=== PATIENT | female | born 1970 | race Two or more races ===

== ENCOUNTER 2020-03-21 10:48 | Emergency (ER) | payer OTHER, SELFPAY ==
--- NOTE | 2020-03-21 10:51 | ED_ITS ---
HPI - Abdominal Pain General Chief Complaint: General Medical Stated Complaint: R SIDE PAIN X'S 3 DAYS Time Seen by Provider: 03/21/20 10:51 Source: patient, EMS and old records reviewed Mode of arrival: EMS Limitations: no limitations History of Present Illness MD elicited complaint: other (R arm and R rib pain) Pertinent past history: none Onset (ago): day(s) (2) Pain Consistency: constant Location: other (R arm and R ribs) Severity: moderate Quality: aching and dull Radiation: none Exacerbating factors: movement (movement of R arm or twisting trunk ) Relieving factors: nothing Context: other (denies any known trauma or injury, states she is R handed) Associated symptoms: nausea and vomiting (vomited x 1 due to pain) Treatments prior to arrival: prescription analgesics (states her doctor has given her T#3 with good results) Related Data Previous Rx's Medication Instructions Recorded hydrochlorothiazide 25 mg tablet 25 mg PO DAILY 90 Days #90 tab 02/29/20 cyclobenzaprine 10 mg PO TID PRN #14 tab 03/21/20 lidocaine 1 patch TOPICAL DAILY PRN #10 ea 03/21/20 Allergies Allergy/AdvReac Type Severity Reaction Status Date / Time ibuprofen [IBUPROFEN] Allergy Intermediate RASH Unverified 02/03/20 16:53 lisinopril [LISINOPRIL] Allergy Intermediate RASH Unverified 02/03/20 16:53 lactulose [LACTULOSE] Allergy Mild STOMACH Unverified 02/03/20 16:53 ACHE lactose [LACTOSE] AdvReac Mild DIARRHEA Unverified 02/03/20 16:53 Ibuprofen Allergy Unknown rash Uncoded 01/17/20 00:00 lactose Allergy Unknown Uncoded 12/08/19 00:00 Review of Systems Review of Systems Constitutional : No Fever, No Chills ENT/Mouth : No Ear Pain, No Hoarseness, No sore throat Eyes: No Eye Pain, No Swelling, No Redness, No Foreign Body Cardiovascular : Pos R rib pain, No SOB Respiratory : No Cough, No Dyspnea Gastrointestinal : po Nausea, pos Vomiting, No Diarrhea, No abdominal Pain Genitourinary : No Dysuria, No Hematuria Musculoskeletal : positive joint pain, pos Myalgias, No Joint Swelling Skin : No Skin lacerations, No rash Neuro : No Weakness, No Numbness, No Loss of Consciousness, No Dizziness, No Headache Psych : No Anxiety/Panic, No Depression Heme/Lymph: no easy bruising, no Lymphadenopathy Endocrine : No Polyuria, No Polydipsia All other systems reviewed and are negative Physical Exam Vital Signs: Vital Signs: Vital Signs Temp Pulse Resp BP Pulse Ox 03/21/20 12:47 98.8 F 80 18 139/87 95 03/21/20 10:59 97.8 F 83 20 135/81 98 Body Mass Index 45.4 Appearance: Alert. Oriented X3. No acute distress. Eyes: Pupils equal, round and reactive to light. ENT: Pharynx normal. Neck: Normal inspection. Neck supple. CVS: Normal heart rate and rhythm. Pulses normal. Chest: normal inspection - no rash no bruising, + ttp along R lateral and ante rior ribs Respiratory: No respiratory distress. Breath sounds normal. Abdomen: Soft and nontender. Skin: Skin warm and dry. Normal skin color. Normal skin turgor. Extremities: No lower extremity edema. No calf ttp pain with ROM of R arm, distal NV intact Neuro: Oriented X 3. No motor deficit. No sensory deficit. Course Course Course Narrative: no acute findings stable for DC MDM - Abdominal Pain MDM Narrative Medical decision making narrative: 49 yo female with reproduceable R sided arm and Rib pain without known trauma, very ttp to just ROM and touching, NV intact, no rash noted, no other acute findings on exam, labs, EKG, Rib xray ordered, seems atypical for ACS given markedly reproduceable MSK pain. Lab Data Result diagrams: 03/21/20 11:14 03/21/20 11:14 Labs: Lab Results 03/21/20 03/21/20 03/21/20 Range/Units 11:14 11:14 12:50 WBC 4.2 L (4.8-10.8) X10*3/uL RBC 3.69 L (4.20-5.50) X10*6/uL Hgb 12.4 (12.0-16.0) g/dl Hct 36.2 L (37-47) % MCV 98.1 H (80-98) fL MCH 33.6 H (27.0-33.0) pg MCHC 34.3 (31.0-35.0) g/dl RDW 12.5 (11.0-16.0) % Plt Count 180 (160-400) X10*3/uL MPV 9.7 (9.4-12.3) fL Immature Gran % (Auto) 0.5 H (0.0-0.4) % Neut % (Auto) 56.5 (45-73) % Lymph % (Auto) 34.3 (20-40) % [place] % (Auto) 6.6 (2-11) % Eos % (Auto) 1.4 (0-4) % Baso % (Auto) 0.7 (0-2) % Lymph # (Auto) 1.5 (1.2-4.9) X10*3/uL [place] # (Auto) 0.3 (0.1-1.2) X10*3/uL Eos # (Auto) 0.1 (0.0-0.4) X10*3/uL Baso # (Auto) 0.0 (0.0-0.2) X10*3/uL Abs Immat Gran (auto) 0.02 (0.00-0.03) X10*3/uL Absolute Neuts (auto) 2.4 (2.0-8.3) X10*3/uL Absolute Nucleated RBC 0.000 (0.0-0.012) X10*3/uL Nucleated RBC % (auto) 0.0 (0.0-0.2) /100WBC Sodium 140 (135-145) mmol/L Potassium 3.7 (3.3-5.1) mmol/l Chloride 102 (96-108) mmol/L Carbon Dioxide 30 H (22-29) mmol/L Anion Gap 12 (12-20) BUN 10 (9-16) mg/dL Creatinine 0.88 (0.5-1.4) mg/dL Estim Creat Clear Calc 80.6 Estimated GFR > 60 Random Glucose 90 (60-115) mg/dL Calcium 10.3 H (8.4-10.2) mg/dL Magnesium 2.0 (1.6-2.6) mg/dL Total Bilirubin 0.6 (0.0-1.0) mg/dL Direct Bilirubin < 0.2 (0.0-0.5) mg/dL AST 18 (5-31) U/L ALT 22 (0-31) U/L Alkaline Phosphatase 93 (39-117) U/L Total Protein 6.7 (6.5-8.0) g/dL Albumin 4.2 (3.5-5.0) g/dL Lipase 14 (8-78) U/L Urine Color YELLOW Urine Appearance HAZY Urine pH 7.0 (5.0-8.0) Ur Specific [place] 1.020 (1.005-1.025) Urine Protein NEG (NEG-TRACE) MG/DL Urine Glucose (UA) NEG (NEG) MG/DL Urine Ketones NEG (NEG) MG/DL Urine Blood NEG (NEG) Urine Nitrite NEG (NEG) Ur Leukocyte Esterase NEG (NEG) ECG Data Attestation: I personally reviewed and interpreted this ECG as follows: ECG interpretation date: 03/21/20 ECG interpretation time: 11:17 Interpretation: Rate: 77 Rhythm: NSR [place]: left Normal P waves. Normal TESHA. Normal QRS complex. ST T wave : nonspecific qTC: normal prior studies: no ischemia no change September 2019 The study has been interpreted contemporaneously by me. . Discharge Plan Discharge Clinical Impression: Rib pain on right side, Muscle strain Patient Disposition: Home, Self-Care Instructions: Muscle Strain (ED) Additional Instructions: return to ED for any worsening symptoms or concerns Prescriptions: New cyclobenzaprine 10 mg tablet 10 mg PO TID PRN (Reason: muscle spasm) Qty: 14 RF: 0 lidocaine 4 % adhesive patch,medicated 1 patch topical DAILY PRN (Reason: pain) Qty: 10 RF: 0 No Action hydrochlorothiazide 25 mg tablet 25 mg PO DAILY 90 Days Qty: 90 RF: 1 Referrals: Marcus Herman PA-C [Primary Care Provider] - 2 days (if not better) [facility] Past Medical History Attestation statement: The following information was validated with the patient. Medical History (Updated 03/21/20 @ 13:25 by Kelly Murray DO) Chronic abdominal pain Hernia IBS (irritable bowel syndrome) Pancreatitis Renal colic Surgical History (Updated 03/21/20 @ 10:53 by Kelly Murray DO) H/O: hysterectomy History of cholecystectomy Social History Social History (Updated 03/21/20 @ 10:53 by Kelly Murray DO) Alcohol intake: never Smoking Status: Never smoker Use of substances other than those prescribed or required for medical reasons: No Advance Directives: No Advance Directives Information Provided: No
--- NOTE | 2020-03-21 10:58 | ECG_ITS ---
Test Reason : RIGHT SIDED PAIN Blood Pressure : / mmHG Vent. Rate : 077 BPM Atrial Rate : 077 BPM P-R Int : 160 ms QRS Dur : 094 ms QT Int : 376 ms P-R-T Axes : 044 001 -15 degrees QTc Int : 425 ms Normal sinus rhythm Nonspecific T wave abnormality Abnormal ECG When compared with ECG of 31-DEC-2019 20:39, Nonspecific T wave abnormality is new Referred By: Kelly Murray Electronically Signed By:ROSY KUMARI MD
--- NOTE | 2020-03-21 10:58 | XR_ITS ---
EXAMINATION: XR RIBS, RIGHT CLINICAL INFORMATION: Pain right side. COMPARISON: Chest 11/24/2019 TECHNIQUE: 3 views of the right ribs were obtained. FINDINGS: The lungs are well-expanded and clear of acute process. The heart size and pulmonary vascularity is normal. There is mild spondylosis dorsal spine. No lytic process seen. XR/XR ribs RT min 3V w CXR1V IMPRESSION: Unremarkable chest exam.
[2020-03-21 10:59] VITALS: BP 125/83; BP 135/81; PULSE 83; PULSE 97; RESP 20; TEMP 36.6; O2SAT 98; BMI 45.4
[2020-03-21] MEDS: Cyclobenzaprine HCl 10 MG TABLET PO (11:10)
[2020-03-21] MEDS: HYDROcodone Bit/Acetam 5/325 TABLET 1 TAB PO (11:11)
[2020-03-21 11:22] LABS: MANUAL DIFF FLAG NO
[2020-03-21 11:27] LABS: Basophils Percent Auto 0.7 % (0-2); Eosinophils Absolute Auto 0.1 X10*3/uL (0.0-0.4); Eosinophils Percent Auto 1.4 % (0-4); Hematocrit 36.2 % (37-47); Hemoglobin 12.4 g/dl (12.0-16.0); Imm Gran Abs Auto 0.02 X10*3/uL (0.00-0.03); Imm Gran Pct Auto 0.5 % (0.0-0.4); Lymphocytes Absolute Auto 1.5 X10*3/uL (1.2-4.9); Lymphocytes Percent Auto 34.3 % (20-40); Mean Corpuscular HGB Conc 34.3 g/dl (31.0-35.0); Mean Corpuscular Hemoglobin 33.6 pg (27.0-33.0); Mean Corpuscular Volume 98.1 fL (80-98); Mean Platelet Volume 9.7 fL (9.4-12.3); Monocytes Absolute Auto 0.3 X10*3/uL (0.1-1.2); Monocytes Percent Auto 6.6 % (2-11); Neutrophils Absolute Auto 2.4 X10*3/uL (2.0-8.3); Neutrophils Percent Auto 56.5 % (45-73); Platelet Count 180 X10*3/uL (160-400); Red Blood Count 3.69 X10*6/uL (4.20-5.50); Red Cell Distribution Width 12.5 % (11.0-16.0); White Blood Count 4.2 X10*3/uL (4.8-10.8)
[2020-03-21 11:47] LABS: Alanine Aminotransferase 22 U/L (0-31); Albumin Level 4.2 g/dL (3.5-5.0); Alkaline Phosphatase 93 U/L (39-117); Aspartate Amino Transferase 18 U/L (5-31); Bilirubin Direct < 0.2 mg/dL (0.0-0.5); Bilirubin Total 0.6 mg/dL (0.0-1.0); Lipase 14 U/L (8-78); Total Protein 6.7 g/dL (6.5-8.0)
[2020-03-21 12:05] LABS: Anion Gap 12 (12-20); Blood Urea Nitrogen 10 mg/dL (9-16); Calcium 10.3 mg/dL (8.4-10.2); Carbon Dioxide 30 mmol/L (22-29); Chloride 102 mmol/L (96-108); Creatinine Clr Calc Pharmacy 80.6; Estimated Glomerular Filt Rate > 60; Glucose Random 90 mg/dL (60-115); Potassium 3.7 mmol/l (3.3-5.1); Sodium 140 mmol/L (135-145)
[2020-03-21 12:47] VITALS: BP 139/87; PULSE 80; RESP 18; TEMP 37.1; O2SAT 95
[2020-03-21 13:14] LABS: Appearance Urine HAZY; Color Urine YELLOW; Glucose Urine UA NEG (NEG); Leukocyte Esterase Urine NEG (NEG); Nitrite Urine NEG (NEG); UACC Culture Trigger NO; Urine Blood NEG (NEG); Urine Ketones NEG (NEG); Urine Protein NEG (NEG-TRACE)
== END 2020-03-21 13:47 | disposition home or self-care (01) ==
PROVIDERS: Emergency Provider Emergency Medicine; PCP Physician Assistant
DX: S29.011A Strain of muscle and tendon of front wall of thorax, initial encounter (principal); S21.102A Unspecified open wound of left front wall of thorax without penetration into thoracic cavity, initial encounter; S21.101A Unspecified open wound of right front wall of thorax without penetration into thoracic cavity, initial encounter; R07.81 Pleurodynia; M79.601 Pain in right arm; Z79.899 Other long term (current) drug therapy; X50.1XXA Overexertion from prolonged static or awkward postures, initial encounter; Y93.9 Activity, unspecified; Y92.9 Unspecified place or not applicable; Y99.9 Unspecified external cause status
CPT/HCPCS: 36415; 71101; 80048; 80076; 81003; 83690; 83735; 85025; 93005; 99283; 99284

== ENCOUNTER 2020-04-10 14:21 | Emergency (ER) | payer OTHER, SELFPAY ==
[2020-04-10 14:36] VITALS: BP 167/80; PULSE 90; RESP 18; TEMP 36.4; O2SAT 98; BMI 45.7
[2020-04-10 15:49] LABS: Glucose Urine UA NEG (NEG); Leukocyte Esterase Urine NEG (NEG); Nitrite Urine NEG (NEG); Urine Blood NEG (NEG); Urine Ketones NEG (NEG); Urine Protein NEG (NEG-TRACE)
[2020-04-10 15:50] LABS: Appearance Urine CLOUDY; Color Urine YELLOW
--- NOTE | 2020-04-10 16:10 | ED.GENADULT ---
HPI - General Adult General Chief complaint: General Medical <TYRELL Posey Last Filed: 04/10/20 21:50> Stated complaint: ABD PAIN <TYRELL Posey Last Filed: 04/10/20 21:50> Time Seen by Provider: 04/10/20 16:10 <TYRELL Posey Last Filed: 04/10/20 21:50> History of Present Illness HPI narrative: Patient complains of right-sided abdominal pain that is worse with movement which has been present for 2 days, it is worse with certain positions but is there continuously and started when she was straining at stool, there is no swelling no nausea no vomiting no diarrhea no fever no chills, no anorexia, no urinary symptoms <TYRELL Posey Last Filed: 04/10/20 21:50> Related Data Home medications: Previous Rx's Medication Instructions Recorded hydrochlorothiazide 25 mg tablet 25 mg PO DAILY 90 Days #90 tab 02/29/20 cyclobenzaprine 10 mg PO TID PRN #14 tab 03/21/20 lidocaine 1 patch TOPICAL DAILY PRN #10 ea 03/21/20 hydrocodone-acetaminophen 1 tab PO Q6H PRN #10 tab 04/10/20 amlodipine 5 mg tablet 5 mg PO DAILY 30 Days #30 tab 04/17/20 meclizine 25 mg tablet 25 mg PO DAILY PRN 30 Days #30 tab 04/17/20 <TYRELL Posey Last Filed: 04/10/20 21:50> Allergies/adverse reactions: Allergies Allergy/AdvReac Type Severity Reaction Status Date / Time ibuprofen [IBUPROFEN] Allergy Intermediate RASH Verified 04/10/20 14:39 lisinopril [LISINOPRIL] Allergy Intermediate RASH Verified 04/10/20 14:39 lactulose [LACTULOSE] Allergy Mild STOMACH Verified 04/10/20 14:39 ACHE <TYRELL Posey Last Filed: 04/10/20 21:50> Review of Systems Review of Systems: Patient id denies fever chills dizziness weakness, there is no difficulty breathing or swallowing there is no chest pain no shortness of breath no palpitations, there is no nausea or vomiting no diarrhea, there is no burning with urination or frequency of urination, there is no skin rash, there is no numbness or weakness, no blood in the stool <TYRELL Posey Last Filed: 04/10/20 21:50> Yes all other systems are reviewed and are negative <TYRELL Posey - Last Filed: 04/10/20 21:50> [facility] Past Medical History [facility] Narrative: Patient has history of gallbladder surgery, no drugs or alcohol <TYRELL Posey - Last Filed: 04/10/20 21:50> Source: nursing notes reviewed <TYRELL Posey - Last Filed: 04/10/20 21:50> Medical History: Medical History (Updated 04/17/20 @ 16:53 by Marcus Herman PA-C) Chronic abdominal pain Hernia IBS (irritable bowel syndrome) Pancreatitis Renal colic <TYRELL Posey - Last Filed: 04/10/20 21:50> Surgical History: Surgical History (Updated 03/21/20 @ 10:53 by Kelly Murray DO) H/O: hysterectomy History of cholecystectomy <TYRELL Posey - Last Filed: 04/10/20 21:50> Social History Social History: Social History (Updated 03/21/20 @ 10:53 by Kelly Murray DO) Alcohol intake: never Smoking Status: Never smoker Use of substances other than those prescribed or required for medical reasons: No Advance Directives: No Advance Directives Information Provided: Yes <TYRELL Posey - Last Filed: 04/10/20 21:50> Physical Exam Vital Signs: Vital Signs: Last Vital Signs Temp 98.7 F 04/10/20 18:00 Pulse 87 04/10/20 18:00 Resp 16 04/10/20 18:00 BP 134/76 04/10/20 18:00 Pulse Ox 99 04/10/20 18:00 Body Mass Index 45.7 <TYRELL Posey - Last Filed: 04/10/20 21:50> Vital Signs: Last Vital Signs Temp 98.7 F 04/10/20 18:00 Pulse 87 04/10/20 18:00 Resp 16 04/10/20 18:00 BP 134/76 04/10/20 18:00 Pulse Ox 99 04/10/20 18:00 Body Mass Index 45.7 <Alec Lopez MD - Last Filed: 04/19/20 07:01> Patient is A&O x3, no acute distress, cooperative anicteric no pallor The pharynx is moist, clear Neck is supple The chest is clear to auscultation bilaterally, chest wall nontender Breath sounds are full symmetrical and equal The heart no murmurs The abdomen has right upper quadrant tenderness without rebound or guarding the back has no CVA tenderness Extremities there is no edema, no calf tenderness Skin no rash Neuro no focal deficit <TYRELL Posey - Last Filed: 04/10/20 21:50> Course Course Course Narrative: Patient had lab sent without any acute finding, urinalysis was normal and patient has no urinary symptoms CT was negative Repeat exam is unchanged pain is mostly with movement so likely pain is from muscles and abdominal wall from straining at stool, repeat abdominal exam was no rebound no guarding, patient tolerates p.o. and was discharged home <TYRELL Posey - Last Filed: 04/10/20 21:50> I have reviewed the chart <Alec Lopez MD - Last Filed: 04/19/20 07:01> Medical Decision Making Lab Data Lab results reviewed: Yes I reviewed the patient's lab results. <TYRELL Posey - Last Filed: 04/10/20 21:50> Result diagrams: : 04/10/20 16:31 04/10/20 16:31 <TYRELL Posey - Last Filed: 04/10/20 21:50> Labs: Lab Results 04/10/20 04/10/20 04/10/20 Range/Units 15:41 16:31 16:31 WBC 4.4 L (4.8-10.8) X10*3/uL RBC 3.26 L (4.20-5.50) X10*6/uL Hgb 11.1 L (12.0-16.0) g/dl Hct 32.1 L (37-47) % MCV 98.5 H (80-98) fL MCH 34.0 H (27.0-33.0) pg MCHC 34.6 (31.0-35.0) g/dl RDW 11.9 (11.0-16.0) % Plt Count 162 (160-400) X10*3/uL MPV 9.5 (9.4-12.3) fL Immature Gran % (Auto) 0.2 (0.0-0.4) % Neut % (Auto) 54.1 (45-73) % Lymph % (Auto) 36.3 (20-40) % [place] % (Auto) 7.3 (2-11) % Eos % (Auto) 1.4 (0-4) % Baso % (Auto) 0.7 (0-2) % Lymph # (Auto) 1.6 (1.2-4.9) X10*3/uL [place] # (Auto) 0.3 (0.1-1.2) X10*3/uL Eos # (Auto) 0.1 (0.0-0.4) X10*3/uL Baso # (Auto) 0.0 (0.0-0.2) X10*3/uL Abs Immat Gran (auto) 0.01 (0.00-0.03) X10*3/uL Absolute Neuts (auto) 2.4 (2.0-8.3) X10*3/uL Absolute Nucleated RBC 0.000 (0.0-0.012) X10*3/uL Nucleated RBC % (auto) 0.0 (0.0-0.2) /100WBC Sodium 139 (135-145) mmol/L Potassium 3.7 (3.3-5.1) mmol/l Chloride 102 (96-108) mmol/L Carbon Dioxide 26 (22-29) mmol/L Anion Gap 15 (12-20) BUN 12 (9-16) mg/dL Creatinine 0.91 (0.5-1.4) mg/dL Estim Creat Clear Calc 81.4 Estimated GFR > 60 Random Glucose 86 (60-115) mg/dL Calcium 6.9 L D (8.4-10.2) mg/dL Total Bilirubin 0.4 (0.0-1.0) mg/dL Direct Bilirubin 0.2 (0.0-0.5) mg/dL AST 15 (5-31) U/L ALT 41 H (0-31) U/L Alkaline Phosphatase 102 (39-117) U/L Total Protein 6.6 (6.5-8.0) g/dL Albumin 4.1 (3.5-5.0) g/dL Lipase 21 (8-78) U/L Urine Color YELLOW Urine Appearance CLOUDY Urine pH 6.0 (5.0-8.0) Ur Specific [place] 1.020 (1.005-1.025) Urine Protein NEG (NEG-TRACE) MG/DL Urine Glucose (UA) NEG (NEG) MG/DL Urine Ketones NEG (NEG) MG/DL Urine Blood NEG (NEG) Urine Nitrite NEG (NEG) Ur Leukocyte Esterase NEG (NEG) <TYRELL Posey - Last Filed: 04/10/20 21:50> Lab Results 04/10/20 04/10/20 04/10/20 Range/Units 15:41 16:31 16:31 WBC 4.4 L (4.8-10.8) X10*3/uL RBC 3.26 L (4.20-5.50) X10*6/uL Hgb 11.1 L (12.0-16.0) g/dl Hct 32.1 L (37-47) % MCV 98.5 H (80-98) fL MCH 34.0 H (27.0-33.0) pg MCHC 34.6 (31.0-35.0) g/dl RDW 11.9 (11.0-16.0) % Plt Count 162 (160-400) X10*3/uL MPV 9.5 (9.4-12.3) fL Immature Gran % (Auto) 0.2 (0.0-0.4) % Neut % (Auto) 54.1 (45-73) % Lymph % (Auto) 36.3 (20-40) % [place] % (Auto) 7.3 (2-11) % Eos % (Auto) 1.4 (0-4) % Baso % (Auto) 0.7 (0-2) % Lymph # (Auto) 1.6 (1.2-4.9) X10*3/uL [place] # (Auto) 0.3 (0.1-1.2) X10*3/uL Eos # (Auto) 0.1 (0.0-0.4) X10*3/uL Baso # (Auto) 0.0 (0.0-0.2) X10*3/uL Abs Immat Gran (auto) 0.01 (0.00-0.03) X10*3/uL Absolute Neuts (auto) 2.4 (2.0-8.3) X10*3/uL Absolute Nucleated RBC 0.000 (0.0-0.012) X10*3/uL Nucleated RBC % (auto) 0.0 (0.0-0.2) /100WBC Sodium 139 (135-145) mmol/L Potassium 3.7 (3.3-5.1) mmol/l Chloride 102 (96-108) mmol/L Carbon Dioxide 26 (22-29) mmol/L Anion Gap 15 (12-20) BUN 12 (9-16) mg/dL Creatinine 0.91 (0.5-1.4) mg/dL Estim Creat Clear Calc 81.4 Estimated GFR > 60 Random Glucose 86 (60-115) mg/dL Calcium 6.9 L D (8.4-10.2) mg/dL Total Bilirubin 0.4 (0.0-1.0) mg/dL Direct Bilirubin 0.2 (0.0-0.5) mg/dL AST 15 (5-31) U/L ALT 41 H (0-31) U/L Alkaline Phosphatase 102 (39-117) U/L Total Protein 6.6 (6.5-8.0) g/dL Albumin 4.1 (3.5-5.0) g/dL Lipase 21 (8-78) U/L Urine Color YELLOW Urine Appearance CLOUDY Urine pH 6.0 (5.0-8.0) Ur Specific [place] 1.020 (1.005-1.025) Urine Protein NEG (NEG-TRACE) MG/DL Urine Glucose (UA) NEG (NEG) MG/DL Urine Ketones NEG (NEG) MG/DL Urine Blood NEG (NEG) Urine Nitrite NEG (NEG) Ur Leukocyte Esterase NEG (NEG) <Alec Lopez MD - Last Filed: 04/19/20 07:01> Imaging Data CT scan - abdomen: Radiologist's impression: Amalia Fish 49 F 1970 [address] [address] [address] Scan Report Signed Patient: Amalia FishMR#: [id number] : 1970Acct:[id number] Age/Sex: 49 / FADM Date: 04/10/20 Loc: HO.ED Attending Dr: Ordering Physician: JOEZF GUERRA Date of Service: 04/10/20 Procedure(s): CT abdomen pelvis wo con Accession Number(s): [id number] cc: JOZEF GUERRA~ EXAMINATION: CT ABDOMEN AND PELVIS WITHOUT CONTRAST CLINICAL INFORMATION: Pain right upper quadrant and right flank. COMPARISON: CT abdomen and pelvis noncontrast 01/27/2020, CT abdomen and pelvis with contrast 09/24/2019. CT abdomen and pelvis with oral contrast and no intravenous contrast 03/12/2018. TECHNIQUE: Multidetector volumetric imaging was performed from the superior aspect of the liver through the pubic symphysis. Sagittal and coronal reformatted images were obtained on the technologist's workstation. No oral or intravenous contrast. This CT examination was performed using dose optimization techniques as appropriate, variously including the following: *Automated exposure control *Adjustment of mA and/or kV according to patient size (this includes techniques or standardized protocols for targeted exams where dose is matched to indication/reason for exam; i.e. extremities or head) *Use of iterative reconstruction technique DLP: 1043 mGy-cm FINDINGS: LUNG BASES: The visualized lung bases are unremarkable. LIVER, GALLBLADDER, AND BILIARY TREE: Liver is mildly enlarged again measuring 21.4 cm in length with smooth surface and mild decreased attenuation consistent with hepatic steatosis. Liver surface is smooth. There is no parenchymal lesion or intrahepatic biliary ductal dilatation. Prior cholecystectomy. Common duct unremarkable. PANCREAS: Unremarkable. SPLEEN: Mild splenomegaly, 14.6 cm sagittal dimension similar to 09/24/2019. ADRENAL GLANDS: Unremarkable. KIDNEYS AND URETERS: The kidneys are normal in size and contour and attenuation. There is no hydronephrosis, hydroureter, ureteral calculi, or perinephric stranding. There are again small nonobstructing bilateral intrarenal calculi. BLADDER: Unremarkable. GASTROINTESTINAL TRACT: Small sliding hiatal hernia again noted. No bowel obstruction or inflammatory changes in the bowel or adjacent mesentery. Normal appendix. No ascites or fluid collection. No pneumatosis or free air. ABDOMINAL WALL: Chronic scarring anterior abdominal wall similar to prior studies. There is subcutaneous edema posterior midline at level of mid lumbar spine more prominent when compared with prior studies, likely related to suboptimal lymphatic drainage, commonly seen with elevated BMI. LYMPH NODES: No lymphadenopathy. VASCULAR: Unremarkable. PELVIC VISCERA: Prior hysterectomy. There is chronic stable mass adjacent to superior lateral urinary bladder measuring approximately 3 cm. OSSEOUS STRUCTURES: No acute bony abnormality. CT/CT abdomen pelvis wo con IMPRESSION: 1. Prior cholecystectomy. No biliary ductal dilatation. 2. Bilateral punctate nonobstructing renal calculi. No hydronephrosis, hydroureter, or perinephric stranding. 3. No bowel obstruction or inflammatory changes. Normal appendix. 4. Posterior superficial subcutaneous lumbar edema, more prominent when compared with prior studies, but of doubtful significance. Finding commonly associated with suboptimal lymphatic drainage with elevated BMI. No lymphadenopathy. <TYRELL Posey Last Filed: 04/10/20 21:50> Discharge Plan Discharge Clinical Impression: Abdominal muscle strain <TYRELL Posey Last Filed: 04/10/20 21:50> Patient Disposition: Home, Self-Care <TYRELL Posey Last Filed: 04/10/20 21:50> Additional Instructions: Your pain today is most likely from a strain of the muscle wall in the abdomen and right side CT scan labs and urine test did not reveal any serious findings and her exam was very consistent with a muscle strain Return any time for worsening pain, any worse condition any concerns Follow with primary doctor <TYRELL Posey Last Filed: 04/10/20 21:50> Prescriptions: New hydrocodone-acetaminophen 5-325 mg tablet 1 tab PO Q6H PRN (Reason: pain) Qty: 10 RF: 0 No Action hydrochlorothiazide 25 mg tablet 25 mg PO DAILY 90 Days Qty: 90 RF: 1 meclizine 25 mg tablet 25 mg PO DAILY PRN (Reason: dizziness) 30 Days Qty: 30 RF: 2 amlodipine 5 mg tablet 5 mg PO DAILY 30 Days Qty: 30 RF: 3 cyclobenzaprine 10 mg tablet 10 mg PO TID PRN (Reason: muscle spasm) Qty: 14 RF: 0 lidocaine 4 % adhesive patch,medicated 1 patch topical DAILY PRN (Reason: pain) Qty: 10 RF: 0 <TYRELL Posey Last Filed: 04/10/20 21:50> Interventions: ED Discharge Assessment Last Done: 04/10/20 18:23 <TYRELL Posey Last Filed: 04/10/20 21:50> Discharge Date/Time: 04/10/20 18:24 <TYRELL Posey - Last Filed: 04/10/20 21:50>
--- NOTE | 2020-04-10 16:15 | CT_ITS ---
EXAMINATION: CT ABDOMEN AND PELVIS WITHOUT CONTRAST CLINICAL INFORMATION: Pain right upper quadrant and right flank. COMPARISON: CT abdomen and pelvis noncontrast 01/27/2020, CT abdomen and pelvis with contrast 09/24/2019. CT abdomen and pelvis with oral contrast and no intravenous contrast 03/12/2018. TECHNIQUE: Multidetector volumetric imaging was performed from the superior aspect of the liver through the pubic symphysis. Sagittal and coronal reformatted images were obtained on the technologist's workstation. No oral or intravenous contrast. This CT examination was performed using dose optimization techniques as appropriate, variously including the following: *Automated exposure control *Adjustment of mA and/or kV according to patient size (this includes techniques or standardized protocols for targeted exams where dose is matched to indication/reason for exam; i.e. extremities or head) *Use of iterative reconstruction technique DLP: 1043 mGy-cm FINDINGS: LUNG BASES: The visualized lung bases are unremarkable. LIVER, GALLBLADDER, AND BILIARY TREE: Liver is mildly enlarged again measuring 21.4 cm in length with smooth surface and mild decreased attenuation consistent with hepatic steatosis. Liver surface is smooth. There is no parenchymal lesion or intrahepatic biliary ductal dilatation. Prior cholecystectomy. Common duct unremarkable. PANCREAS: Unremarkable. SPLEEN: Mild splenomegaly, 14.6 cm sagittal dimension similar to 09/24/2019. ADRENAL GLANDS: Unremarkable. KIDNEYS AND URETERS: The kidneys are normal in size and contour and attenuation. There is no hydronephrosis, hydroureter, ureteral calculi, or perinephric stranding. There are again small nonobstructing bilateral intrarenal calculi. BLADDER: Unremarkable. GASTROINTESTINAL TRACT: Small sliding hiatal hernia again noted. No bowel obstruction or inflammatory changes in the bowel or adjacent mesentery. Normal appendix. No ascites or fluid collection. No pneumatosis or free air. ABDOMINAL WALL: Chronic scarring anterior abdominal wall similar to prior studies. There is subcutaneous edema posterior midline at level of mid lumbar spine more prominent when compared with prior studies, likely related to suboptimal lymphatic drainage, commonly seen with elevated BMI. LYMPH NODES: No lymphadenopathy. VASCULAR: Unremarkable. PELVIC VISCERA: Prior hysterectomy. There is chronic stable mass adjacent to superior lateral urinary bladder measuring approximately 3 cm. OSSEOUS STRUCTURES: No acute bony abnormality. CT/CT abdomen pelvis wo con IMPRESSION: 1. Prior cholecystectomy. No biliary ductal dilatation. 2. Bilateral punctate nonobstructing renal calculi. No hydronephrosis, hydroureter, or perinephric stranding. 3. No bowel obstruction or inflammatory changes. Normal appendix. 4. Posterior superficial subcutaneous lumbar edema, more prominent when compared with prior studies, but of doubtful significance. Finding commonly associated with suboptimal lymphatic drainage with elevated BMI. No lymphadenopathy.
[2020-04-10 16:34] VITALS: BP 120/90; PULSE 90; RESP 16; O2SAT 100
[2020-04-10 16:36] LABS: MANUAL DIFF FLAG NO
[2020-04-10] MEDS: Acetaminophen 325 MG TABLET 650 MG PO (16:41)
[2020-04-10 16:42] LABS: Basophils Percent Auto 0.7 % (0-2); Eosinophils Absolute Auto 0.1 X10*3/uL (0.0-0.4); Eosinophils Percent Auto 1.4 % (0-4); Hematocrit 32.1 % (37-47); Hemoglobin 11.1 g/dl (12.0-16.0); Imm Gran Abs Auto 0.01 X10*3/uL (0.00-0.03); Imm Gran Pct Auto 0.2 % (0.0-0.4); Lymphocytes Absolute Auto 1.6 X10*3/uL (1.2-4.9); Lymphocytes Percent Auto 36.3 % (20-40); Mean Corpuscular HGB Conc 34.6 g/dl (31.0-35.0); Mean Corpuscular Volume 98.5 fL (80-98); Mean Platelet Volume 9.5 fL (9.4-12.3); Monocytes Absolute Auto 0.3 X10*3/uL (0.1-1.2); Monocytes Percent Auto 7.3 % (2-11); Neutrophils Absolute Auto 2.4 X10*3/uL (2.0-8.3); Neutrophils Percent Auto 54.1 % (45-73); Platelet Count 162 X10*3/uL (160-400); Red Blood Count 3.26 X10*6/uL (4.20-5.50); Red Cell Distribution Width 11.9 % (11.0-16.0); White Blood Count 4.4 X10*3/uL (4.8-10.8)
[2020-04-10 17:35] LABS: Alanine Aminotransferase 41 U/L (0-31); Albumin Level 4.1 g/dL (3.5-5.0); Alkaline Phosphatase 102 U/L (39-117); Anion Gap 15 (12-20); Aspartate Amino Transferase 15 U/L (5-31); Bilirubin Direct 0.2 mg/dL (0.0-0.5); Bilirubin Total 0.4 mg/dL (0.0-1.0); Blood Urea Nitrogen 12 mg/dL (9-16); Calcium 6.9 mg/dL (8.4-10.2); Carbon Dioxide 26 mmol/L (22-29); Chloride 102 mmol/L (96-108); Creatinine Clr Calc Pharmacy 81.4; Estimated Glomerular Filt Rate > 60; Glucose Random 86 mg/dL (60-115); Lipase 21 U/L (8-78); Potassium 3.7 mmol/l (3.3-5.1); Sodium 139 mmol/L (135-145); Total Protein 6.6 g/dL (6.5-8.0)
[2020-04-10 18:00] VITALS: BP 134/76; PULSE 87; RESP 16; TEMP 37.1; O2SAT 99
== END 2020-04-10 18:24 | disposition home or self-care (01) ==
PROVIDERS: Physician Assistant Medical; Emergency Provider Emergency Medicine; PCP Physician Assistant
DX: S39.011A Strain of muscle, fascia and tendon of abdomen, initial encounter (principal); X58.XXXA Exposure to other specified factors, initial encounter; Y93.9 Activity, unspecified; Y92.9 Unspecified place or not applicable; Y99.9 Unspecified external cause status; Z79.899 Other long term (current) drug therapy
CPT/HCPCS: 36415; 74176; 80048; 80076; 81003; 83690; 85025; 99284

== ENCOUNTER → 2020-05-03 08:12 | Outpatient (BNVA) | payer OTHER, SELFPAY | PROVIDERS: Visit Provider Internal Medicine | DX: Z76.89 Persons encountering health services in other specified circumstances (principal) ==

== ENCOUNTER 2020-05-05 10:25 | Emergency (ER) | payer OTHER, SELFPAY ==
[2020-05-05 10:29] VITALS: BP 130/78; PULSE 85; RESP 16; TEMP 36.7; O2SAT 98; BMI 46.9
--- NOTE | 2020-05-05 11:57 | CT_ITS ---
EXAMINATION: CT ANGIOGRAM CHEST. CT ABDOMEN PELVIS WITH CONTRAST. CLINICAL INFORMATION: Pleuritic chest pain, shortness of breath, rule out PE. Abdominal distention. COMPARISON: CT abdomen and pelvis 04/10/2020 TECHNIQUE: 5 mm thin axial and reformatted 3 mm thin sagittal and coronal images of chest were obtained following rapid IV 100 mL Omnipaque 350. Subsequently 5 mm thin axial and reformatted 3 mm thin sagittal coronal images of abdomen and pelvis were obtained without contrast. DLP 985 FINDINGS: Chest: There is good opacification of pulmonary artery and its branches without intraluminal filling defect or narrowing. The aorta is normal caliber without aneurysm or dissection. The heart size is normal. No pericardial effusion seen. There are no mediastinal mass or lymph nodes. The lungs are well-expanded and clear of acute pneumonic process. There is focal linear density right upper lobe axial image 73/13 likely focal atelectasis. Similar subpleural 6 mm density seen right lower lobe axial image 29/9. Rest of the lungs are well-expanded and clear. There is no pleural effusion, thickening or calcification. There is a 1 cm lateral thoracic lymph node axial image 13/7. Small shotty lymph nodes are seen in bilateral axilla. The bony thorax appears intact ABDOMEN AND PELVIS: The liver is enlarged in size measuring 20 cm in length. No focal lesion or intrahepatic ductal dilatation seen. The gallbladder has been surgically removed. The spleen is mildly enlarged measuring 13.3 cm in AP length and 9.9 cm wide. No focal lesion seen. The pancreas is homogeneous in density without any focal lesion. Bilateral adrenal glands are symmetrical and normal. Both kidneys are normal size, shape and position. There is a 3 mm hypodense stone lower pole right kidney. There are nonenhancing cyst in upper pole 1.06 cm and lower pole 1.4 cm cortex left kidney. No caliectasis or hydronephrosis seen. The abdominal aorta is normal caliber. No abnormal retrograde lymph nodes seen. The abdominal wall appears unremarkable. There is scattered stool in calculi seen throughout the colon most prominent sigmoid colon. No mural thickening seen the small bowel loops are normal caliber. Appendix is normal. No inflammatory process seen. There is no free air or free fluid. The stomach is mildly distended with gas. Imaging through the pelvis reveals a midline lower abdominal scar. There is a large posterior abdominal scar. No evidence of hernia. Prior hysterectomy is noted. There is a soft tissue mass left lateral of urinary bladder measuring 2.4 x 2.7 cm, about the same size as before. There is no free fluid or free air. The urinary bladder is nondistended no abnormal inguinal or pelvic lymph nodes seen. There is no evidence of inguinal hernia. Bone windows reveal no lytic or sclerotic process. There is mild facet joint arthropathy L5-S1 disc level. No lytic or sclerotic process seen. CT/CT angio chest PE protocol IMPRESSION: No evidence of PE. No evidence of dissection or aneurysm. Focal atelectatic changes right upper lobe and right lower lobe. Mild hepatosplenomegaly without focal lesion. No bladder has been surgically removed. Nonobstructive right renal calculi. There is left renal cysts. Lower anterior and posterior wall scar or edema, stable to previous study 04/10/2020.
--- NOTE | 2020-05-05 12:12 | ED_ITS ---
HPI - Abdominal Pain General Chief Complaint: Abdominal Pain Stated Complaint: abd pain x2 weeks Time Seen by Provider: 05/05/20 11:42 Source: patient and EMS Mode of arrival: EMS Limitations: no limitations History of Present Illness HPI narrative: 49-year-old female who presents to the emergency department for evaluation of abdominal pain, chest pain, nausea, vomiting and diarrhea. Patient states that she has been having intermittent abdominal pain for 2 weeks but it has been worse for the past 4 days. She states that the pain is a diffuse, dull pain which is constant and moderate to severe in intensity. She is also complaining of bilateral rib and anterior chest pain. She states this pain started at 2:30 a.m.. The pain came on suddenly. The pain is worse with breathing. She says she does feel short of breath and has dyspnea on exertion. She has been feeling very weak. She states that she has also not been able to eat or drink secondary to nausea and vomiting. She has also had diarrhea with too numerous to count episodes. The patient states that she has difficulty with high calcium levels and had a parathyroid surgery at [facility] 1 month prior. She states the surgery lasted 2-3 hours The patient has a history of multiple abdominal surgeries including cholecystectomy, hysterectomy and multiple hernia repairs. She denies any pain or swelling in her lower extremities. Related Data Home Medications Medication Instructions Recorded Confirmed calcium citrate 315 mg 3 tab PO TID tab 05/03/20 05/03/20 calcium-vitamin D3 6.25 mcg (250 unit) tablet hydrochlorothiazide 25 mg tablet 25 mg PO DAILY 05/03/20 05/03/20 quetiapine 300 mg tablet 300 mg PO BEDTIME 05/03/20 05/03/20 Previous Rx's Medication Instructions Recorded amlodipine 5 mg tablet 5 mg PO DAILY 30 Days #30 tab 04/17/20 meclizine 25 mg tablet 25 mg PO DAILY PRN 30 Days #30 tab 04/17/20 azithromycin [Zithromax Z-Kenneth] 250 mg PO DAILY #6 tab 05/05/20 azithromycin [Zithromax Z-Kenneth] See Rx Instructions .ROUTE 05/05/20 .COMPLEX #6 tab promethazine 25 mg PO Q6H PRN #14 tab 05/05/20 Allergies Allergy/AdvReac Type Severity Reaction Status Date / Time ibuprofen [IBUPROFEN] Allergy Intermediate RASH Verified 04/19/20 12:15 lisinopril [LISINOPRIL] Allergy Intermediate RASH Verified 04/19/20 12:15 lactulose [LACTULOSE] Allergy Mild STOMACH Verified 04/10/20 14:39 ACHE Review of Systems Review of Systems Yes all other systems are reviewed and are negative Constitutional: Reports as per HPI Eyes: Reports as per HPI Reports as per HPI Cardiovascular: Reports as per HPI Respiratory: Reports as per HPI Gastrointestinal: Reports as per HPI Genitourinary: Reports as per HPI Musculoskeletal: Reports as per HPI Skin/Breast: Reports as per HPI Reports as per HPI and Reports Abnormal speech present Psychiatric: Reports as per HPI Allergic/Immunologic: Reports as per HPI Physical Exam Vital Signs: Vital Signs: Last Vital Signs Temp 98.8 F 05/05/20 15:30 Pulse 85 05/05/20 15:30 Resp 18 05/05/20 15:30 BP 131/78 05/05/20 15:30 Pulse Ox 98 05/05/20 15:30 Body Mass Index 46.9 Const: General: cooperative and anxious Nutritional Appearance: obese Orientation/consciousness: oriented to person and oriented to place Limitations: no limitations HENMT: Head: Yes normal to inspection, Yes normocephalic and Yes atraumatic Ears: external ears normal General nose exam: Normal external nose present Face and sinus: Yes normal facial exam Mouth: Normal oral and palatal mucosa present Throat: Yes posterior oropharynx normal Eyes: General: appearance normal, both eyes and all related structures Alignment and Position: alignment normal Periorbital: periorbital findings normal Eyelids: Yes eyelids normal Conjunctivae: conjunctivae normal Sclerae: sclerae normal Pupils: Equal, round and reactive pupils present Direct Ophthalmoscopy: normal light reflex Neck: Neck: Yes normal visual inspection and Yes supple Thyroid: Thyroid normal Chest: Chest palpation & inspection: normal inspection of the chest and tenderness (Anterior and bilateral chest wall tenderness) Resp: Effort & Inspection: normal respiratory effort and able to speak in complete sentences Auscultation: clear to auscultation bilaterally, no crackles, no rales and no rhonchi Cardio: Rate: regular rate Rhythm: regular rhythm Heart sounds: S1 normal heart sound present, S2 normal heart sound present and no murmurs GI: Inspection: Yes distended Palpation (GI): Soft to palpation, Tenderness to palpation present (GI) (Moderate diffuse tenderness) and no guarding Auscultation: normal bowel sounds : General: Yes no CVA tenderness Back/Spine/Pelvis: Back: no CVA tenderness Cervical Spine: normal cervical lordosis Thoracic/Lumbar Spine: thoracic and lumbar spine normal to inspection Skin: General skin exam: no rashes or lesions noted Lesions: no lesions Rashes: no rashes Trauma: no lacerations or abrasions Neuro: General: oriented to person and oriented to place Cranial nerves: Yes CN's II-XII intact bilaterally and Yes Equal, round and reactive pupils present Cognition (Neuro): normal cognition Speech: Abnormal speech present Motor exam (neuro): 5/5 motor strength present throughout Extrem: General: Yes normal to inspection and Yes full ROM Psych: Appearance: grossly normal and well kempt Mental Status: mental status grossly normal Speech and movement: Normal speech and movement present Affect: normal affect Attitude: cooperative Thought process: Normal thought process present Thought content: Normal thought content present Insight: Good insight present (Psych) Judgement: Good judgement present (Psych) Course Course Course Narrative: 49-year-old female who presents emergency department for evaluation of chest pain, abdominal pain, nausea, vomiting diarrhea and weakness. The patient had a parathyroid surgery 1 month prior at [facility] and states that since the surgery she has been hypocalcemic. The patient's physical examination did reveal chest wall tenderness, distended abdomen with diffuse abdominal tenderness. Concerned that the patient may have a pulmonary embolism as the cause for chest pain and concern that she may have a bowel obstruction as a cause for abdominal pain. I ordered laboratory evaluation as well as CT pulmonary embolism protocol and CT abdomen pelvis with IV contrast. The patient received fentanyl 1000 mg IV prior to arrival. The patient will be treated with Dilaudid 1 mg IV, Zofran 4 mg IV and normal saline x1 L. 1622: Patient's laboratory evaluation did reveal a low white blood count of 2300 with a low H&H of 11.5 and 33.5. Patient's bicarb was elevated at 30. Calcium is low at 7.3 but she has had similar values in the past. The patient's influenza test was negative. The patient's COVID-[address] scan of the chest revealed no pulmonary embolism but she does have right upper and right lower lobe atelectasis which I believe is consistent with an early COVID pneumonia. The patient's CT scan of the abdomen did not reveal any clear etiology for her abdominal pain. I did discuss these findings with the patient and with the patient's over the phone. Patient will be started on Zithromax Z-Kenneth and she was given her 1st dose here in the emergency department. She is given a prescription for Phenergan 25 mg 1 pill orally every 8 hours as needed for nausea and vomiting. She was advised to take ibuprofen and Tylenol for pain. She was given printed instructions on COVID-19 and discharged home. MDM - Abdominal Pain Lab Data Result diagrams: 05/05/20 12:14 05/05/20 12:14 Labs: Lab Results 05/05/20 05/05/20 05/05/20 Range/Units 12:11 12:14 12:14 WBC 2.3 L (4.8-10.8) X10*3/uL RBC 3.41 L (4.20-5.50) X10*6/uL Hgb 11.5 L (12.0-16.0) g/dl Hct 33.5 L (37-47) % MCV 98.2 H (80-98) fL MCH 33.7 H (27.0-33.0) pg MCHC 34.3 (31.0-35.0) g/dl RDW 12.6 (11.0-16.0) % Plt Count 160 (160-400) X10*3/uL MPV 9.6 (9.4-12.3) fL Immature Gran % (Auto) 0.4 (0.0-0.4) % Neut % (Auto) 48.1 (45-73) % Lymph % (Auto) 40.9 H (20-40) % [place] % (Auto) 9.3 (2-11) % Eos % (Auto) 0.9 (0-4) % Baso % (Auto) 0.4 (0-2) % Lymph # (Auto) 0.9 L (1.2-4.9) X10*3/uL [place] # (Auto) 0.2 (0.1-1.2) X10*3/uL Eos # (Auto) 0.0 (0.0-0.4) X10*3/uL Baso # (Auto) 0.0 (0.0-0.2) X10*3/uL Abs Immat Gran (auto) 0.01 (0.00-0.03) X10*3/uL Absolute Neuts (auto) 1.1 L (2.0-8.3) X10*3/uL Absolute Nucleated RBC 0.000 (0.0-0.012) X10*3/uL Nucleated RBC % (auto) 0.0 (0.0-0.2) /100WBC Smear Tech's Comments VERIFIED D-Dimer NG/ML Sodium (135-145) mmol/L Potassium (3.3-5.1) mmol/l Chloride (96-108) mmol/L Carbon Dioxide (22-29) mmol/L Anion Gap (12-20) BUN (9-16) mg/dL Creatinine (0.5-1.4) mg/dL Estim Creat Clear Calc Estimated GFR Random Glucose (60-115) mg/dL Calcium (8.4-10.2) mg/dL Total Bilirubin (0.0-1.0) mg/dL AST (5-31) U/L ALT (0-31) U/L Alkaline Phosphatase (39-117) U/L Total Protein (6.5-8.0) g/dL Albumin (3.5-5.0) g/dL Lipase 18 (8-78) U/L Coronavirus (PCR) POSITIVE A (Negative) Influenza Type A (PCR) NEGATIVE (Negative) Influenza Type B (PCR) NEGATIVE (Negative) RSV RNA Qual (PCR) NEGATIVE (Negative) 05/05/20 05/05/20 05/05/20 Range/Units 12:14 12:14 12:14 WBC (4.8-10.8) X10*3/uL RBC (4.20-5.50) X10*6/uL Hgb (12.0-16.0) g/dl Hct (37-47) % MCV (80-98) fL MCH (27.0-33.0) pg MCHC (31.0-35.0) g/dl RDW (11.0-16.0) % Plt Count (160-400) X10*3/uL MPV (9.4-12.3) fL Immature Gran % (Auto) (0.0-0.4) % Neut % (Auto) (45-73) % Lymph % (Auto) (20-40) % [place] % (Auto) (2-11) % Eos % (Auto) (0-4) % Baso % (Auto) (0-2) % Lymph # (Auto) (1.2-4.9) X10*3/uL [place] # (Auto) (0.1-1.2) X10*3/uL Eos # (Auto) (0.0-0.4) X10*3/uL Baso # (Auto) (0.0-0.2) X10*3/uL Abs Immat Gran (auto) (0.00-0.03) X10*3/uL Absolute Neuts (auto) (2.0-8.3) X10*3/uL Absolute Nucleated RBC (0.0-0.012) X10*3/uL Nucleated RBC % (auto) (0.0-0.2) /100WBC Smear Tech's Comments D-Dimer 283 NG/ML Sodium 141 (135-145) mmol/L Potassium 3.3 (3.3-5.1) mmol/l Chloride 100 (96-108) mmol/L Carbon Dioxide 30 H (22-29) mmol/L Anion Gap 14 (12-20) BUN 15 (9-16) mg/dL Creatinine 1.14 (0.5-1.4) mg/dL Estim Creat Clear Calc 66.0 Estimated GFR 50 Random Glucose 99 (60-115) mg/dL Calcium 7.2 L 7.3 L (8.4-10.2) mg/dL Total Bilirubin 0.4 (0.0-1.0) mg/dL AST 22 D (5-31) U/L ALT 23 (0-31) U/L Alkaline Phosphatase 99 (39-117) U/L Total Protein 6.8 (6.5-8.0) g/dL Albumin 4.2 (3.5-5.0) g/dL Lipase (8-78) U/L Coronavirus (PCR) (Negative) Influenza Type A (PCR) (Negative) Influenza Type B (PCR) (Negative) RSV RNA Qual (PCR) (Negative) Discharge Plan Discharge Clinical Impression: Pneumonia due to 2019 novel coronavirus Abdominal pain Qualifiers: Abdominal location: generalized Qualified Code(s): R10.84 - Generalized abdominal pain Chest pain Qualifiers: Chest pain type: chest pain on breathing Qualified Code(s): R07.1 - Chest pain on breathing Patient Disposition: Home, Self-Care Instructions: COVID-19 (Coronavirus Disease 2019) (ED) Additional Instructions: Your COVID-[address] test was [address] The [address] scan of your chest reveals an early right upper lobe and right lower lobe pneumonia. This is most likely caused by the COVID-19 virus but I am also starting on antibiotics (Zithromax Z-Kenneth) to treat you for possible bacterial pneumonia as well. Take Zithromax Z-Kenneth as prescribed, take your 1st dose tomorrow when you get the medication filled. Take Phenergan 25 mg pills, 1 pill every 8 hours as needed for nausea and vomiting. Stop taking Zofran (ondansetron) while taking the Phenergan and Zithromax Take Tylenol 500 mg pills, 2 pills every 4-6 hours as needed for pain or fever. Make sure you stay home and quarantine yourself for 14 days. Make sure the wear a mask at all times and that everybody around you wears a mask at all times. Please return to the emergency department if her symptoms get worse or if you develop any symptoms are concerning to you. Prescriptions: New azithromycin [Zithromax Z-Kenneth] 250 mg tablet See Rx Instructions .ROUTE .COMPLEX Qty: 6 RF: 0 azithromycin [Zithromax Z-Kenneth] 250 mg tablet 250 mg PO DAILY Qty: 6 RF: 0 promethazine 25 mg tablet 25 mg PO Q6H PRN (Reason: nausea and vomiting) Qty: 14 RF: 0 No Action meclizine 25 mg tablet 25 mg PO DAILY PRN (Reason: dizziness) 30 Days Qty: 30 RF: 2 amlodipine 5 mg tablet 5 mg PO DAILY 30 Days Qty: 30 RF: 3 calcium citrate-vitamin D3 315 mg-6.25 mcg (250 unit) tablet 3 tab PO TID RF: 0 hydrochlorothiazide 25 mg tablet 25 mg PO DAILY RF: 0 quetiapine [Seroquel] 300 mg tablet 300 mg PO BEDTIME RF: 0 PMFSH Past Medical History Attestation statement: The following information was validated with the patient. [facility] Narrative: The patient denies tobacco, alcohol or drug use. Medical History Chronic abdominal pain Hernia Hypoparathyroidism IBS (irritable bowel syndrome) Pancreatitis Renal colic Vitamin D deficiency Surgical History H/O left knee surgery H/O: hysterectomy History of cholecystectomy History of hernia repair History of parathyroid surgery Status post excision of lipoma Family History Family History Father Medical history unknown Mother Cancer Paternal Grandmother Diabetes Paternal Grandfather Diabetes Daughter Behavioral problem Family/Other FH: mental illness Social History Social History Alcohol intake: never Smoking Status: Never smoker
[2020-05-05] MEDS: 0.9 % Sodium Chloride 1,000 ML 999 ML IV (12:16)
[2020-05-05] MEDS: ondansetron HCL 4 MG/2 ML VIAL IVPUSH (12:16)
[2020-05-05] MEDS: HYDROmorphone HCl 1 MG/ML SYRINGE IVPUSH (12:16)
[2020-05-05 12:25] LABS: Basophils Percent Auto 0.4 % (0-2); Eosinophils Percent Auto 0.9 % (0-4); Hematocrit 33.5 % (37-47); Hemoglobin 11.5 g/dl (12.0-16.0); Imm Gran Abs Auto 0.01 X10*3/uL (0.00-0.03); Imm Gran Pct Auto 0.4 % (0.0-0.4); Lymphocytes Absolute Auto 0.9 X10*3/uL (1.2-4.9); Lymphocytes Percent Auto 40.9 % (20-40); MANUAL DIFF FLAG SCAN; Mean Corpuscular HGB Conc 34.3 g/dl (31.0-35.0); Mean Corpuscular Hemoglobin 33.7 pg (27.0-33.0); Mean Corpuscular Volume 98.2 fL (80-98); Mean Platelet Volume 9.6 fL (9.4-12.3); Monocytes Absolute Auto 0.2 X10*3/uL (0.1-1.2); Monocytes Percent Auto 9.3 % (2-11); Neutrophils Absolute Auto 1.1 X10*3/uL (2.0-8.3); Neutrophils Percent Auto 48.1 % (45-73); Platelet Count 160 X10*3/uL (160-400); Red Blood Count 3.41 X10*6/uL (4.20-5.50); Red Cell Distribution Width 12.6 % (11.0-16.0); SCAN SMEAR FLAG 1
[2020-05-05 12:31] LABS: D Dimer 283 NG/ML
[2020-05-05 12:42] LABS: SLIDE REVIEW VERIFIED
[2020-05-05 12:53] LABS: Calcium 7.3 mg/dL (8.4-10.2)
[2020-05-05 12:58] LABS: Alanine Aminotransferase 23 U/L (0-31); Albumin Level 4.2 g/dL (3.5-5.0); Alkaline Phosphatase 99 U/L (39-117); Anion Gap 14 (12-20); Aspartate Amino Transferase 22 U/L (5-31); Bilirubin Total 0.4 mg/dL (0.0-1.0); Blood Urea Nitrogen 15 mg/dL (9-16); Calcium 7.2 mg/dL (8.4-10.2); Carbon Dioxide 30 mmol/L (22-29); Chloride 100 mmol/L (96-108); Estimated Glomerular Filt Rate 50; Glucose Random 99 mg/dL (60-115); Lipase 18 U/L (8-78); Potassium 3.3 mmol/l (3.3-5.1); Sodium 141 mmol/L (135-145); Total Protein 6.8 g/dL (6.5-8.0)
[2020-05-05 13:04] LABS: Influenza A PCR NEGATIVE (Negative); Influenza B PCR NEGATIVE (Negative); Resp Syncy Virus RNA Qual PCR NEGATIVE (Negative); SARS COV2 PCR INHOUSE POSITIVE (Negative)
[2020-05-05] MEDS: iohexoL 350 MG/ML 100 ML INFUS..BTL IV (15:06)
[2020-05-05 15:30] VITALS: BP 131/78; PULSE 85; RESP 18; TEMP 37.1; O2SAT 98
[2020-05-05] MEDS: Azithromycin 500 MG TABLET PO (16:35)
[2020-05-05 16:39] VITALS: RESP 16
== END 2020-05-05 17:09 | disposition home or self-care (01) ==
PROVIDERS: Emergency Provider Emergency Medicine Emergency Medical Services; PCP Physician Assistant
DX: U07.1 COVID-19 (principal); J12.89 Other viral pneumonia; R10.84 Generalized abdominal pain; R07.1 Chest pain on breathing; I10 Essential (primary) hypertension
CPT/HCPCS: 0241U; 36415; 71275; 74177; 80053; 82310; 83690; 85025; 85060; 85379; 96361; 96374; 96375; 99284; J1170; J2405; Q9967

== ENCOUNTER → 2020-05-08 15:25 | Outpatient (BNVA) | payer OTHER, SELFPAY | PROVIDERS: PCP Physician Assistant; Visit Provider Internal Medicine | DX: Z76.89 Persons encountering health services in other specified circumstances (principal) ==

== ENCOUNTER 2020-05-09 11:56 | Outpatient (REF) | payer OTHER, SELFPAY ==
[2020-05-09 13:00] LABS: Alanine Aminotransferase 15 U/L (0-31); Albumin Level 4.1 g/dL (3.5-5.0); Alkaline Phosphatase 92 U/L (39-117); Anion Gap 13 (12-20); Aspartate Amino Transferase 16 U/L (5-31); Bilirubin Total 0.3 mg/dL (0.0-1.0); Blood Urea Nitrogen 10 mg/dL (9-16); Calcium 7.7 mg/dL (8.4-10.2); Carbon Dioxide 28 mmol/L (22-29); Chloride 106 mmol/L (96-108); Estimated Glomerular Filt Rate 57; Glucose Random 92 mg/dL (60-115); Phosphorus 3.9 mg/dL (2.7-4.5); Potassium 3.7 mmol/l (3.3-5.1); Sodium 143 mmol/L (135-145); Total Protein 6.8 g/dL (6.5-8.0)
[2020-05-09 13:20] LABS: Vitamin D 25-OH Total 22.8 ng/mL (>30)
[2020-05-10 16:37] LABS: Calcium (PTHI) 7.6 mg/dL (8.6-10.4); PTHI 36 pg/mL (14-64)
== END 2020-05-09 11:57 | disposition home or self-care (01) ==
LOC: HO.LAB 11:56
PROVIDERS: PCP Physician Assistant; Visit Provider Internal Medicine
DX: E20.9 Hypoparathyroidism, unspecified (principal); R07.81 Pleurodynia; E55.9 Vitamin D deficiency, unspecified; R42 Dizziness and giddiness; I10 Essential (primary) hypertension
CPT/HCPCS: 80053; 82306; 83970; 84100

== ENCOUNTER → 2020-06-28 09:14 | Outpatient (BNVA) | payer OTHER, SELFPAY | PROVIDERS: PCP Physician Assistant; Visit Provider Internal Medicine ==

== ENCOUNTER 2020-07-05 11:18 | Outpatient (REF) | payer OTHER, SELFPAY ==
[2020-07-05 12:20] LABS: Hematocrit 34.9 % (37-47); Mean Corpuscular HGB Conc 34.4 g/dl (31.0-35.0); Mean Corpuscular Hemoglobin 32.9 pg (27.0-33.0); Mean Corpuscular Volume 95.6 fL (80-98); Platelet Count 191 X10*3/uL (160-400); Red Blood Count 3.65 X10*6/uL (4.20-5.50); Red Cell Distribution Width 12.5 % (11.0-16.0); White Blood Count 5.1 X10*3/uL (4.8-10.8)
[2020-07-05 12:46] LABS: Creatinine Urine 33.34 mg/dL; Microalbumin Urine < 5.0 mg/L
[2020-07-05 12:53] LABS: Alanine Aminotransferase 26 U/L (0-31); Albumin Level 4.4 g/dL (3.5-5.0); Alkaline Phosphatase 89 U/L (39-117); Anion Gap 16 (12-20); Aspartate Amino Transferase 17 U/L (5-31); Bilirubin Total 0.5 mg/dL (0.0-1.0); Blood Urea Nitrogen 18 mg/dL (9-16); Calcium 9.4 mg/dL (8.4-10.2); Carbon Dioxide 35 mmol/L (22-29); Chloride 94 mmol/L (96-108); Cholesterol 207 mg/dL; Estimated Glomerular Filt Rate 52; Glucose Fasting 93 mg/dL (60-99); HDL Cholesterol 43 mg/dL; LDL Cholesterol Calculated 126 mg/dl; Potassium 3.7 mmol/L (3.3-5.1); Sodium 141 mmol/L (135-145); Total Protein 7.2 g/dL (6.5-8.0); Triglycerides 190 mg/dL
[2020-07-05 13:17] LABS: Vitamin D 25-OH Total 31.3 ng/mL (>30)
[2020-07-07 10:37] LABS: Calcium (PTHI) 9.8 mg/dL (8.6-10.4); PTHI 19 pg/mL (14-64)
== END 2020-07-05 11:19 | disposition home or self-care (01) ==
LOC: HO.LAB 11:18
PROVIDERS: Absent Provider Physician Assistant; PCP Physician Assistant; Visit Provider Internal Medicine
DX: I10 Essential (primary) hypertension (principal); E20.9 Hypoparathyroidism, unspecified; E55.9 Vitamin D deficiency, unspecified
CPT/HCPCS: 36415; 80053; 80061; 82043; 82306; 83970; 84100; 85027

== ENCOUNTER 2020-07-24 08:50 | Outpatient (REF) | payer OTHER, SELFPAY ==
[2020-07-24 13:56] LABS: Albumin Level 4.2 g/dL (3.5-5.0); Anion Gap 14 (12-20); Blood Urea Nitrogen 15 mg/dL (9-16); Calcium 9.5 mg/dL (8.4-10.2); Carbon Dioxide 34 mmol/L (22-29); Chloride 99 mmol/L (96-108); Estimated Glomerular Filt Rate 56; Glucose Random 105 mg/dL (60-115); Potassium 3.7 mmol/L (3.3-5.1); Sodium 143 mmol/L (135-145)
[2020-07-25 13:57] LABS: Calcium (PTHI) 9.6 mg/dL (8.6-10.4); PTHI 11 pg/mL (14-64)
== END 2020-07-24 08:51 | disposition home or self-care (01) ==
LOC: HO.LAB 08:50
PROVIDERS: Absent Provider Internal Medicine; PCP Physician Assistant; Visit Provider Internal Medicine Gastroenterology
DX: E20.9 Hypoparathyroidism, unspecified (principal); K21.9 Gastro-esophageal reflux disease without esophagitis; K59.01 Slow transit constipation; R11.2 Nausea with vomiting, unspecified
CPT/HCPCS: 36415; 80048; 82040; 83970

== ENCOUNTER 2020-08-04 12:24 | Outpatient (REF) | payer OTHER, SELFPAY ==
[2020-08-04 13:35] LABS: Albumin Level 4.1 g/dL (3.5-5.0); Calcium 7.7 mg/dL (8.4-10.2); Estimated Glomerular Filt Rate > 60; Phosphorus 3.3 mg/dL (2.7-4.5)
[2020-08-04 14:01] LABS: Vitamin D 25-OH Total 26.9 ng/mL (>30)
[2020-08-07 16:32] LABS: Calcium (PTHI) 7.9 mg/dL (8.6-10.4); PTHI 43 pg/mL (14-64)
== END 2020-08-04 12:25 | disposition home or self-care (01) ==
LOC: HO.LAB 12:24
PROVIDERS: PCP Physician Assistant; Visit Provider Internal Medicine
DX: E20.9 Hypoparathyroidism, unspecified (principal); E55.9 Vitamin D deficiency, unspecified
CPT/HCPCS: 36415; 82040; 82306; 82310; 82565; 83970; 84100

== ENCOUNTER 2020-08-15 12:47 | Outpatient (REF) | payer OTHER, SELFPAY ==
[2020-08-15 14:16] LABS: Albumin Level 4.5 g/dL (3.5-5.0); Calcium 9.7 mg/dL (8.4-10.2)
[2020-08-15 14:41] LABS: Vitamin D 25-OH Total 27.6 ng/mL (>30)
[2020-08-16 17:52] LABS: Calcium (PTHI) 10.1 mg/dL (8.6-10.4); PTHI 26 pg/mL (14-64)
== END 2020-08-15 12:48 | disposition home or self-care (01) ==
LOC: HO.LAB 12:47
PROVIDERS: PCP Physician Assistant; Visit Provider Internal Medicine
DX: E20.9 Hypoparathyroidism, unspecified (principal); E55.9 Vitamin D deficiency, unspecified
CPT/HCPCS: 36415; 82040; 82306; 82310; 83970; 84100

== ENCOUNTER 2020-08-30 09:14 | Day surgery (SDC) | payer OTHER, SELFPAY ==
--- NOTE | 2020-08-28 15:02 | P.CONAN_ITS ---
Documented by User: Mary Ellen Alberts 08/28/20 15:04 HPI - Anesthesia Eval Consult details Narrative: 49yo F for Upper Endoscopy and Colonoscopy PMF Active Problems Active Problems: All Active Problems (Updated 07/24/20 @ 09:21 by Victorina Redd MD) Nausea & vomiting (Acute) Constipation by delayed colonic transit (Acute) Rib pain on right side (Acute) Pneumonia due to 2019 novel coronavirus (Acute) History of parathyroid surgery (Acute) Vitamin D deficiency (Acute) Hypoparathyroidism (Acute) Vertigo (Acute) HTN (hypertension) (Acute) Past Medical History Medical History (Updated 07/24/20 @ 09:21 by Victorina Redd MD) Chronic abdominal pain Hernia Hypoparathyroidism IBS (irritable bowel syndrome) Pancreatitis Renal colic Vitamin D deficiency Family History Family History Father Medical history unknown Mother Cancer Paternal Grandmother Diabetes Paternal Grandfather Diabetes Daughter Behavioral problem Family/Other FH: mental illness Surgical History Surgical History (Updated 07/24/20 @ 08:52 by GIANCARLO Neri) H/O left knee surgery H/O: hysterectomy History of cholecystectomy History of esophagogastroduodenoscopy (EGD) History of hernia repair History of parathyroid surgery Status post excision of lipoma Social History Social History (Updated 07/24/20 @ 08:53 by GIANCARLO Neri) Household Members: None Alcohol intake: current Alcohol intake frequency: does not drink Smoking Status: Never smoker Use of substances other than those prescribed or required for medical reasons: No Advance Directives: No Advance Directives Information Provided: Yes Meds Allergies Allergy/AdvReac Type Severity Reaction Status Date / Time ibuprofen [IBUPROFEN] Allergy Intermediate RASH Verified 07/24/20 08:51 lisinopril [LISINOPRIL] Allergy Intermediate RASH Verified 07/24/20 08:51 lactulose [LACTULOSE] Allergy Mild STOMACH Verified 07/24/20 08:51 ACHE Home Medications Medication Instructions Recorded Confirmed Last Taken Type hydrochlorothiazide 25 mg tablet 25 mg PO DAILY 05/03/20 06/28/20 Unknown History quetiapine 300 mg tablet 300 mg PO BEDTIME 05/03/20 06/28/20 Unknown History escitalopram oxalate 20 mg tablet 20 mg PO DAILY 05/22/20 06/28/20 Unknown History omeprazole 20 mg capsule,delayed 20 mg PO DAILY 05/22/20 06/28/20 Unknown History release oxybutynin chloride 5 mg 5 mg PO DAILY 05/22/20 06/28/20 Unknown History tablet,extended release 24 hr clonazepam 0.5 mg tablet 0.5 mg PO BEDTIME tab 06/28/20 06/28/20 Unknown History Exam Exam Date and Time: August 28, 2020 1502 Pertinent Lab Results Pertinent Lab Results: Laboratory Tests 07/05/20 07/24/20 08/04/20 11:45 12:30 12:42 WBC 5.1 Hgb 12.0 Hct 34.9 L Plt Count 191 Sodium 143 Potassium 3.7 Chloride 99 Carbon Dioxide 34 H BUN 15 Creatinine 0.88 Narrative Narrative: EKG 03/2020 Vent. Rate : 077 BPM Atrial Rate : 077 BPM P-R Int : 160 ms QRS Dur : 094 ms QT Int : 376 ms P-R-T Axes : 044 001 -15 degrees QTc Int : 425 ms Normal sinus rhythm Nonspecific T wave abnormality Abnormal ECG When compared with ECG of 31-DEC-2019 20:39, Nonspecific T wave abnormality is new Assessment and Plan Assessment Anesthesia Assessment: Chart Reviewed Documented by User: Nilsa Loya 08/30/20 11:00 [facility] Past Medical History Medical History (Updated 07/24/20 @ 09:21 by Victorina Redd MD) Chronic abdominal pain Hernia Hypoparathyroidism IBS (irritable bowel syndrome) Pancreatitis Renal colic Vitamin D deficiency Family History Family History Father Medical history unknown Mother Cancer Paternal Grandmother Diabetes Paternal Grandfather Diabetes Daughter Behavioral problem Family/Other FH: mental illness Surgical History Surgical History (Updated 07/24/20 @ 08:52 by GIANCARLO Neri) H/O left knee surgery H/O: hysterectomy History of cholecystectomy History of esophagogastroduodenoscopy (EGD) History of hernia repair History of parathyroid surgery Status post excision of lipoma Social History Social History (Updated 07/24/20 @ 08:53 by GIANCARLO Neri) Household Members: None Alcohol intake: current Alcohol intake frequency: does not drink Smoking Status: Never smoker Use of substances other than those prescribed or required for medical reasons: No Advance Directives: No Advance Directives Information Provided: Yes Meds Allergies Allergy/AdvReac Type Severity Reaction Status Date / Time ibuprofen [IBUPROFEN] Allergy Intermediate RASH Verified 07/24/20 08:51 lisinopril [LISINOPRIL] Allergy Intermediate RASH Verified 07/24/20 08:51 lactulose [LACTULOSE] Allergy Mild STOMACH Verified 07/24/20 08:51 ACHE Home Medications Medication Instructions Recorded Confirmed Last Taken Type hydrochlorothiazide 25 mg tablet 25 mg PO DAILY 05/03/20 06/28/20 Unknown History quetiapine 300 mg tablet 300 mg PO BEDTIME 05/03/20 06/28/20 Unknown History escitalopram oxalate 20 mg tablet 20 mg PO DAILY 05/22/20 06/28/20 Unknown History omeprazole 20 mg capsule,delayed 20 mg PO DAILY 05/22/20 06/28/20 Unknown History release oxybutynin chloride 5 mg 5 mg PO DAILY 05/22/20 06/28/20 Unknown History tablet,extended release 24 hr clonazepam 0.5 mg tablet 0.5 mg PO BEDTIME tab 06/28/20 06/28/20 Unknown History Exam Airway Mallampati Class: II TM Dist: >3cm Neck ROM: Full Loose/Missing/Broken Teeth: No Heart: RRR Lungs: CTA Assessment and Plan Assessment Anesthesia Assessment: Anesthesia Plan Discussed and Chart Reviewed Final Anesthetic Review NPO: Yes ASA Class: II Final Preanesthetic Review: Meds/Allgs Chart Reviewed, Consent Obtained/Reviewed and Anes Risks/Benef Reviewed Patient Risk: Low Procedure Risk: Intermediate Anesthetic Plan Anesthetic Plan: MAC: Disposition: Standard PACU
[2020-08-30 10:03] VITALS: BMI 38.3
[2020-08-30 10:09] VITALS: BP 142/93; PULSE 92; RESP 18; TEMP 36.1; O2SAT 97
[2020-08-30] MEDS: Lactated Ringers 1,000 ML 100 ML IVCONT (10:41)
--- NOTE | 2020-08-30 11:18 | MHC.SHP ---
Pre-Procedural Eval Section B Chief Complaint: Nausea w/ Vomiting, Constipation slow transit Relevant Family History (Specify if Yes): No Relevant Social History: None Present Medications: see Short Stay Collaborative assessment Medical History: Significant History (Chronic abdominal pain Hernia Hypoparathyroidism IBS (irritable bowel syndrome) Pancreatitis Renal colic Vitamin D deficiency) History of Previous Operations: Relevant previous surgery/procedure and date(s) (H/O left knee surgery H/O: hysterectomy History of cholecystectomy History of esophagogastroduodenoscopy (EGD) History of hernia repair History of parathyroid surgery Status post excision of lipoma) Allergies: Allergies Allergy/AdvReac Type Severity Reaction Status Date / Time ibuprofen [IBUPROFEN] Allergy Intermediate RASH Verified 07/24/20 08:51 lisinopril [LISINOPRIL] Allergy Intermediate RASH Verified 07/24/20 08:51 lactulose [LACTULOSE] Allergy Mild STOMACH Verified 07/24/20 08:51 ACHE Review of Systems Sugical H&P ROS: Negative: Constitution, Cardiovascular, Respiratory, Neurological, Psychiatric, Hem-Onc, Allergic/Immunologic, Gastrointestinal, Genitourinary, Musculoskeletal, Integumentary, Endocrine and Eyes/Ears/Nose/Throat Exam Surgical H&P Exam: Normal: HEENT, Normal: Heart, Normal: Lungs, Normal: Extremities, Normal: Abdomen, Normal: Skin and Normal: Neurological Plan Diagnosis/Plan: Unchanged I have reviewed the history and physical and performed a pertinent physical examination on my patient. No changes have occurred unless specified.
--- NOTE | 2020-08-30 11:55 | PM.OP ---
Brief Operative Note Date of Service: 08/30/20 Pre-op diagnosis: nausea, vomiting, altered bowel habit Post-op diagnosis: same Procedure: see op note Surgeon: Victorina Redd MD Anesthesia: MAC Estimated blood loss (mL): 0 Condition: stable Disposition: PACU
--- NOTE | 2020-08-30 11:55 | W.PM.OPN ---
Operative Note Operative Note Date of Service: 08/30/20 Narrative: Operative Information Procedure Description: EGD, Colonoscopy FLEXIBLE TRANSORAL UPPER GASTROINTESTINAL ENDOSCOPY AND COLONOSCOPY PROCEDURE NOTE UPPER ENDOSCOPY Consent: Indications for the procedure and potential complications of bleeding, perforation, reaction to medications and missed diagnosis were discussed with the patient and informed consent was obtained. Instrument: Olympus GIF H 190 J mid size upper endoscope Monitoring: Vital signs and clinical assessment, continuous EKG monitoring, Pulse oximetry, Carbon Dioxide monitoring and blood pressure monitoring were done throughout the procedure. Procedure: The patient was placed in the left lateral decubitis position and pre-procedure medications were administered and a bite block was placed. The endoscope was inserted into the mouth and advanced under direct vision to the third part of duodenum. A careful inspection was made as the upper endoscope was withdrawn including a retroflexed examination of the proximal stomach; Findings and interventions are described below. Findings: Larynx:normal Esophagus: GE junction at 35 cm, diaphragm hiatus at 38 cm, consistent with 3 cm sliding hiatal hernia, mils esophagitis noted with patulous GEJ and posisble short segment barretts-- bx taken Stomach: Patchy erythema. Biopsies were obtained. Retroflexed examination of the cardia normal with patulous LOS noted. Duodenum: Normal bulb and descending duodenum, Jejunum: normal Intervention: Biopsies as noted above COLONOSCOPY Instrument: Olympus variable stiffness pediatric scope 190L Colonoscopy Monitoring: Vital signs and clinical assessment, continuous EKG monitoring, Pulse oximetry, Carbon Dioxide monitoring and blood pressure monitoring were done throughout the procedure. Colon withdrawal time was 18 minutes. Procedure: The patient was placed in the left lateral decubitis position and pre-procedure medications were administered. After a digital rectal examination of the ano-rectum, the video colonoscope was inserted into the rectum and advanced through the colon to the cecum/TI. The colonoscope was slowly withdrawn in a retrograde panoramic fashion and the colon mucosa was carefully examined including a retroflexed view of the rectum. Findings and interventions are described below. Procedure Difficulty: moderate Findings: random colon bx taken and bx from TI Terminal Ileum-normal Cecum:normal Ascending Colon: normal Transverse Colon -normal Descending Colon:normal Sigmoid Colon: scattered diverticula noted Rectum: Retroflexion with small internal hemorrhoids, grade I Anorectum - normal Colon preparation: [place] Bowel Preparation Scale Right colon; 2 Transverse colon: 2 Left colon; 2 (0 = Unprepared colon segment with mucosa not seen due to solid stool that cannot be cleared. 1 = Portion of mucosa of the colon segment seen, but other areas of the colon segment not well seen due to staining, residual stool and/or opaque liquid. 2 = Minor amount of residual staining, small fragments of stool and/or opaque liquid, but mucosa of colon segment seen well. 3 = Entire mucosa of colon segment seen well with no residual staining, small fragments of stool or opaque liquid) Impression and Post Procedure Diagnosis: Endoscopy Findings: gastritis patulous GEJ esophagitis Colonoscopy Findings: internal hemorrhoids diverticular disease Plan: Await Pathology results Repeat Colonoscopy in 5 years due to prep in some areas or earlier if clinically indicated High fiber diet leaflet avoid straining at stool, epsom salts and sitz bath, anusol supps or cream prn constipation prob from her many medications, might benefit from linaclotide or other similar agent Above findings were reviewed with the patient and relevant handouts were provided if indicated.
[2020-08-30 12:40] VITALS: BP 105/44; PULSE 87; RESP 16; TEMP 36.9; O2SAT 98
[2020-08-30 12:55] VITALS: BP 141/68; PULSE 81; RESP 16; TEMP 36.9; O2SAT 96
== END 2020-08-30 13:44 | disposition home or self-care (01) ==
PROVIDERS: PCP Physician Assistant; Visit Provider Internal Medicine Gastroenterology
PROC: (CPT 45380; principal; 2020-08-30 11:00)
DX: K59.01 Slow transit constipation (principal); K57.30 Diverticulosis of large intestine without perforation or abscess without bleeding; K64.0 First degree hemorrhoids; K52.9 Noninfective gastroenteritis and colitis, unspecified; K29.50 Unspecified chronic gastritis without bleeding; K20.80 Other esophagitis without bleeding; K44.9 Diaphragmatic hernia without obstruction or gangrene; Z88.0 Allergy status to penicillin; Z79.899 Other long term (current) drug therapy
CPT/HCPCS: 45380; 43239; 88305; 88342; J3010

== ENCOUNTER → 2020-09-19 12:19 | Outpatient (BNVA) | payer OTHER, SELFPAY | PROVIDERS: PCP Physician Assistant; Referring Provider Internal Medicine Gastroenterology; Visit Provider Surgery | DX: E66.01 Morbid (severe) obesity due to excess calories (principal); K44.9 Diaphragmatic hernia without obstruction or gangrene; Z68.42 Body mass index [BMI] 45.0-49.9, adult | CPT/HCPCS: 99202 ==

== ENCOUNTER 2020-10-04 13:33 | Outpatient (REF) | payer OTHER, SELFPAY ==
[2020-10-04 14:05] LABS: MANUAL DIFF FLAG NO
[2020-10-04 14:09] LABS: Basophils Percent Auto 0.6 % (0-2); Eosinophils Absolute Auto 0.1 X10*3/uL (0.0-0.4); Eosinophils Percent Auto 1.8 % (0-4); Hematocrit 33.4 % (37-47); Hemoglobin 11.6 g/dl (12.0-16.0); Imm Gran Abs Auto 0.02 X10*3/uL (0.00-0.03); Imm Gran Pct Auto 0.4 % (0.0-0.4); Lymphocytes Absolute Auto 1.9 X10*3/uL (1.2-4.9); Lymphocytes Percent Auto 35.2 % (20-40); Mean Corpuscular HGB Conc 34.7 g/dl (31.0-35.0); Mean Corpuscular Hemoglobin 34.3 pg (27.0-33.0); Mean Corpuscular Volume 98.8 fL (80-98); Mean Platelet Volume 9.7 fL (9.4-12.3); Monocytes Absolute Auto 0.3 X10*3/uL (0.1-1.2); Monocytes Percent Auto 4.8 % (2-11); Neutrophils Absolute Auto 3.1 X10*3/uL (2.0-8.3); Neutrophils Percent Auto 57.2 % (45-73); Platelet Count 228 X10*3/uL (160-400); Red Blood Count 3.38 X10*6/uL (4.20-5.50); Red Cell Distribution Width 12.9 % (11.0-16.0); White Blood Count 5.4 X10*3/uL (4.8-10.8)
[2020-10-04 14:22] LABS: Estimated Average Glucose 94 mg/dL; Hemoglobin A1c % 4.9 %
[2020-10-04 14:32] LABS: Alanine Aminotransferase 16 U/L (0-31); Albumin Level 4.6 g/dL (3.5-5.0); Alkaline Phosphatase 106 U/L (39-117); Anion Gap 14 (12-20); Aspartate Amino Transferase 14 U/L (5-31); Bilirubin Total 0.3 mg/dL (0.0-1.0); Blood Urea Nitrogen 20 mg/dL (9-16); C Reactive Protein 0.83 mg/dL (< or = 0.50); Calcium 8.1 mg/dL (8.4-10.2); Carbon Dioxide 33 mmol/L (22-29); Chloride 98 mmol/L (96-108); Cholesterol 210 mg/dL; Estimated Glomerular Filt Rate 55; Glucose Fasting 108 mg/dL (60-99); HDL Cholesterol 48 mg/dL; Iron 69 mcg/dL (30-160); LDL Cholesterol Calculated 123 mg/dl; Percent Iron Saturation 21 % (15-50); Potassium 3.3 mmol/L (3.3-5.1); Sodium 142 mmol/L (135-145); Total Iron Binding Capacity 332 mcg/dL (228-428); Total Protein 7.5 g/dL (6.5-8.0); Triglycerides 196 mg/dL; Unsaturated Iron Binding 263 ug/dL
[2020-10-04 14:53] LABS: TSH reflex Free T4 0.64 uIU/mL (0.32-4.0); Vitamin D 25-OH Total 32.8 ng/mL (>30)
[2020-10-04 14:54] LABS: Thyroid Stimulating Hormone 0.66 uIU/mL (0.32-4.0)
[2020-10-04 15:48] LABS: Vitamin B12 356 pg/mL (200-900)
[2020-10-05 12:21] LABS: Calcium (PTHI) 8.2 mg/dL (8.6-10.4); PTHI 59 pg/mL (14-64)
[2020-10-07 00:16] LABS: Zinc 87 mcg/dL (60-130)
[2020-10-08 12:22] LABS: Vitamin B1 10 nmol/L (8-30)
[2020-10-10 13:47] LABS: Vitamin A 53 mcg/dL (38-98)
== END 2020-10-04 13:34 | disposition home or self-care (01) ==
LOC: HO.LAB 13:33
PROVIDERS: Absent Provider Physician Assistant; PCP Physician Assistant; Visit Provider Surgery
DX: Z01.818 Encounter for other preprocedural examination (principal); E83.51 Hypocalcemia; K91.2 Postsurgical malabsorption, not elsewhere classified; E20.9 Hypoparathyroidism, unspecified; Z90.3 Acquired absence of stomach [part of]
CPT/HCPCS: 36415; 80048; 80053; 80061; 82306; 82607; 83036; 83540; 83970; 84425; 84443; 84590; 84630; 85025; 86140

== ENCOUNTER → 2020-10-06 08:13 | Outpatient (BNVA) | payer OTHER, SELFPAY | PROVIDERS: PCP Physician Assistant; Visit Provider Surgery ==

== ENCOUNTER → 2020-10-18 07:29 | Outpatient (BNVA) | payer OTHER, SELFPAY | PROVIDERS: PCP Physician Assistant; Visit Provider Internal Medicine ==

== ENCOUNTER → 2020-10-19 08:14 | Outpatient (BNVA) | payer OTHER, SELFPAY | PROVIDERS: PCP Physician Assistant; Visit Provider Dietitian, Registered ==

== ENCOUNTER 2020-12-05 12:02 | Outpatient (REF) | payer OTHER, SELFPAY ==
[2020-12-05 13:20] LABS: Alanine Aminotransferase 11 U/L (0-31); Albumin Level 4.6 g/dL (3.5-5.0); Alkaline Phosphatase 114 U/L (39-117); Anion Gap 17 (12-20); Aspartate Amino Transferase 13 U/L (5-31); Bilirubin Total 0.6 mg/dL (0.0-1.0); Blood Urea Nitrogen 19 mg/dL (9-16); Calcium 9.7 mg/dL (8.4-10.2); Carbon Dioxide 34 mmol/L (22-29); Chloride 93 mmol/L (96-108); Estimated Glomerular Filt Rate 53; Glucose Random 101 mg/dL (60-115); Phosphorus 4.1 mg/dL (2.7-4.5); Potassium 3.4 mmol/L (3.3-5.1); Sodium 141 mmol/L (135-145); Total Protein 7.9 g/dL (6.5-8.0)
[2020-12-05 13:45] LABS: Vitamin D 25-OH Total 40.5 ng/mL (>30)
[2020-12-06 18:57] LABS: Calcium (PTHI) 9.2 mg/dL (8.6-10.4); PTHI 36 pg/mL (14-64)
[2020-12-06 19:46] LABS: Prot Elec - Albumin 4.4 g/dL (3.8-4.8); Prot Elec - Alpha1 0.3 g/dL (0.2-0.3); Prot Elec - Alpha2 0.8 g/dL (0.5-0.9); Prot Elec - Beta 1 0.5 g/dL (0.4-0.6); Prot Elec - Beta 2 0.5 g/dL (0.2-0.5); Prot Elec - Gamma 1.1 g/dL (0.8-1.7); Prot Elec - Total Protein 7.7 g/dL (6.1-8.1)
== END 2020-12-05 12:03 | disposition home or self-care (01) ==
LOC: HO.LAB 12:02
PROVIDERS: PCP Physician Assistant; Visit Provider Internal Medicine
DX: E20.9 Hypoparathyroidism, unspecified (principal); E55.9 Vitamin D deficiency, unspecified
CPT/HCPCS: 36415; 80053; 82306; 83970; 84100; 84165

== ENCOUNTER → 2020-12-12 10:00 | Outpatient (BNVA) | payer OTHER, SELFPAY | PROVIDERS: PCP Physician Assistant; Visit Provider Internal Medicine Gastroenterology ==

== ENCOUNTER 2020-12-17 13:40 | Emergency (ER) | payer OTHER, SELFPAY ==
[2020-12-17 14:39] VITALS: BP 125/86; PULSE 75; RESP 18; TEMP 35.7; O2SAT 100; BMI 41.2
[2020-12-17 16:10] VITALS: TEMP 37
[2020-12-17 16:26] LABS: Glucose Urine UA NEG (NEG); Leukocyte Esterase Urine NEG (NEG); Nitrite Urine NEG (NEG); PH 7.5 (5.0-8.0); Urine Blood NEG (NEG); Urine Ketones NEG (NEG); Urine Protein NEG (NEG-TRACE)
[2020-12-17 16:42] LABS: Appearance Urine CLEAR; Color Urine YELLOW
--- NOTE | 2020-12-17 16:46 | ED_ITS ---
HPI - General Adult General Chief complaint: General Medical Stated complaint: back pain, abd pain Time Seen by Provider: 12/17/20 16:39 Source: patient Mode of arrival: ambulatory Limitations: no limitations History of Present Illness HPI narrative: Patient presents to ED for generalized body aches, diarrhea, headache, back pain, vaginal itching, and dysuria for couple of days. Patient states 1 episode of emesis. Patient states no chest pain, shortness of breath, leg swelling, calf pain, or dizziness. Patient not vaccinated Related Data Home Medications Medication Instructions Recorded Confirmed clonazepam 0.5 mg tablet 0.5 mg PO BEDTIME tab 06/28/20 12/12/20 cholecalciferol (vitamin D3) 25 25 mcg PO DAILY 10/04/20 12/12/20 mcg (1,000 unit) capsule propranolol 20 mg tablet 20 mg PO BID 12/12/20 12/12/20 Previous Rx's Medication Instructions Recorded meclizine 25 mg tablet 25 mg PO DAILY PRN #30 tab 07/17/20 quetiapine 300 mg tablet (Seroquel) 600 mg PO BEDTIME 30 Days #60 tab 10/04/20 calcitriol 0.25 mcg capsule 0.25 mcg PO DAILY 30 Days #30 cap 11/25/20 amlodipine 5 mg tablet 5 mg PO QAM #30 tab 12/04/20 furosemide 20 mg tablet 20 mg PO DAILY #30 tab 12/04/20 hydrochlorothiazide 25 mg tablet 25 mg PO DAILY #30 tab 12/04/20 pantoprazole 40 mg tablet,delayed 40 mg PO DAILY #60 tab 12/05/20 release aluminum-mag hydroxide-simethicone 10 ml PO QID PRN #3000 ml 12/12/20 200 mg-200 mg-20 mg/5 mL oral susp (Maalox Advanced) polyethylene glycol 3350 17 gram 17 g PO BID #100 ea 12/12/20 oral powder packet (Miralax) cyclobenzaprine 10 mg tablet 10 mg PO TID PRN #18 tab 12/17/20 metronidazole 500 mg tablet 500 mg PO Q12H 7 Days #14 tab 12/17/20 Allergies Allergy/AdvReac Type Severity Reaction Status Date / Time ibuprofen [IBUPROFEN] Allergy Intermediate RASH Verified 12/12/20 10:00 lisinopril [LISINOPRIL] Allergy Intermediate RASH Verified 12/12/20 10:00 lactulose [LACTULOSE] Allergy Mild STOMACH Verified 12/12/20 10:00 ACHE Review of Systems Review of Systems: Yes all other systems are reviewed and are negative Constitutional: Constitutional: Reports as per HPI, Reports no additional constitutional complaints, Reports body ache(s) and Reports headache(s) Eyes: Eyes: Reports as per HPI and Reports no additional eye complaints ENT: Reports system reviewed and no additional complaints, except as documented, Reports as per HPI and Reports headache(s) Cardiovascular: Cardiovascular: Reports as per HPI and Reports no additional cardiovascular complaints Respiratory: Respiratory: Reports as per HPI and Reports no additional respiratory complaints Gastrointestinal: Gastrointestinal: Reports as per HPI, Reports no additional gastrointestinal complaints, Reports abdominal pain, Reports diarrhea, Reports nausea and Reports vomiting (One episode) Genitourinary: Genitourinary: Reports no additional female genitourinary complaints, Reports as per HPI, Reports genital pruritis, Reports dysuria and Reports vaginal pruritus Musculoskeletal: Musculoskeletal: Reports no additional musculoskeletal complaints, Reports as per HPI and Reports back pain Neurologic: Reports system reviewed and no additional complaints, except as documented, Reports as per HPI and Reports headache(s) Psychiatric: Psychiatric: Reports no additional psychiatric complaints and Reports as per HPI PMFSH Past Medical History Medical History (Updated 12/17/20 @ 18:34 by TYRELL Faust) Chronic abdominal pain Hernia Hypoparathyroidism IBS (irritable bowel syndrome) Morbid obesity due to excess calories Pancreatitis Renal colic Vitamin D deficiency Surgical History (Updated 12/12/20 @ 10:03 by GIANCARLO Neri) H/O left knee surgery H/O thyroidectomy H/O: hysterectomy History of cholecystectomy History of esophagogastroduodenoscopy (EGD) History of hernia repair History of parathyroid surgery Status post excision of lipoma Family History Family History Father Medical history unknown Mother Cancer Paternal Grandmother Diabetes Paternal Grandfather Diabetes Daughter Behavioral problem Family/Other FH: mental illness Social History Social History Household Members: None Alcohol intake: current Alcohol intake frequency: does not drink Advance Directives: No Advance Directives Information Provided: Yes Patient : No Physical Exam Vital Signs: Vital Signs: Last Vital Signs Temp 98.6 F 12/17/20 16:10 Pulse 75 12/17/20 14:39 Resp 18 12/17/20 14:39 BP 125/86 12/17/20 14:39 Pulse Ox 100 12/17/20 14:39 Body Mass Index 41.2 Const: General: cooperative, healthy appearing, comfortable, no acute distress, well developed, alert and awake Orientation/consciousness: patient oriented x3 HENMT: Head: Yes normal to inspection, Yes No palpable skull fracture present, Yes normocephalic, Yes atraumatic, No abrasion, No Acrocyanosis present, No Sanchez's sign, No contusion, No cranial bruits, No hematoma, No laceration, No occipital foramen tenderness, No palpable skull fracture, No raccoon eyes, No scalp lesion, No scalp tenderness, No Temporal artery tenderness present and No periorbital ecchymosis Eyes: Other: Negative for photophobia General: appearance normal, both eyes and all related structures Neck: Neck: Yes normal visual inspection, Yes full ROM, Yes no lymphadenopathy, Yes no meningeal signs, Yes trachea midline, Yes supple and No tender Chest: Chest palpation & inspection: normal inspection of the chest and normal palpation of entire chest wall Resp: Effort & Inspection: normal respiratory effort and not able to speak in complete sentences Auscultation: no crackles, no rales, no rhonchi and no wheezes Cardio: Jugular venous distension: no JVD Heart sounds: S1 normal heart sound present and S2 normal heart sound present GI: Inspection: Yes normal to inspection and No abdominal wall ecchymosis Palpation (GI): Soft to palpation, not firm, nontender, no guarding and not rig id : General: No CVA tenderness and Yes no CVA tenderness Back/Spine/Pelvis: Back: no CVA tenderness, No CVA tenderness and No back tenderness Skin: General skin exam: no rashes or lesions noted and elasticity normal Neuro: Other: Negative slurred speech. Negative pronator shift. All extremites equal strength and 5plus. negative pronator drift. finger to nose and hand movements intact. negative rhomberg. General: patient oriented x3, gait normal, no meningeal signs and CN's II-XI intact bilaterally Extrem: Other: Lower extremities negative for swelling, pitting edema, or calf pain General: Yes normal to inspection and Yes full ROM Psych: Appearance: grossly normal, well kempt and not disheveled Course Course Course Narrative: Patient seems having viral syndrome but will do basic labs and COVID swab with urine. Reevaluation(s) Reevaluation #1: UA negative for UTI. CTNG urine and trich/BV ordered. COVID swab negative. Patient improved with Zofran Tylenol. Rest of labs are normal. Negative for any electrolyte deficiencies. Viral syndrome. Chronic back pain Gastroenteritis. No need for CAT scan. Abdomen is totally benign, nontender,and soft. Time: 18:31 Medical Decision Making [facility] Narrative Medical decision making narrative: Viral syndrome. Gastroenteritis. Vaginitis. Chronic back pain. Lab Data Result diagrams: 12/17/20 17:28 12/17/20 17:28 Labs: Lab Results 12/17/20 12/17/20 12/17/20 Range/Units 16:01 16:01 17:28 WBC (4.8-10.8) X10*3/uL RBC (4.20-5.50) X10*6/uL Hgb (12.0-16.0) g/dl Hct (37-47) % MCV (80-98) fL MCH (27.0-33.0) pg MCHC (31.0-35.0) g/dl RDW (11.0-16.0) % Plt Count (160-400) X10*3/uL MPV (9.4-12.3) fL Immature Gran % (Auto) (0.0-0.4) % Neut % (Auto) (45-73) % Lymph % (Auto) (20-40) % Dale % (Auto) (2-11) % Eos % (Auto) (0-4) % Baso % (Auto) (0-2) % Lymph # (Auto) (1.2-4.9) X10*3/uL Dale # (Auto) (0.1-1.2) X10*3/uL Eos # (Auto) (0.0-0.4) X10*3/uL Baso # (Auto) (0.0-0.2) X10*3/uL Abs Immat Gran (auto) (0.00-0.03) X10*3/uL Absolute Neuts (auto) (2.0-8.3) X10*3/uL Absolute Nucleated RBC (0.0-0.012) X10*3/uL Nucleated RBC % (auto) (0.0-0.2) /100WBC Sodium (135-145) mmol/L Potassium (3.3-5.1) mmol/L Chloride (96-108) mmol/L Carbon Dioxide (22-29) mmol/L Anion Gap (12-20) BUN (9-16) mg/dL Creatinine (0.5-1.4) mg/dL Estim Creat Clear Calc Estimated GFR Random Glucose (60-115) mg/dL Calcium (8.4-10.2) mg/dL Total Bilirubin (0.0-1.0) mg/dL Direct Bilirubin (0.0-0.5) mg/dL AST (5-31) U/L ALT (0-31) U/L Alkaline Phosphatase (39-117) U/L Total Protein (6.5-8.0) g/dL Albumin (3.5-5.0) g/dL Urine Color YELLOW Urine Appearance CLEAR Urine pH 7.5 (5.0-8.0) Ur Specific [place] 1.010 (1.005-1.025) Urine Protein NEG (NEG-TRACE) MG/DL Urine Glucose (UA) NEG (NEG) MG/DL Urine Ketones NEG (NEG) MG/DL Urine Blood NEG (NEG) Urine Nitrite NEG (NEG) Ur Leukocyte Esterase NEG (NEG) Urine Test NEGATIVE (NEGATIVE) COVID-19 (SARY) Negative (Negative) COVID-19 Clin Com See Note 12/17/20 12/17/20 Range/Units 17:28 17:28 WBC 8.9 (4.8-10.8) X10*3/uL RBC 3.65 L (4.20-5.50) X10*6/uL Hgb 12.2 (12.0-16.0) g/dl Hct 34.8 L (37-47) % MCV 95.3 (80-98) fL MCH 33.4 H (27.0-33.0) pg MCHC 35.1 H (31.0-35.0) g/dl RDW 12.8 (11.0-16.0) % Plt Count 249 (160-400) X10*3/uL MPV 9.4 (9.4-12.3) fL Immature Gran % (Auto) 0.2 (0.0-0.4) % Neut % (Auto) 65.1 (45-73) % Lymph % (Auto) 28.0 (20-40) % Dale % (Auto) 5.5 (2-11) % Eos % (Auto) 0.9 (0-4) % Baso % (Auto) 0.3 (0-2) % Lymph # (Auto) 2.5 (1.2-4.9) X10*3/uL Dale # (Auto) 0.5 (0.1-1.2) X10*3/uL Eos # (Auto) 0.1 (0.0-0.4) X10*3/uL Baso # (Auto) 0.0 (0.0-0.2) X10*3/uL Abs Immat Gran (auto) 0.02 (0.00-0.03) X10*3/uL Absolute Neuts (auto) 5.8 (2.0-8.3) X10*3/uL Absolute Nucleated RBC 0.000 (0.0-0.012) X10*3/uL Nucleated RBC % (auto) 0.0 (0.0-0.2) /100WBC Sodium 142 (135-145) mmol/L Potassium 3.0 L (3.3-5.1) mmol/L Chloride 97 (96-108) mmol/L Carbon Dioxide 29 (22-29) mmol/L Anion Gap 19 (12-20) BUN 15 (9-16) mg/dL Creatinine 0.92 (0.5-1.4) mg/dL Estim Creat Clear Calc 74.9 Estimated GFR > 60 Random Glucose 92 (60-115) mg/dL Calcium 8.8 D (8.4-10.2) mg/dL Total Bilirubin 0.5 (0.0-1.0) mg/dL Direct Bilirubin 0.2 (0.0-0.5) mg/dL AST 12 (5-31) U/L ALT 10 (0-31) U/L Alkaline Phosphatase 102 (39-117) U/L Total Protein 7.7 (6.5-8.0) g/dL Albumin 4.5 (3.5-5.0) g/dL Urine Color Urine Appearance Urine pH (5.0-8.0) Ur Specific [place] (1.005-1.025) Urine Protein (NEG-TRACE) MG/DL Urine Glucose (UA) (NEG) MG/DL Urine Ketones (NEG) MG/DL Urine Blood (NEG) Urine Nitrite (NEG) Ur Leukocyte Esterase (NEG) Urine Test (NEGATIVE) COVID-19 (SARY) (Negative) COVID-19 Clin Com Discharge Plan Discharge Clinical Impression: Gastroenteritis, Vaginitis, Acute viral syndrome Patient Disposition: Home, Self-Care Instructions: Bacterial Vaginosis (ED), Gastroenteritis (ED), Viral Syndrome (ED), Chronic Back Pain (DC) Additional Instructions: Your blood work came back normal. COVID swab came back negative. You are safe for discharge. Your urine came back negative for infection. brat diet ( Bannana, Rice, Appelseauce, and Shaft) and oral hydration. Return to the ED for any chest pain, shortness of breath, inability tolerate solid food/liquid, severe abdominal pain, hematuria, dysuria, flank pain, fever, chills, slurred speech, loss of vision, paralysis of extremities, severe headache, or any other concerning symptoms. Please follow-up with PCP Prescriptions: New metronidazole 500 mg tablet 500 mg PO Q12H 7 Days Qty: 14 RF: 0 cyclobenzaprine 10 mg tablet 10 mg PO TID PRN (Reason: pain) Qty: 18 RF: 0 No Action meclizine 25 mg tablet 25 mg PO DAILY PRN (Reason: dizziness) Qty: 30 RF: 4 calcitriol 0.25 mcg capsule 0.25 mcg PO DAILY 30 Days Qty: 30 RF: 3 amlodipine 5 mg tablet 5 mg PO QAM Qty: 30 RF: 3 furosemide 20 mg tablet 20 mg PO DAILY Qty: 30 RF: 3 hydrochlorothiazide 25 mg tablet 25 mg PO DAILY Qty: 30 RF: 3 pantoprazole 40 mg tablet,delayed release (DR/EC) 40 mg PO DAILY Qty: 60 RF: 3 clonazepam 0.5 mg tablet 0.5 mg PO BEDTIME RF: 0 cholecalciferol (vitamin D3) 25 mcg (1,000 unit) capsule 25 mcg PO DAILY RF: 0 quetiapine [Seroquel] 300 mg tablet 600 mg PO BEDTIME 30 Days Qty: 60 RF: 0 propranolol 20 mg tablet 20 mg PO BID RF: 0 polyethylene glycol 3350 [Miralax] 17 gram powder in packet 17 g PO BID Qty: 100 RF: 1 alum-mag hydroxide-simeth [Maalox Advanced] 200-200-20 mg/5 mL suspension 10 ml PO QID PRN (Reason: indigestion) Qty: 3000 RF: 0 Print Language: Urdu
[2020-12-17 16:56] LABS: UPreg QC Valid YES; Urine Pregnancy NEGATIVE (NEGATIVE)
[2020-12-17] MEDS: Acetaminophen 325 MG TABLET 650 MG PO (17:09)
[2020-12-17] MEDS: Ondansetron ODT 4 MG TAB.RAPDIS TRANSLINGU (17:10)
[2020-12-17] MEDS: Cyclobenzaprine HCl 5 MG TABLET PO (17:10)
[2020-12-17 17:35] LABS: MANUAL DIFF FLAG NO
[2020-12-17 17:36] LABS: Basophils Percent Auto 0.3 % (0-2); Eosinophils Absolute Auto 0.1 X10*3/uL (0.0-0.4); Eosinophils Percent Auto 0.9 % (0-4); Hematocrit 34.8 % (37-47); Hemoglobin 12.2 g/dl (12.0-16.0); Imm Gran Abs Auto 0.02 X10*3/uL (0.00-0.03); Imm Gran Pct Auto 0.2 % (0.0-0.4); Lymphocytes Absolute Auto 2.5 X10*3/uL (1.2-4.9); Mean Corpuscular HGB Conc 35.1 g/dl (31.0-35.0); Mean Corpuscular Hemoglobin 33.4 pg (27.0-33.0); Mean Corpuscular Volume 95.3 fL (80-98); Mean Platelet Volume 9.4 fL (9.4-12.3); Monocytes Absolute Auto 0.5 X10*3/uL (0.1-1.2); Monocytes Percent Auto 5.5 % (2-11); Neutrophils Absolute Auto 5.8 X10*3/uL (2.0-8.3); Neutrophils Percent Auto 65.1 % (45-73); Platelet Count 249 X10*3/uL (160-400); Red Blood Count 3.65 X10*6/uL (4.20-5.50); Red Cell Distribution Width 12.8 % (11.0-16.0); White Blood Count 8.9 X10*3/uL (4.8-10.8)
[2020-12-17 17:56] LABS: COVID-19 Test Negative (Negative)
[2020-12-17 18:23] LABS: Alanine Aminotransferase 10 U/L (0-31); Albumin Level 4.5 g/dL (3.5-5.0); Alkaline Phosphatase 102 U/L (39-117); Anion Gap 19 (12-20); Aspartate Amino Transferase 12 U/L (5-31); Bilirubin Direct 0.2 mg/dL (0.0-0.5); Bilirubin Total 0.5 mg/dL (0.0-1.0); Blood Urea Nitrogen 15 mg/dL (9-16); Calcium 8.8 mg/dL (8.4-10.2); Carbon Dioxide 29 mmol/L (22-29); Chloride 97 mmol/L (96-108); Creatinine Clr Calc Pharmacy 74.9; Estimated Glomerular Filt Rate > 60; Glucose Random 92 mg/dL (60-115); Sodium 142 mmol/L (135-145); Total Protein 7.7 g/dL (6.5-8.0)
[2020-12-17 18:54] VITALS: BP 133/83; PULSE 75; RESP 16; TEMP 37.1; O2SAT 99
[2020-12-18 01:45] LABS: CT PCR NOT DETECTED (Not Detect.); NG PCR NOT DETECTED (Not Detect.)
[2020-12-18 08:52] LABS: BV Int Neg Control Negative (Negative); BV Int Pos Control Positive (Positive)
== END 2020-12-17 19:01 | disposition home or self-care (01) ==
PROVIDERS: Physician Assistant; Emergency Provider Internal Medicine; PCP Family Medicine
DX: B34.9 Viral infection, unspecified (principal); K52.9 Noninfective gastroenteritis and colitis, unspecified; N76.0 Acute vaginitis; M54.5 Low back pain; M79.10 Myalgia, unspecified site; R51.9 Headache, unspecified; Z79.899 Other long term (current) drug therapy
CPT/HCPCS: 36415; 80053; 80076; 81003; 81025; 82248; 85025; 87480; 87491; 87510; 87591; 87635; 87660; 99284

== ENCOUNTER → 2020-12-19 11:14 | Outpatient (BNVA) | payer OTHER, SELFPAY | PROVIDERS: PCP Physician Assistant; Referring Provider Physician Assistant; Visit Provider Surgery ==

== ENCOUNTER 2020-12-22 16:14 | Emergency (ER) | payer OTHER, SELFPAY ==
[2020-12-22 16:40] VITALS: BP 128/72; BP 151/85; PULSE 64; PULSE 84; RESP 20; TEMP 37; O2SAT 95; O2SAT 98; BMI 39.0
[2020-12-22 18:23] LABS: MANUAL DIFF FLAG NO
[2020-12-22 18:28] LABS: Basophils Percent Auto 0.3 % (0-2); Eosinophils Absolute Auto 0.1 X10*3/uL (0.0-0.4); Eosinophils Percent Auto 0.8 % (0-4); Hematocrit 36.4 % (37-47); Hemoglobin 12.6 g/dl (12.0-16.0); Imm Gran Abs Auto 0.05 X10*3/uL (0.00-0.03); Imm Gran Pct Auto 0.5 % (0.0-0.4); Lymphocytes Absolute Auto 1.9 X10*3/uL (1.2-4.9); Lymphocytes Percent Auto 19.2 % (20-40); Mean Corpuscular HGB Conc 34.6 g/dl (31.0-35.0); Mean Corpuscular Hemoglobin 33.4 pg (27.0-33.0); Mean Corpuscular Volume 96.6 fL (80-98); Mean Platelet Volume 9.5 fL (9.4-12.3); Monocytes Absolute Auto 0.5 X10*3/uL (0.1-1.2); Monocytes Percent Auto 4.9 % (2-11); Neutrophils Absolute Auto 7.2 X10*3/uL (2.0-8.3); Neutrophils Percent Auto 74.3 % (45-73); Platelet Count 239 X10*3/uL (160-400); Red Blood Count 3.77 X10*6/uL (4.20-5.50); White Blood Count 9.7 X10*3/uL (4.8-10.8)
[2020-12-22 19:12] LABS: Anion Gap 20 (12-20); Blood Urea Nitrogen 16 mg/dL (9-16); Carbon Dioxide 30 mmol/L (22-29); Chloride 96 mmol/L (96-108); Creatinine Clr Calc Pharmacy 66.8; Estimated Glomerular Filt Rate 58; Glucose Random 114 mg/dL (60-115); Lipase 15 U/L (8-78); Potassium 3.4 mmol/L (3.3-5.1); Sodium 143 mmol/L (135-145)
== END 2020-12-22 22:22 | disposition left against medical advice (07) ==
LOC: HO.ED 22:21
PROVIDERS: Emergency Provider Emergency Medicine; PCP Physician Assistant
DX: R10.30 Lower abdominal pain, unspecified (principal)
CPT/HCPCS: 36415; 80048; 83690; 85025; 99282; 99283

== ENCOUNTER → 2021-01-03 08:01 | Outpatient (BNVA) | payer OTHER, SELFPAY | PROVIDERS: PCP Physician Assistant; Visit Provider Internal Medicine ==

== ENCOUNTER → 2021-01-23 11:49 | Outpatient (BNVA) | payer OTHER, SELFPAY | PROVIDERS: PCP Physician Assistant; Referring Provider Physician Assistant; Visit Provider Surgery | DX: K43.2 Incisional hernia without obstruction or gangrene (principal); R10.84 Generalized abdominal pain; E66.01 Morbid (severe) obesity due to excess calories; M85.80 Other specified disorders of bone density and structure, unspecified site; E20.9 Hypoparathyroidism, unspecified; E55.9 Vitamin D deficiency, unspecified; Z68.42 Body mass index [BMI] 45.0-49.9, adult; Z88.8 Allergy status to other drugs, medicaments and biological substances | CPT/HCPCS: 99212 ==

== ENCOUNTER 2021-01-30 12:25 | Outpatient (REF) | payer OTHER, SELFPAY ==
[2021-01-30 13:33] LABS: COVID-19 Test Negative (Negative)
== END 2021-01-30 12:26 | disposition home or self-care (01) ==
LOC: HO.LAB 12:25
PROVIDERS: PCP Physician Assistant; Visit Provider Internal Medicine
DX: Z20.822 Contact with and (suspected) exposure to COVID-19 (principal)
CPT/HCPCS: 36415; 87635; C9803

== ENCOUNTER 2021-02-08 14:09 | Outpatient (REF) | payer OTHER, SELFPAY ==
[2021-02-08 15:00] LABS: Blood Urea Nitrogen 18 mg/dL (9-16); Estimated Glomerular Filt Rate > 60
== END 2021-02-08 14:10 | disposition home or self-care (01) ==
LOC: HO.LAB 14:09
PROVIDERS: PCP Physician Assistant; Visit Provider Surgery
DX: R10.84 Generalized abdominal pain (principal)
CPT/HCPCS: 36415; 82565; 84520

== ENCOUNTER 2021-04-23 12:44 | Outpatient (REF) | payer OTHER, SELFPAY ==
[2021-04-23 13:35] LABS: Blood Urea Nitrogen 15 mg/dL (9-16); Estimated Glomerular Filt Rate > 60
== END 2021-04-23 12:45 | disposition home or self-care (01) ==
LOC: HO.CT 12:44
PROVIDERS: Visit Provider Surgery
DX: R10.84 Generalized abdominal pain (principal); K43.2 Incisional hernia without obstruction or gangrene
CPT/HCPCS: 36415; 82565; 84520

== ENCOUNTER 2021-05-01 09:01 | Outpatient (REF) | payer OTHER, SELFPAY ==
--- NOTE | ~2021-05-01 | CT_ITS ---
EXAMINATION: CT ABDOMEN AND PELVIS WITH CONTRAST CLINICAL INFORMATION: Generalized abdominal pain COMPARISON: Previous CT of the abdomen and pelvis most recent April 2020 TECHNIQUE: Multidetector volumetric images were obtained from the superior aspect of the liver through the pubic symphysis following administration 85 mL of Omnipaque 350 intravenous contrast. Sagittal and coronal reformatted images were obtained on the technologist's workstation. Oral contrast: Yes This CT examination was performed using dose optimization techniques as appropriate, variously including the following: *Automated exposure control *Adjustment of mA and/or kV according to patient size (this includes techniques or standardized protocols for targeted exams where dose is matched to indication/reason for exam; i.e. extremities or head) *Use of iterative reconstruction technique DLP: 600 mGy-cm FINDINGS: LUNG BASES: The visualized lung bases are unremarkable. LIVER, GALLBLADDER, AND BILIARY TREE: The liver is enlarged and slightly low in attenuation suggestive of fatty infiltration. No focal hepatic lesion or biliary ductal dilatation is present. The gallbladder has been removed. The main portal vein is prominent measuring 1.8 cm questionable for evidence of portal hypertension. There is no ascites. PANCREAS: Unremarkable. SPLEEN: Spleen appears prominent measuring 16 cm in AP dimension. ADRENAL GLANDS: Unremarkable. KIDNEYS AND URETERS: There is a small stone in the lower pole of the right kidney. There is a 0.5 cm Hounsfield units following contrast measure 85. This is decreased in size from 1 cm on previous contrast-enhanced exam September 2019. There is a 1 cm cm low-attenuation lesion in the lower pole of the left kidney. Hounsfield units postcontrast measure 4 to also not compatible with a simple cyst. This is decreased in size from 1.4 cm on September 2019 contrast enhanced exam. The kidneys are otherwise unremarkable. BLADDER: Unremarkable. GASTROINTESTINAL TRACT: There is stool throughout the colon suggestive of constipation. There is mild diverticulosis. No evidence of diverticulitis is seen. There is question of mild bowel wall thickening of the right colon /colitis versus changes due to underdistention. Small and large bowel is otherwise unremarkable. The appendix is unremarkable. There may be a small esophageal hernia. The stomach is otherwise unremarkable. ABDOMINAL WALL: There are postsurgical changes to the anterior abdominal wall. There is increased soft tissue in the subcutaneous fat in the periumbilical region collection measuring 1 x 3 x 3 cm in AP transverse and longitudinal dimension. This is decreased in size from April 2020 exam and likely represents resolving postsurgical change. No recurrent hernia or fluid collection is seen. LYMPH NODES: Normal. VASCULAR: Unremarkable. PELVIC VISCERA: The uterus appears to have been removed. No pelvic mass is seen. OSSEOUS STRUCTURES: There are degenerative changes of the spine. The hip joints. There is increased lumbar lordosis. CT/CT abdomen pelvis w con IMPRESSION: Question mild wall thickening of the right colon/colitis versus changes due to underdistention. Diverticulosis. No evidence of diverticulitis. Postsurgical changes to the abdominal wall. Enlarged fatty liver. Prominent spleen. Prominent main portal vein questionable for portal hypertension. Small nonobstructing right renal stone. 2 low-attenuation left renal lesions not compatible with simple cysts but decreased in size compared to older precontrast exam September 2019. Fleischner guidelines were followed.
[2021-05-01] MEDS: iohexoL 350 MG/ML 100 ML INFUS..BTL IV (11:52)
[2021-05-01] MEDS: Barium Sulfate Oral (Vanilla) 450 ML ORAL.SUSP 900 ML PO (11:52)
== END 2021-05-01 09:02 | disposition home or self-care (01) ==
LOC: HO.CT 09:01
PROVIDERS: PCP Physician Assistant; Visit Provider Surgery
DX: R10.84 Generalized abdominal pain (principal); K43.2 Incisional hernia without obstruction or gangrene
CPT/HCPCS: 74177; Q9967

== ENCOUNTER → 2021-05-08 10:29 | Outpatient (BNVA) | payer OTHER, SELFPAY | PROVIDERS: PCP Physician Assistant; Referring Provider Physician Assistant; Visit Provider Surgery | DX: K43.2 Incisional hernia without obstruction or gangrene (principal); E66.01 Morbid (severe) obesity due to excess calories; Z68.42 Body mass index [BMI] 45.0-49.9, adult | CPT/HCPCS: 99212 ==

== ENCOUNTER → 2021-05-15 10:33 | Outpatient (BNVA) | payer OTHER, SELFPAY | PROVIDERS: PCP Physician Assistant; Referring Provider Physician Assistant; Visit Provider Internal Medicine Gastroenterology | DX: R53.81 Other malaise (principal); R53.83 Other fatigue; M54.9 Dorsalgia, unspecified; R05.9 Cough, unspecified | CPT/HCPCS: 99212 ==

== ENCOUNTER 2021-05-15 11:50 | Emergency (ER) | payer OTHER, SELFPAY ==
--- NOTE | ~2021-05-15 | XR_ITS ---
EXAMINATION: XR CHEST CLINICAL INFORMATION: Dyspnea. COMPARISON: Chest radiograph dated from 11/24/2019. TECHNIQUE: PA view of the chest was obtained. FINDINGS: Normal appearance of the cardiomediastinal silhouette. No focal airspace opacities, pleural effusions or pneumothorax. No acute osseous abnormalities. XR/XR chest 1V IMPRESSION: No acute cardiopulmonary findings.
[2021-05-15 13:04] VITALS: BP 138/86; PULSE 86; RESP 16; TEMP 36.3; O2SAT 98; BMI 46.6
[2021-05-15 13:36] LABS: Appearance Urine CLEAR; Color Urine YELLOW; Glucose Urine UA NEG (NEG); Leukocyte Esterase Urine NEG (NEG); Nitrite Urine NEG (NEG); PH 7.5 (5.0-8.0); Specific Gravity - Urine 1.015 (1.005-1.025); Urine Blood NEG (NEG); Urine Ketones NEG (NEG); Urine Protein NEG (NEG-TRACE)
[2021-05-15 16:51] LABS: MANUAL DIFF FLAG NO
[2021-05-15 17:01] LABS: Partial Thromboplastin Time 36.1 SEC (24.1-38.0)
[2021-05-15 17:08] LABS: COVID-19 Test Negative (Negative)
[2021-05-15 17:09] LABS: Basophils Percent Auto 0.3 % (0-2); Eosinophils Absolute Auto 0.1 X10*3/uL (0.0-0.4); Eosinophils Percent Auto 1.3 % (0-4); Hematocrit 34.7 % (37.0-47.0); Imm Gran Abs Auto 0.03 X10*3/uL (0.00-0.03); Imm Gran Pct Auto 0.5 % (0.0-0.4); Lymphocytes Absolute Auto 2.2 X10*3/uL (1.2-4.9); Lymphocytes Percent Auto 35.3 % (20-40); Mean Corpuscular HGB Conc 34.6 g/dl (31.0-35.0); Mean Corpuscular Volume 95.3 fL (80.0-98.0); Mean Platelet Volume 9.7 fL (9.4-12.3); Monocytes Absolute Auto 0.3 X10*3/uL (0.1-1.2); Monocytes Percent Auto 4.7 % (2-11); Neutrophils Absolute Auto 3.6 x10*3/uL (2.0-8.3); Neutrophils Percent Auto 57.9 % (45-73); Platelet Count 189 X10*3/uL (160-400); Red Blood Count 3.64 X10*6/uL (4.20-5.50); Red Cell Distribution Width 13.3 % (11.0-16.0); White Blood Count 6.2 X10*3/uL (4.8-10.8)
[2021-05-15 17:12] LABS: Alanine Aminotransferase 12 U/L (0-31); Albumin Level 4.2 g/dL (3.5-5.0); Alkaline Phosphatase 93 U/L (39-117); Anion Gap 10 (12-20); Aspartate Amino Transferase 11 U/L (5-31); Bilirubin Direct 0.2 mg/dL (0.0-0.5); Bilirubin Total 0.5 mg/dL (0.0-1.0); Blood Urea Nitrogen 12 mg/dL (9-16); Calcium 9.2 mg/dL (8.4-10.2); Carbon Dioxide 34 mmol/L (22-29); Chloride 99 mmol/L (96-108); Creatinine Clr Calc Pharmacy 95.1; Estimated Glomerular Filt Rate > 60; Glucose Random 89 mg/dL (60-115); Lipase 17 U/L (8-78); Potassium 3.4 mmol/L (3.3-5.1); Sodium 140 mmol/L (135-145); Total Protein 7.1 g/dL (6.5-8.0)
[2021-05-15 17:16] LABS: Troponin-I High Sensitivity < 3.5 ng/L (<3.5-17.0)
[2021-05-15 20:16] VITALS: BP 135/72; PULSE 83; RESP 18; TEMP 36.8; O2SAT 98
--- NOTE | 2021-05-15 22:13 | ED.GENADULT ---
HPI - General Adult General Chief complaint: Headache Stated complaint: Migraine Time Seen by Provider: 05/15/21 16:34 Source: patient and recreational therapist Mode of arrival: ambulatory History of Present Illness HPI narrative: 50-year-old female with multiple complaints that range from body aches and feeling chills and states she has not gotten her COVID-19 vaccine and also has primary complaints right lower back pain that she states radiates up and down . This is not been associated with any visual/ auditory/ speech changes and she denies any extremity weakness / numbness / tingling. Related Data Home Medications Medication Instructions Recorded Confirmed clonazepam 0.5 mg tablet 0.5 mg PO BEDTIME tab 06/28/20 05/08/21 propranolol 20 mg tablet 20 mg PO BID 12/12/20 05/08/21 buspirone 5 mg tablet 5 mg PO BID 05/15/21 quetiapine 100 mg tablet 100 mg PO BEDTIME 05/15/21 quetiapine 300 mg tablet (Seroquel) 200 mg PO BEDTIME tab 05/15/21 Previous Rx's Medication Instructions Recorded cyclobenzaprine 10 mg tablet 10 mg PO TID PRN #18 tab 12/17/20 metronidazole 500 mg tablet 500 mg PO Q12H 7 Days #14 tab 12/17/20 polyethylene glycol 3350 17 17 g PO BID #510 g 01/30/21 gram/dose oral powder acetaminophen 300 mg-codeine 30 mg 1 tab PO Q8H PRN 5 Days #15 tab 02/08/21 tablet meclizine 25 mg tablet 25 mg PO DAILY PRN #30 tab 02/27/21 aluminum-mag hydroxide-simethicone 10 ml PO QID PRN #355 ml 03/02/21 400 mg-400 mg-40 mg/5 mL oral susp (Almacone-2) amlodipine 5 mg tablet 5 mg PO QAM #30 tab 03/12/21 calcitriol 0.25 mcg capsule 0.25 mcg PO DAILY 30 Days #30 cap 03/12/21 hydrochlorothiazide 25 mg tablet 25 mg PO DAILY #30 tab 03/12/21 furosemide 20 mg tablet 20 mg PO DAILY #30 tab 04/25/21 cholecalciferol (vitamin D3) 25 25 mcg PO DAILY 30 Days #30 cap 04/30/21 mcg (1,000 unit) capsule pantoprazole 40 mg tablet,delayed 40 mg PO DAILY #60 tab 05/15/21 release Allergies Allergy/AdvReac Type Severity Reaction Status Date / Time ibuprofen [IBUPROFEN] Allergy Intermediate RASH Verified 05/15/21 13:13 lisinopril [LISINOPRIL] Allergy Intermediate RASH Verified 05/15/21 13:13 lactulose [LACTULOSE] Allergy Mild STOMACH Verified 05/15/21 13:13 ACHE Review of Systems Review of Systems: Pertinent positives and negatives as stated in HPI 10 point review of systems is otherwise negative. [facility] Past Medical History Source: nursing notes reviewed Medical History Chronic abdominal pain Hernia Hypoparathyroidism IBS (irritable bowel syndrome) Morbid obesity due to excess calories Osteopenia Pancreatitis Renal colic Vitamin D deficiency Surgical History H/O left knee surgery H/O thyroidectomy H/O: hysterectomy History of cholecystectomy History of esophagogastroduodenoscopy (EGD) History of hernia repair History of parathyroid surgery Hx of colonoscopy Status post excision of lipoma Family History Family History Father Medical history unknown Mother Cancer Paternal Grandmother Diabetes Paternal Grandfather Diabetes Daughter Behavioral problem Family/Other FH: mental illness Social History Social History Household Members: None Housing: Apartment Alcohol intake: current Alcohol intake frequency: does not drink Patient Tobacco Use Status: Never used Tobacco e-Cigarette/Vaping Use: Never Used Second Hand Smoke Exposure: No Advance Directives: No Advance Directives Information Provided: Yes Patient : No Current occupational status: unemployed and disabled Physical Exam Vital Signs: Vital Signs: Last Vital Signs Temp 98.2 F 05/15/21 20:16 Pulse 83 05/15/21 20:16 Resp 18 05/15/21 20:16 BP 135/72 05/15/21 20:16 Pulse Ox 98 05/15/21 20:16 BMI result Body Mass Index 46.6 VITAL SIGNS: Reviewed. GENERAL: obese, chronically ill, in no acute distress. HEAD: Normocephalic/atraumatic EYES: PERRLA, EOMI OROPHARYNX: no oral lesions noted, posterior pharynx clear LUNGS: Normal breath sounds. SpO2<98> CARDIOVASCULAR: Regular rate and rhythm without noted murmurs. ABDOMEN: Soft, non-tender, non-distended with bowel sounds. BACK: Tenderness on palpation at right lower back, patient walks with cane, no midline vertebral tenderness and no CVA tenderness SKIN: Inspection of the skin reveals no rashes NEUROLOGIC: Alert and oriented x 4. Strength and sensation to light touch were grossly intact x 4. Course Course Course Narrative: 50-year-old female with history and clinical presentation most consistent with viral syndrome like symptoms and/or back pain / musculoskeletal. Review of all investigations is otherwise negative for acute findings. These results were discussed with patient at bedside and she was provided with Tylenol as well as lidocaine patch ( she is noted to be allergic to ibuprofen). She was then strongly encouraged to follow-up with her primary care provider for further investigations. Medical Decision Making Lab Data Result diagrams: 05/15/21 16:46 05/15/21 16:46 Labs: Lab Results 05/15/21 05/15/21 05/15/21 Range/Units 13:24 16:46 16:46 WBC 6.2 (4.8-10.8) X10*3/uL RBC 3.64 L (4.20-5.50) X10*6/uL Hgb 12.0 (12.0-16.0) g/dl Hct 34.7 L (37.0-47.0) % MCV 95.3 (80.0-98.0) fL MCH 33.0 (27.0-33.0) pg MCHC 34.6 (31.0-35.0) g/dl RDW 13.3 (11.0-16.0) % Plt Count 189 (160-400) X10*3/uL MPV 9.7 (9.4-12.3) fL Immature Gran % (Auto) 0.5 H (0.0-0.4) % Neut % (Auto) 57.9 (45-73) % Lymph % (Auto) 35.3 (20-40) % [place] % (Auto) 4.7 (2-11) % Eos % (Auto) 1.3 (0-4) % Baso % (Auto) 0.3 (0-2) % Lymph # (Auto) 2.2 (1.2-4.9) X10*3/uL [place] # (Auto) 0.3 (0.1-1.2) X10*3/uL Eos # (Auto) 0.1 (0.0-0.4) X10*3/uL Baso # (Auto) 0.0 (0.0-0.2) X10*3/uL Abs Immat Gran (auto) 0.03 (0.00-0.03) X10*3/uL Absolute Neuts (auto) 3.6 (2.0-8.3) x10*3/uL Absolute Nucleated RBC 0.000 (0.0-0.012) X10*3/uL Nucleated RBC % (auto) 0.0 (0.0-0.2) /100WBC APTT 36.1 (24.1-38.0) SEC Sodium (135-145) mmol/L Potassium (3.3-5.1) mmol/L Chloride (96-108) mmol/L Carbon Dioxide (22-29) mmol/L Anion Gap (12-20) BUN (9-16) mg/dL Creatinine (0.5-1.4) mg/dL Estim Creat Clear Calc Estimated GFR Random Glucose (60-115) mg/dL Calcium (8.4-10.2) mg/dL Total Bilirubin (0.0-1.0) mg/dL Direct Bilirubin (0.0-0.5) mg/dL AST (5-31) U/L ALT (0-31) U/L Alkaline Phosphatase (39-117) U/L Troponin I High Sens (<3.5-17.0) ng/L Total Protein (6.5-8.0) g/dL Albumin (3.5-5.0) g/dL Lipase (8-78) U/L Urine Color YELLOW Urine Appearance CLEAR Urine pH 7.5 (5.0-8.0) Ur Specific [place] 1.015 (1.005-1.025) Urine Protein NEG (NEG-TRACE) MG/DL Urine Glucose (UA) NEG (NEG) MG/DL Urine Ketones NEG (NEG) MG/DL Urine Blood NEG (NEG) Urine Nitrite NEG (NEG) Ur Leukocyte Esterase NEG (NEG) COVID-19 (SARY) (Negative) COVID-19 Clin Com 05/15/21 05/15/21 05/15/21 Range/Units 16:46 16:46 16:46 WBC (4.8-10.8) X10*3/uL RBC (4.20-5.50) X10*6/uL Hgb (12.0-16.0) g/dl Hct (37.0-47.0) % MCV (80.0-98.0) fL MCH (27.0-33.0) pg MCHC (31.0-35.0) g/dl RDW (11.0-16.0) % Plt Count (160-400) X10*3/uL MPV (9.4-12.3) fL Immature Gran % (Auto) (0.0-0.4) % Neut % (Auto) (45-73) % Lymph % (Auto) (20-40) % [place] % (Auto) (2-11) % Eos % (Auto) (0-4) % Baso % (Auto) (0-2) % Lymph # (Auto) (1.2-4.9) X10*3/uL [place] # (Auto) (0.1-1.2) X10*3/uL Eos # (Auto) (0.0-0.4) X10*3/uL Baso # (Auto) (0.0-0.2) X10*3/uL Abs Immat Gran (auto) (0.00-0.03) X10*3/uL Absolute Neuts (auto) (2.0-8.3) x10*3/uL Absolute Nucleated RBC (0.0-0.012) X10*3/uL Nucleated RBC % (auto) (0.0-0.2) /100WBC APTT (24.1-38.0) SEC Sodium 140 (135-145) mmol/L Potassium 3.4 (3.3-5.1) mmol/L Chloride 99 (96-108) mmol/L Carbon Dioxide 34 H (22-29) mmol/L Anion Gap 10 L (12-20) BUN 12 (9-16) mg/dL Creatinine 0.78 (0.5-1.4) mg/dL Estim Creat Clear Calc 95.1 Estimated GFR > 60 Random Glucose 89 (60-115) mg/dL Calcium 9.2 (8.4-10.2) mg/dL Total Bilirubin 0.5 (0.0-1.0) mg/dL Direct Bilirubin 0.2 (0.0-0.5) mg/dL AST 11 (5-31) U/L ALT 12 (0-31) U/L Alkaline Phosphatase 93 (39-117) U/L Troponin I High Sens < 3.5 (<3.5-17.0) ng/L Total Protein 7.1 (6.5-8.0) g/dL Albumin 4.2 (3.5-5.0) g/dL Lipase 17 (8-78) U/L Urine Color Urine Appearance Urine pH (5.0-8.0) Ur Specific [place] (1.005-1.025) Urine Protein (NEG-TRACE) MG/DL Urine Glucose (UA) (NEG) MG/DL Urine Ketones (NEG) MG/DL Urine Blood (NEG) Urine Nitrite (NEG) Ur Leukocyte Esterase (NEG) COVID-19 (SARY) Negative (Negative) COVID-19 Clin Com See Note Discharge Plan Discharge Clinical Impression: Viral syndrome, Back pain Patient Disposition: Home, Self-Care Instructions: Viral Syndrome (ED), Back Pain (ED) Additional Instructions: 1. Resume all home medications as prescribed. 2. Tylenol 1000 mg, orally, every 6 hours as needed for pain control. Do not exceed 4000 mg within 24 hours. 3. Lidocaine patch, these are available [id number] and should be apply to area of maximal tenderness as directed on the outside packaging. Return to the ER for worsening symptoms. Prescriptions: No Action polyethylene glycol 3350 17 gram/dose powder 17 g PO BID Qty: 510 RF: 0 meclizine 25 mg tablet 25 mg PO DAILY PRN (Reason: dizziness) Qty: 30 RF: 4 alum-mag hydroxide-simeth [Almacone-2] 400-400-40 mg/5 mL suspension 10 ml PO QID PRN (Reason: indigestion) Qty: 355 RF: 3 calcitriol 0.25 mcg capsule 0.25 mcg PO DAILY 30 Days Qty: 30 RF: 3 amlodipine 5 mg tablet 5 mg PO QAM Qty: 30 RF: 3 hydrochlorothiazide 25 mg tablet 25 mg PO DAILY Qty: 30 RF: 3 furosemide 20 mg tablet 20 mg PO DAILY Qty: 30 RF: 0 cholecalciferol (vitamin D3) 25 mcg (1,000 unit) capsule 25 mcg PO DAILY 30 Days Qty: 30 RF: 11 metronidazole 500 mg tablet 500 mg PO Q12H 7 Days Qty: 14 RF: 0 cyclobenzaprine 10 mg tablet 10 mg PO TID PRN (Reason: pain) Qty: 18 RF: 0 clonazepam 0.5 mg tablet 0.5 mg PO BEDTIME RF: 0 acetaminophen-codeine 300-30 mg tablet 1 tab PO Q8H PRN (Reason: pain) 5 Days Qty: 15 RF: 0 propranolol 20 mg tablet 20 mg PO BID RF: 0 quetiapine [Seroquel] 300 mg tablet 200 mg PO BEDTIME RF: 0 quetiapine 100 mg tablet 100 mg PO BEDTIME RF: 0 buspirone 5 mg tablet 5 mg PO BID RF: 0 pantoprazole 40 mg tablet,delayed release (DR/EC) 40 mg PO DAILY Qty: 60 RF: 3 Referrals: Marcus Herman PA-C [Primary Care Provider] - 2 days ( Re-evaluate) Print Language: Pakistani
== END 2021-05-15 22:29 | disposition home or self-care (01) ==
PROVIDERS: Emergency Provider Student in an Organized Health Care Education/Training Program; PCP Physician Assistant
DX: M54.50 Low back pain, unspecified (principal); B34.9 Viral infection, unspecified; Z20.822 Contact with and (suspected) exposure to COVID-19
CPT/HCPCS: 36415; 71045; 80048; 80076; 81003; 83690; 84484; 85025; 85730; 87635; 99284

== ENCOUNTER → 2021-07-11 09:18 | Outpatient (BNVA) | payer OTHER, SELFPAY | PROVIDERS: PCP Physician Assistant; Visit Provider Internal Medicine ==

== ENCOUNTER 2021-07-26 13:07 | Outpatient (REF) | payer OTHER, SELFPAY ==
--- NOTE | ~2021-07-26 | XR_ITS ---
EXAMINATION: LUMBAR SPINE AND SACRUM CLINICAL INFORMATION: This is a 50-year-old female with sciatica on the right. COMPARISON: Comparison is made to a previous study dated 02/14/2017. TECHNIQUE: 4 plain film views of the lumbosacral spine are provided for evaluation. FINDINGS: At T8-T9 there is severe degenerative disc disease with associated bony changes. This area was not imaged on the previous study. At T9-T10 there is severe degenerative disc disease with associated bony changes. This area was seen previously and appears worse on the current study. At T10-T11 there is increased disc space narrowing with associated bony changes suggesting degenerative disc disease. This area was seen previously and appears worse on the current study. There appears to be further loss of height with increased adjacent vertebral body sclerosis. There is increased osteoarthritic changes in the facet joints at L4-L5, L5-S1 when compared to the previous study. This demonstrates some encroachment on the neural foramina at L4-L5 and L5-S1. On the lateral view of the spine there is a question of an oval mass in the retroperitoneum which measures 5 cm x 4 cm. The etiology and location of this mass is unclear from the AP view. This oval mass was not apparent on a previous study. Surgical clips are seen in the right upper quadrant from previous cholecystectomy. This may be better evaluated with a CT scan through the abdomen. XR/XR lumbar spine 2-3V IMPRESSION: 1. Degenerative disc disease as described in the lower thoracic spine. 2. Osteoarthritic changes in the lower lumbar spine as described. 3. Possible retroperitoneal mass as described. A CT scan through the abdomen may be helpful for further evaluation.
--- NOTE | ~2021-07-26 | MM_ITS ---
EXAMINATION: BONE DENSITOMETRY CLINICAL INDICATION: Other specified disorders of bone density and structure. COMPARISON: Baseline BD dated 04/06/2019. TECHNIQUE: Using a [employer] DXA System (software version: 13.1) manufactured by [employer], dual-energy x-ray absorptiometry was performed of the lumbar spine, left hip, and left forearm radius 33%. The images are of good technical quality. Summary results are attached. FINDINGS: AP SPINE L1-L4: Current: BMD 1.069 g/cm2, Z-score -1.3, T-score -0.9, normal, 4.7% increase from baseline (<5% change is not significant). Baseline: BMD 1.021 g/cm2. LEFT FEMUR, NECK: Current: BMD 0.579 g/cm2, Z-score -3.0, T-score -3.3, osteoporosis. Baseline: BMD 0.875 g/cm2. LEFT FEMUR, TOTAL: Current: BMD 0.730 g/cm2, Z-score -2.3, T-score -2.2, osteopenia, 24.0% decrease from baseline (<5% change is not significant). Baseline: BMD 0.961 g/cm2. LEFT FOREARM RADIUS 33%: BMD 0.893 g/cm2, Z-score 0.3, T-score 0.2, normal, 1.7% increase from baseline (<5% change is not significant). Baseline: BMD 0.878 g/cm2. IDENTIFIED RISK FACTORS: Early menopause, secondary osteoporosis, rheumatoid arthritis, osteoporosis, hyperparathyroidism, height loss, low calcium intake, low calcium intake, hysterectomy, bilateral oophorectomy. HISTORY OF FRACTURE: None listed. MEDICATIONS: Calcium supplements or multivitamin, vitamin D. MM/XR DEXA appendicular skeleton IMPRESSION: 1. DIAGNOSIS: Osteoporosis based on the lowest T-score value of -3.3 in the femoral neck applying World Health Organization criteria. 2. 10-YEAR FRACTURE RISK PREDICTION, FRAX: According to the guidelines, FRAX calculation should only be performed on patients in the osteopenia bone density category. Therefore, FRAX was not performed on this patient. 3. Treatment Recommendations: NOF guidelines recommend consideration for treatment in postmenopausal women and men age 50 and older presenting with the following: -A hip or vertebral (clinical or morphometric) fracture. -T-score less than or equal to -2.5 at the femoral neck or spine after appropriate evaluation to exclude secondary causes. -Low bone mass at the hip or spine and a 10-year fracture probability by FRAX of greater than or equal to 3% for hip fracture or greater than or equal to 20% for major osteoporotic fracture based on the [place] adapted WHO algorithm. 4. Other Recommendations: All treatment decisions require clinical judgment and consideration of individual patient factors, including patient preferences, comorbidities, previous drug use, risk factors not captured in the FRAX model (e.g. frailty, falls, vitamin D deficiency, increased bone turnover, interval significant decline in bone density) and possible under or overestimation of fracture risk by FRAX. Additional medical evaluation for secondary cause of low bone mineral density may be appropriate. FUTURE SCAN RECOMMENDATION: People with diagnosed cases of osteoporosis or at high risk for fracture should have regular bone mineral density tests. For patients eligible for Medicare, routine testing is allowed once every 2 years. The testing frequency can be increased to one year for patients who have rapidly progressing disease, those who are receiving or discontinuing medical therapy to restore bone mass, or have additional risk factors.
--- NOTE | ~2021-07-26 | XR_ITS ---
EXAMINATION: LUMBAR SPINE AND SACRUM CLINICAL INFORMATION: This is a 50-year-old female with sciatica on the right. COMPARISON: Comparison is made to a previous study dated 02/14/2017. TECHNIQUE: 4 plain film views of the lumbosacral spine are provided for evaluation. FINDINGS: At T8-T9 there is severe degenerative disc disease with associated bony changes. This area was not imaged on the previous study. At T9-T10 there is severe degenerative disc disease with associated bony changes. This area was seen previously and appears worse on the current study. At T10-T11 there is increased disc space narrowing with associated bony changes suggesting degenerative disc disease. This area was seen previously and appears worse on the current study. There appears to be further loss of height with increased adjacent vertebral body sclerosis. There is increased osteoarthritic changes in the facet joints at L4-L5, L5-S1 when compared to the previous study. This demonstrates some encroachment on the neural foramina at L4-L5 and L5-S1. On the lateral view of the spine there is a question of an oval mass in the retroperitoneum which measures 5 cm x 4 cm. The etiology and location of this mass is unclear from the AP view. This oval mass was not apparent on a previous study. Surgical clips are seen in the right upper quadrant from previous cholecystectomy. This may be better evaluated with a CT scan through the abdomen. XR/XR sacrum coccyx min 2V IMPRESSION: 1. Degenerative disc disease as described in the lower thoracic spine. 2. Osteoarthritic changes in the lower lumbar spine as described. 3. Possible retroperitoneal mass as described. A CT scan through the abdomen may be helpful for further evaluation.
[2021-07-26 15:41] LABS: Alanine Aminotransferase 9 U/L (0-31); Albumin Level 4.1 g/dL (3.5-5.0); Alkaline Phosphatase 88 U/L (39-117); Anion Gap 17 (12-20); Aspartate Amino Transferase 13 U/L (5-31); Bilirubin Total 0.6 mg/dL (0.0-1.0); Blood Urea Nitrogen 9 mg/dL (9-16); Calcium 8.7 mg/dL (8.4-10.2); Carbon Dioxide 25 mmol/L (22-29); Chloride 101 mmol/L (96-108); Estimated Glomerular Filt Rate > 60; Glucose Random 84 mg/dL (60-115); Phosphorus 3.9 mg/dL (2.7-4.5); Potassium 3.6 mmol/L (3.3-5.1); Sodium 139 mmol/L (135-145); Total Protein 6.9 g/dL (6.5-8.0)
[2021-07-26 16:02] LABS: Vitamin D 25-OH Total 28.9 ng/mL (>30)
[2021-07-27 18:21] LABS: Calcium (PTHI) 8.4 mg/dL (8.6-10.4); PTHI 38 pg/mL (14-64)
== END 2021-07-26 13:08 | disposition home or self-care (01) ==
LOC: HO.MAMMO 13:07
PROVIDERS: PCP Physician Assistant; Visit Provider Internal Medicine
DX: M81.0 Age-related osteoporosis without current pathological fracture (principal)
CPT/HCPCS: 36415; 72100; 72220; 77081; 80053; 82306; 83970; 84100

== ENCOUNTER 2021-08-01 10:39 | Outpatient (REF) | payer OTHER, SELFPAY ==
[2021-08-01 12:24] LABS: Creatinine, mg/dL 124.63
[2021-08-01 13:55] LABS: Creatinine, 24Hr Urine 1.3 G/Day (1.0-2.0); Total Volume 24 Hour Urine 1025 mL
[2021-08-02 19:26] LABS: Calcium, 24 Hr Urine 45 mg/24 h; Calcium/Creatinine Ratio 35 mg/g creat (30-275); Creatinine 24Hr Urine 1.28 g/24 h (0.50-2.15)
== END 2021-08-01 10:40 | disposition home or self-care (01) ==
LOC: HO.LNP 10:39
PROVIDERS: Visit Provider Internal Medicine
DX: E20.9 Hypoparathyroidism, unspecified (principal)
CPT/HCPCS: 82340; 82570

== ENCOUNTER → 2021-08-13 10:46 | Outpatient (BNVA) | payer OTHER, SELFPAY | PROVIDERS: PCP Physician Assistant; Visit Provider Internal Medicine | DX: M54.16 Radiculopathy, lumbar region (principal); D17.1 Benign lipomatous neoplasm of skin and subcutaneous tissue of trunk | CPT/HCPCS: 99202 ==

== ENCOUNTER → 2021-08-16 11:18 | Outpatient (BNVA) | payer OTHER, SELFPAY | PROVIDERS: PCP Physician Assistant; Visit Provider Internal Medicine | DX: E20.9 Hypoparathyroidism, unspecified (principal); E55.9 Vitamin D deficiency, unspecified; Z98.890 Other specified postprocedural states; Z79.899 Other long term (current) drug therapy ==

== ENCOUNTER → 2021-09-13 13:32 | Outpatient (BNVA) | payer OTHER, SELFPAY | PROVIDERS: PCP Physician Assistant; Referring Provider Physician Assistant; Visit Provider Surgery | DX: D17.1 Benign lipomatous neoplasm of skin and subcutaneous tissue of trunk (principal) | CPT/HCPCS: 99212 ==

== ENCOUNTER → 2021-09-24 12:00 | Outpatient (BNVA) | payer OTHER, SELFPAY | PROVIDERS: PCP Physician Assistant; Referring Provider Physician Assistant; Visit Provider Internal Medicine Gastroenterology | DX: Z13.89 Encounter for screening for other disorder (principal) ==

== ENCOUNTER 2021-09-26 08:23 | Day surgery (SDC) | payer OTHER, SELFPAY ==
--- NOTE | 2021-09-25 11:45 | HO.ANESPROP2 ---
Documented by User: Mary Ellen Alberts NP 09/25/21 11:48 HPI - Anesthesia Eval Consult details Narrative: 50yo F for Excision low back Cyst PMFSH Active Problems Active Problems: All Active Problems (Updated 08/13/21 @ 14:06 by Ruddy Lopez MD) Lipoma of back (Acute) Lumbar radiculopathy, chronic (Acute) Retroperitoneal mass (Acute) Sciatica of right side (Acute) Portal hypertension (Acute) Cough (Acute) Back pain (Acute) Malaise and fatigue (Acute) Left shoulder pain (Acute) Generalized abdominal pain (Acute) Incisional hernia (Acute) Osteopenia (Acute) Morbid obesity due to excess calories (Acute) BMI 45.0-49.9, adult (Acute) Generalized anxiety disorder with panic attacks (Acute) Insomnia (Acute) Hand paresthesia (Acute) Hypocalcemia (Acute) Hiatal hernia (Acute) Preoperative examination (Acute) Shortness of breath (Acute) Nausea & vomiting (Acute) Constipation by delayed colonic transit (Acute) Rib pain on right side (Acute) Pneumonia due to 2019 novel coronavirus (Acute) History of parathyroid surgery (Acute) Vitamin D deficiency (Acute) Hypoparathyroidism (Acute) Vertigo (Acute) HTN (hypertension) (Acute) Past Medical History Medical History Chronic abdominal pain Hernia Hypoparathyroidism IBS (irritable bowel syndrome) Morbid obesity due to excess calories Osteopenia Pancreatitis Renal colic Vitamin D deficiency Family History Family History Father Medical history unknown Mother Cancer Paternal Grandmother Diabetes Paternal Grandfather Diabetes Daughter Behavioral problem Family/Other FH: mental illness Surgical History Surgical History H/O left knee surgery H/O thyroidectomy H/O: hysterectomy History of cholecystectomy History of esophagogastroduodenoscopy (EGD) History of hernia repair History of parathyroid surgery Hx of colonoscopy Status post excision of lipoma Social History Social History Household Members: None Housing: Apartment Alcohol intake: current Alcohol intake frequency: former alcohol drinker Patient Tobacco Use Status: Never used Tobacco e-Cigarette/Vaping Use: Never Used Second Hand Smoke Exposure: No Use of substances other than those prescribed or required for medical reasons: No Are you DNR?: No Advance Directives: No Advance Directives Information Provided: Yes Recently lost weight without trying: No Current occupational status: unemployed and disabled Meds Allergies Allergy/AdvReac Type Severity Reaction Status Date / Time ibuprofen [IBUPROFEN] Allergy Intermediate RASH Verified 09/24/21 12:03 lisinopril [LISINOPRIL] Allergy Intermediate RASH Verified 09/24/21 12:03 lactulose [LACTULOSE] Allergy Mild STOMACH Verified 09/24/21 12:03 ACHE Home Medications Medication Instructions Recorded Confirmed Last Taken Type clonazepam 0.5 mg tablet 0.5 mg PO BEDTIME tab 06/28/20 09/13/21 Unknown History buspirone 10 mg tablet 10 mg PO BID 07/11/21 09/13/21 Unknown History utwuszsfcg-zaipbpadknzyl-fxoboutx tab PO 07/11/21 09/13/21 Unknown History 50 mg-325 mg-40 mg tablet ondansetron HCl 4 mg tablet 4 mg PO BEDTIME 07/11/21 09/13/21 Unknown History zolpidem 10 mg tablet 10 mg PO BEDTIME PRN 07/11/21 09/13/21 Unknown History Exam Exam Date and Time: September 25, 2021 1145 Pertinent Lab Results Pertinent Lab Results: Laboratory Tests 05/15/21 07/26/21 16:46 14:57 WBC 6.2 Hgb 12.0 Hct 34.7 L Plt Count 189 Sodium 139 Potassium 3.6 Chloride 101 Carbon Dioxide 25 BUN 9 Creatinine 0.79 Assessment and Plan Assessment Anesthesia Assessment: Chart Reviewed Documented by User: Puja Palacios MD 09/26/21 13:16 PMFSH Active Problems Active Problems: All Active Problems (Updated 08/13/21 @ 14:06 by Ruddy Lopez MD) Lipoma of back (Acute) Lumbar radiculopathy, chronic (Acute) Retroperitoneal mass (Acute) Sciatica of right side (Acute) Portal hypertension (Acute) Cough (Acute) Back pain (Acute) Malaise and fatigue (Acute) Left shoulder pain (Acute) Generalized abdominal pain (Acute) Incisional hernia (Acute) Osteopenia (Acute) Morbid obesity due to excess calories (Acute) BMI 45.0-49.9, adult (Acute) Generalized anxiety disorder with panic attacks (Acute) Insomnia (Acute) Hand paresthesia (Acute) Hypocalcemia (Acute) Hiatal hernia (Acute) Preoperative examination (Acute) Shortness of breath (Acute) Nausea & vomiting (Acute) Constipation by delayed colonic transit (Acute) Rib pain on right side (Acute) Pneumonia due to 2019 novel coronavirus (Acute) History of parathyroid surgery (Acute) Vitamin D deficiency (Acute) Hypoparathyroidism (Acute) Vertigo (Acute) HTN (hypertension) (Acute) 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[employer] H/o heavy alcohol use in the past Past Medical History Medical History Chronic abdominal pain Hernia Hypoparathyroidism IBS (irritable bowel syndrome) Morbid obesity due to excess calories Osteopenia Pancreatitis Renal colic Vitamin D deficiency Family History Family History Father Medical history unknown Mother Cancer Paternal Grandmother Diabetes Paternal Grandfather Diabetes Daughter Behavioral problem Family/Other FH: mental illness Family history of problems with anesthesia: No Surgical History Surgical History H/O left knee surgery H/O thyroidectomy H/O: hysterectomy History of cholecystectomy History of esophagogastroduodenoscopy (EGD) History of hernia repair History of parathyroid surgery Hx of colonoscopy Status post excision of lipoma History of Problems with Anesthesia: No Social History Social History Household Members: None Housing: Apartment Alcohol intake: current Alcohol intake frequency: former alcohol drinker Patient Tobacco Use Status: Never used Tobacco e-Cigarette/Vaping Use: Never Used Second Hand Smoke Exposure: No Use of substances other than those prescribed or required for medical reasons: No Are you DNR?: No Advance Directives: No Advance Directives Information Provided: Yes Recently lost weight without trying: No Current occupational status: unemployed and disabled Meds Allergies Allergy/AdvReac Type Severity Reaction Status Date / Time ibuprofen [IBUPROFEN] Allergy Intermediate RASH Verified 09/24/21 12:03 lisinopril [LISINOPRIL] Allergy Intermediate RASH Verified 09/24/21 12:03 lactulose [LACTULOSE] Allergy Mild STOMACH Verified 09/24/21 12:03 ACHE Home Medications Medication Instructions Recorded Confirmed Last Taken Type clonazepam 0.5 mg tablet 0.5 mg PO BEDTIME tab 06/28/20 09/13/21 Unknown History buspirone 10 mg tablet 10 mg PO BID 07/11/21 09/13/21 Unknown History hbysfficga-nknaxamogxmft-wsydadjf tab PO 07/11/21 09/13/21 Unknown History 50 mg-325 mg-40 mg tablet ondansetron HCl 4 mg tablet 4 mg PO BEDTIME 07/11/21 09/13/21 Unknown History zolpidem 10 mg tablet 10 mg PO BEDTIME PRN 07/11/21 09/13/21 Unknown History Exam Height,Weight and Vital Signs: Height 5 ft 2 in Weight 90.718 kg Vital Signs Temp Pulse Resp BP Pulse Ox 09/26/21 09:44 97.9 F 78 18 145/97 H 97 Airway Mallampati Class: III TM Dist: >3cm Neck ROM: Full Heart: RRR Lungs: CTAB Assessment and Plan Assessment Anesthesia Assessment: Anesthesia Plan Discussed Final Anesthetic Review Family History of Problems with Anesthesia: No History of Problems with Anesthesia: No NPO: Yes ASA Class: III Final Preanesthetic Review: No Changes in Pt Med Stat, Meds/Allgs Chart Reviewed, Consent Obtained/Reviewed and Anes Risks/Benef Reviewed Patient Risk: Intermediate Procedure Risk: Low Assessment/Block/Sedation in SS: Assess/Block/Sedation-SS Anesthetic Plan Anesthetic Plan: GA Disposition: Standard PACU
[2021-09-26] VITALS (11 sets, daily range): BP systolic 132–151; BP diastolic 74–97; PULSE 73–81; RESP 14–20; TEMP 36.6–37.4; O2SAT 97–100; BMI 36.6
--- NOTE | 2021-09-26 11:51 | MHC.SHP ---
Pre-Procedural Eval Section A Date of Service: 09/26/21 The patient is an INPATIENT: No Changes since office visit: Yes Patient answered all questions; No Cold of Flu in the past 2 weeks, No New Medical Problems and No Changes in Medication The History & Physical has been completed within 30 days and I have reviewed it.: Yes Section B Chief Complaint: Benign lipomatous neoplasm of skin and subcutaneou Allergies: Allergies Allergy/AdvReac Type Severity Reaction Status Date / Time ibuprofen [IBUPROFEN] Allergy Intermediate RASH Verified 09/24/21 12:03 lisinopril [LISINOPRIL] Allergy Intermediate RASH Verified 09/24/21 12:03 lactulose [LACTULOSE] Allergy Mild STOMACH Verified 09/24/21 12:03 ACHE Plan Diagnosis/Plan: Unchanged I have reviewed the history and physical and performed a pertinent physical examination on my patient. No changes have occurred unless specified.
--- NOTE | 2021-09-26 12:58 | P.OP_ITS ---
Operative Note Operative Note Date of Service: 09/26/21 Narrative: Preoperative diagnosis:Lipoma lower back Postoperative diagnosis: Same Procedure: Excision of lipoma lower back Surgeon: Jamal Ragsdale MD Raw Scales Operator: Katelin Sheikh PA-C Anesthesia: General LMA Indications for procedure: 50-year-old female presenting with a painful enlarging lipoma of the back. She previously underwent excision of another lipoma just above this now requests excision of this additional lipoma. Operative findings: 4 cm lipoma mid back Specimen: Lipoma mid back Estimated blood loss: 2 mL Complications: None Procedure details: Patient was brought to the OR placed in a supine position. After administering general anesthesia she was placed in a right lateral decubitus position. The skin was prepped with ChloraPrep and draped in a sterile fashion. A surgical time-out was called the consent confirmed. Patient received preoperative antibiotics and Venodyne boots were placed. Local anesthesia consisting of 0.25% Sensorcaine was infiltrated over the lipoma. The incision was then made a transverse fashion directly over the lipoma. This was carried out through subcutaneous tissue up to the anterior surface of the lipoma. The lipoma was then dissected both bluntly with a hemostat and with electrocautery circumferentially. Lesion was removed and sent to pathology for further examination. Wounds were checked for hemostasis. Subcutaneous tissue was then reapproximated using interrupted 3-0 Polysorb sutures. Dermis reapproximated using interrupted 3-0 Polysorb sutures. Skin was then closed using a running subcuticular 4-0 Polysorb suture. Steri-Strips 2 x 2 gauze and Tegaderm were then applied. The patient tolerated the procedure well. Sponge, instrument, and needle counts were reported as correct. The patient was transferred to PACU in stable co ndition.
[2021-09-26] MEDS: Acetaminophen 325 MG TABLET 975 MG PO (13:32)
[2021-09-26] MEDS: oxyCODONE HCl Immed Release 5 MG TABLET PO (13:32)
[2021-09-26] MEDS: fentaNYL citrate/PF 100 MCG/2 ML VIAL 25 MCG IVPUSH ×2 (13:33→14:12)
== END 2021-09-26 15:04 | disposition home or self-care (01) ==
PROVIDERS: PCP Physician Assistant; Visit Provider Surgery
PROC: (CPT 21931; principal; 2021-09-26 10:40)
DX: D17.1 Benign lipomatous neoplasm of skin and subcutaneous tissue of trunk (principal); G89.4 Chronic pain syndrome; R10.9 Unspecified abdominal pain; E20.9 Hypoparathyroidism, unspecified; K58.9 Irritable bowel syndrome, unspecified; K85.90 Acute pancreatitis without necrosis or infection, unspecified; E55.9 Vitamin D deficiency, unspecified; E66.01 Morbid (severe) obesity due to excess calories; Z68.42 Body mass index [BMI] 45.0-49.9, adult; Z79.899 Other long term (current) drug therapy; Z88.8 Allergy status to other drugs, medicaments and biological substances; Z90.49 Acquired absence of other specified parts of digestive tract
CPT/HCPCS: 21931; 88304; J0690; J2250; J2405; J2550; J3010

== ENCOUNTER → 2021-10-04 11:15 | Outpatient (BNVA) | payer OTHER, SELFPAY | PROVIDERS: PCP Physician Assistant; Referring Provider Physician Assistant; Visit Provider Surgery | DX: Z48.817 Encounter for surgical aftercare following surgery on the skin and subcutaneous tissue (principal); Z87.2 Personal history of diseases of the skin and subcutaneous tissue | CPT/HCPCS: 99212 ==

== ENCOUNTER 2021-11-02 11:29 | Emergency (ER) | payer OTHER, SELFPAY ==
--- NOTE | ~2021-11-02 | CT_ITS ---
EXAMINATION: CT ABDOMEN AND PELVIS WITHOUT CONTRAST CLINICAL INFORMATION: Nausea and vomiting. Right flank pain. CVA tenderness. Hematuria. COMPARISON: Previous CT of the abdomen and pelvis April 2021 TECHNIQUE: Multidetector volumetric imaging was performed from the superior aspect of the liver through the pubic symphysis. Sagittal and coronal reformatted images were obtained on the technologist's workstation. This CT examination was performed using dose optimization techniques as appropriate, variously including the following: *Automated exposure control *Adjustment of mA and/or kV according to patient size (this includes techniques or standardized protocols for targeted exams where dose is matched to indication/reason for exam; i.e. extremities or head) *Use of iterative reconstruction technique DLP: 884 mGy-cm FINDINGS: LUNG BASES: The visualized lung bases are unremarkable. LIVER, GALLBLADDER, AND BILIARY TREE: The liver is slightly enlarged. The liver is normal in contour and attenuation. No focal hepatic lesion or biliary ductal dilatation is present. The gallbladder has been removed. PANCREAS: Unremarkable. SPLEEN: Unremarkable. ADRENAL GLANDS: Unremarkable. KIDNEYS AND URETERS: There are small 1-2 mm nonobstructing stones in both kidneys. No hydronephrosis, ureteral dilatation or ureteral stone is seen. BLADDER: Not optimally distended. GASTROINTESTINAL TRACT: Diverticulosis of the colon. No evidence of diverticulitis. Small and large bowel is otherwise unremarkable. Normal appendix. ABDOMINAL WALL: Post operative changes to the anterior abdominal wall. No hernia. LYMPH NODES: Normal. VASCULAR: Unremarkable. PELVIC VISCERA: The uterus appears to have been removed. No pelvic mass. OSSEOUS STRUCTURES: Degenerative changes of the spine. CT/CT abdomen pelvis wo con IMPRESSION: Small nonobstructing bilateral renal stones. No hydronephrosis, ureteral dilatation or ureteral stone. Diverticulosis of the colon. No evidence of diverticulitis. Fleischner guidelines were followed.
[2021-11-02 11:39] VITALS: BP 133/83; BP 148/70; PULSE 64; PULSE 66; RESP 16; TEMP 36.9; O2SAT 98; BMI 45.3
--- NOTE | 2021-11-02 11:43 | ED.ABDPAIN ---
HPI - Abdominal Pain General Chief Complaint: General Medical Stated Complaint: BACK PAIN VAG BLEED Time Seen by Provider: 11/02/21 11:33 Source: patient and EMS Mode of arrival: EMS Limitations: no limitations History of Present Illness HPI narrative: 50-year-old female c a PMHx of of HTN, hypoparathyroidism, hypocalcemia, vitamin-D deficiency, vertigo, insomnia, osteopenia, sciatica of right side and kidney stones presenting to the ED via EMS with complaints of right back/right flank pain with associated hematuria for the past 3 days. Reports that she has a stone in her hand. Reports she has chronic nausea vomiting has not changed. Denies any fevers, chills, dizziness, chest pain, shortness of breath, cough, dysuria, abnormal vaginal discharge, vaginal bleeding, rashes, recent falls or trauma, recent sick contacts or travel or any other symptoms complaints or concerns at this time. MD elicited complaint: flank pain Pertinent past history: kidney stones (has one wrapped in paper towel ) Onset (ago): day(s) (3) Pain Consistency: constant Location: R flank Severity: moderate Quality: sharp Radiation: other (right buttocks ) Exacerbating factors: nothing Relieving factors: nothing Associated symptoms: nausea and vomiting Related Data Patient : No Home Medications Medication Instructions Recorded Confirmed clonazepam 0.5 mg tablet 0.5 mg PO BEDTIME 06/28/20 10/04/21 buspirone 10 mg tablet 10 mg PO BID 07/11/21 10/04/21 fcmqxfpqcy-ntvffvvpfubgs-ummfvxin tab PO 07/11/21 10/04/21 50 mg-325 mg-40 mg tablet ondansetron HCl 4 mg tablet 4 mg PO BEDTIME 07/11/21 10/04/21 zolpidem 10 mg tablet 10 mg PO BEDTIME PRN 07/11/21 10/04/21 zolpidem 12.5 mg tablet,extended 12.5 mg PO BEDTIME PRN 10/04/21 10/04/21 release,multiphase Previous Rx's Medication Instructions Recorded polyethylene glycol 3350 17 17 g PO BID #510 grams 01/30/21 gram/dose oral powder cholecalciferol (vitamin D3) 25 25 mcg PO DAILY 30 days #30 caps 04/30/21 mcg (1,000 unit) capsule blood pressure kit-extra large #1 ea 06/06/21 amlodipine 5 mg tablet 5 mg PO QAM #30 tabs 07/16/21 calcitriol 0.25 mcg capsule 0.25 mcg PO DAILY 30 days #30 caps 07/16/21 hydrochlorothiazide 25 mg tablet 25 mg PO DAILY #30 tabs 07/16/21 meclizine 25 mg tablet 25 mg PO DAILY PRN dizziness #30 07/16/21 tabs aluminum-mag hydroxide-simethicone 10 ml PO QID PRN for congestion 08/28/21 400 mg-400 mg-40 mg/5 mL oral susp #355 mL (Almacone-2) propranolol 20 mg tablet 10 mg PO BID #30 tabs 09/24/21 furosemide 20 mg tablet 20 mg PO DAILY #30 tabs 09/26/21 oxycodone-acetaminophen 5 mg-325 1 tab PO Q6H PRN pain (scale score 10/02/21 mg tablet (Endocet) 7-10) #14 tabs pantoprazole 40 mg tablet,delayed 40 mg PO DAILY #30 tabs 10/29/21 release acetaminophen 500 mg tablet 1,000 mg PO QID PRN fever or pain 11/02/21 (Tylenol Extra Strength) #14 tabs cyclobenzaprine 10 mg tablet 10 mg PO Q8H PRN Muscle spasm #14 11/02/21 tabs ondansetron 4 mg disintegrating 4 mg PO Q6-8H PRN nausea and 11/02/21 tablet vomiting #14 tabs Allergies Allergy/AdvReac Type Severity Reaction Status Date / Time ibuprofen [IBUPROFEN] Allergy Intermediate RASH Verified 10/04/21 11:42 lisinopril [LISINOPRIL] Allergy Intermediate RASH Verified 10/04/21 11:42 lactulose [LACTULOSE] Allergy Mild STOMACH Verified 10/04/21 11:42 ACHE Review of Systems Review of Systems Constitutional : No Weight loss, No Fever, No Chills, No Night Sweats, No Fatigue, No Malaise ENT/Mouth : No Hearing loss, No Ear Pain, No Nasal Congestion, No Sinus Pain, No Hoarseness, No sore throat, No Rhinorrhea, No Swallowing Difficulty Eyes: No Eye Pain, No Swelling, No Redness, No Foreign Body, No Discharge, No Vision Changes Cardiovascular : No Chest Pain, No SOB, No Dyspnea on Exertion, No Orthopnea, No Edema, No Palpitations Respiratory : No Cough, No Sputum, No Wheezing, No Smoke Exposure, No Dyspnea Gastrointestinal : + Nausea, + Vomiting, + abdominal Pain, No Hematochezia, No Melena, No Diarrhea, No Constipation Genitourinary : + hematuria/flank pain, no irregular bleeding, No Dysuria, No Urinary Frequency, No Urinary Incontinence, No Urgency, No Urinary Flow Changes, No Hesitancy Musculoskeletal : No joint pain, No Myalgias, No Joint Swelling Skin : No Skin Lesions, No rash Neuro : No Weakness, No Numbness, No Paresthesias, No Loss of Consciousness, No Dizziness, No Headache Psych : No Anxiety/Panic, No Depression, No SI/HI/AH/VH, No Social Issues, Heme/Lymph: No Bruising, No Bleeding,No Lymphadenopathy Endocrine : No Polyuria, No Polydipsia, No Temperature Intolerance Yes all other systems are reviewed and are negative [facility] Past Medical History Attestation statement: The following information was validated with the patient. Source: old records reviewed and nursing notes reviewed Medical History Chronic abdominal pain Hernia IBS (irritable bowel syndrome) Pancreatitis Renal colic Surgical History H/O left knee surgery H/O thyroidectomy H/O: hysterectomy History of cholecystectomy History of esophagogastroduodenoscopy (EGD) History of hernia repair Hx of colonoscopy Status post excision of lipoma (09/26/21) Family History Family History Father Medical history unknown Mother Cancer Paternal Grandmother Diabetes Paternal Grandfather Diabetes Daughter Behavioral problem Family/Other FH: mental illness Social History Social History Household Members: None Housing: Apartment Alcohol intake: never Patient Tobacco Use Status: Never used Tobacco e-Cigarette/Vaping Use: Never Used Second Hand Smoke Exposure: No Use of substances other than those prescribed or required for medical reasons: No Advance Directives: No Advance Directives Information Provided: Yes Patient : No Current occupational status: unemployed and disabled Physical Exam ED Vital Signs: Vital Signs - 24 hr 11/02/21 11:39 11/02/21 12:52 11/02/21 14:04 Temperature 98.5 F 98.5 F 97.7 F Pulse Rate 64 62 60 Respiratory Rate 16 18 16 Blood Pressure 133/83 131/76 137/71 Pulse Oximetry 98 99 100 Oxygen Delivery Method Room Air Room Air Room Air 11/02/21 14:27 Temperature 98.5 F Pulse Rate 66 Respiratory Rate 18 Blood Pressure 131/76 Pulse Oximetry 100 Oxygen Delivery Method Room Air BMI result Body Mass Index 45.3 vital signs have been reviewed as normal and appeared to be correct. Blood pressure normal. Heart rate normal. Respiration rate normal. Temperature normal. Oxygen saturation normal. Appearance: Alert. Oriented X3. No acute distress. Head: Normal external exam. Normocephalic. Atraumatic. Eyes: PERRLA. EOMI. Conjunctiva and sclera normal. Eyelids normal. ENT: Pharynx normal. Uvula midline. Moist mucous membranes. Normal voice. Neck: Normal inspection. Neck supple. FROM. No adenopathy. Thyroid Normal. No meningeal signs. CVS: Normal heart rate and rhythm. Heart sound normal. Pulses normal throughout. No murmurs/rales/gallops. Respiratory: No respiratory distress. Painless inspiration. Breath sounds normal. No wheezes/rales/rhonchi noted. Chest nontender. No accessory muscle usage noted or decreased air movement noted. No signs of trauma. Abdomen: Soft and nontender. Bowel sounds normal in all 4 quadrants. No distention noted. No organomegaly noted. No visible injury noted. Back: + Right CVAT. No left CVAT. Full range of motion noted. Nontender. No signs of trauma. Patient neuro intact bilaterally and distally on all 4 extremities. Patient's reflexes intact bilaterally and distally on all 4 extremities. No rashes/lesion/induration/fluctuance or signs of infection noted. Skin: Skin warm and dry. Normal skin color. Normal skin turgor. No rashes/lesions/lacerations noted. Extremities: Extremities exhibit normal range of motion and nontender. Neuro: Oriented X 3. No motor deficit. No sensory deficit. Reflexes normal. Normal steady gait. No focal neuro deficits noted. CN's II-XII intact bilaterally? Vascular: + radial pulses/+ 2 distal pedal pulses/+2 dorsalis pedis b/l. Normal cap refill. No cyanosis noted to upper extremity nails and lower extremity toes nails. Course Course Course Narrative: 11:40am - 50-year-old female c a PMHx of of HTN, hypoparathyroidism, hypocalcemia, vitamin-D deficiency, vertigo, insomnia, osteopenia, sciatica of right side and kidney stones presenting to the ED via EMS with complaints of right back/right flank pain with associated hematuria for the past 3 days. Reports that she has a stone in her hand. Reports she has chronic nausea vomiting has not changed. Plan: Will obtain labs, UA, CT scan abdomen pelvis without IV contrast. Provide 4 mg of Zofran and 5 mg of oxycodone and re-evaluate. Reevaluation(s) Reevaluation #1: - labs reviewed patient with a mild baseline anemia similar when compared to prior. Carbon dioxide 32. Otherwise all other labs are within normal limits. UA revealed 5 ketones otherwise no evidence of UTI and urine is negative. - patient with small nonobstructing bilateral renal stones otherwise no other acute processes. Patient most likely muscular skeletal pain. Will DC home with symptomatic treatment instructions return if any new or worsening symptoms follow up with primary care provider. Patient understands agrees with this plan. Time: 15:02 MDM - Abdominal Pain Medical Records Attestation: I reviewed the patient's medical records. Lab Data Attestation: I reviewed the patient's lab results. Result diagrams: 11/02/21 12:21 11/02/21 12:21 Labs: Lab Results 11/02/21 11/02/21 11/02/21 Range/Units 12:21 12:21 12:21 WBC 6.8 (4.8-10.8) X10*3/uL RBC 3.82 L (4.20-5.50) X10*6/uL Hgb 12.3 (12.0-16.0) g/dl Hct 35.8 L (37.0-47.0) % MCV 93.7 (80.0-98.0) fL MCH 32.2 (27.0-33.0) pg MCHC 34.4 (31.0-35.0) g/dl RDW 12.4 (11.0-16.0) % Plt Count 197 (160-400) X10*3/uL MPV 10.2 (9.4-12.3) fL Immature Gran % (Auto) 0.3 (0.0-0.4) % Neut % (Auto) 56.2 (45-73) % Lymph % (Auto) 35.5 (20-40) % Green % (Auto) 5.7 (2-11) % Eos % (Auto) 1.9 (0-4) % Baso % (Auto) 0.4 (0-2) % Lymph # (Auto) 2.4 (1.2-4.9) X10*3/uL Green # (Auto) 0.4 (0.1-1.2) X10*3/uL Eos # (Auto) 0.1 (0.0-0.4) X10*3/uL Baso # (Auto) 0.0 (0.0-0.2) X10*3/uL Abs Immat Gran (auto) 0.02 (0.00-0.03) X10*3/uL Absolute Neuts (auto) 3.8 (2.0-8.3) x10*3/uL Absolute Nucleated RBC 0.000 (0.0-0.012) X10*3/uL Nucleated RBC % (auto) 0.0 (0.0-0.2) /100WBC Sodium 143 (135-145) mmol/L Potassium 4.2 (3.3-5.1) mmol/L Chloride 103 (96-108) mmol/L Carbon Dioxide 32 H (22-29) mmol/L Anion Gap 12 (12-20) BUN 15 D (9-16) mg/dL Creatinine 0.96 (0.5-1.4) mg/dL Estim Creat Clear Calc 75.9 Estimated GFR > 60 Random Glucose 91 (60-115) mg/dL Calcium 9.1 (8.4-10.2) mg/dL Magnesium 1.9 (1.6-2.6) mg/dL Total Bilirubin 0.4 (0.0-1.0) mg/dL AST 8 (5-31) U/L ALT 11 (0-31) U/L Alkaline Phosphatase 81 (39-117) U/L Total Protein 6.8 (6.5-8.0) g/dL Albumin 4.1 (3.5-5.0) g/dL Lipase 20 (8-78) U/L Urine Color Urine Appearance Urine pH (5.0-8.0) Ur Specific [place] (1.005-1.025) Urine Protein (NEG-TRACE) MG/DL Urine Glucose (UA) (NEG) MG/DL Urine Ketones (NEG) MG/DL Urine Blood (NEG) Urine Nitrite (NEG) Ur Leukocyte Esterase (NEG) Urine Test (NEGATIVE) 11/02/21 11/02/21 Range/Units 12:23 12:32 WBC (4.8-10.8) X10*3/uL RBC (4.20-5.50) X10*6/uL Hgb (12.0-16.0) g/dl Hct (37.0-47.0) % MCV (80.0-98.0) fL MCH (27.0-33.0) pg MCHC (31.0-35.0) g/dl RDW (11.0-16.0) % Plt Count (160-400) X10*3/uL MPV (9.4-12.3) fL Immature Gran % (Auto) (0.0-0.4) % Neut % (Auto) (45-73) % Lymph % (Auto) (20-40) % Green % (Auto) (2-11) % Eos % (Auto) (0-4) % Baso % (Auto) (0-2) % Lymph # (Auto) (1.2-4.9) X10*3/uL Green # (Auto) (0.1-1.2) X10*3/uL Eos # (Auto) (0.0-0.4) X10*3/uL Baso # (Auto) (0.0-0.2) X10*3/uL Abs Immat Gran (auto) (0.00-0.03) X10*3/uL Absolute Neuts (auto) (2.0-8.3) x10*3/uL Absolute Nucleated RBC (0.0-0.012) X10*3/uL Nucleated RBC % (auto) (0.0-0.2) /100WBC Sodium (135-145) mmol/L Potassium (3.3-5.1) mmol/L Chloride (96-108) mmol/L Carbon Dioxide (22-29) mmol/L Anion Gap (12-20) BUN (9-16) mg/dL Creatinine (0.5-1.4) mg/dL Estim Creat Clear Calc Estimated GFR Random Glucose (60-115) mg/dL Calcium (8.4-10.2) mg/dL Magnesium (1.6-2.6) mg/dL Total Bilirubin (0.0-1.0) mg/dL AST (5-31) U/L ALT (0-31) U/L Alkaline Phosphatase (39-117) U/L Total Protein (6.5-8.0) g/dL Albumin (3.5-5.0) g/dL Lipase (8-78) U/L Urine Color YELLOW Urine Appearance CLEAR Urine pH 6.0 (5.0-8.0) Ur Specific [place] 1.020 (1.005-1.025) Urine Protein NEG (NEG-TRACE) MG/DL Urine Glucose (UA) NEG (NEG) MG/DL Urine Ketones 5 (NEG) MG/DL Urine Blood NEG (NEG) Urine Nitrite NEG (NEG) Ur Leukocyte Esterase NEG (NEG) Urine Test NEGATIVE (NEGATIVE) Imaging Data CT scan abdomen pelvis without IV contrast: Attestation: I personally reviewed and interpreted this imaging study as follows: Radiologist's impression: FINDINGS: LUNG BASES: The visualized lung bases are unremarkable.? LIVER, GALLBLADDER, AND BILIARY TREE: The liver is slightly enlarged. The liver is normal in contour and attenuation. No focal hepatic lesion or biliary ductal dilatation is present. The gallbladder has been removed. PANCREAS: Unremarkable.? SPLEEN: Unremarkable.? ADRENAL GLANDS: Unremarkable.? KIDNEYS AND URETERS: There are small 1-2 mm nonobstructing stones in both kidneys. No hydronephrosis, ureteral dilatation or ureteral stone is seen. BLADDER: Not optimally distended.? GASTROINTESTINAL TRACT: Diverticulosis of the colon. No evidence of diverticulitis. Small and large bowel is otherwise unremarkable. Normal appendix.? ABDOMINAL WALL: Post operative changes to the anterior abdominal wall. No hernia.? LYMPH NODES: Normal. VASCULAR: Unremarkable. PELVIC VISCERA: The uterus appears to have been removed. No pelvic mass. OSSEOUS STRUCTURES: Degenerative changes of the spine.? CT/CT abdomen pelvis wo con IMPRESSION: Small nonobstructing bilateral renal stones. No hydronephrosis, ureteral dilatation or ureteral stone. Diverticulosis of the colon. No evidence of diverticulitis. Fleischner guidelines were followed. Discharge Plan Discharge Clinical Impression: Musculoskeletal pain, Bilateral renal stones, Diverticulosis Patient Disposition: Home, Self-Care Instructions: Diverticulosis (ED), Kidney Stones (ED), Musculoskeletal Pain (ED) Prescriptions: New acetaminophen [Tylenol Extra Strength] 500 mg tablet 1,000 mg PO QID PRN (Reason: fever or pain) Qty: 14 0RF cyclobenzaprine 10 mg tablet 10 mg PO Q8H PRN (Reason: Muscle spasm) Qty: 14 0RF ondansetron 4 mg tablet,disintegrating 4 mg PO Q6-8H PRN (Reason: nausea and vomiting) Qty: 14 0RF No Action polyethylene glycol 3350 17 gram/dose powder 17 g PO BID Qty: 510 0RF cholecalciferol (vitamin D3) 25 mcg (1,000 unit) capsule 25 mcg PO DAILY 30 Days Qty: 30 11RF amlodipine 5 mg tablet 5 mg PO QAM Qty: 30 3RF calcitriol 0.25 mcg capsule 0.25 mcg PO DAILY 30 Days Qty: 30 3RF hydrochlorothiazide 25 mg tablet 25 mg PO DAILY Qty: 30 3RF meclizine 25 mg tablet 25 mg PO DAILY PRN (Reason: dizziness) Qty: 30 3RF alum-mag hydroxide-simeth [Almacone-2] 400-400-40 mg/5 mL suspension 10 ml PO QID PRN (Reason: for congestion) Qty: 355 0RF propranolol 20 mg tablet 10 mg PO BID Qty: 30 3RF furosemide 20 mg tablet 20 mg PO DAILY Qty: 30 3RF oxycodone-acetaminophen [Endocet] 5-325 mg tablet 1 tab PO Q6H PRN (Reason: pain (scale score 7-10)) Qty: 14 0RF pantoprazole 40 mg tablet,delayed release (DR/EC) 40 mg PO DAILY Qty: 30 0RF clonazepam 0.5 mg tablet 0.5 mg PO BEDTIME (DME) blood pressure kit-extra large Kit See Rx Instructions .Route Qty: 1 0RF Rx Instructions: As directed zolpidem 10 mg tablet 10 mg PO BEDTIME PRN buspirone 10 mg tablet 10 mg PO BID otoccccfjk-btbfvettjwepu-tpwk 50-325-40 mg tablet PO ondansetron HCl 4 mg tablet 4 mg PO BEDTIME zolpidem 12.5 mg tablet,ext release multiphase 12.5 mg PO BEDTIME PRN Referrals: Marcus Herman PA-C [Primary Care Provider] - 2 days Demond Louise MD [Physician] - 1 week Print Language: Bol[place]ian
[2021-11-02] MEDS: Ondansetron ODT 4 MG TAB.RAPDIS TRANSLINGU (12:14)
[2021-11-02] MEDS: oxyCODONE HCl Immed Release 5 MG TABLET PO (12:14)
--- NOTE | 2021-11-02 12:23 | MHC.CM.ED ---
Pt requested to see CM to change her HCP. New HCP reviewed, completed and signed. Copies given Uploaded into [facility] and [facility] Expanse. HCP/friend Piedad Shelton ([phone]).
[2021-11-02 12:34] LABS: MANUAL DIFF FLAG NO
[2021-11-02 12:35] LABS: Appearance Urine CLEAR; Color Urine YELLOW; Glucose Urine UA NEG (NEG); Leukocyte Esterase Urine NEG (NEG); Nitrite Urine NEG (NEG); Urine Blood NEG (NEG); Urine Ketones 5 MG/DL (NEG); Urine Protein NEG (NEG-TRACE)
[2021-11-02 12:36] LABS: Basophils Percent Auto 0.4 % (0-2); Eosinophils Absolute Auto 0.1 X10*3/uL (0.0-0.4); Eosinophils Percent Auto 1.9 % (0-4); Hematocrit 35.8 % (37.0-47.0); Hemoglobin 12.3 g/dl (12.0-16.0); Imm Gran Abs Auto 0.02 X10*3/uL (0.00-0.03); Imm Gran Pct Auto 0.3 % (0.0-0.4); Lymphocytes Absolute Auto 2.4 X10*3/uL (1.2-4.9); Lymphocytes Percent Auto 35.5 % (20-40); Mean Corpuscular HGB Conc 34.4 g/dl (31.0-35.0); Mean Corpuscular Hemoglobin 32.2 pg (27.0-33.0); Mean Corpuscular Volume 93.7 fL (80.0-98.0); Mean Platelet Volume 10.2 fL (9.4-12.3); Monocytes Absolute Auto 0.4 X10*3/uL (0.1-1.2); Monocytes Percent Auto 5.7 % (2-11); Neutrophils Absolute Auto 3.8 x10*3/uL (2.0-8.3); Neutrophils Percent Auto 56.2 % (45-73); Platelet Count 197 X10*3/uL (160-400); Red Blood Count 3.82 X10*6/uL (4.20-5.50); Red Cell Distribution Width 12.4 % (11.0-16.0); White Blood Count 6.8 X10*3/uL (4.8-10.8)
[2021-11-02 12:52] VITALS: BP 131/76; PULSE 62; RESP 18; TEMP 36.9; O2SAT 99
[2021-11-02 12:56] LABS: Alanine Aminotransferase 11 U/L (0-31); Albumin Level 4.1 g/dL (3.5-5.0); Alkaline Phosphatase 81 U/L (39-117); Anion Gap 12 (12-20); Aspartate Amino Transferase 8 U/L (5-31); Bilirubin Total 0.4 mg/dL (0.0-1.0); Blood Urea Nitrogen 15 mg/dL (9-16); Calcium 9.1 mg/dL (8.4-10.2); Carbon Dioxide 32 mmol/L (22-29); Chloride 103 mmol/L (96-108); Creatinine Clr Calc Pharmacy 75.9; Estimated Glomerular Filt Rate > 60; Glucose Random 91 mg/dL (60-115); Lipase 20 U/L (8-78); Magnesium 1.9 mg/dL (1.6-2.6); Potassium 4.2 mmol/L (3.3-5.1); Sodium 143 mmol/L (135-145); Total Protein 6.8 g/dL (6.5-8.0)
--- NOTE | 2021-11-02 12:56 | PC.NURSE ---
patient alert and orient X4 . skin pink warm and dry . lungs clear , unlabored breathing . patient appears comfortable . rebound tenderness in lower abdomen noted , patient states history of kidney stones . mild edema noted on lower extremities . patient aware of plan of care .
[2021-11-02 13:54] LABS: UPreg QC Valid YES; Urine Pregnancy NEGATIVE (NEGATIVE)
[2021-11-02 14:04] VITALS: BP 137/71; PULSE 60; RESP 16; TEMP 36.5; O2SAT 100
[2021-11-02 14:27] VITALS: BP 131/76; PULSE 66; RESP 18; TEMP 36.9; O2SAT 100
[2021-11-02] MEDS: Metoclopramide HCl 10 MG TABLET PO (15:11)
[2021-11-02] MEDS: Ketorolac Tromethamine 60 MG/2 ML VIAL 30 MG IM (15:12)
--- NOTE | 2021-11-02 15:25 | PC.NURSE ---
patient medicated for pain and nasseau prier to discharge result pending . ambulated to waiting room . gait steady . follow up with primary care . no questions at this time .
[2021-11-12 08:47] LABS: Stone Source KIDNEY STONE
== END 2021-11-02 15:26 | disposition home or self-care (01) ==
PROVIDERS: Physician Assistant Medical; Emergency Provider Student in an Organized Health Care Education/Training Program; PCP Physician Assistant
DX: N20.0 Calculus of kidney (principal); M79.18 Myalgia, other site; K57.90 Diverticulosis of intestine, part unspecified, without perforation or abscess without bleeding; I10 Essential (primary) hypertension
CPT/HCPCS: 36415; 74176; 80053; 81003; 81025; 82365; 83690; 83735; 85025; 88300; 96372; 99284; J1885

== ENCOUNTER 2021-11-07 06:06 | Outpatient (REF) | payer OTHER, SELFPAY ==
--- NOTE | ~2021-11-07 | FL_ITS ---
EXAMINATION: XR FLUOROSCOPY WITH IMAGES CLINICAL INFORMATION: Radiculopathy lumbar region. COMPARISON: None. TECHNIQUE: Fluoroscopy performed by Dr. Ruddy Lopez. Fluoroscopy time: 0.2 minutes DAP: 1.22 Gy-cm2 Images: 1 FINDINGS: Needle is seen overlying the mid S1 region with no lateral view for comparison. FL/FL guidance in treatment room IMPRESSION: Fluoroscopy used for pain management procedure.
== END 2021-11-07 06:07 | disposition home or self-care (01) ==
LOC: HO.RADIR 06:06
PROVIDERS: Visit Provider Internal Medicine
DX: M54.16 Radiculopathy, lumbar region (principal)
CPT/HCPCS: 62323; J1040

== ENCOUNTER 2021-12-03 08:36 | Outpatient (REF) | payer OTHER, SELFPAY ==
--- NOTE | ~2021-12-03 | XR_ITS ---
EXAMINATION: XR KNEE, LEFT CLINICAL INFORMATION: Left knee pain. COMPARISON: 07/04/2017. TECHNIQUE: 3 views of the left knee. FINDINGS: There is significant tricompartmental disease present. There is narrowing of the medial joint space compartment with marginal spurring. There is a question of an old compression injury involving the lateral tibial plateau. There is a prominent spurring present about all 3 knee compartments. No significant effusion is identified. Post-surgical changes are seen. There has been some increase in spurring seen about the medial joint space. 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 Stable post-surgical change.
[2021-12-03 12:30] LABS: Hematocrit 35.2 % (37.0-47.0); Hemoglobin 12.3 g/dl (12.0-16.0); Mean Corpuscular HGB Conc 34.9 g/dl (31.0-35.0); Mean Corpuscular Hemoglobin 32.5 pg (27.0-33.0); Mean Corpuscular Volume 93.1 fL (80.0-98.0); Mean Platelet Volume 10.2 fL (9.4-12.3); Platelet Count 225 X10*3/uL (160-400); Red Blood Count 3.78 X10*6/uL (4.20-5.50)
[2021-12-03 13:03] LABS: Anion Gap 14 (12-20); Blood Urea Nitrogen 13 mg/dL (9-16); Calcium 8.6 mg/dL (8.4-10.2); Carbon Dioxide 29 mmol/L (22-29); Chloride 104 mmol/L (96-108); Estimated Glomerular Filt Rate > 60; Glucose Random 92 mg/dL (60-115); Lipase 18 U/L (8-78); Potassium 3.5 mmol/L (3.3-5.1); Rheumatoid Factor < 15.0 IU/mL (<15.0); Sodium 143 mmol/L (135-145)
[2021-12-03 13:11] LABS: Erythrocyte Sedimentation Rate 27 MM/HR (0-20)
[2021-12-03 13:24] LABS: TSH reflex Free T4 0.72 uIU/mL (0.32-4.0)
[2021-12-05 12:56] LABS: Calcium (PTHI) 8.9 mg/dL (8.6-10.4); PTHI 34 pg/mL (16-77)
[2021-12-05 14:41] LABS: CRP High Sensitivity 4.9 mg/L
[2021-12-05 16:11] LABS: Cyclic Citrullinated Peptide <16 UNITS
[2021-12-06 22:12] LABS: Anti Nuclear Antibody Screen NEGATIVE (NEGATIVE)
== END 2021-12-03 08:37 | disposition home or self-care (01) ==
LOC: HO.LAB 08:36
PROVIDERS: Absent Provider Physician Assistant; PCP Physician Assistant
DX: N20.0 Calculus of kidney (principal); M25.562 Pain in left knee; R53.83 Other fatigue; M19.90 Unspecified osteoarthritis, unspecified site
CPT/HCPCS: 36415; 73562; 80048; 83690; 83970; 84443; 85027; 85652; 86038; 86039; 86141; 86200; 86431; 99202

== ENCOUNTER 2021-12-26 12:24 | Outpatient (REF) | payer OTHER, SELFPAY ==
--- NOTE | ~2021-12-26 | MR_ITS ---
EXAMINATION: MR LUMBAR SPINE WITHOUT CONTRAST CLINICAL INFORMATION: Radiculopathy in lumbar region. Lower extremity numbness and pain. COMPARISON: X-ray lumbar spine dated 07/26/2021. TECHNIQUE: MRI of the lumbar spine was obtained using routine sequences without contrast. FINDINGS: VERTEBRAL BODIES AND PARASPINAL STRUCTURES: Mild chronic fatty marrow endplate changes and anterior ossific spurring noted at the lower thoracic levels. There are no compression fractures or subluxations. Mildly reduced intradiscal signal without loss of disc height noted at the L3-L4 and L4-L5 levels. There is no marrow or soft tissue edema. The paraspinal soft tissues are unremarkable. CONUS MEDULLARIS AND CAUDA EQUINA: The conus tip is marginally low lying, terminating at the L2-L3 disc space. No lower cord signal abnormality is seen. There is no syrinx. The cauda equina nerve roots appear normal. There is no obvious thickening or fatty infiltration of the filum terminale. SPINAL LEVELS: T12-L1: Very small right paracentral disc protrusion. No central canal stenosis or foraminal narrowing. L1-L2 and L2-L3: No disc pathology, central canal stenosis, or foraminal narrowing. L3-L4 and L4-L5: Very mild disc degeneration and minimal annular disc bulges with hypertrophic facet arthropathy. No central canal stenosis. Mild right foraminal narrowing at the L3-L4 level. L5-S1: No disc abnormality. Moderate facet degeneration, worse on the left side, with osseous spurring contacting the exiting left L5 nerve root. MR/MR lumbar spine wo con IMPRESSION: Very small right paracentral disc protrusion at the T12-L1 level. Minimal disc bulges and facet arthropathy at the L3-L4 and L4-L5 levels with mild right foraminal narrowing at the L3-L4 level. Moderate facet degeneration at L5-S1, more so on the left side, with osseous spurring contacting the exiting left L5 nerve root.
== END 2021-12-26 12:25 | disposition home or self-care (01) ==
LOC: HO.MRI 12:24
PROVIDERS: Visit Provider Physician Assistant
DX: M54.16 Radiculopathy, lumbar region (principal)
CPT/HCPCS: 72148

== ENCOUNTER 2022-01-11 11:05 | Outpatient (REF) | payer OTHER, SELFPAY ==
--- NOTE | ~2022-01-11 | US_ITS ---
EXAMINATION: US RETROPERITONEAL LIMITED (RENAL ONLY) CLINICAL INFORMATION: Calculus of kidney. COMPARISON: CT abdomen and pelvis 11/02/2021. TECHNIQUE: Real-time imaging of the kidneys. FINDINGS: RIGHT KIDNEY: 10.7 x 4.7 x 4.5 cm (SAG x AP x TRV). Areas of renal parenchymal cortical scarring. There is normal parenchymal echogenicity. No focal parenchymal lesions or hydronephrosis. Multiple punctate nonobstructing stones measuring up to 3 mm. LEFT KIDNEY: 9.9 x 5.1 x 5.6 cm (SAG x AP x TRV). The kidney is normal in size, contour, and echogenicity. Renal cortical thickness is normal. No focal parenchymal lesions or hydronephrosis. Nonobstructing renal stones measuring up to 3 mm in the midpole and 6 mm in the lower pole. US/US renal BI IMPRESSION: Bilateral nonobstructing renal stones measuring up to 3 mm on the right and 6 mm on the left.
== END 2022-01-11 11:06 | disposition home or self-care (01) ==
LOC: HO.US 11:05
DX: N20.0 Calculus of kidney (principal); M51.27 Other intervertebral disc displacement, lumbosacral region; M54.16 Radiculopathy, lumbar region
CPT/HCPCS: 76775; 99212

== ENCOUNTER 2022-01-23 11:15 | Emergency (ER) | payer OTHER, SELFPAY | END 2022-01-23 16:56 | disposition left against medical advice (07) | PROVIDERS: Emergency Provider Emergency Medicine; PCP Physician Assistant | DX: R55 Syncope and collapse (principal) ==

== ENCOUNTER 2022-01-25 22:09 | Emergency (ER) | payer OTHER, SELFPAY ==
[2022-01-25 22:10] VITALS: BP 136/95; PULSE 89; O2SAT 99
[2022-01-25 22:18] VITALS: BP 152/77; PULSE 90; RESP 18; TEMP 37.2; O2SAT 97; BMI 48.8
[2022-01-25 22:39] LABS: MANUAL DIFF FLAG NO
[2022-01-25 22:41] LABS: Basophils Percent Auto 0.4 % (0-2); Eosinophils Absolute Auto 0.1 X10*3/uL (0.0-0.4); Eosinophils Percent Auto 0.8 % (0-4); Hematocrit 36.9 % (37.0-47.0); Hemoglobin 13.1 g/dl (12.0-16.0); Imm Gran Abs Auto 0.03 X10*3/uL (0.00-0.03); Imm Gran Pct Auto 0.3 % (0.0-0.4); Lymphocytes Absolute Auto 3.4 X10*3/uL (1.2-4.9); Mean Corpuscular HGB Conc 35.5 g/dl (31.0-35.0); Mean Corpuscular Hemoglobin 33.7 pg (27.0-33.0); Mean Corpuscular Volume 94.9 fL (80.0-98.0); Mean Platelet Volume 9.5 fL (9.4-12.3); Monocytes Absolute Auto 0.6 X10*3/uL (0.1-1.2); Monocytes Percent Auto 6.3 % (2-11); Neutrophils Absolute Auto 5.3 x10*3/uL (2.0-8.3); Neutrophils Percent Auto 56.2 % (45-73); Platelet Count 237 X10*3/uL (160-400); Red Blood Count 3.89 X10*6/uL (4.20-5.50); Red Cell Distribution Width 12.7 % (11.0-16.0); White Blood Count 9.5 X10*3/uL (4.8-10.8)
[2022-01-25 22:43] LABS: Appearance Urine Clear; Color Urine Yellow; Glucose Urine UA Negative (Negative); Leukocyte Esterase Urine Trace (Negative); Nitrite Urine Negative (Negative); Urine Blood Negative (Negative); Urine Ketones Negative (Negative); Urine Protein Negative (Neg-Trace)
[2022-01-25 22:56] LABS: Bacteria Urine Trace (None Seen); Hyaline Casts Urine 0-2 /LPF (0-2); RBC Urine 0-2 /HPF (0-2); WBC Urine 0-5 /HPF (0-5)
[2022-01-25 23:01] LABS: Alanine Aminotransferase 13 U/L (0-31); Albumin Level 4.4 g/dL (3.5-5.0); Alkaline Phosphatase 88 U/L (39-117); Anion Gap 19 (12-20); Aspartate Amino Transferase 12 U/L (5-31); Bilirubin Direct 0.2 mg/dL (0.0-0.5); Bilirubin Total 0.4 mg/dL (0.0-1.0); Blood Urea Nitrogen 15 mg/dL (9-16); Calcium 9.1 mg/dL (8.4-10.2); Carbon Dioxide 28 mmol/L (22-29); Chloride 99 mmol/L (96-108); Creatinine Clr Calc Pharmacy 82.9; Estimated Glomerular Filt Rate > 60; Glucose Random 94 mg/dL (60-115); Potassium 3.8 mmol/L (3.3-5.1); Sodium 142 mmol/L (135-145); Total Protein 7.4 g/dL (6.5-8.0)
== END 2022-01-26 06:18 | disposition left against medical advice (07) ==
PROVIDERS: Emergency Provider Emergency Medicine
DX: R10.9 Unspecified abdominal pain (principal); Z87.442 Personal history of urinary calculi
CPT/HCPCS: 36415; 80053; 81001; 82248; 85025; 99282; 99283

== ENCOUNTER → 2022-01-28 13:36 | Outpatient (BNVA) | payer OTHER, SELFPAY | PROVIDERS: Visit Provider Internal Medicine Gastroenterology | DX: K58.9 Irritable bowel syndrome, unspecified (principal) | CPT/HCPCS: 99212 ==

== ENCOUNTER 2022-02-04 10:00 | Outpatient (REF) | payer OTHER, SELFPAY ==
--- NOTE | ~2022-02-04 | XR_ITS ---
EXAMINATION: XR ABDOMEN COMPLETE CLINICAL INDICATION: Z87.19 - Personal history of other diseases of the digestive system is COMPARISON: CT abdomen and pelvis noncontrast 11/02/2021, renal ultrasound 01/11/2022; abdominal radiographs 01/28/2020, 11/04/2019. TECHNIQUE: 4 views of the abdomen. FINDINGS: There is scattered gas in the bowel of normal caliber. There is no gaseous dilatation of bowel or abnormal collections of gas. No visible pneumatosis. The lung bases are clear. There are surgical clips right upper quadrant from prior cholecystectomy. Scattered calcified phleboliths are present in the pelvis. There are degenerative changes thoracic and lumbosacral spine. XR/XR abdomen 3V IMPRESSION: Unremarkable examination.
== END 2022-02-04 10:01 | disposition home or self-care (01) ==
LOC: HO.XRAY 10:00
PROVIDERS: PCP Physician Assistant; Visit Provider Internal Medicine Gastroenterology
DX: K58.9 Irritable bowel syndrome, unspecified (principal); Z87.19 Personal history of other diseases of the digestive system
CPT/HCPCS: 74021

== ENCOUNTER → 2022-03-01 09:08 | Outpatient (BNVA) | payer OTHER, SELFPAY | PROVIDERS: PCP Physician Assistant; Visit Provider Internal Medicine | DX: M47.816 Spondylosis without myelopathy or radiculopathy, lumbar region (principal) | CPT/HCPCS: 99212 ==

== ENCOUNTER 2022-05-01 06:15 | Outpatient (REF) | payer OTHER, SELFPAY ==
--- NOTE | ~2022-05-01 | FL_ITS ---
EXAMINATION: XR FLUOROSCOPY WITH IMAGES CLINICAL INFORMATION: Spondylosis without myelopathy or radiculopathy. Lumbar region. COMPARISON: 11/07/2021. TECHNIQUE: Fluoroscopy Supervised By: Dr. Ruddy Lopez. Fluoroscopy Time: 0.2 minutes. Cumulative Dose: 17.7 mGy. DAP: 2.91 Gycm2. Images: 2. FINDINGS: [place] are seen at the level of the pedicles of L3-L5 bilaterally. FL/FL guidance in treatment room IMPRESSION: Intraoperative fluoroscopy for pain management procedure.
== END 2022-05-01 06:16 | disposition home or self-care (01) ==
LOC: CF 06:15
PROVIDERS: Visit Provider Internal Medicine
DX: M47.816 Spondylosis without myelopathy or radiculopathy, lumbar region (principal)
CPT/HCPCS: 64493; 64494

== ENCOUNTER 2022-05-23 11:32 | Outpatient (REF) | payer OTHER, SELFPAY ==
--- NOTE | ~2022-05-23 | XR_ITS ---
EXAMINATION: XR ABDOMEN KUB CLINICAL INDICATION: Calculus of kidney COMPARISON: 02/04/2022 TECHNIQUE: AP view of the abdomen. FINDINGS: Right upper quadrant cholecystectomy clips. Nonobstructive abdominal bowel gas pattern. No radiopaque urolithiasis seen. Pelvic phleboliths. XR/XR KUB IMPRESSION: No radiopaque urolithiasis seen.
--- NOTE | ~2022-05-23 | MM_ITS ---
EXAMINATION: MM SCREENING DIGITAL BREAST TOMOSYNTHESIS, BILATERAL CLINICAL INFORMATION: Screening. Asymptomatic. The lifetime risk of breast cancer based on the Tyrer-Cuzick Model is 5%. COMPARISON: Mammography: 10/14/2018, 09/04/2017, 11/29/2015, 08/13/2012 TECHNIQUE: Digital breast tomosynthesis is performed in both the craniocaudal and mediolateral oblique views along with computer-aided detection (CAD). Synthesized 2D images are generated from the tomosynthesis. FINDINGS: There are scattered areas of fibroglandular density (ACR BI-RADS breast composition Category b). There are no significant masses, abnormal calcifications, or other abnormalities. Parenchymal pattern is similar to prior studies. There is no developing density or architectural abnormality. The axilla and skin contours are unremarkable. No significant changes. MM/MM tomosynthesis screening BI IMPRESSION: No mammographic evidence of malignancy. ASSESSMENT: BI-RADS 1: Negative RECOMMENDATION: Routine annual mammography screening. This patient's information was entered into a reminder system with a target due date for their next mammogram.
== END 2022-05-23 11:33 | disposition home or self-care (01) ==
LOC: HO.MAMMO 11:32
PROVIDERS: Absent Provider Urology; PCP Physician Assistant; Visit Provider Physician Assistant
DX: Z12.31 Encounter for screening mammogram for malignant neoplasm of breast (principal); N20.0 Calculus of kidney
CPT/HCPCS: 74018; 77063; 77067

== ENCOUNTER → 2022-05-27 12:07 | Outpatient (BNVA) | payer OTHER, SELFPAY | PROVIDERS: PCP Physician Assistant; Visit Provider Internal Medicine Gastroenterology | DX: R10.9 Unspecified abdominal pain (principal) | CPT/HCPCS: 99212 ==

== ENCOUNTER → 2022-06-03 13:17 | Outpatient (BNVA) | payer OTHER, SELFPAY | PROVIDERS: PCP Physician Assistant; Visit Provider Urology | DX: N20.0 Calculus of kidney (principal) | CPT/HCPCS: 99212 ==

== ENCOUNTER → 2022-06-10 11:56 | Outpatient (BNVA) | payer OTHER, SELFPAY | PROVIDERS: PCP Physician Assistant; Visit Provider Orthopaedic Surgery | DX: M17.0 Bilateral primary osteoarthritis of knee (principal) | CPT/HCPCS: 20610; 99202; J1100 ==

== ENCOUNTER 2022-08-05 12:31 | Outpatient (REF) | payer OTHER, SELFPAY ==
[2022-08-05 15:00] LABS: Alanine Aminotransferase 10 U/L (0-31); Albumin Level 4.4 g/dL (3.5-5.0); Alkaline Phosphatase 91 U/L (39-117); Anion Gap 17 (12-20); Aspartate Amino Transferase 10 U/L (5-31); Bilirubin Total 0.5 mg/dL (0.0-1.0); Blood Urea Nitrogen 16 mg/dL (9-16); Carbon Dioxide 27 mmol/L (22-29); Chloride 103 mmol/L (96-108); Estimated Glomerular Filt Rate 60; Glucose Random 95 mg/dL (60-115); Phosphorus 4.6 mg/dL (2.7-4.5); Sodium 143 mmol/L (135-145); Vitamin D 25-OH Total 37.2 ng/mL (>30)
[2022-08-07 14:24] LABS: Calcium (PTHI) 9.2 mg/dL (8.6-10.4); PTHI 42 pg/mL (16-77)
== END 2022-08-05 12:32 | disposition home or self-care (01) ==
LOC: HO.LAB 12:31
PROVIDERS: PCP Physician Assistant; Visit Provider Internal Medicine
DX: E20.9 Hypoparathyroidism, unspecified (principal); E55.9 Vitamin D deficiency, unspecified; Z98.890 Other specified postprocedural states
CPT/HCPCS: 36415; 80053; 82306; 83970; 84100; 99212

== ENCOUNTER 2022-08-13 13:05 | Emergency (ER) | payer OTHER, SELFPAY ==
--- NOTE | ~2022-08-13 | XR_ITS ---
EXAMINATION: XR CHEST CLINICAL INFORMATION: Cough, shortness of breath, chest pain COMPARISON: 05/15/2021 TECHNIQUE: 2 views of the chest were obtained. FINDINGS: Cardiac silhouette is within normal limits. Bilateral mild peribronchial thickening. No focal consolidation, pleural effusion, or pneumothorax. Multilevel degenerative changes of the thoracic spine. No evidence of an acute osseous abnormality. Surgical clips project over the upper abdomen. XR/XR chest 2V IMPRESSION: Finding suggestive of mild reactive airway disease. No focal consolidation..
--- NOTE | 2022-08-13 13:09 | ECG_ITS ---
Test Reason : CHEST PAIN Blood Pressure : / mmHG Vent. Rate : 091 BPM Atrial Rate : 091 BPM P-R Int : 154 ms QRS Dur : 080 ms QT Int : 376 ms P-R-T Axes : 049 005 014 degrees QTc Int : 462 ms Normal sinus rhythm Nonspecific T wave abnormality Prolonged QT Abnormal ECG When compared with ECG of 21-MAR-2020 11:08, No significant change was found Referred By: Generic ED Physician Electronically Signed By:GELY FAIRBANKS
[2022-08-13 13:19] VITALS: BP 129/71; BP 140/70; PULSE 88; PULSE 89; RESP 20; TEMP 36.8; O2SAT 97; BMI 47.2
--- NOTE | 2022-08-13 13:22 | ED_ITS ---
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 Patient states she has been sick for 1 week. She states that she is having chest pain and she points to her sternal area when asked to localize the pain. The pain is constant but waxes and wanes in intensity and is 8/10 at its worst. She describes the pain is a tightness. The tightness is worse with coughing and with breathing. She has a cough which is nonproductive but is gotten worse over the past week. She states that she took Tylenol No. 3 for her pain without any relief. She states the pain does radiate to her back. She feels short of breath. She has nasal congestion. She denied fever, chills, rhinorrhea, nausea, vomiting, diarrhea, myalgias or arthralgias. RME reviewed <Nagi Dennis MD - Last Filed: 08/13/22 20:02> Related Data Home Medications: Home Medications Medication Instructions Recorded Confirmed clonazepam 0.5 mg tablet 0.5 mg PO BEDTIME 06/28/20 08/05/22 buspirone 10 mg tablet 10 mg PO BID 07/11/21 08/05/22 ondansetron HCl 4 mg tablet 4 mg PO BEDTIME 07/11/21 08/05/22 zolpidem 12.5 mg tablet,extended 12.5 mg PO BEDTIME PRN 10/04/21 08/05/22 release,multiphase naloxone 4 mg/actuation nasal spray 1 spray intranasal DAILY PRN 12/03/21 08/05/22 eszopiclone 1 mg tablet 1 mg PO BEDTIME 05/27/22 08/05/22 Previous Rx's Medication Instructions Recorded blood pressure kit-extra large #1 ea 06/06/21 acetaminophen 500 mg tablet 1,000 mg PO QID PRN fever or pain 11/02/21 (Tylenol Extra Strength) #14 tabs hyoscyamine sulfate 0.125 mg 0.125 mg sublingual BID-QID PRN 01/28/22 sublingual tablet (Levsin/SL) dyspepsia #30 tabs tizanidine 4 mg tablet 4 mg PO Q8H PRN muscle spasticity 04/25/22 #20 tabs amlodipine 5 mg tablet 5 mg PO QAM #30 tabs 05/02/22 calcitriol 0.25 mcg capsule 0.25 mcg PO DAILY 30 days #30 caps 05/02/22 furosemide 20 mg tablet 20 mg PO DAILY #30 tabs 05/02/22 meclizine 25 mg tablet 25 mg PO DAILY PRN dizziness #30 05/02/22 tabs cholecalciferol (vitamin D3) 25 25 mcg PO DAILY 30 days #30 caps 05/06/22 mcg (1,000 unit) capsule pantoprazole 40 mg tablet,delayed 40 mg PO DAILY #30 tabs 05/21/22 release acetaminophen 300 mg-codeine 30 mg 1 tab PO Q8H PRN pain 10 days #30 05/31/22 tablet tabs nortriptyline 10 mg capsule 10 mg PO DAILY #30 caps 06/05/22 hydrochlorothiazide 25 mg tablet 25 mg PO DAILY #30 tabs 06/20/22 propranolol 10 mg tablet 10 mg PO BID #60 tabs 07/23/22 albuterol sulfate 90 mcg/actuation 2 puff inhalation Q4-6H PRN 08/13/22 aerosol inhaler (ProAir HFA) shortness of breath or wheezing #6.7 grams doxycycline hyclate 100 mg tablet 100 mg PO Q12H 7 days #14 tabs 08/13/22 inhalational spacing device #1 ea 08/13/22 prednisone 20 mg tablet 60 mg PO DAILY 5 days #15 tabs 08/13/22 <TYRELL Tatum - Last Filed: 08/13/22 13:27> Allergies/Adverse Reactions: Allergies Allergy/AdvReac Type Severity Reaction Status Date / Time ibuprofen [IBUPROFEN] Allergy Intermediate RASH Verified 08/05/22 12:44 lisinopril [LISINOPRIL] Allergy Intermediate RASH Verified 08/05/22 12:44 lactulose [LACTULOSE] Allergy Mild STOMACH Verified 08/05/22 12:44 ACHE <TYRELL Tatum - Last Filed: 08/13/22 13:27> Review of Systems Review of Systems: Yes all other systems are reviewed and are negative <Nagi Dennis MD - Last Filed: 08/13/22 20:02> [facility] Past Medical History [facility] Narrative: Social history: She denies tobacco, alcohol and drug use. <Nagi Dennis MD - Last Filed: 08/13/22 20:02> Medical History: Medical History Chronic abdominal pain Hypoparathyroidism Morbid obesity due to excess calories Osteopenia Renal calculi Renal colic Vitamin D deficiency <TYRELL Tatum - Last Filed: 08/13/22 13:27> Surgical History: Surgical History H/O left knee surgery H/O thyroidectomy H/O: hysterectomy History of cholecystectomy History of esophagogastroduodenoscopy (EGD) History of hernia repair History of parathyroid surgery Hx of colonoscopy Status post excision of lipoma (09/26/21) <TYRELL Tatum - Last Filed: 08/13/22 13:27> Family History Family History: Family History Father Medical history unknown Mother Cancer Paternal Grandmother Diabetes Paternal Grandfather Diabetes Daughter Behavioral problem Family/Other FH: mental illness <TYRELL Tatum - Last Filed: 08/13/22 13:27> Social History Social History: Social History Household Members: None Housing: Apartment Alcohol intake: never Patient Tobacco Use Status: Never used Tobacco e-Cigarette/Vaping Use: Never Used Second Hand Smoke Exposure: No Advance Directives: No Advance Directives Information Provided: Yes Current occupational status: unemployed and disabled Cognitive needs: No Hearing needs: No Vision needs: No <TYRELL Tatum - Last Filed: 08/13/22 13:27> Physical Exam Vital Signs: Vital Signs: Last Vital Signs Temp 98.9 F 08/13/22 19:28 Pulse 90 08/13/22 19:28 Resp 14 08/13/22 19:28 BP 128/72 08/13/22 19:28 Pulse Ox 96 08/13/22 19:28 O2 Del Method Room Air 08/13/22 19:28 BMI result Body Mass Index 47.2 <TYRELL Tatum - Last Filed: 08/13/22 13:27> Vital Signs: Last Vital Signs Temp 98.9 F 08/13/22 19:28 Pulse 90 08/13/22 19:28 Resp 14 08/13/22 19:28 BP 128/72 08/13/22 19:28 Pulse Ox 96 08/13/22 19:28 O2 Del Method Room Air 08/13/22 19:28 BMI result Body Mass Index 47.2 <Nagi Dennis MD - Last Filed: 08/13/22 20:02> Const: General: cooperative and no acute distress <Nagi Dennis MD - Last Filed: 08/13/22 20:02> Orientation/consciousness: oriented to person and oriented to place <Nagi Dennis MD - Last Filed: 08/13/22 20:02> Limitations: no limitations <Nagi Dennis MD - Last Filed: 08/13/22 20:02> HEENT: Head: Yes normal to inspection, Yes normocephalic and Yes atraumatic <Nagi Dennis MD - Last Filed: 08/13/22 20:02> Ears: external ears normal <Nagi Dennis MD - Last Filed: 08/13/22 20:02> General nose exam: Normal external nose present <Nagi Dennis MD - Last Filed: 08/13/22 20:02> Face and sinus: Yes normal facial exam <MD Tee Salinas Last Filed: 08/13/22 20:02> Mouth: Normal oral and palatal mucosa present <MD Tee Salinas Last Filed: 08/13/22 20:02> Throat: Yes posterior oropharynx normal <MD Tee Salinas Last Filed: 08/13/22 20:02> Eyes: General: appearance normal, both eyes and all related structures <Nagi Dennis MD - Last Filed: 08/13/22 20:02> Pupils: Equal, round and reactive pupils present <MD Tee Salinas Last Filed: 08/13/22 20:02> Neck: Neck: Yes normal visual inspection, Yes no lymphadenopathy, Yes trachea midline and Yes supple <MD Tee Salinas Last Filed: 08/13/22 20:02> Chest: Chest palpation & inspection: normal inspection of the chest and tenderness sternum (Mock) <MD Tee Salinas Last Filed: 08/13/22 20:02> Resp: Effort & Inspection: normal respiratory effort and able to speak in complete sentences <MD Tee Salinas Last Filed: 08/13/22 20:02> Auscultation: no crackles, no rales, rhonchi and wheezes <MD Tee Salinas Last Filed: 08/13/22 20:02> Cardio: Rate: regular rate <MD Tee Salinas Last Filed: 08/13/22 20:02> Rhythm: regular rhythm <MD Tee Salinas Last Filed: 08/13/22 20:02> Heart sounds: S1 normal heart sound present, S2 normal heart sound present and no murmurs <MD Tee Salinas Last Filed: 08/13/22 20:02> GI: Inspection: Yes normal to inspection <MD Tee Salinas Last Filed: 08/13/22 20:02> Palpation (GI): Soft to palpation, nontender and no guarding <Nagi lock MD - Last Filed: 08/13/22 20:02> Auscultation: normal bowel sounds <Nagi Dennis MD - Last Filed: 08/13/22 20:02> : General: Yes no CVA tenderness <Nagi Dennis MD - Last Filed: 08/13/22 20:02> Back/Spine/Pelvis: Back: no CVA tenderness <Nagi Dennis MD - Last Filed: 08/13/22 20:02> Skin: General skin exam: no rashes or lesions noted <Nagi Dennis MD - Last Filed: 08/13/22 20:02> Neuro: General: oriented to person and oriented to place <Nagi Dennis MD - Last Filed: 08/13/22 20:02> Cranial nerves: Yes CN's II-XII intact bilaterally and Yes Equal, round and reactive pupils present <Nagi Dennis MD - Last Filed: 08/13/22 20:02> Cognition (Neuro): normal cognition <Nagi Dennis MD - Last Filed: 08/13/22 20:02> Motor exam (neuro): 5/5 motor strength present throughout <Nagi Dennis MD - Last Filed: 08/13/22 20:02> Extrem: General: Yes normal to inspection <Nagi Dennis MD - Last Filed: 08/13/22 20:02> Psych: Appearance: grossly normal <Nagi Dennis MD - Last Filed: 08/13/22 20:02> Speech and movement: Normal speech and movement present <Nagi Dennis MD - Last Filed: 08/13/22 20:02> Affect: normal affect <Nagi Dennis MD - Last Filed: 08/13/22 20:02> Attitude: cooperative <Nagi Dennis MD - Last Filed: 08/13/22 20:02> Course Course Course Narrative: E-12:22PM - 51-year-old female with a PMHx of of HTN, hypoparathyroidism, hypocalcemia, vitamin-D deficiency, vertigo, insomnia, osteopenia, sciatica of right side and kidney stones presenting to the ED with c/o 1 week of hoarseness, cough, sputum production, clogged ears, SOB and mid sternal chest pain worse today. Reports she had a negative COVID swab at home today. Denies dizziness, headaches, N/V/D or abd pain or any other symptoms complaints or concerns at this time. Plan: COVID/RSV/flu swab, chest x-ray an EKG ordered at this time patient to be in seen in [facility]. <TYRELL Tatum - Last Filed: 08/13/22 13:27> Medications Administered Discontinued Medications Generic Name Dose Route Start Last Admin Trade Name Freq PRN Reason Stop Dose Admin Acetaminophen 975 mg 08/13/22 16:43 08/13/22 17:35 Acetaminophen 325 Mg Tablet PO 08/13/22 16:44 975 mg ONCE STA Administration Doxycycline Monohydrate 100 mg 08/13/22 16:40 08/13/22 17:35 Doxycycline Monohydrate 100 Mg Capsule PO 08/13/22 16:41 100 mg ONCE ONE Administration Prednisone 60 mg 08/13/22 16:40 08/13/22 17:35 Prednisone 20 Mg Tablet PO 08/13/22 16:41 60 mg ONCE ONE Administration <TYRELL Tatum - Last Filed: 08/13/22 13:27> Medications Administered Discontinued Medications Generic Name Dose Route Start Last Admin Trade Name Freq PRN Reason Stop Dose Admin Acetaminophen 975 mg 08/13/22 16:43 08/13/22 17:35 Acetaminophen 325 Mg Tablet PO 08/13/22 16:44 975 mg ONCE STA Administration Doxycycline Monohydrate 100 mg 08/13/22 16:40 08/13/22 17:35 Doxycycline Monohydrate 100 Mg Capsule PO 08/13/22 16:41 100 mg ONCE ONE Administration Prednisone 60 mg 08/13/22 16:40 08/13/22 17:35 Prednisone 20 Mg Tablet PO 08/13/22 16:41 60 mg ONCE ONE Administration <Nagi Dennis MD - Last Filed: 08/13/22 20:02> Medical Decision Making Medical Decision Making MDM Narrative: 51-year-old female who presents emergency department for evaluation of 1 week of chest tightness worse with coughing and breathing, shortness of breath, nonproductive cough which is getting worse. Vital signs were normal. Exam did reveal tenderness palpation of her sternum, rhonchi and wheezing on her lung exam. Provider at triage ordered CBC, CMP, BNP, cm, PT/INR, troponin, COVID, flu, RSV, 12 EKG. 181: My interpretation of the patient's laboratory evaluation is as follows: Mild anemia with an H&H of 12 and 35, CMP was normal. Troponin was below d etectable limits. BNP was below detectable limits. COVID-19, flu and RSV were negative. Chest x-ray on my interpretation revealed no acute disease, radiology interpreted as mild reactive airway disease. Patient's presentation is consistent with acute bronchitis with wheezing and rhonchi, patient's symptoms are getting worse therefore I believe she will benefit from treatment with antibiotics, steroids and an inhaler. Patient was given doxycycline 100 mg orally and prednisone 60 mg orally. She was prescribed doxycycline 100 mg q.12 hours x7 days, prednisone 60 mg once a day for 5 days and an albuterol inhaler 2 puffs with a spacer every 4 hours while awake. Patient was given printed and verbal instructions and discharged home <Nagi Dennis MD - Last Filed: 08/13/22 20:02> Differential Diagnosis Differential diagnosis includes was not limited to pneumonia, bronchitis, URI, myocardial infarction, pulmonary edema <Nagi Dennis MD - Last Filed: 08/13/22 20:02> Lab Data MDM Lab Attestation statement: I reviewed the patient's lab results. <Nagi Dennis MD - Last Filed: 08/13/22 20:02> For evaluation was unremarkable with negative COVID-19 influenza, troponin below detectable limits, chronic anemia with an H&H of 12 and 35 <Nagi Dennis MD - Last Filed: 08/13/22 20:02> Result Diagrams: 08/13/22 16:22 08/13/22 16:22 <TYRELL Tatum - Last Filed: 08/13/22 13:27> Labs: Lab Results 08/13/22 08/13/22 08/13/22 Range/Units 13:49 16:22 16:22 WBC 9.2 (4.8-10.8) X10*3/uL RBC 3.87 L (4.20-5.50) X10*6/uL Hgb 12.4 (12.0-16.0) g/dl Hct 35.7 L (37.0-47.0) % MCV 92.2 (80.0-98.0) fL MCH 32.0 (27.0-33.0) pg MCHC 34.7 (31.0-35.0) g/dl RDW 12.3 (11.0-16.0) % Plt Count 226 (160-400) X10*3/uL MPV 9.9 (9.4-12.3) fL Immature Gran % (Auto) 0.8 H (0.0-0.4) % Neut % (Auto) 61.1 (45-73) % Lymph % (Auto) 31.2 (20-40) % Dickenson % (Auto) 5.2 (2-11) % Eos % (Auto) 1.2 (0-4) % Baso % (Auto) 0.5 (0-2) % Lymph # (Auto) 2.9 (1.2-4.9) X10*3/uL Dickenson # (Auto) 0.5 (0.1-1.2) X10*3/uL Eos # (Auto) 0.1 (0.0-0.4) X10*3/uL Baso # (Auto) 0.1 (0.0-0.2) X10*3/uL Abs Immat Gran (auto) 0.07 H (0.00-0.03) X10*3/uL Absolute Neuts (auto) 5.6 (2.0-8.3) x10*3/uL Absolute Nucleated RBC 0.000 (0.0-0.012) X10*3/uL Nucleated RBC % (auto) 0.0 (0.0-0.2) /100WBC PT 12.2 (10.0-13.1) SEC INR 1.1 (0.9-1.1) Sodium (135-145) mmol/L Potassium (3.3-5.1) mmol/L Chloride (96-108) mmol/L Carbon Dioxide (22-29) mmol/L Anion Gap (12-20) BUN (9-16) mg/dL Creatinine (0.5-1.4) mg/dL Estim Creat Clear Calc Estimated GFR Random Glucose (60-115) mg/dL Calcium (8.4-10.2) mg/dL Magnesium (1.6-2.6) mg/dL Total Bilirubin (0.0-1.0) mg/dL AST (5-31) U/L ALT (0-31) U/L Alkaline Phosphatase (39-117) U/L Troponin I High Sens (<3.5-17.0) ng/L B-Natriuretic Peptide (<100) pg/mL Total Protein (6.5-8.0) g/dL Albumin (3.5-5.0) g/dL Influenza Type A (PCR) NEGATIVE (Negative) Influenza Type B (PCR) NEGATIVE (Negative) RSV RNA Qual (PCR) NEGATIVE (Negative) SARS-CoV-2 RNA (RT-PCR) NEGATIVE (Negative) 08/13/22 08/13/22 08/13/22 Range/Units 16:22 16:22 16:22 WBC (4.8-10.8) X10*3/uL RBC (4.20-5.50) X10*6/uL Hgb (12.0-16.0) g/dl Hct (37.0-47.0) % MCV (80.0-98.0) fL MCH (27.0-33.0) pg MCHC (31.0-35.0) g/dl RDW (11.0-16.0) % Plt Count (160-400) X10*3/uL MPV (9.4-12.3) fL Immature Gran % (Auto) (0.0-0.4) % Neut % (Auto) (45-73) % Lymph % (Auto) (20-40) % Dickenson % (Auto) (2-11) % Eos % (Auto) (0-4) % Baso % (Auto) (0-2) % Lymph # (Auto) (1.2-4.9) X10*3/uL Dickenson # (Auto) (0.1-1.2) X10*3/uL Eos # (Auto) (0.0-0.4) X10*3/uL Baso # (Auto) (0.0-0.2) X10*3/uL Abs Immat Gran (auto) (0.00-0.03) X10*3/uL Absolute Neuts (auto) (2.0-8.3) x10*3/uL Absolute Nucleated RBC (0.0-0.012) X10*3/uL Nucleated RBC % (auto) (0.0-0.2) /100WBC PT (10.0-13.1) SEC INR (0.9-1.1) Sodium 142 (135-145) mmol/L Potassium 3.6 (3.3-5.1) mmol/L Chloride 101 (96-108) mmol/L Carbon Dioxide 26 (22-29) mmol/L Anion Gap 19 (12-20) BUN 12 (9-16) mg/dL Creatinine 0.85 (0.5-1.4) mg/dL Estim Creat Clear Calc 87.0 Estimated GFR > 60 Random Glucose 91 (60-115) mg/dL Calcium 9.0 (8.4-10.2) mg/dL Magnesium 2.1 (1.6-2.6) mg/dL Total Bilirubin 0.6 (0.0-1.0) mg/dL AST 10 (5-31) U/L ALT 8 (0-31) U/L Alkaline Phosphatase 110 (39-117) U/L Troponin I High Sens < 3.5 (<3.5-17.0) ng/L B-Natriuretic Peptide < 10 (<100) pg/mL Total Protein 6.8 (6.5-8.0) g/dL Albumin 4.1 (3.5-5.0) g/dL Influenza Type A (PCR) (Negative) Influenza Type B (PCR) (Negative) RSV RNA Qual (PCR) (Negative) SARS-CoV-2 RNA (RT-PCR) (Negative) <TYRELL Tatum - Last Filed: 08/13/22 13:27> Lab Results 08/13/22 08/13/22 08/13/22 Range/Units 13:49 16:22 16:22 WBC 9.2 (4.8-10.8) X10*3/uL RBC 3.87 L (4.20-5.50) X10*6/uL Hgb 12.4 (12.0-16.0) g/dl Hct 35.7 L (37.0-47.0) % MCV 92.2 (80.0-98.0) fL MCH 32.0 (27.0-33.0) pg MCHC 34.7 (31.0-35.0) g/dl RDW 12.3 (11.0-16.0) % Plt Count 226 (160-400) X10*3/uL MPV 9.9 (9.4-12.3) fL Immature Gran % (Auto) 0.8 H (0.0-0.4) % Neut % (Auto) 61.1 (45-73) % Lymph % (Auto) 31.2 (20-40) % Dickenson % (Auto) 5.2 (2-11) % Eos % (Auto) 1.2 (0-4) % Baso % (Auto) 0.5 (0-2) % Lymph # (Auto) 2.9 (1.2-4.9) X10*3/uL Dickenson # (Auto) 0.5 (0.1-1.2) X10*3/uL Eos # (Auto) 0.1 (0.0-0.4) X10*3/uL Baso # (Auto) 0.1 (0.0-0.2) X10*3/uL Abs Immat Gran (auto) 0.07 H (0.00-0.03) X10*3/uL Absolute Neuts (auto) 5.6 (2.0-8.3) x10*3/uL Absolute Nucleated RBC 0.000 (0.0-0.012) X10*3/uL Nucleated RBC % (auto) 0.0 (0.0-0.2) /100WBC PT 12.2 (10.0-13.1) SEC INR 1.1 (0.9-1.1) Sodium (135-145) mmol/L Potassium (3.3-5.1) mmol/L Chloride (96-108) mmol/L Carbon Dioxide (22-29) mmol/L Anion Gap (12-20) BUN (9-16) mg/dL Creatinine (0.5-1.4) mg/dL Estim Creat Clear Calc Estimated GFR Random Glucose (60-115) mg/dL Calcium (8.4-10.2) mg/dL Magnesium (1.6-2.6) mg/dL Total Bilirubin (0.0-1.0) mg/dL AST (5-31) U/L ALT (0-31) U/L Alkaline Phosphatase (39-117) U/L Troponin I High Sens (<3.5-17.0) ng/L B-Natriuretic Peptide (<100) pg/mL Total Protein (6.5-8.0) g/dL Albumin (3.5-5.0) g/dL Influenza Type A (PCR) NEGATIVE (Negative) Influenza Type B (PCR) NEGATIVE (Negative) RSV RNA Qual (PCR) NEGATIVE (Negative) SARS-CoV-2 RNA (RT-PCR) NEGATIVE (Negative) 08/13/22 08/13/22 08/13/22 Range/Units 16:22 16:22 16:22 WBC (4.8-10.8) X10*3/uL RBC (4.20-5.50) X10*6/uL Hgb (12.0-16.0) g/dl Hct (37.0-47.0) % MCV (80.0-98.0) fL MCH (27.0-33.0) pg MCHC (31.0-35.0) g/dl RDW (11.0-16.0) % Plt Count (160-400) X10*3/uL MPV (9.4-12.3) fL Immature Gran % (Auto) (0.0-0.4) % Neut % (Auto) (45-73) % Lymph % (Auto) (20-40) % Dickenson % (Auto) (2-11) % Eos % (Auto) (0-4) % Baso % (Auto) (0-2) % Lymph # (Auto) (1.2-4.9) X10*3/uL Dickenson # (Auto) (0.1-1.2) X10*3/uL Eos # (Auto) (0.0-0.4) X10*3/uL Baso # (Auto) (0.0-0.2) X10*3/uL Abs Immat Gran (auto) (0.00-0.03) X10*3/uL Absolute Neuts (auto) (2.0-8.3) x10*3/uL Absolute Nucleated RBC (0.0-0.012) X10*3/uL Nucleated RBC % (auto) (0.0-0.2) /100WBC PT (10.0-13.1) SEC INR (0.9-1.1) Sodium 142 (135-145) mmol/L Potassium 3.6 (3.3-5.1) mmol/L Chloride 101 (96-108) mmol/L Carbon Dioxide 26 (22-29) mmol/L Anion Gap 19 (12-20) BUN 12 (9-16) mg/dL Creatinine 0.85 (0.5-1.4) mg/dL Estim Creat Clear Calc 87.0 Estimated GFR > 60 Random Glucose 91 (60-115) mg/dL Calcium 9.0 (8.4-10.2) mg/dL Magnesium 2.1 (1.6-2.6) mg/dL Total Bilirubin 0.6 (0.0-1.0) mg/dL AST 10 (5-31) U/L ALT 8 (0-31) U/L Alkaline Phosphatase 110 (39-117) U/L Troponin I High Sens < 3.5 (<3.5-17.0) ng/L B-Natriuretic Peptide < 10 (<100) pg/mL Total Protein 6.8 (6.5-8.0) g/dL Albumin 4.1 (3.5-5.0) g/dL Influenza Type A (PCR) (Negative) Influenza Type B (PCR) (Negative) RSV RNA Qual (PCR) (Negative) SARS-CoV-2 RNA (RT-PCR) (Negative) <Nagi Dennis MD - Last Filed: 08/13/22 20:02> Independent Interpretation I performed an independent interpretation of an: EKG and Plain X-Ray <Nagi Dennis MD - Last Filed: 08/13/22 20:02> Interpretation: My independent interpretation patient's chest x-ray is as follows: No acute disease My independent her petition patient's 12 EKG is as follows: EKG done at 16:06: Normal sinus rhythm with a rate 79, normal MS interval, normal QRS duration normal QTC interval, no ST segment elevation, no ST segment depression, nonspecific T-wave abnormalities, no PACs, no PVCs <Nagi Dennis MD - Last Filed: 08/13/22 20:02> Radiology Impression Discussion of test interpretation with radiology: I have reviewed the radiologist's reading. <Nagi Dennis MD - Last Filed: 08/13/22 20:02> Radiologist Impression: XR chest 2V IMPRESSION: Finding suggestive of mild reactive airway disease. No focal consolidation.. Dictated By:Yany Harris MDSigned By:<Electronically signed by Yany Harris MD in [place]>08/13/22 1447 <Nagi Dennis MD - Last Filed: 08/13/22 20:02> Discharge Plan Discharge Clinical Impression: Acute bronchitis, Chest pain <TYRELL Tatum - Last Filed: 08/13/22 13:27> Patient Disposition: Home, Self-Care <TYRELL Tatum - Last Filed: 08/13/22 13:27> Instructions: Acute Bronchitis (ED) <TYRELL Tatum - Last Filed: 08/13/22 13:27> Additional Instructions: Your blood work was normal. Your COVID-19 and influenza were negative. Your chest x-ray did not reveal pneumonia but you do have inflammation of your breathing tubes which is consistent with bronchitis I am treating you with the antibiotic doxycycline 100 mg, take 1 pill every 12 hours for 7 days. I M treating you with the anti-inflammatory steroid prednisone, Take prednisone 20 mg pills, 3 pills once a day for 5 days. While you are taking prednisone, do not take any NSAIDs (Motrin, Advil, ibuprofen, Aleve, naproxen). Use the albuterol inhaler with the spacer, 2 puffs awake for the next week to help reduce spasm in your breathing tubes. Take Tylenol (acetaminophen) 500 mg pills, 2 pills every 4 to 6 hours as needed for pain. Follow-up with your doctor in 2 days. Please return to the emergency department if your symptoms get worse or if you develop any symptoms that are concerning to you. <TYRELL Tatum - Last Filed: 08/13/22 13:27> Prescriptions: New prednisone 20 mg tablet 60 mg PO DAILY 5 Days Qty: 15 0RF albuterol sulfate [ProAir HFA] 90 mcg/actuation HFA aerosol inhaler 2 puff inhalation Q4-6H PRN (Reason: shortness of breath or wheezing) Qty: 6.7 0RF Rx Instructions: Please use inhaler with spacer doxycycline hyclate 100 mg tablet 100 mg PO Q12H 7 Days Qty: 14 0RF (DME) inhalational spacing device Spacer See Rx Instructions .Route Qty: 1 0RF Rx Instructions: As directed No Action calcitriol 0.25 mcg capsule 0.25 mcg PO DAILY 30 Days Qty: 30 3RF meclizine 25 mg tablet 25 mg PO DAILY PRN (Reason: dizziness) Qty: 30 3RF furosemide 20 mg tablet 20 mg PO DAILY Qty: 30 3RF amlodipine 5 mg tablet 5 mg PO QAM Qty: 30 3RF cholecalciferol (vitamin D3) 25 mcg (1,000 unit) capsule 25 mcg PO DAILY 30 Days Qty: 30 11RF pantoprazole 40 mg tablet,delayed release (DR/EC) 40 mg PO DAILY Qty: 30 6RF acetaminophen-codeine 300-30 mg tablet 1 tab PO Q8H PRN (Reason: pain) 10 Days Qty: 30 0RF Hold Instructions: Doctor's Order nortriptyline 10 mg capsule 10 mg PO DAILY Qty: 30 2RF hydrochlorothiazide 25 mg tablet 25 mg PO DAILY Qty: 30 3RF propranolol 10 mg tablet 10 mg PO BID Qty: 60 2RF acetaminophen [Tylenol Extra Strength] 500 mg tablet 1,000 mg PO QID PRN (Reason: fever or pain) Qty: 14 0RF clonazepam 0.5 mg tablet 0.5 mg PO BEDTIME (DME) blood pressure kit-extra large Kit See Rx Instructions .Route Qty: 1 0RF Rx Instructions: As directed tizanidine 4 mg tablet 4 mg PO Q8H PRN (Reason: muscle spasticity) Qty: 20 0RF buspirone 10 mg tablet 10 mg PO BID ondansetron HCl 4 mg tablet 4 mg PO BEDTIME hyoscyamine sulfate [Levsin/SL] 0.125 mg tablet, sublingual 0.125 mg sublingual BID-QID PRN (Reason: dyspepsia) Qty: 30 0RF zolpidem 12.5 mg tablet,ext release multiphase 12.5 mg PO BEDTIME PRN naloxone 4 mg/actuation spray,non-aerosol 1 spray intranasal DAILY PRN eszopiclone 1 mg tablet 1 mg PO BEDTIME <TYRELL Tatum - Last Filed: 08/13/22 13:27>
--- NOTE | 2022-08-13 13:25 | ECG_ITS ---
Test Reason : SOB Blood Pressure : / mmHG Vent. Rate : 079 BPM Atrial Rate : 277 BPM P-R Int : 000 ms QRS Dur : 078 ms QT Int : 380 ms P-R-T Axes : 048 007 -03 degrees QTc Int : 435 ms Artifact in tracing Normal sinus rhythm Nonspecific T wave abnormality Abnormal ECG When compared with ECG of 13-AUG-2022 13:15, No significant changes seen Referred By: Galilea Gould Electronically Signed By:GELY FAIRBANKS
[2022-08-13 14:33] LABS: Influenza A PCR NEGATIVE (Negative); Influenza B PCR NEGATIVE (Negative); Resp Syncy Virus RNA Qual PCR NEGATIVE (Negative); SARS COV2 PCR INHOUSE NEGATIVE (Negative)
[2022-08-13 16:15] VITALS: BP 156/94; PULSE 84; RESP 20; O2SAT 99
[2022-08-13 16:27] LABS: MANUAL DIFF FLAG NO
[2022-08-13 16:34] LABS: Basophils Absolute Auto 0.1 X10*3/uL (0.0-0.2); Basophils Percent Auto 0.5 % (0-2); Eosinophils Absolute Auto 0.1 X10*3/uL (0.0-0.4); Eosinophils Percent Auto 1.2 % (0-4); Hematocrit 35.7 % (37.0-47.0); Hemoglobin 12.4 g/dl (12.0-16.0); Imm Gran Abs Auto 0.07 X10*3/uL (0.00-0.03); Imm Gran Pct Auto 0.8 % (0.0-0.4); Lymphocytes Absolute Auto 2.9 X10*3/uL (1.2-4.9); Lymphocytes Percent Auto 31.2 % (20-40); Mean Corpuscular HGB Conc 34.7 g/dl (31.0-35.0); Mean Corpuscular Volume 92.2 fL (80.0-98.0); Mean Platelet Volume 9.9 fL (9.4-12.3); Monocytes Absolute Auto 0.5 X10*3/uL (0.1-1.2); Monocytes Percent Auto 5.2 % (2-11); Neutrophils Absolute Auto 5.6 x10*3/uL (2.0-8.3); Neutrophils Percent Auto 61.1 % (45-73); Platelet Count 226 X10*3/uL (160-400); Red Blood Count 3.87 X10*6/uL (4.20-5.50); Red Cell Distribution Width 12.3 % (11.0-16.0); White Blood Count 9.2 X10*3/uL (4.8-10.8)
[2022-08-13 16:36] LABS: INTERNATIONAL NORM RATIO 1.1 (0.9-1.1); Prothrombin Time 12.2 SEC (10.0-13.1)
[2022-08-13 16:51] LABS: Alanine Aminotransferase 8 U/L (0-31); Albumin Level 4.1 g/dL (3.5-5.0); Alkaline Phosphatase 110 U/L (39-117); Anion Gap 19 (12-20); Aspartate Amino Transferase 10 U/L (5-31); Bilirubin Total 0.6 mg/dL (0.0-1.0); Blood Urea Nitrogen 12 mg/dL (9-16); Carbon Dioxide 26 mmol/L (22-29); Chloride 101 mmol/L (96-108); Estimated Glomerular Filt Rate > 60; Glucose Random 91 mg/dL (60-115); Magnesium 2.1 mg/dL (1.6-2.6); Potassium 3.6 mmol/L (3.3-5.1); Sodium 142 mmol/L (135-145); Total Protein 6.8 g/dL (6.5-8.0)
[2022-08-13 17:02] LABS: Troponin-I High Sensitivity < 3.5 ng/L (<3.5-17.0)
[2022-08-13 17:14] LABS: B Type Natriuretic Peptide < 10 pg/mL (<100)
[2022-08-13] MEDS: Doxycycline Monohydrate 100 MG CAPSULE PO (17:35)
[2022-08-13] MEDS: Acetaminophen 325 MG TABLET 975 MG PO (17:35)
[2022-08-13] MEDS: predniSONE 20 MG TABLET 60 MG PO (17:35)
[2022-08-13 19:28] VITALS: BP 128/72; PULSE 90; RESP 14; TEMP 37.2; O2SAT 96
== END 2022-08-13 20:14 | disposition home or self-care (01) ==
PROVIDERS: Physician Assistant Medical; Emergency Provider Emergency Medicine Emergency Medical Services; PCP Physician Assistant
DX: J20.9 Acute bronchitis, unspecified (principal); R07.9 Chest pain, unspecified; Z20.822 Contact with and (suspected) exposure to COVID-19; Z20.828 Contact with and (suspected) exposure to other viral communicable diseases; R06.02 Shortness of breath; I10 Essential (primary) hypertension
CPT/HCPCS: 0241U; 36415; 71046; 80053; 83735; 83880; 84484; 85025; 85610; 93005; 99283; 99284

== ENCOUNTER 2022-08-21 11:44 | Emergency (ER) | payer OTHER, SELFPAY ==
--- NOTE | ~2022-08-21 | CT_ITS ---
EXAMINATION: CT ABDOMEN AND PELVIS WITHOUT CONTRAST CLINICAL INFORMATION: Left-sided CVA tenderness. COMPARISON: Previous KUB May 2022, renal ultrasound December [address] of the abdomen and pelvis October 2021. Previous pelvic ultrasound most recent December 2016 TECHNIQUE: Multidetector volumetric imaging was performed from the superior aspect of the liver through the pubic symphysis. Sagittal and coronal reformatted images were obtained on the technologist's workstation. This CT examination was performed using dose optimization techniques as appropriate, variously including the following: *Automated exposure control *Adjustment of mA and/or kV according to patient size (this includes techniques or standardized protocols for targeted exams where dose is matched to indication/reason for exam; i.e. extremities or head) *Use of iterative reconstruction technique DLP: 774 mGy-cm. FINDINGS: LUNG BASES: The visualized lung bases are unremarkable. LIVER, GALLBLADDER, AND BILIARY TREE: The liver is slightly enlarged. Liver is normal in contour and attenuation. No focal hepatic lesion or biliary ductal dilatation is present. The gallbladder has been removed. PANCREAS: Unremarkable. SPLEEN: Unremarkable. ADRENAL GLANDS: Unremarkable. KIDNEYS AND URETERS: The kidneys are normal in size, shape, and attenuation. Small bilateral nonobstructing punctate lower pole renal stones and left upper pole stone. No hydronephrosis, ureteral dilatation or ureteral stone. BLADDER: Unremarkable. GASTROINTESTINAL TRACT: There is diverticulosis of the colon. No evidence of diverticulitis. . The small and large bowel are otherwise unremarkable. The appendix is unremarkable. ABDOMINAL WALL: There are postsurgical changes to the anterior abdominal wall. This is similar to previous exam. No hernia. LYMPH NODES: Normal. VASCULAR: Unremarkable. PELVIC VISCERA: Uterus has been removed. The left ovary is normal-appearing. Stable soft tissue left-sided pelvic mass is deep to the abdominal wall, adjacent to the superior lateral left side of the bladder and inferior to the proximal sigmoid colon. When compared with previous pelvic ultrasound this most likely corresponds to the right ovary. This is stable from multiple prior CT scans. OSSEOUS STRUCTURES: Degenerative changes of the spine and hip joints. CT/CT abdomen pelvis wo IV con IMPRESSION: Small bilateral nonobstructing renal stones. Diverticulosis of the colon. No evidence of diverticulitis. Postsurgical changes to the anterior abdominal wall that appear stable. Fleischner guidelines were followed.
[2022-08-21 11:57] VITALS: BP 120/84; BP 152/80; PULSE 70; PULSE 80; RESP 18; TEMP 36.8; O2SAT 96; BMI 44.2
--- NOTE | 2022-08-21 11:58 | ED_ITS ---
HPI - Back Pain/Injury General Chief Complaint: Back Pain/Injury <TYRELL Ortiz Last Filed: 08/21/22 12:01> Stated Complaint: Back pain x 3 days per EMS <TYRELL Ortiz Last Filed: 08/21/22 12:01> Time Seen by Provider: 08/21/22 14:19 <TYRELL Ortiz Last Filed: 08/21/22 12:01> Source: patient and EMS <TYRELL Rowland Last Filed: 08/21/22 16:07> Mode of arrival: EMS <TYRELL Rowland Last Filed: 08/21/22 16:07> Limitations: no limitations <TYRELL Rowland Last Filed: 08/21/22 16:07> History of Present Illness HPI Narrative: Patient is a 51 year old assigned female at with a history of kidney stones, IBS, and HTN presenting to the emergency department today with left flank pain. Patient states that over the last few hours she has noticed left sided flank pain. Patient denies any dizziness, lightheadedness, abdominal pain, nausea, vomiting, fever, chills, blurry vision, double vision, loss of vision, c hest pain, difficulty breathing, shortness of breath, back pain, night sweats, pain with urination, increased urinary frequency, increased urinary urgency, blood in her urine or stool, syncope or a near syncopal episode, recent trauma or falls, bowel incontinence, bladder incontinence, bowel retention, bladder retention, or any other complaints at this time. <TYRELL Rowland Last Filed: 08/21/22 16:07> Severity: mild <TYRELL Rowland Last Filed: 08/21/22 16:07> Relieving factors: none <TYRELL Rowland Last Filed: 08/21/22 16:07> Associated symptoms: denies other symptoms <TYRELL Rowland Last Filed: 08/21/22 16:07> Related Data Home Medications: Home Medications Medication Instructions Recorded Confirmed clonazepam 0.5 mg tablet 0.5 mg PO BEDTIME 06/28/20 08/05/22 buspirone 10 mg tablet 10 mg PO BID 07/11/21 08/05/22 ondansetron HCl 4 mg tablet 4 mg PO BEDTIME 07/11/21 08/05/22 zolpidem 12.5 mg tablet,extended 12.5 mg PO BEDTIME PRN 10/04/21 08/05/22 release,multiphase naloxone 4 mg/actuation nasal spray 1 spray intranasal DAILY PRN 12/03/21 08/05/22 eszopiclone 1 mg tablet 1 mg PO BEDTIME 05/27/22 08/05/22 Previous Rx's Medication Instructions Recorded blood pressure kit-extra large #1 ea 06/06/21 acetaminophen 500 mg tablet 1,000 mg PO QID PRN fever or pain 11/02/21 (Tylenol Extra Strength) #14 tabs hyoscyamine sulfate 0.125 mg 0.125 mg sublingual BID-QID PRN 01/28/22 sublingual tablet (Levsin/SL) dyspepsia #30 tabs tizanidine 4 mg tablet 4 mg PO Q8H PRN muscle spasticity 04/25/22 #20 tabs amlodipine 5 mg tablet 5 mg PO QAM #30 tabs 05/02/22 calcitriol 0.25 mcg capsule 0.25 mcg PO DAILY 30 days #30 caps 05/02/22 furosemide 20 mg tablet 20 mg PO DAILY #30 tabs 05/02/22 meclizine 25 mg tablet 25 mg PO DAILY PRN dizziness #30 05/02/22 tabs cholecalciferol (vitamin D3) 25 25 mcg PO DAILY 30 days #30 caps 05/06/22 mcg (1,000 unit) capsule pantoprazole 40 mg tablet,delayed 40 mg PO DAILY #30 tabs 05/21/22 release acetaminophen 300 mg-codeine 30 mg 1 tab PO Q8H PRN pain 10 days #30 05/31/22 tablet tabs nortriptyline 10 mg capsule 10 mg PO DAILY #30 caps 06/05/22 hydrochlorothiazide 25 mg tablet 25 mg PO DAILY #30 tabs 06/20/22 propranolol 10 mg tablet 10 mg PO BID #60 tabs 07/23/22 albuterol sulfate 90 mcg/actuation 2 puff inhalation Q4-6H PRN 08/13/22 aerosol inhaler (ProAir HFA) shortness of breath or wheezing #6.7 grams doxycycline hyclate 100 mg tablet 100 mg PO Q12H 7 days #14 tabs 08/13/22 inhalational spacing device #1 ea 08/13/22 prednisone 20 mg tablet 60 mg PO DAILY 5 days #15 tabs 08/13/22 cyclobenzaprine 5 mg tablet 5 mg PO TID PRN back pain 7 days 08/21/22 #21 tabs prednisone 20 mg tablet 20 mg PO DAILY 7 days #7 tabs 08/21/22 <TYRELL Ortiz Last Filed: 08/21/22 12:01> Allergies/Adverse Reactions: Allergies Allergy/AdvReac Type Severity Reaction Status Date / Time ibuprofen [IBUPROFEN] Allergy Intermediate RASH Verified 08/05/22 12:44 lisinopril [LISINOPRIL] Allergy Intermediate RASH Verified 08/05/22 12:44 lactulose [LACTULOSE] Allergy Mild STOMACH Verified 08/05/22 12:44 ACHE <TYRELL Ortiz Last Filed: 08/21/22 12:01> Review of Systems Constitutional: Constitutional: Reports no additional constitutional complaints, Denies chills, Denies fever(s) and Denies night sweats <TYRELL Rowland Last Filed: 08/21/22 16:07> Eyes: Eyes: Reports no additional eye complaints, Denies blurry vision, Denies change in vision, Denies diplopia, Denies eye discharge, Denies loss of vision and Denies eye pain <TYRELL Rowland Last Filed: 08/21/22 16:07> ENT: Denies dizziness <TYRELL Rowland Last Filed: 08/21/22 16:07> Cardiovascular: Cardiovascular: Reports no additional cardiovascular complaints, Denies chest pain, Denies lightheadedness, Denies Loss of Consciousness and Denies dyspnea <TYRELL Rowland Last Filed: 08/21/22 16:07> Respiratory: Respiratory: Reports no additional respiratory complaints and Denies dyspnea <TYRELL Rowland Last Filed: 08/21/22 16:07> Gastrointestinal: Gastrointestinal: Reports no additional gastrointestinal complaints, Denies abdominal pain, Denies melena, Denies hematochezia, Denies change in bowel habits and Denies change in stool character <TYRELL Rowland Last Filed: 08/21/22 16:07> Genitourinary: Genitourinary: Denies hematuria, Denies urinary frequency, Den ies dysuria, Reports flank pain, Denies urinary incontinence, Denies urinary hesitancy and Denies urinary urgency <TYRELL Rowland - Last Filed: 08/21/22 16:07> Musculoskeletal: Musculoskeletal: Reports no additional musculoskeletal complaints, Denies numbness and Denies tingling <TYRELL Rowland - Last Filed: 08/21/22 16:07> Neurologic: Denies dizziness, Denies loss of vision, Denies numbness and Denies tingling <TYRELL Rowland - Last Filed: 08/21/22 16:07> Psychiatric: Psychiatric: Reports no additional psychiatric complaints <TYRELL Rowland - Last Filed: 08/21/22 16:07> Endocrine: Endocrine: Reports no additional endocrine complaints <TYRELL Rowland - Last Filed: 08/21/22 16:07> Hematologic/Lymphatic: Hematologic/Lymphatic: Reports no additional hematologic/lymphatic complaints <TYRELL Rowland - Last Filed: 08/21/22 16:07> Allergic/Immunologic: Allergic/Immunologic: Reports no additional allergic/immunologic complaints <TYRELL Rowland - Last Filed: 08/21/22 16:07> PMF Past Medical History Attestation statement: The following information was validated with the patient. <TYRELL Rowland - Last Filed: 08/21/22 16:07> Source: old records reviewed and nursing notes reviewed <TYRELL Rowland - Last Filed: 08/21/22 16:07> Medical History: Medical History Chronic abdominal pain Hypoparathyroidism Morbid obesity due to excess calories Osteopenia Renal calculi Renal colic Vitamin D deficiency <TYRELL Ortiz - Last Filed: 08/21/22 12:01> Surgical History: Surgical History H/O left knee surgery H/O thyroidectomy H/O: hysterectomy History of cholecystectomy History of esophagogastroduodenoscopy (EGD) History of hernia repair History of parathyroid surgery Hx of colonoscopy Status post excision of lipoma (09/26/21) <TYRELL Ortiz - Last Filed: 08/21/22 12:01> Family History Family History: Family History Father Medical history unknown Mother Cancer Paternal Grandmother Diabetes Paternal Grandfather Diabetes Daughter Behavioral problem Family/Other FH: mental illness <TYRELL Ortiz - Last Filed: 08/21/22 12:01> Social History Social History: Social History Household Members: None Housing: Apartment Alcohol intake: never Patient Tobacco Use Status: Never used Tobacco e-Cigarette/Vaping Use: Never Used Second Hand Smoke Exposure: No Advance Directives: Yes Advance Directives on File: Yes Advance Directives Date on File: 11/02/21 Current occupational status: unemployed and disabled Cognitive needs: No Hearing needs: No Vision needs: No <TYRELL Ortiz - Last Filed: 08/21/22 12:01> Physical Exam Vital Signs: Vital Signs: Last Vital Signs Temp 98.2 F 08/21/22 11:57 Pulse 70 08/21/22 11:57 Resp 18 08/21/22 11:57 BP 120/84 08/21/22 11:57 Pulse Ox 96 08/21/22 11:57 O2 Del Method Room Air 08/21/22 11:57 BMI result Body Mass Index 44.2 <TYRELL Ortiz - Last Filed: 08/21/22 12:01> Vital Signs: Last Vital Signs Temp 98.2 F 08/21/22 11:57 Pulse 70 08/21/22 11:57 Resp 18 08/21/22 11:57 BP 120/84 08/21/22 11:57 Pulse Ox 96 08/21/22 11:57 O2 Del Method Room Air 08/21/22 11:57 BMI result Body Mass Index 44.2 <TYRELL Rowland - Last Filed: 08/21/22 16:07> Const: General: cooperative, no acute distress, alert and awake <TYRELL Rowland - Last Filed: 08/21/22 16:07> Nutritional Appearance: well nourished <TYRELL Rowland - Last Filed: 08/21/22 16:07> Orientation/consciousness: patient oriented x3 <Betzy Saurabh [facility] [place] Last Filed: 08/21/22 16:07> Limitations: no limitations <Betzy Saurabh [facility] [place] Last Filed: 08/21/22 16:07> HEENT: Head: Yes normal to inspection and Yes atraumatic <Betzy Saurabh [facility] [place] Last Filed: 08/21/22 16:07> Ears: hearing grossly normal bilaterally and external ears normal <Betzy Wiley [place] - Last Filed: 08/21/22 16:07> General nose exam: Normal external nose present, no nasal discharge noted and no epistaxis <Betzy iWley [facility] [place] Last Filed: 08/21/22 16:07> Face and sinus: Yes normal facial exam, No abrasion and No laceration <Betzy Wiley [facility] [place] Last Filed: 08/21/22 16:07> Mouth: Normal oral and palatal mucosa present, no drooling and no muffled voice <Betzy Wiley [facility] [place] Last Filed: 08/21/22 16:07> Eyes: General: appearance normal, both eyes and all related structures <Betzy Wiley [facility] [place] Last Filed: 08/21/22 16:07> Periorbital: periorbital findings normal <Betzy Wiley [facility] [place] Last Filed: 08/21/22 16:07> Eyelids: Yes eyelids normal <Betzy Wiley [facility] [place] Last Filed: 08/21/22 16:07> Conjunctivae: conjunctivae normal <Betzy Wiley [facility] [place] Last Filed: 08/21/22 16:07> Pupils: Equal, round and reactive pupils present <Betzy Wiley [facility] [place] Last Filed: 08/21/22 16:07> EOM: EOMs intact bilaterally <Betzy Wiley [place] - Last Filed: 08/21/22 16:07> Neck: Neck: Yes normal visual inspection, Yes full ROM and Yes no lymp hadenopathy <Betzy Wiley [place] - Last Filed: 08/21/22 16:07> Chest: Chest palpation & inspection: normal inspection of the chest <TYRELL Rowland - Last Filed: 08/21/22 16:07> Resp: Effort & Inspection: normal respiratory effort and able to speak in complete sentences <Betzy DentonTYRELL yun - Last Filed: 08/21/22 16:07> Auscultation: clear to auscultation bilaterally <Betzy Dentoncourt PA - Last Filed: 08/21/22 16:07> Cardio: Rate: regular rate <Betzy Wiley PA - Last Filed: 08/21/22 16:07> Rhythm: regular rhythm <Betzy Dentoncourt PA - Last Filed: 08/21/22 16:07> GI: Inspection: Yes normal to inspection <Betzy Dentoncourt PA - Last Filed: 08/21/22 16:07> Palpation (GI): Soft to palpation, not firm, nontender and no guarding <Betzymarcie DentonTYRELL yun - Last Filed: 08/21/22 16:07> : General: Yes no CVA tenderness <Betzy Dentoncourt PA - Last Filed: 08/21/22 16:07> Back/Spine/Pelvis: Back: no CVA tenderness <Betzymarcie DentonTYRELL yun - Last Filed: 08/21/22 16:07> Cervical Spine: normal cervical lordosis and cervical ROM normal <Betzy Dentoncourt PA - Last Filed: 08/21/22 16:07> Thoracic/Lumbar Spine: thoracic and lumbar spine normal to inspection and thoraco-lumbar ROM normal <Betzy DentonTYRELL yun - Last Filed: 08/21/22 16:07> Pelvis: no pain with anterior-posterior compression <Betzy Dentoncourt [place] - Last Filed: 08/21/22 16:07> Neuro: General: patient oriented x3 and moves all extremities <Betzy TYRELL Wiley - Last Filed: 08/21/22 16:07> Cranial nerves: Yes Equal, round and reactive pupils present <Betzy DentonTYRELL yun - Last Filed: 08/21/22 16:07> Cognition (Neuro): normal cognition <Betzy TYRELL Wiley - Last Filed: 08/21/22 16:07> Motor exam (neuro): 5/5 motor strength present throughout <Betzy DentonTYRELL yun - Last Filed: 08/21/22 16:07> Sensory Exam: Normal double simultaneous stimulation for sensation <Betzy TYRELL Wiley - Last Filed: 08/21/22 16:07> Coordination: [id number] test normal <TYRELL Rowland - Last Filed: 08/21/22 16:07> Extrem: General: Yes normal to inspection, Yes full ROM and Yes capillary refi ll normal <TYRELL Rowland - Last Filed: 08/21/22 16:07> Psych: Appearance: grossly normal <TYRELL Rowland Last Filed: 08/21/22 16:07> Mental Status: mental status grossly normal <TYRELL Rowland - Last Filed: 08/21/22 16:07> Affect: normal affect <TYRELL Rowland Last Filed: 08/21/22 16:07> Attitude: cooperative <TYRELL Rowland Last Filed: 08/21/22 16:07> Thought process: Normal thought process present <TYRELL Rowland Last Filed: 08/21/22 16:07> Thought content: Normal thought content present <TYRELL Rowland Last Filed: 08/21/22 16:07> Insight: Good insight present (Psych) <TYRELL Rowland Last Filed: 08/21/22 16:07> Course Course Course Narrative: RME - 51 yo female with history of kidney stones, HTN, chronic lumbar radiculopathy, pancreatitis who presents to the ER with severe nontraumatic left sided back pain for the last 3 days. Worse with movement, coughing and deep breaths. No urinary symptoms but reports black stool yesterday. +CVA tenderness on exam. Plan: UA, labs, and CT abd/pelvis <TYRELL Ortiz - Last Filed: 08/21/22 12:01> Medications Administered Discontinued Medications Generic Name Dose Route Start Last Admin Trade Name Freq PRN Reason Stop Dose Admin Oxycodone HCl 10 mg 08/21/22 14:55 08/21/22 15:22 Oxycodone Hcl Immed Release 5 Mg Tablet PO 08/21/22 14:56 10 mg ONCE ONE Administration <TYRELL Ortiz Last Filed: 08/21/22 12:01> Medications Administered Discontinued Medications Generic Name Dose Route Start Last Admin Trade Name Freq PRN Reason Stop Dose Admin Oxycodone HCl 10 mg 08/21/22 14:55 08/21/22 15:22 Oxycodone Hcl Immed Release 5 Mg Tablet PO 08/21/22 14:56 10 mg ONCE ONE Administration <TYRELL Rowland - Last Filed: 08/21/22 16:07> Medical Decision Making Medical Decision Making [facility] Narrative: Patient is a 51 year old assigned female at with a history of IBS, HTN, and kidney stones presenting to the emergency department today with left sided flank pain. Patient's physical exam was unremarkable. Patient's blood work was unremarkable. Patient's urine showed no acute process. Patient's abdomen/pelvis CT showed no acute process. I explained my physical exam findings as well as all test results to the patient. I answered all questions asked by the patient. Patient received PO Oxy which she stated helped her pain significantly. I stressed the importance of the patient taking her medication as prescribed. I stressed the importance of the patient following up with her primary care provider. I stressed the importance of the patient returning to the emergency department immediately if her symptoms were to worsen or if she were to develop any dizziness, shortness of breath, difficulty breathing, chest pain, blurry vision, loss of vision, nausea, vomiting, abdominal pain, fever, chills, back pain, or any other complaints. Patient verbalized agreement and understanding with this treatment plan and discharge. <TYRELL Rowland - Last Filed: 08/21/22 16:07> Differential Diagnosis Differential Diagnoses: The differential diagnosis associated with the presentation includes <TYRELL Rowland - Last Filed: 08/21/22 16:07> left flank pain <TYRELL Rowland Last Filed: 08/21/22 16:07> Lab Data [facility] Lab Attestation statement: I reviewed the patient's lab results. <TYRELL Rowland - Last Filed: 08/21/22 16:07> Result Diagrams: 08/21/22 12:12 08/21/22 12:12 <TYRELL Ortiz - Last Filed: 08/21/22 12:01> Labs: Lab Results 08/21/22 08/21/22 08/21/22 Range/Units 12:12 12:12 14:42 WBC 7.6 (4.8-10.8) X10*3/uL RBC 4.10 L (4.20-5.50) X10*6/uL Hgb 13.2 (12.0-16.0) g/dl Hct 38.5 (37.0-47.0) % MCV 93.9 (80.0-98.0) fL MCH 32.2 (27.0-33.0) pg MCHC 34.3 (31.0-35.0) g/dl RDW 13.0 (11.0-16.0) % Plt Count 232 (160-400) X10*3/uL MPV 9.5 (9.4-12.3) fL Immature Gran % (Auto) 0.9 H (0.0-0.4) % Neut % (Auto) 53.5 (45-73) % Lymph % (Auto) 39.1 (20-40) % [place] % (Auto) 4.5 (2-11) % Eos % (Auto) 1.6 (0-4) % Baso % (Auto) 0.4 (0-2) % Lymph # (Auto) 3.0 (1.2-4.9) X10*3/uL [place] # (Auto) 0.3 (0.1-1.2) X10*3/uL Eos # (Auto) 0.1 (0.0-0.4) X10*3/uL Baso # (Auto) 0.0 (0.0-0.2) X10*3/uL Abs Immat Gran (auto) 0.07 H (0.00-0.03) X10*3/uL Absolute Neuts (auto) 4.1 (2.0-8.3) x10*3/uL Absolute Nucleated RBC 0.000 (0.0-0.012) X10*3/uL Nucleated RBC % (auto) 0.0 (0.0-0.2) /100WBC Sodium 143 (135-145) mmol/L Potassium 3.7 (3.3-5.1) mmol/L Chloride 103 (96-108) mmol/L Carbon Dioxide 30 H (22-29) mmol/L Anion Gap 14 (12-20) BUN 17 H (9-16) mg/dL Creatinine 1.02 (0.5-1.4) mg/dL Estim Creat Clear Calc 78.2 Estimated GFR 57 Random Glucose 100 (60-115) mg/dL Calcium 8.8 (8.4-10.2) mg/dL Magnesium 2.1 (1.6-2.6) mg/dL Total Bilirubin 0.5 (0.0-1.0) mg/dL Direct Bilirubin < 0.2 (0.0-0.5) mg/dL AST 10 (5-31) U/L ALT 9 (0-31) U/L Alkaline Phosphatase 87 (39-117) U/L Total Protein 6.5 (6.5-8.0) g/dL Albumin 4.0 (3.5-5.0) g/dL Lipase 16 (8-78) U/L Urine Color Yellow Urine Appearance Clear Urine pH 6.0 (5.0-9.0) Ur Specific [place] 1.020 (1.005-1.025) Urine Protein Negative (Neg-Trace) mg/dL Urine Glucose (UA) Negative (Negative) mg/dL Urine Ketones Negative (Negative) mg/dL Urine Blood Negative (Negative) Urine Nitrite Negative (Negative) Ur Leukocyte Esterase Negative (Negative) <TYRELL Ortiz - Last Filed: 08/21/22 12:01> Lab Results 08/21/22 08/21/22 08/21/22 Range/Units 12:12 12:12 14:42 WBC 7.6 (4.8-10.8) X10*3/uL RBC 4.10 L (4.20-5.50) X10*6/uL Hgb 13.2 (12.0-16.0) g/dl Hct 38.5 (37.0-47.0) % MCV 93.9 (80.0-98.0) fL MCH 32.2 (27.0-33.0) pg MCHC 34.3 (31.0-35.0) g/dl RDW 13.0 (11.0-16.0) % Plt Count 232 (160-400) X10*3/uL MPV 9.5 (9.4-12.3) fL Immature Gran % (Auto) 0.9 H (0.0-0.4) % Neut % (Auto) 53.5 (45-73) % Lymph % (Auto) 39.1 (20-40) % [place] % (Auto) 4.5 (2-11) % Eos % (Auto) 1.6 (0-4) % Baso % (Auto) 0.4 (0-2) % Lymph # (Auto) 3.0 (1.2-4.9) X10*3/uL [place] # (Auto) 0.3 (0.1-1.2) X10*3/uL Eos # (Auto) 0.1 (0.0-0.4) X10*3/uL Baso # (Auto) 0.0 (0.0-0.2) X10*3/uL Abs Immat Gran (auto) 0.07 H (0.00-0.03) X10*3/uL Absolute Neuts (auto) 4.1 (2.0-8.3) x10*3/uL Absolute Nucleated RBC 0.000 (0.0-0.012) X10*3/uL Nucleated RBC % (auto) 0.0 (0.0-0.2) /100WBC Sodium 143 (135-145) mmol/L Potassium 3.7 (3.3-5.1) mmol/L Chloride 103 (96-108) mmol/L Carbon Dioxide 30 H (22-29) mmol/L Anion Gap 14 (12-20) BUN 17 H (9-16) mg/dL Creatinine 1.02 (0.5-1.4) mg/dL Estim Creat Clear Calc 78.2 Estimated GFR 57 Random Glucose 100 (60-115) mg/dL Calcium 8.8 (8.4-10.2) mg/dL Magnesium 2.1 (1.6-2.6) mg/dL Total Bilirubin 0.5 (0.0-1.0) mg/dL Direct Bilirubin < 0.2 (0.0-0.5) mg/dL AST 10 (5-31) U/L ALT 9 (0-31) U/L Alkaline Phosphatase 87 (39-117) U/L Total Protein 6.5 (6.5-8.0) g/dL Albumin 4.0 (3.5-5.0) g/dL Lipase 16 (8-78) U/L Urine Color Yellow Urine Appearance Clear Urine pH 6.0 (5.0-9.0) Ur Specific [place] 1.020 (1.005-1.025) Urine Protein Negative (Neg-Trace) mg/dL Urine Glucose (UA) Negative (Negative) mg/dL Urine Ketones Negative (Negative) mg/dL Urine Blood Negative (Negative) Urine Nitrite Negative (Negative) Ur Leukocyte Esterase Negative (Negative) <TYRELL Rowland - Last Filed: 08/21/22 16:07> Independent Interpretation I performed an independent interpretation of an: CT Scan <TYRELL Rowland - Last Filed: 08/21/22 16:07> Interpretation: My interpretation is in agreement with the radiologist's impression of this imaging study. EXAMINATION: CT ABDOMEN AND PELVIS WITHOUT CONTRAST? CLINICAL INFORMATION: Left-sided CVA tenderness.? COMPARISON: Previous KUB May 2022, renal ultrasound December [address] of the abdomen and pelvis October 2021. Previous pelvic ultrasound most recent December 2016 TECHNIQUE: Multidetector volumetric imaging was performed from the superior aspect of the liver through the pubic symphysis. Sagittal and coronal reformatted images were obtained on the technologist's workstation.? This CT examination was performed using dose optimization techniques as appropriate, variously including the following: *Automated exposure control *Adjustment of mA and/or kV according to patient size (this includes techniques or standardized protocols for targeted exams where dose is matched to indication/reason for exam; i.e. extremities or head) *Use of iterative reconstruction technique DLP: 774 mGy-cm. FINDINGS: LUNG BASES: The visualized lung bases are unremarkable.? LIVER, GALLBLADDER, AND BILIARY TREE: The liver is slightly enlarged. Liver is normal in contour and attenuation. No focal hepatic lesion or biliary ductal dilatation is present. The gallbladder has been removed. PANCREAS: Unremarkable.? SPLEEN: Unremarkable.? ADRENAL GLANDS: Unremarkable.? KIDNEYS AND URETERS: The kidneys are normal in size, shape, and attenuation. Small bilateral nonobstructing punctate lower pole renal stones and left upper pole stone. No hydronephrosis, ureteral dilatation or ureteral stone. BLADDER: Unremarkable.? GASTROINTESTINAL TRACT: There is diverticulosis of the colon. No evidence of diverticulitis. . The small and large bowel are otherwise unremarkable. The appendix is unremarkable.? ABDOMINAL WALL: There are postsurgical changes to the anterior abdominal wall. This is similar to previous exam. No hernia.? LYMPH NODES: Normal. VASCULAR: Unremarkable. PELVIC VISCERA: Uterus has been removed. The left ovary is normal-appearing.? Stable soft tissue left-sided pelvic mass is deep to the abdominal wall, adjacent to the superior lateral left side of the bladder and inferior to the proximal sigmoid colon. When compared with previous pelvic ultrasound this most likely corresponds to the right ovary. This is stable from multiple prior CT scans. OSSEOUS STRUCTURES: Degenerative changes of the spine and hip joints. CT/CT abdomen pelvis wo IV con IMPRESSION: Small bilateral nonobstructing renal stones. Diverticulosis of the colon. No evidence of diverticulitis. Postsurgical changes to the anterior abdominal wall that appear stable. ? Fleischner guidelines were followed. Dictated By: Nilsa Marinelli MD Signed By: Electronically signed by Nilsa Marinelli MD 08/21/22 1529 <TYRELL Rowland - Last Filed: 08/21/22 16:07> Independent Historian Clinical information obtained from an independent historian. History obtained from or confirmed by: EMS <TYRELL Rowland - Last Filed: 08/21/22 16:07> Discharge Plan Discharge Clinical Impression: Acute flank pain <TYRELL Ortiz - Last Filed: 08/21/22 12:01> Patient Disposition: Home, Self-Care <TYRELL Ortiz - Last Filed: 08/21/22 12:01> Instructions: Flank Pain (ED) <TYRELL Ortiz - Last Filed: 08/21/22 12:01> Additional Instructions: Follow up with your primary care provider. Return to the emergency department immediately if your symptoms worsen or if you develop any dizziness, shortness of breath, difficulty breathing, chest pain, blurry vision, loss of vision, nausea, vomiting, abdominal pain, fever, chills, back pain, or any other complaints. <TYRELL Ortiz - Last Filed: 08/21/22 12:01> Prescriptions: New prednisone 20 mg tablet 20 mg PO DAILY 7 Days Qty: 7 0RF cyclobenzaprine 5 mg tablet 5 mg PO TID PRN (Reason: back pain) 7 Days Qty: 21 0RF No Action calcitriol 0.25 mcg capsule 0.25 mcg PO DAILY 30 Days Qty: 30 3RF meclizine 25 mg tablet 25 mg PO DAILY PRN (Reason: dizziness) Qty: 30 3RF furosemide 20 mg tablet 20 mg PO DAILY Qty: 30 3RF amlodipine 5 mg tablet 5 mg PO QAM Qty: 30 3RF cholecalciferol (vitamin D3) 25 mcg (1,000 unit) capsule 25 mcg PO DAILY 30 Days Qty: 30 11RF pantoprazole 40 mg tablet,delayed release (DR/EC) 40 mg PO DAILY Qty: 30 6RF acetaminophen-codeine 300-30 mg tablet 1 tab PO Q8H PRN (Reason: pain) 10 Days Qty: 30 0RF Hold Instructions: Doctor's Order nortriptyline 10 mg capsule 10 mg PO DAILY Qty: 30 2RF hydrochlorothiazide 25 mg tablet 25 mg PO DAILY Qty: 30 3RF propranolol 10 mg tablet 10 mg PO BID Qty: 60 2RF acetaminophen [Tylenol Extra Strength] 500 mg tablet 1,000 mg PO QID PRN (Reason: fever or pain) Qty: 14 0RF prednisone 20 mg tablet 60 mg PO DAILY 5 Days Qty: 15 0RF albuterol sulfate [ProAir HFA] 90 mcg/actuation HFA aerosol inhaler 2 puff inhalation Q4-6H PRN (Reason: shortness of breath or wheezing) Qty: 6.7 0RF Rx Instructions: Please use inhaler with spacer doxycycline hyclate 100 mg tablet 100 mg PO Q12H 7 Days Qty: 14 0RF (DME) inhalational spacing device Spacer See Rx Instructions .Route Qty: 1 0RF Rx Instructions: As directed clonazepam 0.5 mg tablet 0.5 mg PO BEDTIME (DME) blood pressure kit-extra large Kit See Rx Instructions .Route Qty: 1 0RF Rx Instructions: As directed tizanidine 4 mg tablet 4 mg PO Q8H PRN (Reason: muscle spasticity) Qty: 20 0RF buspirone 10 mg tablet 10 mg PO BID ondansetron HCl 4 mg tablet 4 mg PO BEDTIME hyoscyamine sulfate [Levsin/SL] 0.125 mg tablet, sublingual 0.125 mg sublingual BID-QID PRN (Reason: dyspepsia) Qty: 30 0RF zolpidem 12.5 mg tablet,ext release multiphase 12.5 mg PO BEDTIME PRN naloxone 4 mg/actuation spray,non-aerosol 1 spray intranasal DAILY PRN eszopiclone 1 mg tablet 1 mg PO BEDTIME <TYRELL Ortiz - Last Filed: 08/21/22 12:01> Referrals: Marcus Herman PA-C [Primary Care Provider] - <TYRELL Ortiz - Last Filed: 08/21/22 12:01> Print Language: Colombian <TYRELL Ortiz - Last Filed: 08/21/22 12:01>
[2022-08-21 12:18] LABS: MANUAL DIFF FLAG NO
[2022-08-21 12:21] LABS: Basophils Percent Auto 0.4 % (0-2); Eosinophils Absolute Auto 0.1 X10*3/uL (0.0-0.4); Eosinophils Percent Auto 1.6 % (0-4); Hematocrit 38.5 % (37.0-47.0); Hemoglobin 13.2 g/dl (12.0-16.0); Imm Gran Abs Auto 0.07 X10*3/uL (0.00-0.03); Imm Gran Pct Auto 0.9 % (0.0-0.4); Lymphocytes Percent Auto 39.1 % (20-40); Mean Corpuscular HGB Conc 34.3 g/dl (31.0-35.0); Mean Corpuscular Hemoglobin 32.2 pg (27.0-33.0); Mean Corpuscular Volume 93.9 fL (80.0-98.0); Mean Platelet Volume 9.5 fL (9.4-12.3); Monocytes Absolute Auto 0.3 X10*3/uL (0.1-1.2); Monocytes Percent Auto 4.5 % (2-11); Neutrophils Absolute Auto 4.1 x10*3/uL (2.0-8.3); Neutrophils Percent Auto 53.5 % (45-73); Platelet Count 232 X10*3/uL (160-400); White Blood Count 7.6 X10*3/uL (4.8-10.8)
[2022-08-21 12:36] LABS: Alanine Aminotransferase 9 U/L (0-31); Alkaline Phosphatase 87 U/L (39-117); Anion Gap 14 (12-20); Aspartate Amino Transferase 10 U/L (5-31); Bilirubin Direct < 0.2 mg/dL (0.0-0.5); Bilirubin Total 0.5 mg/dL (0.0-1.0); Blood Urea Nitrogen 17 mg/dL (9-16); Calcium 8.8 mg/dL (8.4-10.2); Carbon Dioxide 30 mmol/L (22-29); Chloride 103 mmol/L (96-108); Creatinine Clr Calc Pharmacy 78.2; Estimated Glomerular Filt Rate 57; Glucose Random 100 mg/dL (60-115); Lipase 16 U/L (8-78); Magnesium 2.1 mg/dL (1.6-2.6); Potassium 3.7 mmol/L (3.3-5.1); Sodium 143 mmol/L (135-145); Total Protein 6.5 g/dL (6.5-8.0)
[2022-08-21 14:55] LABS: Appearance Urine Clear; Color Urine Yellow; Glucose Urine UA Negative (Negative); Leukocyte Esterase Urine Negative (Negative); Nitrite Urine Negative (Negative); Urine Blood Negative (Negative); Urine Ketones Negative (Negative); Urine Protein Negative (Neg-Trace)
[2022-08-21] MEDS: oxyCODONE HCl Immed Release 5 MG TABLET 10 MG PO (15:22)
[2022-08-21 16:00] VITALS: BP 143/79; PULSE 72; RESP 16; TEMP 36.2; O2SAT 98
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
== END 2022-08-21 16:06 | disposition home or self-care (01) ==
PROVIDERS: Physician Assistant; Emergency Provider Emergency Medicine Emergency Medical Services; PCP Physician Assistant
DX: R10.9 Unspecified abdominal pain (principal); E66.01 Morbid (severe) obesity due to excess calories; Z68.41 Body mass index [BMI] 40.0-44.9, adult; Z79.899 Other long term (current) drug therapy
CPT/HCPCS: 36415; 74176; 80048; 80076; 81003; 83690; 83735; 85025; 99284

== ENCOUNTER → 2022-09-09 11:30 | Outpatient (BNVA) | payer OTHER, SELFPAY | PROVIDERS: PCP Physician Assistant; Visit Provider Orthopaedic Surgery | DX: M17.0 Bilateral primary osteoarthritis of knee (principal) | CPT/HCPCS: 99212 ==

== ENCOUNTER 2022-09-09 12:30 | Outpatient (REF) | payer OTHER, SELFPAY ==
[2022-09-09 14:36] LABS: Alanine Aminotransferase 13 U/L (0-31); Albumin Level 4.3 g/dL (3.5-5.0); Alkaline Phosphatase 90 U/L (39-117); Anion Gap 15 (12-20); Aspartate Amino Transferase 12 U/L (5-31); Bilirubin Total 0.7 mg/dL (0.0-1.0); Blood Urea Nitrogen 10 mg/dL (9-16); Calcium 8.7 mg/dL (8.4-10.2); Carbon Dioxide 31 mmol/L (22-29); Chloride 102 mmol/L (96-108); Cholesterol 212 mg/dL; Estimated Glomerular Filt Rate > 60; Glucose Random 96 mg/dL (60-115); HDL Cholesterol 43 mg/dL; LDL Cholesterol Calculated 128 mg/dl; Phosphorus 3.7 mg/dL (2.7-4.5); Sodium 144 mmol/L (135-145); Total Protein 6.7 g/dL (6.5-8.0); Triglycerides 206 mg/dL
[2022-09-09 14:57] LABS: Vitamin D 25-OH Total 39.3 ng/mL (>30)
[2022-09-09 15:10] LABS: Creatinine Urine 438.99 mg/dL; Microalbum/Creatinine Ratio Ur 6.6 ug/mg cr
[2022-09-12 18:04] LABS: PTHI 23 pg/mL (16-77)
== END 2022-09-09 12:31 | disposition home or self-care (01) ==
LOC: HO.10HDL 12:30
PROVIDERS: Physician Assistant; Visit Provider Internal Medicine
DX: M17.0 Bilateral primary osteoarthritis of knee (principal); I10 Essential (primary) hypertension; E20.9 Hypoparathyroidism, unspecified; E55.9 Vitamin D deficiency, unspecified
CPT/HCPCS: 36415; 80053; 80061; 82043; 82306; 83970; 84100

== ENCOUNTER 2022-09-23 08:52 | Outpatient (REF) | payer OTHER, SELFPAY ==
--- NOTE | ~2022-09-23 | CT_ITS ---
EXAMINATION: CT ABDOMEN AND PELVIS WITHOUT CONTRAST CLINICAL INFORMATION: Calculus of kidney. COMPARISON: CT abdomen and pelvis 08/21/2022. TECHNIQUE: Multidetector volumetric imaging was performed from the superior aspect of the liver through the pubic symphysis. Sagittal and coronal reformatted images were obtained on the technologist's workstation. This CT examination was performed using dose optimization techniques as appropriate, variously including the following: *Automated exposure control *Adjustment of mA and/or kV according to patient size (this includes techniques or standardized protocols for targeted exams where dose is matched to indication/reason for exam; i.e. extremities or head) *Use of iterative reconstruction technique DLP: 649 mGy-cm FINDINGS: LUNG BASES: The lung bases are clear. Heart size is normal. A small hiatal hernia is suspected. LIVER, GALLBLADDER, AND BILIARY TREE: The liver is enlarged in size measuring 20 cm in length. It has normal shape and attenuation. No focal hepatic lesion or biliary ductal dilatation is present. The gallbladder is unremarkable with no evidence of radiopaque gallstones, gallbladder wall thickening, or obvious pericholecystic inflammatory changes. PANCREAS: Unremarkable. SPLEEN: Unremarkable. ADRENAL GLANDS: Unremarkable. KIDNEYS AND URETERS: The kidneys are normal in size, shape, and attenuation. There are punctate radiopaque densities in the lower pole right kidney and lower pole left kidney. No caliectasis or hydronephrosis seen. BLADDER: The bladder is nondistended and appears unremarkable. GASTROINTESTINAL TRACT: There is scattered stool, diverticula and gas seen throughout the colon without any significant distention. The small bowel loops are normal caliber. Appendix is not seen. ABDOMINAL WALL: There are postsurgical changes in the lower anterior abdominal wall, unchanged. No evidence of hernia. LYMPH NODES: Normal. VASCULAR: Unremarkable. PELVIC VISCERA: The uterus is surgically absent. The left ovary is normal. The right ovary is not seen. There is no free fluid. No abnormal pelvic lymph nodes seen. To the left of the urinary bladder is a solid lesion measuring 2.5 x 2.2 cm and 37 HU. OSSEOUS STRUCTURES: No aggressive lytic or sclerotic process is seen. There is mild ventral spondylosis lower dorsal and upper lumbar spine. CT/CT abdomen pelvis wo IV con IMPRESSION: 1. Punctate radiopaque calculi lower pole right kidney and lower pole left kidney. No caliectasis or hydronephrosis seen. 2. Mild constipation. Colonic diverticulosis without diverticulitis. 3. To the left of the urinary bladder is a solid lesion measuring 2.5 x 2.2 cm and 37 HU. It is stable in size and density since 08/21/2022. Fleischner guidelines were followed.
== END 2022-09-23 08:53 | disposition home or self-care (01) ==
LOC: HO.CT 08:52
PROVIDERS: PCP Physician Assistant; Visit Provider Urology
DX: N20.0 Calculus of kidney (principal); M17.0 Bilateral primary osteoarthritis of knee
CPT/HCPCS: 20610; 74176; 99212; J7323

== ENCOUNTER → 2022-09-30 11:26 | Outpatient (BNVA) | payer OTHER, SELFPAY | PROVIDERS: PCP Physician Assistant; Visit Provider Urology | DX: M17.0 Bilateral primary osteoarthritis of knee (principal); N20.0 Calculus of kidney | CPT/HCPCS: 20610; 99212; J7323 ==

== ENCOUNTER → 2022-10-07 11:18 | Outpatient (BNVA) | payer OTHER, SELFPAY | PROVIDERS: PCP Physician Assistant; Visit Provider Orthopaedic Surgery | DX: M17.0 Bilateral primary osteoarthritis of knee (principal) | CPT/HCPCS: 20610; 99212; J7323 ==

== ENCOUNTER 2022-11-13 09:38 | Outpatient (REF) | payer OTHER, SELFPAY ==
[2022-11-13 13:30] LABS: Alanine Aminotransferase 13 U/L (0-31); Albumin Level 4.3 g/dL (3.5-5.0); Alkaline Phosphatase 86 U/L (39-117); Anion Gap 18 (12-20); Aspartate Amino Transferase 13 U/L (5-31); Bilirubin Total 0.6 mg/dL (0.0-1.0); Blood Urea Nitrogen 12 mg/dL (9-16); Calcium 9.7 mg/dL (8.4-10.2); Carbon Dioxide 29 mmol/L (22-29); Chloride 101 mmol/L (96-108); Estimated Glomerular Filt Rate > 60; Glucose Random 106 mg/dL (60-115); Phosphorus 4.5 mg/dL (2.7-4.5); Potassium 3.9 mmol/L (3.3-5.1); Sodium 144 mmol/L (135-145); Total Protein 7.4 g/dL (6.5-8.0)
[2022-11-13 13:57] LABS: Vitamin D 25-OH Total 40.6 ng/mL (>30)
[2022-11-14 15:28] LABS: PTHI 41 pg/mL (16-77)
== END 2022-11-13 09:39 | disposition home or self-care (01) ==
LOC: HO.LAB 09:38
PROVIDERS: PCP Physician Assistant; Visit Provider Internal Medicine
DX: E55.9 Vitamin D deficiency, unspecified (principal); E20.9 Hypoparathyroidism, unspecified; E83.51 Hypocalcemia; Z79.899 Other long term (current) drug therapy; Z98.890 Other specified postprocedural states
CPT/HCPCS: 36415; 80053; 82306; 83970; 84100

== ENCOUNTER 2023-02-03 10:33 | Outpatient (AMB) | payer OTHER, SELFPAY ==
[2023-02-03 10:35] VITALS: BP 118/70; PULSE 83; O2SAT 98; BMI 45.1
--- NOTE | 2023-02-03 10:35 | MHC.PC.OV ---
Vital Signs 02/03/23 10:35 Height 5 ft 3 in Weight 254 lb 8 oz BMI 45.1 BP 118/70 Blood Pressure Location Lt radial Position Sitting Pulse 83 Pulse Source Pulse Oximeter Pulse Oximetry (%) 98 Oxygen Delivery Method Room Air Intake Visit Reasons: f/u Weight check Intake Note: Pt is here for weight check and complaining of an ongoing lower back pain since Friday01/31/23. Catcher Filter Tip Required: Yes Catcher Filter Tip Language: Mauritanian Accompanied by: Self / Same As Patient Allergies ibuprofen [IBUPROFEN] Allergy (Intermediate, Verified 02/04/23 08:06) RASH lisinopril [LISINOPRIL] Allergy (Intermediate, Verified 02/04/23 08:06) RASH lactulose [LACTULOSE] Allergy (Mild, Verified 02/04/23 08:06) STOMACH ACHE tizanidine Adverse Reaction (Intermediate, Verified 02/04/23 08:06) bradycardia Medication List - Last Reconciled 02/03/23 by Marcus Herman PA-C acetaminophen (Tylenol Extra Strength) 1,000 mg (2 x 500 mg) PO QID PRN acetaminophen-codeine 300-30 mg 1 tab PO Q8H PRN 5 days albuterol sulfate 90 mcg/actuation (ProAir HFA) 2 puffs inhalation Q4-6H PRN amlodipine 5 mg PO QAM blood pressure kit-extra large As directed buspirone 10 mg PO BID calcitriol 0.25 mcg PO DAILY 30 days cholecalciferol (vitamin D3) (Vitamin D3) 25 mcg PO DAILY clonazepam 0.5 mg PO BEDTIME furosemide 20 mg PO DAILY hydrochlorothiazide 25 mg PO DAILY hyoscyamine sulfate (Levsin/SL) 0.125 mg sublingual BID-QID PRN inhalational spacing device As directed loratadine 10 mg PO DAILY meclizine 25 mg PO DAILY PRN naloxone 4 mg/actuation 1 spray intranasal DAILY PRN pantoprazole 40 mg PO DAILY propranolol 10 mg PO BID topiramate (Topamax) 25 mg PO BEDTIME 30 days zolpidem ER 12.5 mg PO BEDTIME PRN Tobacco use date assessed: 10/24/22 Dental Screening Dental Screen Date: 02/03/23 Did you have a dental visit in the last 12 months?: No Did you have a dental problem in the last 6 months where you did not have access to dental care?: No Was dental information given to patient?: Patient has dentist HPI f/u Weight check HPI Details Patient is a 52-year-old female here today for routine annual physical.? Patient has a past history significant for hypertension, obesity, MDD, Incomnia, frequent migraines, hyperparathyroidism, IBS. Concerns-- > reports having ongoing lower back pain over the last 3 days. No reported trauma. She reports she generally has not been feeling well she feels it is related to her mental health as she has been more depressed and anxious. She reports her trigger is her living situation. She wants to get of her current apartment as she feels is making her depressed . She is working with a case assistant to get a new apartment in [place]. .. Hypertension: Her blood pressure today in office acceptable. Will continue her current dose of amlodipine 5 mg. Bilateral knee osteoarthritis: Continues to have bilateral knee pain likely secondary to her weight, has gotten injections in her knees which have not been effective. ? ..Obesity:? We have tried many different oral weight loss medications though have not been effective. Some medications not covered by patient's insurance. Considered will go be though patient does have history pancreatitis thus there is a relative contraindication here . Laboratory Tests 11/13/22 12:33 Creatinine 0.91 25-OH Vitamin D To mychal 40.6 PTH Intact 41 PFSH Medical History Renal calculi Osteopenia Morbid obesity due to excess calories Vitamin D deficiency Hypoparathyroidism Renal colic Chronic abdominal pain Surgical History Hx of colonoscopy H/O thyroidectomy History of esophagogastroduodenoscopy (EGD) History of parathyroid surgery History of hernia repair Status post excision of lipoma (09/26/21) H/O left knee surgery History of cholecystectomy H/O: hysterectomy Family History Father Medical history unknown Mother Cancer Paternal Grandmother Diabetes Paternal Grandfather Diabetes Daughter Behavioral problem Family/Other FH: mental illness Social History Household Members: None Housing: Apartment Alcohol intake: never Patient Tobacco Use Status: Never used Tobacco e-Cigarette/Vaping Use: Never Used Second Hand Smoke Exposure: No Advance Directives Date on File: 11/02/21 Current occupational status: unemployed and disabled Cognitive needs: No Hearing needs: No Vision needs: No Questionnaire Thrive Questionnaire Date Thrive assessed: 10/24/22 ALYSA-7 AMB Questionnaire ALYSA-7 Date ALYSA - 7 assessed: 10/24/22 Source: Developed by Drs. William Gallagher, Yasmin Shipley, Hari Ortiz and colleagues, with an educational hilda from [employer]. Physical exam (Primary Care) Vital Signs: Last Vital Signs Pulse 83 02/03/23 10:35 BP 118/70 02/03/23 10:35 Pulse Ox 98 02/03/23 10:35 Oxygen Delivery Method Room Air 02/03/23 10:35 BMI result Body Mass Index 45.1 Tobacco/Smoking Status: Tobacco use Status Tobacco use date assessed 10/24/22 02/03/23 10:36 Patient Tobacco Use Status Never used Tobacco 02/03/23 10:36 e-Cigarette/Vaping Use Never Used 02/03/23 10:36 Thrive Assessment: Date of Thrive Assessment Date Thrive assessed 10/24/22 02/03/23 10:36 Assessment and Plan Assessment & Plan (1) Morbid obesity due to excess calories: Code(s): E66.01 - Morbid (severe) obesity due to excess calories Plan: Patient does understand her BMI is well over 40 will work on trying to be more physically active and adapting to better eating habits to reduce her weight. Have tried many different oral weight loss medication though have not been effective. Advised on seeing medical cost consultant and perhaps re-establishing care with the weight management program to help her lose weight though patient is still considering (2) BMI 45.0-49.9, adult: Code(s): Z68.42 - Body mass index [BMI] 45.0-49.9, adult (3) Hypoparathyroidism: Code(s): E20.9 - Hypoparathyroidism, unspecified Qualifiers: Hypoparathyroidism type: unspecified Qualified Code(s): E20.9 - Hypoparathyroidism, unspecified Plan: Patient has follow-up with endocrinology. Most recent parathyroid hormone and calcium has been fairly stable. She continues on Calcitrol (4) NAVDEEP (obstructive sleep apnea): Code(s): G47.33 - Obstructive sleep apnea (adult) (pediatric) Plan: [place] Sleepiness Scale score of 2 today in office. She does risk factors for obstructive sleep apnea. Does report some daytime somnolence She would like to be evaluated for obstructive sleep apnea (5) MDD (major depressive disorder), recurrent episode, moderate: Code(s): F33.1 - Major depressive disorder, recurrent, moderate Plan: Patient does seem to be having worsening depression due to her living situation. Has been working with a case assistant to try to get a new apartment. It is likely that a lot of her pain symptoms are exacerbated by her mental health. ? Fibromyalgia Orders: Orders PT Evaluation and Treatment 02/03/23 M51.27 - Other intervertebral disc displacement, lumbosacral region Lipase Today K85.90 - Acute pancreatitis without necrosis or infection, unspecified Complete Blood Count no Diff Today I10 - Essential (primary) hypertension XR lumbar spine 4V min 02/03/23 M51.27 - Other intervertebral disc displacement, lumbosacral region RT home sleep study Today G47.33 - Obstructive sleep apnea (adult) (pediatric) Comprehensive [place]. Panel Fast Today I10 - Essential (primary) hypertension PTHI Today E20.9 - Hypoparathyroidism, unspecified Coding Level of Care Code Est Pt Level 4 (05883) Diagnoses Morbid obesity due to excess calories E66.01 BMI 45.0-49.9, adult Z68.42 Hypoparathyroidism, unspecified hypoparathyroidism type E20.9 Hypoparathyroidism type: unspecified NAVDEEP (obstructive sleep apnea) G47.33 MDD (major depressive disorder), recurrent episode, moderate F33.1
== END 2023-02-03 11:31 | disposition home or self-care (01) ==
PROVIDERS: PCP Physician Assistant; Visit Provider Physician Assistant
DX: E20.9 Hypoparathyroidism, unspecified (principal); E66.01 Morbid (severe) obesity due to excess calories; Z68.42 Body mass index [BMI] 45.0-49.9, adult; F33.1 Major depressive disorder, recurrent, moderate; G47.33 Obstructive sleep apnea (adult) (pediatric)
CPT/HCPCS: 99214

== ENCOUNTER 2023-02-03 13:10 | Outpatient (AMB) | payer OTHER, SELFPAY ==
--- NOTE | 2023-02-03 13:11 | MHC.OFFVIS ---
Intake Vital Signs 02/03/23 13:19 Height 5 ft 3 in Intake Visit Reasons: 6 month follow up Intake Note: Amalia 6 months telehealth follow up. CC: Patient reports that she has diarrhea after every meal and rectal irritation. She also c/o dizziness, nausea, and vomiting. She is asking if she can have a letter stating that her physical and mental condition has been affected by small size of her apartment. Per patient Dr. Herman has been telling her that her condition is mental. Transportation Operations Manager Required: No Allergies ibuprofen [IBUPROFEN] Allergy (Intermediate, Verified 02/03/23 13:15) RASH lisinopril [LISINOPRIL] Allergy (Intermediate, Verified 02/03/23 13:15) RASH lactulose [LACTULOSE] Allergy (Mild, Verified 02/03/23 13:15) STOMACH ACHE tizanidine Adverse Reaction (Intermediate, Verified 02/03/23 13:15) bradycardia HPI 6 month follow up HPI Details 52 yr old f being called for f/u RECAP: ? She had right sided upper abdo pain in 12/2018, lipase was 3000-came to hospital and MRI with stranding around pancreas, CBD 1 cm but no stones/strictures dx with pancreatitis, also ?adherent small bowel, hepatomegaly and steatosis ? she had ongoing sx and flare up and again admitted 02/2019--transaminitis, liapse at 800 and MRI again done with stable CBD, normal pancreas no divisum ? HEp serologies were neg ? Since d/c ongoing pain ruq (but is pointing to her right flank and can locate with one finger), PCP flexeril and bentyl and not helping ? she does have nausea, emesis occ brown or yellow ? appetite is poor, weight down 2# this month ? stool is normal, no blood in stool, ? she does have chills, no fevers ? whole elft side can feel weak, gets dizzy at times--attacks every day can last 10 mins at a time--saw neurologist and being assessed. ? she was not a consistent historian debbie as regards her pain and how it was during her attacks as opposed to at the visit, ? clinically her pain was not consistent with a pancreatic etiology and appeared to be more myofascial in origin ? she was given lido/kenalog injection in case of myofascial component but felt it didn;t help ? she was getting w/u for hypercalcemia ? she was also c/o dysphagia which was new and EGD was planned ? as well as pain in her right loin ? At visit: 04/2019 ? she went to ED for abdominal pain, had severe worsening idffuse abdo pain with nausea and vomiting (bilious) passing small amount of stool with pressure but no gas ? she had small bowel obstruction in past and feels the same ? had CT in ED with evidence of SBO, seems to be transition point around prior ventral hernia surgery site, no pancreatitis. ? EGD: 06/2019 for dysphagia--4 cm hiatal hernia, patulous GEJ, bx -active esophagitis, GEJ chronic inflammation--advised to take PPI ? At TV 09/2019 ? she was c/o SOb, chest pain and confusion, vomiting ? she was advised to go to ED ? labs with nml hgb, mild leukopenia, LFt nml, trop, nml, ? CT scan:enlarged liver, scarring lower abd wall, no bowel obstruction ? Last time she was having migraines and I suspected her nausea was from this ? she was given propranolol to see if it helped ? advised to get CO monitor for home, makse sure no CO exposure ? ? ? she was advised to see Dr Cruz for hiatal hernia repair, plan is for sleeve gastrectomy and hiatal hernia repair after she completes the necessary steps F/U 01/28/22 I gave her TCA due to concern for fucntional dyspepsia and pain LABS: nml CMP/LFT 10/2022 INTERIM: she has arin in her right side of abdomen and goes all the way down to her back and legs she feels her stomach is like a treasury agent, rusn to bathroom she had cholecystectomy 2007 she takes the lactulose for constipation as needed takes tylenol #3 v rarely she denies constipation she is seeing PCP for mental health care issues CT 09/2022--bladder lesion, kidney stones EXAM: GENERAL: The patient is obese, talking easily Assessments ? 1. RUQ abdominal pain, r/o retained or de brandon gallstones Plan: 1/ crefilled on levsin 2/ US RUQ PFSH Medical History Renal calculi Osteopenia Morbid obesity due to excess calories Vitamin D deficiency Hypoparathyroidism Renal colic Chronic abdominal pain Surgical History Hx of colonoscopy H/O thyroidectomy History of esophagogastroduodenoscopy (EGD) History of parathyroid surgery History of hernia repair Status post excision of lipoma (09/26/21) H/O left knee surgery History of cholecystectomy H/O: hysterectomy Family History Father Medical history unknown Mother Cancer Paternal Grandmother Diabetes Paternal Grandfather Diabetes Daughter Behavioral problem Family/Other FH: mental illness Social History Household Members: None Housing: Apartment Alcohol intake: never Patient Tobacco Use Status: Never used Tobacco e-Cigarette/Vaping Use: Never Used Second Hand Smoke Exposure: No Advance Directives Date on File: 11/02/21 Current occupational status: unemployed and disabled Cognitive needs: No Hearing needs: No Vision needs: No Assessment & Plan Assessment & Plan (1) RUQ pain: Code(s): R10.11 - Right upper quadrant pain Orders: Orders US abdomen guzman w elastography Today K74.60 - Unspecified cirrhosis of liver, K75.81 - Nonalcoholic steatohepatitis (VU), R10.11 - Right upper quadrant pain Medications: Refilled hyoscyamine sulfate (Levsin/SL) 0.125 mg sublingual BID-QID PRN 30 tabs 0RF dyspepsia Telehealth Telehealth Location of provider rendering services: practice address Location of patient: address on file Patient Identification confirmed using: Name, : Yes Telehealth method: video Patient verbally consented to treatment: Yes Patient verbally consented to billing insurance company: Yes Patient informed of any privacy concerns related to visit: Yes Minutes spent on Phone/Video with Pt.: 12 Coding Level of Care Code Tele Est Pt Level 3 (28831) Diagnoses RUQ pain R10.11
== END 2023-02-03 14:34 | disposition home or self-care (01) ==
LOC: HO.HGI 13:10
PROVIDERS: PCP Physician Assistant; Visit Provider Internal Medicine Gastroenterology
DX: R10.11 Right upper quadrant pain (principal)
CPT/HCPCS: 99213

== ENCOUNTER → 2023-02-03 13:10 | Outpatient (BNVA) | payer OTHER, SELFPAY | PROVIDERS: PCP Physician Assistant; Visit Provider Internal Medicine Gastroenterology ==

== ENCOUNTER 2023-02-18 11:24 | Outpatient (REF) | payer OTHER, SELFPAY ==
[2023-02-18 12:50] LABS: Hematocrit 38.5 % (37.0-47.0); Mean Corpuscular HGB Conc 33.8 g/dl (31.0-35.0); Mean Corpuscular Hemoglobin 31.9 pg (27.0-33.0); Mean Corpuscular Volume 94.4 fL (80.0-98.0); Mean Platelet Volume 10.3 fL (9.4-12.3); Platelet Count 235 X10*3/uL (160-400); Red Blood Count 4.08 X10*6/uL (4.20-5.50); Red Cell Distribution Width 12.9 % (11.0-16.0); White Blood Count 7.1 X10*3/uL (4.8-10.8)
[2023-02-18 13:33] LABS: Alanine Aminotransferase 14 U/L (0-31); Albumin Level 4.3 g/dL (3.5-5.0); Alkaline Phosphatase 87 U/L (39-117); Anion Gap 15 (12-20); Aspartate Amino Transferase 14 U/L (5-31); Bilirubin Total 0.4 mg/dL (0.0-1.0); Blood Urea Nitrogen 12 mg/dL (9-16); Calcium 9.4 mg/dL (8.4-10.2); Carbon Dioxide 27 mmol/L (22-29); Chloride 103 mmol/L (96-108); Estimated Glomerular Filt Rate > 60; Glucose Fasting 101 mg/dL (60-99); Lipase 14 U/L (8-78); Potassium 3.5 mmol/L (3.3-5.1); Sodium 141 mmol/L (135-145); Total Protein 7.4 g/dL (6.5-8.0)
[2023-02-19 16:09] LABS: Calcium (PTHI) 9.3 mg/dL (8.6-10.4); PTHI 26 pg/mL (16-77)
== END 2023-02-18 11:25 | disposition home or self-care (01) ==
LOC: HO.LAB 11:24
PROVIDERS: PCP Physician Assistant; Visit Provider Physician Assistant
DX: I10 Essential (primary) hypertension (principal); K85.90 Acute pancreatitis without necrosis or infection, unspecified; E20.9 Hypoparathyroidism, unspecified
CPT/HCPCS: 36415; 80053; 83690; 83970; 85027

== ENCOUNTER 2023-03-04 10:03 | Outpatient (REF) | payer OTHER, SELFPAY ==
--- NOTE | ~2023-03-04 | US_ITS ---
EXAMINATION: US ABDOMEN LIMITED WITH LIVER ELASTOGRAPHY CLINICAL INFORMATION: Nonalcoholic steatohepatitis. COMPARISON: None available. TECHNIQUE: Real-time imaging of the abdominal viscera. Noninvasive ultrasound liver fibrosis assessment is performed using Jennifer ElastPQ point quantification shear wave elastography (2D-SWE) with a C5-2 MHz transducer. Multiple elastography samples are obtained. FINDINGS: PANCREAS: Normal. The visualized pancreatic head and body are normal in appearance. The remainder of the pancreas is obscured from visualization by the overlying bowel gas. LIVER: There is hepatomegaly. The liver shows normal contour and increased echogenicity. No focal lesion or intrahepatic biliary duct dilatation. The right lobe measures 19.2 cm in length. The left lobe measures 13.2 cm in length. Portal flow is towards the liver (hepatopetal). Shear wave liver elastography median stiffness is 1.69 m/s (reference: normal median stiffness is 1.3 m/s or less). IQR/median stiffness to assess sampling precision is 0.18 (reference: good quality data set is IQR/median stiffness of 0.15 or less). GALLBLADDER: Surgically absent. COMMON BILE DUCT: Normal in caliber measuring 0.4 cm in diameter. RIGHT KIDNEY: Normal. No hydronephrosis. No renal calculi or focal parenchymal lesions. The kidney measures 10.8 cm in maximum dimension. FREE FLUID: None. US/US abdomen guzman w elastography IMPRESSION: 1. There is hepatomegaly. 2. There is generalized increase in hepatic echotexture, consistent with fatty infiltration or hepatocellular disease. Please correlate clinically. No focal hepatic mass or intrahepatic biliary dilatation is seen. 3. Liver elastography: Although measurements appear to rule out compensated advanced chronic liver disease, there is statistical variability of the sampling which decreases accuracy. REFERENCE: Society of Radiologists in Ultrasound Liver Stiffness Thresholds (2020): LIVER STIFFNESS THRESHOLDS: *Liver Stiffness equal or less than 1.3 m/s: High probability of being normal. *Liver Stiffness less than 1.7 m/s: In the absence of other known clinical signs, rules out compensated advanced chronic liver disease. *Liver Stiffness 1.7-2.1 m/s: Suggestive of compensated advanced chronic liver disease but need further test for confirmation. *Liver Stiffness over 2.1 m/s: Rules in compensated advanced chronic liver disease. *Liver Stiffness over 2.4 m/s: Suggestive of clinically significant portal hypertension. QUALITY OF DATA SET: *IQR/Median value equal or less than 0.15 implies a quality data set. *IQR/Median value over 0.15 implies a poor quality data set. SIGNIFICANT CHANGE FROM PRIOR EXAM: Significant change if liver stiffness measurement is 10% or greater from prior exam. OTHER CONSIDERATIONS: The stage of liver fibrosis may be overestimated in the setting of acute hepatitis, liver inflammation, elevated liver function tests, hepatic vascular congestion, obstructive cholestasis, non-fasting state, and infiltrative diseases such as amyloidosis and lymphoma. In some patients with NAFLD, the liver stiffness thresholds for compensated advanced chronic liver disease may be lower. In causes other than viral hepatitis and NAFLD, liver stiffness thresholds are not well established.
== END 2023-03-04 10:04 | disposition home or self-care (01) ==
LOC: HO.US 10:03
PROVIDERS: PCP Physician Assistant; Visit Provider Internal Medicine Gastroenterology
DX: K75.81 Nonalcoholic steatohepatitis (NASH) (principal); K74.60 Unspecified cirrhosis of liver; R10.11 Right upper quadrant pain
CPT/HCPCS: 76705; 76981

== ENCOUNTER → 2023-03-17 09:26 | Outpatient (REF) | payer OTHER, SELFPAY | LOC: HO.SL 09:26 | PROVIDERS: PCP Physician Assistant; Visit Provider Physician Assistant | DX: Z13.89 Encounter for screening for other disorder (principal) ==

== ENCOUNTER 2023-04-23 10:01 | Outpatient (AMB) | payer OTHER, SELFPAY ==
[2023-04-23 10:05] VITALS: BP 100/84; PULSE 80; BMI 46.2
--- NOTE | 2023-04-23 10:05 | A.OFFVIS_ITS ---
Intake Vital Signs 04/23/23 10:05 Height 5 ft 3 in Weight 260 lb 9.382 oz BMI 46.2 BP 100/84 Blood Pressure Location Lt brachial Position Sitting Pulse 80 Pulse Source Pulse Oximeter Intake Visit Reasons: Hypoparathyroidism Intake Note: Patient present for Hypoparathyroidism follow up visit. Previously followed by Dr. Manrique. [employer] Supervisor Required: No Accompanied by: Self / Same As Patient Allergies ibuprofen [IBUPROFEN] Allergy (Intermediate, Verified 04/23/23 10:12) RASH lisinopril [LISINOPRIL] Allergy (Intermediate, Verified 04/23/23 10:12) RASH lactulose [LACTULOSE] Allergy (Mild, Verified 04/23/23 10:12) STOMACH ACHE tizanidine Adverse Reaction (Intermediate, Verified 04/23/23 10:12) bradycardia HPI HPI Comments History of Present Illness Details 52 YO F with an extensive PMHx including Pancreatitis and Recurrent Nephrolithiasis who is seen in F/U. She underwent a multigland (3 gland) parathyroidectomy 04/04/[address] Brittni Aguilar and has subsequently developed hypoparathyroidism.. The patient last saw Dr. Manrique on 11/13/2022 In terms of her hypercalcemia: First noted to have high calcium in 2011 based on labs, but it appears no full evaluation was completed. 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 Calcium level has been over 11 on multiple occasions, most recently 10.4 with Albumin WNL. Her Vitamin D was very low at 8 in early 2017. It has remained this low ever since. After her initial visit with de we checked a complete workup. 03/31/19 Total Calcium 11.9, Albumin 4.6, Vitamin D 9.9, PTH 127, Phos 2.3. She had a 24 hour urine collection which was an inadequate sample. She had an ultrasound of the neck which was read as a 2.2 R mid pole posterior hypoechoic nodule. Review of the images does appear that this is extracapsular and potentially represents a parathyroid adenoma. She underwent a 3 gland ( R inferior and Bilateral Superior) parathyroidectomy on 04/04/2020. Intraoperative PTH declined from 170-13. She did develop hypocalcemia postoperatively. She was resumed on Calcium citrate 1 tab PO TID and also started on Calcitriol 0.25 mg PO daily. She was having significant cramping and paresthesias, but this initially resolved after starting Calcitriol. She subsequently stopped the Calcium but has resumed on calcitriol and Vitamin D. She has not been compliant with regular F/U and lab checks.. She is currently on calcitriol 0.25 mcg daily as well as vitamin D3. She also takes hydrochlorothiazide 25 mg daily She does report some paresthesias of her hands and her legs. Renal imaging: Abd/Pelvis CT 06/02/2019: Nephrolithiasis of R Kidney, nonobstructing DEXA: 07/26/2021 FINDINGS: AP SPINE L1-L4: Current: BMD 1.069 g/cm2, Z-score -1.3, T-score -0.9, normal, 4.7% increase from baseline (<5% change is not significant). Baseline: BMD 1.021 g/cm2. LEFT FEMUR, NECK: Current: BMD 0.579 g/cm2, Z-score -3.0, T-score -3.3, osteoporosis. Baseline: BMD 0.875 g/cm2. LEFT FEMUR, TOTAL: Current: BMD 0.730 g/cm2, Z-score -2.3, T-score -2.2, osteopenia, 24.0% decrease from baseline (<5% change is not significant). Baseline: BMD 0.961 g/cm2. LEFT FOREARM RADIUS 33%: BMD 0.893 g/cm2, Z-score 0.3, T-score 0.2, normal, 1.7% increase from baseline (<5% change is not significant). Baseline: BMD 0.878 g/cm2. Labs: Laboratory Tests 05/15/21 07/26/21 07/26/21 16:46 14:57 14:57 Creatinine 0.78 0.79 Estimated GFR > 60 > 60 Phosphorus 3.9 Albumin 4.2 4.1 25-OH Vitamin D To mychal 28.9 PTH Intact 38 Calcium (PTH Intac t) 8.4 L Ur 24 Hour Volume Ur Creatinine 24 H our Ur Calcium 24 Hr 08/01/21 08/01/21 10:02 10:02 Creatinine Estimated GFR Phosphorus Albumin 25-OH Vitamin D To mychal PTH Intact Calcium (PTH Intac t) Ur 24 Hour Volume 1025 Ur Creatinine 24 H our 1.28 Ur Calcium 24 Hr 45 PFSH Medical History Renal calculi Osteopenia Morbid obesity due to excess calories Vitamin D deficiency Hypoparathyroidism Renal colic Chronic abdominal pain Surgical History Hx of colonoscopy H/O thyroidectomy History of esophagogastroduodenoscopy (EGD) History of parathyroid surgery History of hernia repair Status post excision of lipoma (09/26/21) H/O left knee surgery History of cholecystectomy H/O: hysterectomy Family History Father Medical history unknown Mother Cancer Paternal Grandmother Diabetes Paternal Grandfather Diabetes Daughter Behavioral problem Family/Other FH: mental illness Social History Household Members: None Housing: Apartment Alcohol intake: never Patient Tobacco Use Status: Never used Tobacco e-Cigarette/Vaping Use: Never Used Second Hand Smoke Exposure: No Advance Directives Date on File: 11/02/21 Current occupational status: unemployed and disabled Cognitive needs: No Hearing needs: No Vision needs: No Physical Exam Vital Signs: Last Vital Signs Pulse 80 04/23/23 10:05 BP 100/84 04/23/23 10:05 BMI result Body Mass Index 46.2 Assessment & Plan Assessment & Plan (1) Hypoparathyroidism: Code(s): E20.9 - Hypoparathyroidism, unspecified Qualifiers: Hypoparathyroidism type: unspecified Qualified Code(s): E20.9 - Hypoparathyroidism, unspecified Plan: This is a 52-year-old female with a history of surgically induced hypoparathyroidism currently being treated with calcitriol, calcium, vitamin D3 and hydrochlorothiazide with calcium low normal. Plan is to continue the current therapy. Will check 24 hour urine for calcium and creatinine Orders: Orders Creatinine, 24 Hr Group Today E20.9 - Hypoparathyroidism, unspecified Calcium, 24 Hr Ur Today E20.9 - Hypoparathyroidism, unspecified Coding Level of Care Code Est Pt Level 3 (50495) Diagnoses Hypoparathyroidism, unspecified hypoparathyroidism type E20.9 Hypoparathyroidism type: unspecified
== END 2023-04-23 10:54 | disposition home or self-care (01) ==
PROVIDERS: PCP Physician Assistant; Visit Provider Internal Medicine Endocrinology, Diabetes & Metabolism
DX: E20.9 Hypoparathyroidism, unspecified (principal)
CPT/HCPCS: 99213

== ENCOUNTER → 2023-04-23 10:01 | Outpatient (BNVA) | payer OTHER, SELFPAY | PROVIDERS: PCP Physician Assistant; Visit Provider Internal Medicine Endocrinology, Diabetes & Metabolism | DX: E20.9 Hypoparathyroidism, unspecified (principal) | CPT/HCPCS: 99212 ==

== ENCOUNTER 2023-04-29 12:59 | Outpatient (AMB) | payer OTHER, SELFPAY ==
--- NOTE | 2023-04-29 13:26 | MHC.OFFVISWM ---
Intake VS Expanded 04/29/23 15:41 BP 133/76 Blood Pressure Location Rt radial Pulse 81 Temp 97.9 F Pulse Oximetry 98 Oxygen Delivery Method Room Air Intake Visit Reasons: (OV) Re-Est SWL Intake Note: incorrect Tanita Cutting Table Operator Required: No Allergies ibuprofen [IBUPROFEN] Allergy (Intermediate, Verified 04/23/23 10:12) RASH lisinopril [LISINOPRIL] Allergy (Intermediate, Verified 04/23/23 10:12) RASH lactulose [LACTULOSE] Allergy (Mild, Verified 04/23/23 10:12) STOMACH ACHE tizanidine Adverse Reaction (Intermediate, Verified 04/23/23 10:12) bradycardia Medication List - Last Reconciled 04/29/23 by TYRELL Larsen amlodipine 5 mg PO QAM blood pressure kit-extra large As directed buspirone 10 mg PO BID calcitriol 0.25 mcg PO DAILY 30 days cholecalciferol (vitamin D3) (Vitamin D3) 25 mcg PO DAILY clonazepam 0.5 mg PO BEDTIME furosemide 20 mg PO DAILY hydrochlorothiazide 25 mg PO DAILY hyoscyamine sulfate (Levsin/SL) 0.125 mg sublingual BID-QID PRN inhalational spacing device As directed loratadine 10 mg PO DAILY meclizine 25 mg PO DAILY PRN pantoprazole 40 mg PO DAILY propranolol 10 mg PO BID topiramate (Topamax) 25 mg PO BEDTIME 30 days zolpidem ER 12.5 mg PO BEDTIME PRN HPI HPI Comments History of Present Illness Details Pt is here to re[place]start [place] [facility] [place] [facility] [place]. She was in the program from September 2020 through December 2020 with a 13.6 lb weight loss. She withdrew from the program at that time as she was told by Dr. Cruz that she would not be a surgical candidate due to hypocalcemia. Per report, this has subsequently been corrected through endocrinology, Dr. Manrique. She started at 246.2 lb and left the program at 232.6 lb. Her goal is to lose weight and achieve a healthy lifestyle as well as to improve, if not resolve, obesity related medical conditions, including hypertension and sleep apnea. She reports first being concerned about her weight for many years, highest weight to date was 260. Current weight is 254.4 pounds with a BMI of 45. She has tried multiple methods of weight loss including previous surgical weight loss program and fad diets without permanent results. She does not work She wakes at:?9 am, and goes to bed at?MN. Dinner is at 5 pm. Breakfast: toast, crackers, HB egg, coffee or oatmeal AM snack: skip Lunch: skip or sandwich PM snack: fruit Dinner: rice, chicken After dinner: skip Other snacks: junk food, candy, Liquids: 128 oz water, 8 oz lia florencia daily, sometimes juice Alcohol/marijuana/tobacco intake: none Exercise: nothing formal, sometimes movement while sitting. She uses a quad cane to assist in ambulation and a WW for longer distance. [facility] Medical History Renal calculi Osteopenia Morbid obesity due to excess calories Vitamin D deficiency Hypoparathyroidism Renal colic Chronic abdominal pain Surgical History Hx of colonoscopy H/O thyroidectomy History of esophagogastroduodenoscopy (EGD) History of parathyroid surgery History of hernia repair Status post excision of lipoma (09/26/21) H/O left knee surgery History of cholecystectomy H/O: hysterectomy Family History Father Medical history unknown Mother Cancer Paternal Grandmother Diabetes Paternal Grandfather Diabetes Daughter Behavioral problem Family/Other FH: mental illness Social History Household Members: None Housing: Apartment Alcohol intake: never Patient Tobacco Use Status: Never used Tobacco e-Cigarette/Vaping Use: Never Used Second Hand Smoke Exposure: No Advance Directives Date on File: 11/02/21 Current occupational status: unemployed and disabled Cognitive needs: No Hearing needs: No Vision needs: No Review of Systems Const All systems reviewed & are unremarkable except as noted in HPI and below Physical Exam Const General: cooperative, healthy appearing and no acute distress Orientation/consciousness: patient oriented x3 Limitations: ambulation with cane HEENT Head: Yes normal to inspection Ears: hearing grossly normal bilaterally General nose exam: Normal external nose present Face and sinus: Yes normal facial exam Eyes General: appearance normal, both eyes and all related structures Resp Effort & Inspection: normal respiratory effort Auscultation: clear to auscultation bilaterally Cardio Rate: regular rate Rhythm: regular rhythm Heart sounds: S1 normal heart sound present and S2 normal heart sound present GI Inspection: No distended, Yes Abdominal panniculus present, Yes obesity and Yes scar (Midline laparotomy scar, pubis to umbilicus) Palpation (GI): Soft to palpation, nontender and no guarding Auscultation: normal bowel sounds Skin General skin exam: no rashes or lesions noted Neuro General: patient oriented x3 Extrem General: No edema Psych Appearance: grossly normal Mental Status: mental status grossly normal Speech and movement: Normal speech and movement present Affect: normal affect Attitude: cooperative Assessment & Plan Assessment & Plan (1) Morbid obesity: Code(s): E66.01 - Morbid (severe) obesity due to excess calories Plan: This is a?52 yo female who will start our SWL program to prepare for possible bariatric surgery.? She states that she may also potentially be interested in the balloon placement. She is somewhat limited both financially and functionally and we will plan on starting a recommended meal plan and exercise plan as she is able and if upon return she is successful and wishes to continue in the program, then, blood work, h pylori , CXR, ECG, Abd US and UGI will be ordered. She is being scheduled for RD and BH initial consultations. She will start SWL classes and watch the first three videos before her next appointment. She is on a fixed income and uses SNAP for food. She attended the appointment with her community nurse navigator. Pt also requests that her plan be emailed to her nurse navigator. ? Adequate sleep of 7-8 hours per night discussed, awakening at 9 am and going to bed at midnight ? Purchase body composition analyzer scale (Renpho recommended) and check weight weekly. The best time to do this is first thing in the morning after going to the bathroom. 1. Nutritional counseling: Be sure to careful read the number of scoops per shake Start with 2 Premier Protein ready to drink protein shakes ([employer], [employer], [employer]), (mix one container with 8 oz unsweetened almond milk to equal about 20 oz of fluids) First shake at 10am-12pm, Second shake (mix one container with 8 oz of unsweetened almond milk to equal 20 oz of fluid, but only have half) at 2pm-4pm Dinner at 5pm (8 forks of protein and 8 forks of salad/vegetables). Meal to include lean meat (beef, fish, pork, turkey, chicken), cooked vegetables or a salad with olive oil and/or fruits (berries, pears, apples, kiwi). Avoid salt, breads, potatoes, rice, pasta, desserts. 1 protein bar ([employer] Perfect bar at [employer] and [employer], [employer]) at 7pm-9pm. Try to drink 64-80 oz of water daily and avoid soda and juices. ?2. Each shake would be drunk slowly, like coffee in a period of 2 hours. ?3. Cut each bar in 4 pieces and eat each piece in 30 min ?to make each bar last 2 hours. ?4. I emphasized the importance of measuring accurately the food portion and measure it carefully when serving the food on the plate ?5. The meal portions include 8 full-size forks of meat and 8 full-size forks of salad. You always eat the meat portion but you can replace up to half of the forks of salad/vegetables with rice, potatoes or pasta, or a fruit ?if you like. The less you do it the better weight loss will be. ?6. One full-size fork is what can be scooped on the fork without falling aside and not what can be bit with the fork. Use regular forks like those you find in a typical restaurant. ?7.? Please send me weight measurements as soon as possible and then once a week. Always include your diet and exercise plan. Alternatively come weekly at the office for weight checks and send me the measurements. ?8. Exercise counseling: Begin by watching a stretching for beginners video. Start slowly and begin to stretch your muscles. You should do this before and after each exercise session to prevent injury. Watch sit and be fit exercise video and start with the beginner one. Try to do this every day and if you feel like it is no longer challenging, do 2 per day. Please consider joining [facility] gym near your home so that you could participate in water aerobics and walk in the pool. If you could do this twice per week, that would be very helpful. Once your mobility, strength and endurance improves, I can give you more exercises to do at the gym or at home. 9. Alternatively start walking outside daily, tracking calories with a goal of 300 calories per day, daily. You can download the soraya Great Dream which can track your time, distance and calories while walking outside. You press start in the soraya when you start and then stop when you are finished. 10.? It is important to communicate by text with me weekly, your weight and if you are having any problems with the plans. 11. After your next appointment we will order labs, EKG and chest X-Ray. 12. Please follow the diet plan exactly, without any change. If you do not like something about the plan or you feel hungry, you need to communicate with me so I can help you revise the plan. You should not change the plan yourself. Text me at [phone] 13. Goal is to lose at least 8-10 pounds in the first month 14. Goal is to lose 10% of your weight before surgery, which is about 25 lbs. Ultimate weight goal: 229 lbs before surgery Patient is morbidly obese and is not considered stable at this time.?I spent a total of 70 minutes reviewing/updating records, examining the patient and counseling the patient on weight management as detailed above. Coding Level of Care Code Est Pt Level 5 (38179) Diagnoses Morbid obesity E66.01 Time Spent (min) 49
[2023-04-29 15:41] VITALS: BP 133/76; PULSE 81; TEMP 36.6; O2SAT 98
== END 2023-04-29 15:42 | disposition home or self-care (01) ==
PROVIDERS: PCP Physician Assistant; Visit Provider Physician Assistant Surgical
DX: E66.01 Morbid (severe) obesity due to excess calories (principal); Z68.42 Body mass index [BMI] 45.0-49.9, adult
CPT/HCPCS: 99215

== ENCOUNTER → 2023-04-29 12:59 | Outpatient (BNVA) | payer OTHER, SELFPAY | PROVIDERS: PCP Physician Assistant; Visit Provider Physician Assistant Surgical ==

== ENCOUNTER 2023-04-29 13:13 | Outpatient (REF) | payer OTHER, SELFPAY ==
[2023-04-29 14:03] LABS: Creatinine, 24Hr Urine 1.3 G/Day (1.0-2.0); Total Volume 24 Hour Urine 1500 mL
[2023-05-01 16:43] LABS: Calcium, 24 Hr Urine 83 mg/24 h; Calcium/Creatinine Ratio 63 mg/g creat (30-275); Creatinine 24Hr Urine 1.31 g/24 h (0.50-2.15)
== END 2023-04-29 13:14 | disposition home or self-care (01) ==
LOC: HO.LNP 13:13
PROVIDERS: Visit Provider Internal Medicine Endocrinology, Diabetes & Metabolism
DX: E66.01 Morbid (severe) obesity due to excess calories (principal); E20.9 Hypoparathyroidism, unspecified
CPT/HCPCS: 82340; 82570; 99212

== ENCOUNTER 2023-06-03 09:12 | Outpatient (AMB) | payer OTHER, SELFPAY ==
[2023-06-03 09:15] VITALS: BP 110/78; PULSE 75; O2SAT 98; BMI 46.2
--- NOTE | 2023-06-03 09:15 | MHC.PC.OV ---
Vital Signs 06/03/23 09:15 Height 5 ft 3 in Weight 261 lb 0.437 oz BMI 46.2 BP 110/78 Blood Pressure Location Lt brachial Position Sitting Pulse 75 Pulse Source Pulse Oximeter Pulse Oximetry (%) 98 Oxygen Delivery Method Room Air Intake Visit Reasons: 4 month f/u Intake Note: Pt is here for 4 months F/U. Pt concern today is asthma and wheezing. Ip Counsel Required: Yes Ip Counsel Language: Citizen Of [place] Accompanied by: Self / Same As Patient Allergies ibuprofen [IBUPROFEN] Allergy (Intermediate, Verified 06/03/23 09:35) RASH lisinopril [LISINOPRIL] Allergy (Intermediate, Verified 06/03/23 09:35) RASH lactulose [LACTULOSE] Allergy (Mild, Verified 06/03/23 09:35) STOMACH ACHE tizanidine Adverse Reaction (Intermediate, Verified 06/03/23 09:35) bradycardia Medication List - Last Reconciled 06/03/23 by Marcus Herman PA-C acetaminophen-codeine 300-30 mg 1 tab PO Q8H PRN 4 days amlodipine 5 mg PO QAM blood pressure kit-extra large As directed buspirone 10 mg PO BID calcitriol 0.25 mcg PO DAILY 30 days cholecalciferol (vitamin D3) (Vitamin D3) 25 mcg PO DAILY clonazepam 0.5 mg PO BEDTIME furosemide 20 mg PO DAILY hydrochlorothiazide 25 mg PO DAILY hyoscyamine sulfate (Levsin/SL) 0.125 mg sublingual BID-QID PRN inhalational spacing device As directed loratadine 10 mg PO DAILY meclizine 25 mg PO DAILY PRN pantoprazole 40 mg PO DAILY propranolol 10 mg PO BID semaglutide (weight loss) (Wegovy) 0.25 mg (0.5 mL) subcut QWEEK 4 weeks topiramate (Topamax) 25 mg PO BEDTIME 30 days zolpidem ER 12.5 mg PO BEDTIME PRN Tobacco use date assessed: 06/03/23 Dental Screening Dental Screen Date: 06/03/23 Did you have a dental visit in the last 12 months?: No Did you have a dental problem in the last 6 months where you did not have access to dental care?: No Was dental information given to patient?: Yes HPI 4 month f/u HPI Details Patient is a 52-year-old female here today for a follow-up visit? Patient has a past history significant for hypertension, obesity, MDD, Incomnia, frequent migraines, hyperparathyroidism, IBS. Concerns-- > she reports her asthma has been bothering her as of late over the last 4 days, does not have access to an albuterol inhaler.. She reports her cough only produces minimal production of sputum. Has hoarseness of voice. She otherwise denies any fevers. .. Hypertension: Her blood pressure today in office acceptable. Will continue her current dose of amlodipine 5 mg. Bilateral knee osteoarthritis: Continues to have bilateral knee pain likely secondary to her weight, has gotten injections in her knees which have not been effective. .. Obesity:? Patient insurance now Wegovy and will start 1st injection today get Education through [employer] once weekly SQ injection. There is a relative contraindication due to patient's history of pancreatitis though patient willing to take theoretical risk for benefit of weight loss. [facility] Medical History Renal calculi Osteopenia Morbid obesity due to excess calories Vitamin D deficiency Hypoparathyroidism Renal colic Chronic abdominal pain Surgical History Hx of colonoscopy H/O thyroidectomy History of esophagogastroduodenoscopy (EGD) History of parathyroid surgery History of hernia repair Status post excision of lipoma (09/26/21) H/O left knee surgery History of cholecystectomy H/O: hysterectomy Family History Father Medical history unknown Mother Cancer Paternal Grandmother Diabetes Paternal Grandfather Diabetes Daughter Behavioral problem Family/Other FH: mental illness Social History Household Members: None Housing: Apartment Alcohol intake: never Patient Tobacco Use Status: Never used Tobacco e-Cigarette/Vaping Use: Never Used Second Hand Smoke Exposure: No Advance Directives Date on File: 11/02/21 Current occupational status: unemployed and disabled Cognitive needs: No Hearing needs: No Vision needs: No Questionnaire PHQ-9 Over the last 2 weeks, how often have you been bothered by any of the following problems? 1. Little interest or pleasure in doing things: more than half the days 2. Feeling down, depressed, or hopeless: more than half the days 3. Trouble falling or staying asleep, or sleeping too much: nearly every day 4. Feeling tired or having little energy: nearly every day 5. Poor appetite or overeating: more than half the days 6. Feeling bad about yourself - or that you are a failure or have let yourself or your family down: more than half the days 7. Trouble concentrating on things, such as reading the newspaper or watching television: not at all 8. Moving or speaking so slowly that other people could have noticed. Or the opposite - being so fidgety or restless that you have been moving around a lot more than usual: nearly every day 9. Thoughts that you would be better off or of hurting yourself in some way: not at all Total score: 17 Depression Screening Interpretation: Positive Depression Screening Follow-up: Existing condition and In treatment Depression Screening Done: Yes 11341 - PHQ-9 Billing: Yes Source: Developed by Drs. William Gallagher, Yasmin Shipley, Hari Ortiz and colleagues, with an educational hilda from [employer]. Thrive Questionnaire Date Thrive assessed: 06/03/23 I am a: Patient What is your living situation today?: I have a steady place to live Within the past 12 months, did the food you bought not last and you didn't have the money to get more?: Never true Within the past 12 months, did you worry whether your food would run out before you got money to buy more?: Never true Do you have trouble paying for medicines?: No Do you have trouble getting transportation to medical appointments?: No Do you have trouble paying your heating and electricity bill?: No Do you have trouble taking care of your child, family member or friend?: No Do you have trouble with day-to-day activities such as bathing, preparing meals, shopping, managing finances, etc.?: No Are you currently unemployed and looking for a job?: No Are you interested in more education?: No Please select the resources that you would like help with: None AUDIT C Alcohol Use Questionnaire (AUDIT-C) 1. How often do you have a drink containing alcohol?: Never Total Score: 0 ALYSA-7 AMB Questionnaire ALYSA-7 Date ALYSA - 7 assessed: 06/03/23 Feeling nervous, anxious, or on edge: 2 = More than half the days Not being able to stop or control worryin = Not at all Worrying too much about different things: 3 = Nearly every day Trouble relaxin = Nearly every day Being so restless that it is hard to sit still: 3 = Nearly every day Becoming easily annoyed or irritable: 2 = More than half the days Feeling afraid as if something awful might happen: 2 = More than half the days Total ALYSA-7 score (0-4 normal; 5-9 mild; 10-14 moderate; 15-21 severe): 15 Source: Developed by Drs. William Gallagher, Yasmin Shipley, Hari Ortiz and colleagues, with an educational hilda from [employer]. ALYSA-7 Assessment Billing ALYSA-7 Assessment Tool: ALYSA-7 Assessment 14203 Review of Systems Const Denies headache(s) Eyes Denies loss of vision ENT Denies vertigo, Denies dizziness, Denies headache(s) and Denies sore throat Card Denies chest pain, Denies leg edema and Denies lightheadedness Resp Denies cough, Denies hemoptysis and Denies wheezing GI Denies abdominal pain, Denies melena, Denies constipation, Denies diarrhea and Denies vomiting Denies urinary frequency, Denies dysuria and Denies urinary urgency Musc Denies arthralgias, Denies joint swelling, Denies numbness and Denies tingling Neuro Denies Abnormal speech present, Denies behavioral changes, Denies vertigo, Denies dizziness, Denies headache(s), Denies loss of vision, Denies memory loss, Denies numbness and Denies tingling Psych Denies anxiety, Denies behavioral changes, Denies depression, Denies memory loss and Denies panic attacks Bran/Lymph Denies easy bleeding and Denies easy bruising Aller/Immun Denies wheezing Physical exam (Primary Care) Vital Signs: Last Vital Signs Pulse 75 06/03/23 09:15 BP 110/78 06/03/23 09:15 Pulse Ox 98 06/03/23 09:15 Oxygen Delivery Method Room Air 06/03/23 09:15 BMI result Body Mass Index 46.2 Tobacco/Smoking Status: Tobacco use Status Tobacco use date assessed 06/03/23 06/03/23 09:15 Patient Tobacco Use Status Never used Tobacco 06/03/23 09:15 e-Cigarette/Vaping Use Never Used 06/03/23 09:15 PHQ-9: PHQ-9 Score PHQ-9: Total score 17 06/03/23 09:39 Depression Screening Interpretation: Positive Depression Screening Follow-up: Existing condition and In treatment Thrive Assessment: Date of Thrive Assessment Date Thrive assessed 06/03/23 06/03/23 09:32 Const General: healthy appearing, no acute distress, alert and awake Nutritional Appearance: well nourished Orientation/consciousness: oriented to person, oriented to place and oriented to time HENMT Ears: TM's normal bilaterally General nose exam: Normal nasal mucous membranes and turbinates present Eyes Conjunctivae: conjunctivae normal Sclerae: sclerae normal Pupils: Equal, round and reactive pupils present Neck Neck: Yes no lymphadenopathy and Yes no JVD Thyroid: Thyroid normal Carotids: no bruits Resp Effort & Inspection: normal respiratory effort and not tachypneic Auscultation: no crackles, no rales, no rhonchi and no wheezes Cardio Rate: regular rate Rhythm: regular rhythm Heart sounds: no murmurs and normal S1 and S2 GI Palpation (GI): Soft to palpation, nontender, no hepatomegaly and no splenomegaly Auscultation: normal bowel sounds Skin General skin exam: no rashes or lesions noted and dry skin Neuro General: oriented to person, oriented to place and oriented to time Cranial nerves: Yes Equal, round and reactive pupils present Speech: No Abnormal speech present Gait exam (Neuro): Normal gait present Motor exam (neuro): no tremor noted Extrem Right upper extremity: full ROM Left upper extremity: full ROM Right lower extremity: full ROM; no edema Left lower extremity: full ROM; no edema Psych Mental Status: mental status grossly normal Speech and movement: Normal speech and movement present Affect: normal affect Attitude: cooperative Thought process: Normal thought process present Assessment and Plan Assessment & Plan (1) Morbid obesity due to excess calories: Code(s): E66.01 - Morbid (severe) obesity due to excess calories Plan: Patient will be starting Wegovy for weight loss. Will follow-up in 4 weeks to evaluate for benefit. (2) BMI 45.0-49.9, adult: Code(s): Z68.42 - Body mass index [BMI] 45.0-49.9, adult Plan: As above (3) Hypoparathyroidism: Code(s): E20.9 - Hypoparathyroidism, unspecified Qualifiers: Hypoparathyroidism type: unspecified Qualified Code(s): E20.9 - Hypoparathyroidism, unspecified Plan: Patient has follow-up with endocrinology. Most recent parathyroid hormone and calcium has been fairly stable. She continues on Calcitrol (4) MDD (major depressive disorder), recurrent episode, moderate: Code(s): F33.1 - Major depressive disorder, recurrent, moderate Plan: Patient's PHQ-9 score positive for depression which has been existing condition for her. She does speak with a mental therapist and a psychiatrist whom manages her mental health medication Patient does seem to be having worsening depression due to her living situation. Has been working with a director case management to try to get a new apartment. (5) Asthma: Code(s): J45.909 - Unspecified asthma, uncomplicated Qualifiers: Asthma complication type: with acute exacerbation Asthma persistence: persistent Asthma severity: mild Qualified Code(s): J45.31 - Mild persistent asthma with (acute) exacerbation Plan: As per HPI patient has had a 4 day onset of wheeze and cough. Does have a history of asthma. Will supply patient with an albuterol inhaler, few days of prednisone and Mucinex to help expectorate. (6) ALYSA (generalized anxiety disorder): Code(s): F41.1 - Generalized anxiety disorder Plan: Patient's ALYSA-7 score positive for anxiety which has been existing condition for her. Again speaks with a mental health therapist and a psychiatrist whom manages her mental health medications. Medications: New albuterol sulfate 90 mcg/actuation (Ventolin HFA) 1 inh inhalation QID 30 days 8.5 grams 1RF J45.31 - Mild persistent asthma with (acute) exacerbation guaifenesin ER (Mucinex) 600 mg PO BID 7 days 14 tabs 0RF J45.31 - Mild persistent asthma with (acute) exacerbation prednisone 40 mg (2 x 20 mg) PO DAILY 4 days 8 tabs 0RF J45.31 - Mild persistent asthma with (acute) exacerbation acetaminophen-codeine 300-15 mg 1 tab PO BID 4 days PRN 8 tabs 0RF pain M51.27 - Other intervertebral disc displacement, lumbosacral region Refilled loratadine 10 mg PO DAILY 90 tabs 1RF J30.1 - Allergic rhinitis due to pollen Discontinued acetaminophen-codeine 300-30 mg Discontinued Reason: Doctor's Order 1 tab PO Q8H 4 days PRN 12 tabs 0RF pain M54.9 - Dorsalgia, unspecified Coding Level of Care Code Est Pt Level 4 (05963) Diagnoses Morbid obesity due to excess calories E66.01 BMI 45.0-49.9, adult Z68.42 Hypoparathyroidism, unspecified hypoparathyroidism type E20.9 Hypoparathyroidism type: unspecified MDD (major depressive disorder), recurrent episode, moderate F33.1 Mild persistent asthma with acute exacerbation J45.31 Asthma complication type: with acute exacerbation Asthma persistence: persistent Asthma severity: mild ALYSA (generalized anxiety disorder) F41.1 Additional Codes ALYSA-7 Assessment Billing - ALYSA-7 Assessment Tool: ALYSA-7 Assessment 54986 ([id number])
== END 2023-06-03 10:46 | disposition home or self-care (01) ==
PROVIDERS: PCP Physician Assistant; Visit Provider Physician Assistant
DX: J45.31 Mild persistent asthma with (acute) exacerbation (principal); E66.01 Morbid (severe) obesity due to excess calories; Z68.42 Body mass index [BMI] 45.0-49.9, adult; E20.9 Hypoparathyroidism, unspecified
CPT/HCPCS: 99214

== ENCOUNTER 2023-06-03 10:57 | Outpatient (REF) | payer OTHER, SELFPAY | END 2023-06-03 10:58 | disposition home or self-care (01) | LOC: HO.MAMMO 10:57 | PROVIDERS: PCP Physician Assistant; Visit Provider Physician Assistant | DX: Z12.31 Encounter for screening mammogram for malignant neoplasm of breast (principal) | CPT/HCPCS: 77063; 77067 ==

== ENCOUNTER → 2023-06-03 13:45 | Outpatient (BNV) | payer OTHER, SELFPAY | PROVIDERS: PCP Physician Assistant; Visit Provider Radiology Diagnostic Radiology | DX: Z12.31 Encounter for screening mammogram for malignant neoplasm of breast (principal) | CPT/HCPCS: 77063; 77067 ==

== ENCOUNTER 2023-06-10 12:38 | Outpatient (REF) | payer OTHER, SELFPAY ==
[2023-06-10 14:47] LABS: Alanine Aminotransferase 18 U/L (0-31); Albumin Level 4.4 g/dL (3.5-5.0); Alkaline Phosphatase 91 U/L (39-117); Anion Gap 13 (12-20); Aspartate Amino Transferase 14 U/L (5-31); Bilirubin Total 0.6 mg/dL (0.0-1.0); Blood Urea Nitrogen 20 mg/dL (9-16); Calcium 8.9 mg/dL (8.4-10.2); Carbon Dioxide 30 mmol/L (22-29); Chloride 101 mmol/L (96-108); Cholesterol 196 mg/dL (<200); Estimated Glomerular Filt Rate 53; Glucose Fasting 95 mg/dL (60-99); HDL Cholesterol 44 mg/dL (>40); LDL Cholesterol Calculated 114 mg/dL (<100); Lipase 15 U/L (8-78); Potassium 3.8 mmol/L (3.3-5.1); Sodium 140 mmol/L (135-145); Total Protein 7.6 g/dL (6.5-8.0); Triglycerides 194 mg/dL (<150)
[2023-06-10 15:57] LABS: Creatinine Urine 109.74 mg/dL; Microalbumin Urine < 5.0 mg/L
== END 2023-06-10 12:39 | disposition home or self-care (01) ==
LOC: HO.LAB 12:38
PROVIDERS: PCP Physician Assistant; Visit Provider Physician Assistant
DX: K85.90 Acute pancreatitis without necrosis or infection, unspecified (principal); E78.9 Disorder of lipoprotein metabolism, unspecified; I10 Essential (primary) hypertension
CPT/HCPCS: 36415; 80053; 80061; 82570; 83690

== ENCOUNTER 2023-06-18 13:06 | Outpatient (AMB) | payer OTHER, SELFPAY ==
[2023-06-18 13:49] VITALS: BP 132/92; PULSE 82; O2SAT 98; BMI 45.2
--- NOTE | 2023-06-18 13:49 | A.OFFPC_ITS ---
Vital Signs 06/18/23 13:49 Height 5 ft 3 in Weight 255 lb BMI 45.2 BP 132/92 H Blood Pressure Location Lt brachial Position Sitting Pulse 82 Pulse Source Pulse Oximeter Pulse Oximetry (%) 98 Intake Visit Reasons: Inflammation of the neck Intake Note: The patient is presenting with inflammation on the right side of the neck persisting for four days, accompanied by numbness around the right side of the face radiating to the right arm. [employer] Required: No Accompanied by: Self / Same As Patient Allergies ibuprofen [IBUPROFEN] Allergy (Intermediate, Verified 06/24/23 07:43) RASH lisinopril [LISINOPRIL] Allergy (Intermediate, Verified 06/24/23 07:43) RASH lactulose [LACTULOSE] Allergy (Mild, Verified 06/24/23 07:43) STOMACH ACHE tizanidine Adverse Reaction (Intermediate, Verified 06/24/23 07:43) bradycardia Medication List - Last Reconciled 06/24/23 by Marcus Herman PA-C acetaminophen-codeine 300-15 mg 1 tab PO BID PRN 4 days albuterol sulfate 90 mcg/actuation (Ventolin HFA) 1 inh inhalation QID 30 days amlodipine 5 mg PO QAM baclofen 5 mg PO BEDTIME 7 days blood pressure kit-extra large As directed buspirone 10 mg PO BID calcitriol 0.25 mcg PO DAILY 30 days cholecalciferol (vitamin D3) (Vitamin D3) 25 mcg PO DAILY clonazepam 0.5 mg PO BEDTIME furosemide 20 mg PO DAILY guaifenesin ER (Mucinex) 600 mg PO BID 7 days hydrochlorothiazide 25 mg PO DAILY hyoscyamine sulfate (Levsin/SL) 0.125 mg sublingual BID-QID PRN inhalational spacing device As directed lidocaine 5% (Lidoderm) 1 patch topical DAILY loratadine 10 mg PO DAILY meclizine 25 mg PO DAILY PRN pantoprazole 40 mg PO DAILY prednisone 40 mg (2 x 20 mg) PO DAILY 4 days propranolol 10 mg PO BID semaglutide (weight loss) (Wegovy) 0.25 mg (0.5 mL) subcut QWEEK 4 weeks topiramate (Topamax) 25 mg PO BEDTIME 30 days zolpidem ER 12.5 mg PO BEDTIME PRN Tobacco use date assessed: 06/03/23 Dental Screening Dental Screen Date: 06/18/23 Did you have a dental visit in the last 12 months?: Yes Did you have a dental problem in the last 6 months where you did not have access to dental care?: No Was dental information given to patient?: Patient has dentist HPI Inflammation of the neck HPI Details Patient is a 52-year-old female here today for problem visit. She reports over the last 4 days some neck and arm pain. EKG today in office sinus rhythm. Reports she has taken Wegovy last week and ever since has been feeling some weak ness. She reports some inflammation in the right side of her neck, right upper extremity weakness, numbness and tingling in her right side of her face. No rash or signs of sinus infection on exam today. HAD LONG DISCUSSION ABOUT BEING EVALUATED AT THE ER TO GET A CT TO RULE OUT CVA THOUGH PATIENT IS CONCERNED ABOUT LONG WAIT TIMES AND TRANSPORTATION BACK HOME. [facility] Medical History Renal calculi Osteopenia Morbid obesity due to excess calories Vitamin D deficiency Hypoparathyroidism Renal colic Chronic abdominal pain Surgical History Hx of colonoscopy H/O thyroidectomy History of esophagogastroduodenoscopy (EGD) History of parathyroid surgery History of hernia repair Status post excision of lipoma (09/26/21) H/O left knee surgery History of cholecystectomy H/O: hysterectomy Family History Father Medical history unknown Mother Cancer Paternal Grandmother Diabetes Paternal Grandfather Diabetes Daughter Behavioral problem Family/Other FH: mental illness Social History Household Members: None Housing: Apartment Alcohol intake: never Patient Tobacco Use Status: Never used Tobacco e-Cigarette/Vaping Use: Never Used Second Hand Smoke Exposure: No Advance Directives Date on File: 11/02/21 Current occupational status: unemployed and disabled Cognitive needs: No Hearing needs: No Vision needs: No Questionnaire Thrive Questionnaire Date Thrive assessed: 06/03/23 ALYSA-7 AMB Questionnaire ALYSA-7 Date ALYSA - 7 assessed: 06/03/23 Source: Developed by Yasmin Beltre B.W. Quinten, Hari Ortiz and colleagues, with an educational hilda from [employer]. Review of Systems Const Denies headache(s) Eyes Denies loss of vision ENT Denies vertigo, Denies dizziness, Denies headache(s) and Denies sore throat Card Denies chest pain, Denies leg edema and Denies lightheadedness Resp Denies cough, Denies hemoptysis and Denies wheezing GI Denies abdominal pain, Denies melena, Denies constipation, Denies diarrhea and Denies vomiting Denies urinary frequency, Denies dysuria and Denies urinary urgency Musc Denies arthralgias, Denies joint swelling, Denies numbness and Denies tingling Neuro Denies Abnormal speech present, Denies behavioral changes, Denies vertigo, Denies dizziness, Denies headache(s), Denies loss of vision, Denies memory loss, Denies numbness and Denies tingling Psych Denies anxiety, Denies behavioral changes, Denies depression, Denies memory loss and Denies panic attacks Bran/Lymph Denies easy bleeding and Denies easy bruising Aller/Immun Denies wheezing Physical exam (Primary Care) Vital Signs: Last Vital Signs Pulse 82 06/18/23 13:49 BP 132/92 H 06/18/23 13:49 Pulse Ox 98 06/18/23 13:49 BMI result Body Mass Index 45.2 Tobacco/Smoking Status: Tobacco use Status Tobacco use date assessed 06/03/23 06/18/23 13:53 Patient Tobacco Use Status Never used Tobacco 06/18/23 13:53 e-Cigarette/Vaping Use Never Used 06/18/23 13:53 Thrive Assessment: Date of Thrive Assessment Date Thrive assessed 06/03/23 06/18/23 13:53 Const General: healthy appearing, no acute distress, alert and awake Nutritional Appearance: well nourished Orientation/consciousness: oriented to person, oriented to place and oriented to time HENMT Ears: TM's normal bilaterally General nose exam: Normal nasal mucous membranes and turbinates present Eyes Conjunctivae: conjunctivae normal Sclerae: sclerae normal Pupils: Equal, round and reactive pupils present Neck Neck: Yes no lymphadenopathy and Yes no JVD Thyroid: Thyroid normal Carotids: no bruits Resp Effort & Inspection: normal respiratory effort and not tachypneic Auscultation: no crackles, no rales, no rhonchi and no wheezes Cardio Rate: regular rate Rhythm: regular rhythm Heart sounds: no murmurs and normal S1 and S2 GI Palpation (GI): Soft to palpation, nontender, no hepatomegaly and no splenomegaly Auscultation: normal bowel sounds Skin General skin exam: no rashes or lesions noted and dry skin Neuro General: oriented to person, oriented to place and oriented to time Cranial nerves: Yes Equal, round and reactive pupils present Speech: No Abnormal speech present Gait exam (Neuro): Normal gait present Motor exam (neuro): no tremor noted Extrem Right upper extremity: full ROM Left upper extremity: full ROM Right lower extremity: full ROM; no edema Left lower extremity: full ROM; no edema Psych Mental Status: mental status grossly normal Speech and movement: Normal speech and movement present Affect: normal affect Attitude: cooperative Thought process: Normal thought process present Assessment and Plan Assessment & Plan (1) Numbness and tingling of right side of face: Code(s): R20.0 - Anesthesia of skin; R20.2 - Paresthesia of skin Plan: AGAIN ADVISED TO BE SEEN AT THE ER FOR EVALUATION OF CVA DUE TO SYMPTOMS OF RIGHT-SIDED FACIAL PARESTHESIAS IN RIGHT UPPER EXTREMITY WEAKNESS.. Patient has a 4 day history right-sided facial paresthesia , word-finding difficulty speaking, Will order stat CT head to rule out CVA. (2) Weakness: Code(s): R53.1 - Weakness Plan: As above (3) Acute torticollis: Code(s): M43.6 - Torticollis Plan: Does seem to have some swelling over the right aspect of neck and tense musculature. Likely has a muscle spasm thus will send in muscle relaxer. Orders: Orders CT head for stroke 06/18/23 R20.0 - Anesthesia of skin, R20.2 - Paresthesia of skin Complete Blood Count no Diff 06/18/23 R53.1 - Weakness Basic Metabolic Panel 06/18/23 R53.1 - Weakness Vitamin B12 and Folate 06/18/23 E53.8 - Deficiency of other specified B group vitamins, R20.0 - Anesthesia of skin, R20.2 - Paresthesia of skin Magnesium 06/18/23 R53.1 - Weakness Lyme IgG/IgM w/reflex to WB 06/18/23 R20.0 - Anesthesia of skin, R20.2 - Paresthesia of skin Herpes Simplex Virus Ab IgG 06/18/23 R20.0 - Anesthesia of skin, R20.2 - Paresthesia of skin Medications: New baclofen 5 mg PO BEDTIME 7 tabs 0RF 7 days M43.6 - Torticollis Coding Level of Care Code Est Pt Level 4 (12559) Diagnoses Numbness and tingling of right side of face R20.0; R20.2 Weakness R53.1 Acute torticollis M43.6
== END 2023-06-18 16:08 | disposition home or self-care (01) ==
PROVIDERS: PCP Physician Assistant; Visit Provider Physician Assistant
DX: R20.0 Anesthesia of skin (principal); R20.2 Paresthesia of skin; R53.1 Weakness; M43.6 Torticollis
CPT/HCPCS: 93000; 99214

== ENCOUNTER 2023-06-18 14:32 | Outpatient (REF) | payer OTHER, SELFPAY ==
[2023-06-18 15:12] LABS: Hematocrit 37.4 % (37.0-47.0); Hemoglobin 13.4 g/dl (12.0-16.0); Mean Corpuscular HGB Conc 35.8 g/dl (31.0-35.0); Mean Corpuscular Hemoglobin 32.8 pg (27.0-33.0); Mean Corpuscular Volume 91.4 fL (80.0-98.0); Platelet Count 240 X10*3/uL (160-400); Red Blood Count 4.09 X10*6/uL (4.20-5.50); Red Cell Distribution Width 12.4 % (11.0-16.0); White Blood Count 9.6 X10*3/uL (4.8-10.8)
[2023-06-18 15:41] LABS: Anion Gap 13 (12-20); Blood Urea Nitrogen 16 mg/dL (9-16); Calcium 8.9 mg/dL (8.4-10.2); Carbon Dioxide 29 mmol/L (22-29); Chloride 103 mmol/L (96-108); Estimated Glomerular Filt Rate > 60; Glucose Random 87 mg/dL (60-115); Magnesium 1.9 mg/dL (1.6-2.6); Potassium 3.2 mmol/L (3.3-5.1); Sodium 142 mmol/L (135-145)
[2023-06-18 16:15] LABS: Folate 11.9 ng/mL (> or = 4.0); Vitamin B12 219 pg/mL (200-900)
[2023-06-19 12:43] LABS: Lyme Abs Screen <0.90 index
[2023-06-19 13:28] LABS: Herpes Simplex Type 1 IgG <0.90 index
== END 2023-06-18 14:33 | disposition home or self-care (01) ==
LOC: HO.LAB 14:32
PROVIDERS: PCP Physician Assistant; Visit Provider Physician Assistant
DX: R53.1 Weakness (principal); R20.0 Anesthesia of skin; R20.2 Paresthesia of skin; E53.8 Deficiency of other specified B group vitamins
CPT/HCPCS: 36415; 80048; 82607; 82746; 83735; 85027; 86617; 86618; 86695; 86696

== ENCOUNTER 2023-06-18 17:41 | Emergency (ER) | payer OTHER, SELFPAY ==
--- NOTE | ~2023-06-18 | CT_ITS ---
EXAMINATION: CT HEAD WITHOUT CONTRAST CLINICAL INFORMATION: Right side of face tingling. COMPARISON: CT head 11/24/2019. TECHNIQUE: Contiguous axial imaging was performed from the skull base to vertex without intravenous administration of contrast. This CT examination was performed using dose optimization techniques as appropriate, variously including the following: *Automated exposure control *Adjustment of mA and/or kV according to patient size (this includes techniques or standardized protocols for targeted exams where dose is matched to indication/reason for exam; i.e. extremities or head) *Use of iterative reconstruction technique DLP: 572 mGy-cm FINDINGS: There is no acute intracranial hemorrhage or abnormal extra-axial collection. No intracranial mass effect or midline shift. Lateral and third ventricles are normal. No hydrocephalus. Saini-white matter differentiation is preserved and there is no evidence of acute territorial infarct. The calvarium and skull base are intact. Mastoid air cells and middle ear cavities are well aerated. No active paranasal sinus disease. CT/CT head/brain wo IV con IMPRESSION: Normal CT scan of the head.
[2023-06-18 17:43] VITALS: BP 153/120; PULSE 89; RESP 16; TEMP 36.5; O2SAT 98; BMI 41.0
--- NOTE | 2023-06-18 17:54 | ED_ITS ---
HPI - General Adult General Chief complaint: Weakness Stated complaint: heart pounding, r side swelling, sent by PCP History of Present Illness HPI narrative: Left without completiont of treatment Related Data Home Medications Medication Instructions Recorded Confirmed clonazepam 0.5 mg tablet 0.5 mg PO BEDTIME 06/28/20 06/03/23 buspirone 10 mg tablet 10 mg PO BID 07/11/21 06/03/23 zolpidem 12.5 mg tablet,extended 12.5 mg PO BEDTIME PRN 10/04/21 06/03/23 release,multiphase Previous Rx's Medication Instructions Recorded blood pressure kit-extra large #1 ea 06/06/21 furosemide 20 mg tablet 20 mg PO DAILY #30 tabs 05/02/22 meclizine 25 mg tablet 25 mg PO DAILY PRN dizziness #30 05/02/22 tabs inhalational spacing device #1 ea 08/13/22 hydrochlorothiazide 25 mg tablet 25 mg PO DAILY #90 tabs 09/18/22 hyoscyamine sulfate 0.125 mg 0.125 mg sublingual BID-QID PRN 02/03/23 sublingual tablet (Levsin/SL) dyspepsia #30 tabs topiramate 25 mg tablet (Topamax) 25 mg PO BEDTIME 30 days #30 tabs 02/06/23 calcitriol 0.25 mcg capsule 0.25 mcg PO DAILY 30 days #30 caps 04/01/23 cholecalciferol (vitamin D3) 25 25 mcg PO DAILY #90 caps 04/01/23 mcg (1,000 unit) capsule (Vitamin D3) amlodipine 5 mg tablet 5 mg PO QAM #90 tabs 04/08/23 semaglutide (weight loss) 0.25 0.25 mg (0.5 mL) subcut QWEEK 4 05/28/23 mg/0.5 mL subcutaneous pen weeks #2 mL injector (Wegovy) acetaminophen 300 mg-codeine 15 mg 1 tab PO BID PRN pain 4 days #8 06/03/23 tablet tabs albuterol sulfate 90 mcg/actuation 1 inh inhalation QID 30 days #8.5 06/03/23 aerosol inhaler (Ventolin HFA) grams guaifenesin 600 mg tablet, 600 mg PO BID 7 days #14 tabs 06/03/23 extended release 12 hr (Mucinex) loratadine 10 mg tablet 10 mg PO DAILY #90 tabs 06/03/23 prednisone 20 mg tablet 40 mg (2 x 20 mg) PO DAILY 4 days 06/03/23 #8 tabs propranolol 10 mg tablet 10 mg PO BID #180 tabs 06/13/23 baclofen 5 mg tablet 5 mg PO BEDTIME 7 days #7 tabs 06/18/23 pantoprazole 40 mg tablet,delayed 40 mg PO DAILY #90 tabs 06/18/23 release Allergies Allergy/AdvReac Type Severity Reaction Status Date / Time ibuprofen [IBUPROFEN] Allergy Intermediate RASH Verified 06/18/23 13:50 lisinopril [LISINOPRIL] Allergy Intermediate RASH Verified 06/18/23 13:50 lactulose [LACTULOSE] Allergy Mild STOMACH Verified 06/18/23 13:50 ACHE tizanidine AdvReac Intermediate bradycardia Verified 06/18/23 13:50 PMFSH Past Medical History Medical History Renal calculi Osteopenia Morbid obesity due to excess calories Vitamin D deficiency Hypoparathyroidism Renal colic Chronic abdominal pain Surgical History Hx of colonoscopy H/O thyroidectomy History of esophagogastroduodenoscopy (EGD) History of parathyroid surgery History of hernia repair Status post excision of lipoma (09/26/21) H/O left knee surgery History of cholecystectomy H/O: hysterectomy Family History Family History Father Medical history unknown Mother Cancer Paternal Grandmother Diabetes Paternal Grandfather Diabetes Daughter Behavioral problem Family/Other FH: mental illness Social History Social History Household Members: None Housing: Apartment Alcohol intake: never Patient Tobacco Use Status: Never used Tobacco e-Cigarette/Vaping Use: Never Used Second Hand Smoke Exposure: No Advance Directives Date on File: 11/02/21 Current occupational status: unemployed and disabled Cognitive needs: No Hearing needs: No Vision needs: No Physical Exam ED Vital Signs: Vital Signs - 24 hr 06/18/23 17:43 Temperature 97.7 F Pulse Rate 89 Respiratory Rate 16 Blood Pressure 153/120 H Pulse Oximetry 98 Oxygen Delivery Method Room Air BMI result Body Mass Index 41.0 Course Course Course Narrative: RME: 52-year-old female presents to ED for right face numbness for the pasts with generalized weakness the past 4 days. Patient states also chest tightness with nausea. THinks abdomen and swollen feel tight. Labs EKG head CT scan ordered. Patient out the window for LVO or stroke. have some right arm weakness Medical Decision Making Lab Data 06/18/23 18:16 06/18/23 18:17 Labs: Lab Results 06/18/23 06/18/23 06/18/23 Range/Units 18:16 18:17 19:57 WBC 8.5 (4.8-10.8) X10*3/uL RBC 3.92 L (4.20-5.50) X10*6/uL Hgb 12.7 (12.0-16.0) g/dl Hct 35.8 L (37.0-47.0) % MCV 91.3 (80.0-98.0) fL MCH 32.4 (27.0-33.0) pg MCHC 35.5 H (31.0-35.0) g/dl RDW 12.4 (11.0-16.0) % Plt Count 220 (160-400) X10*3/uL MPV 10.0 (9.4-12.3) fL Immature Gran % (Auto) 0.2 (0.0-0.4) % Neut % (Auto) 63.0 (45-73) % Lymph % (Auto) 30.8 (20-40) % [place] % (Auto) 4.7 (2-11) % Eos % (Auto) 0.9 (0-4) % Baso % (Auto) 0.4 (0-2) % Lymph # (Auto) 2.6 (1.2-4.9) X10*3/uL [place] # (Auto) 0.4 (0.1-1.2) X10*3/uL Eos # (Auto) 0.1 (0.0-0.4) X10*3/uL Baso # (Auto) 0.0 (0.0-0.2) X10*3/uL Abs Immat Gran (auto) 0.02 (0.00-0.03) X10*3/uL Absolute Neuts (auto) 5.3 (2.0-8.3) x10*3/uL Absolute Nucleated RBC 0.000 (0.0-0.012) X10*3/uL Nucleated RBC % (auto) 0.0 (0.0-0.2) /100WBC PT 12.5 (11.1-13.3) SEC INR 1.0 (0.9-1.1) APTT 29.8 (26.0-36.8) SEC Sodium 143 (135-145) mmol/L Potassium 3.1 L (3.3-5.1) mmol/L Chloride 102 (96-108) mmol/L Carbon Dioxide 29 (22-29) mmol/L Anion Gap 15 (12-20) BUN 16 (9-16) mg/dL Creatinine 0.91 (0.5-1.4) mg/dL Estim Creat Clear Calc 73.8 Estimated GFR > 60 Random Glucose 95 (60-115) mg/dL Calcium 9.0 (8.4-10.2) mg/dL Total Bilirubin 0.5 (0.0-1.0) mg/dL AST 12 (5-31) U/L ALT 12 (0-31) U/L Alkaline Phosphatase 79 (39-117) U/L Troponin I High Sens < 2.7 (<3.5-17.0) ng/L B-Natriuretic Peptide 27 (<100) pg/mL Total Protein 7.2 (6.5-8.0) g/dL Albumin 4.2 (3.5-5.0) g/dL Lipase 17 (8-78) U/L COVID-19 (SARY) Negative (Negative) COVID-19 Clin Com See Note Influenza Type A (TIM) Invalid Negative (Negative) Influenza Type B (ITM) Invalid Negative (Negative) Influenza A & B Note See Note See Note Discharge Plan Discharge Clinical Impression: Chest pain Patient Disposition: Left W/O Completing Treatment Prescriptions: No Action meclizine 25 mg tablet 25 mg PO DAILY PRN (Reason: dizziness) Qty: 30 3RF furosemide 20 mg tablet 20 mg PO DAILY Qty: 30 3RF hydrochlorothiazide 25 mg tablet 25 mg PO DAILY Qty: 90 3RF topiramate [Topamax] 25 mg tablet 25 mg PO BEDTIME 30 Days Qty: 30 3RF calcitriol 0.25 mcg capsule 0.25 mcg PO DAILY 30 Days Qty: 30 3RF cholecalciferol (vitamin D3) [Vitamin D3] 25 mcg (1,000 unit) capsule 25 mcg PO DAILY Qty: 90 0RF amlodipine 5 mg tablet 5 mg PO QAM Qty: 90 0RF Wegovy 0.25 mg/0.5 mL pen injector 0.25 mg subcut QWEEK 28 Days Qty: 2 0RF Rx Instructions: administer weeks 1 through 4 of therapy propranolol 10 mg tablet 10 mg PO BID Qty: 180 0RF pantoprazole 40 mg tablet,delayed release (DR/EC) 40 mg PO DAILY Qty: 90 0RF (DME) inhalational spacing device Spacer See Rx Instructions .Route Qty: 1 0RF Rx Instructions: As directed clonazepam 0.5 mg tablet 0.5 mg PO BEDTIME (DME) blood pressure kit-extra large Kit See Rx Instructions .Route Qty: 1 0RF Rx Instructions: As directed albuterol sulfate [Ventolin HFA] 90 mcg/actuation HFA aerosol inhaler 1 inh inhalation QID 30 Days Qty: 8.5 1RF prednisone 20 mg tablet 40 mg PO DAILY 4 Days Qty: 8 0RF guaifenesin [Mucinex] 600 mg tablet extended release 12hr 600 mg PO BID 7 Days Qty: 14 0RF loratadine 10 mg tablet 10 mg PO DAILY Qty: 90 1RF acetaminophen-codeine 300-15 mg tablet 1 tab PO BID PRN (Reason: pain) 4 Days Qty: 8 0RF baclofen 5 mg tablet 5 mg PO BEDTIME 7 Days Qty: 7 0RF buspirone 10 mg tablet 10 mg PO BID zolpidem 12.5 mg tablet,ext release multiphase 12.5 mg PO BEDTIME PRN hyoscyamine sulfate [Levsin/SL] 0.125 mg tablet, sublingual 0.125 mg sublingual BID-QID PRN (Reason: dyspepsia) Qty: 30 0RF Discharge Date/Time: 06/18/23 22:30
[2023-06-18 18:26] LABS: MANUAL DIFF FLAG NO
[2023-06-18 18:32] LABS: Basophils Percent Auto 0.4 % (0-2); Eosinophils Absolute Auto 0.1 X10*3/uL (0.0-0.4); Eosinophils Percent Auto 0.9 % (0-4); Hematocrit 35.8 % (37.0-47.0); Hemoglobin 12.7 g/dl (12.0-16.0); Imm Gran Abs Auto 0.02 X10*3/uL (0.00-0.03); Imm Gran Pct Auto 0.2 % (0.0-0.4); Lymphocytes Absolute Auto 2.6 X10*3/uL (1.2-4.9); Lymphocytes Percent Auto 30.8 % (20-40); Mean Corpuscular HGB Conc 35.5 g/dl (31.0-35.0); Mean Corpuscular Hemoglobin 32.4 pg (27.0-33.0); Mean Corpuscular Volume 91.3 fL (80.0-98.0); Monocytes Absolute Auto 0.4 X10*3/uL (0.1-1.2); Monocytes Percent Auto 4.7 % (2-11); Neutrophils Absolute Auto 5.3 x10*3/uL (2.0-8.3); Platelet Count 220 X10*3/uL (160-400); Red Blood Count 3.92 X10*6/uL (4.20-5.50); Red Cell Distribution Width 12.4 % (11.0-16.0); White Blood Count 8.5 X10*3/uL (4.8-10.8)
[2023-06-18 18:36] LABS: Prothrombin Time 12.5 SEC (11.1-13.3)
[2023-06-18 18:38] LABS: Partial Thromboplastin Time 29.8 SEC (26.0-36.8)
[2023-06-18 18:44] LABS: COVID-19 Test Negative (Negative); IDNOW Serial# 55D5AD1C
[2023-06-18 18:45] LABS: Alanine Aminotransferase 12 U/L (0-31); Albumin Level 4.2 g/dL (3.5-5.0); Alkaline Phosphatase 79 U/L (39-117); Anion Gap 15 (12-20); Aspartate Amino Transferase 12 U/L (5-31); Bilirubin Total 0.5 mg/dL (0.0-1.0); Blood Urea Nitrogen 16 mg/dL (9-16); Carbon Dioxide 29 mmol/L (22-29); Chloride 102 mmol/L (96-108); Creatinine Clr Calc Pharmacy 73.8; Estimated Glomerular Filt Rate > 60; Glucose Random 95 mg/dL (60-115); Lipase 17 U/L (8-78); Potassium 3.1 mmol/L (3.3-5.1); Sodium 143 mmol/L (135-145); Total Protein 7.2 g/dL (6.5-8.0)
[2023-06-18 18:49] LABS: B Type Natriuretic Peptide 27 pg/mL (<100)
[2023-06-18 18:53] LABS: Troponin-I High Sensitivity < 2.7 ng/L (<3.5-17.0)
[2023-06-18 19:02] LABS: IDNOW Serial# 16C4AD1C
[2023-06-18 19:03] LABS: Influenza A Invalid (Negative); Influenza B2 Invalid (Negative)
[2023-06-18 20:16] LABS: IDNOW Serial# 9DB6401D
[2023-06-18 20:17] LABS: Influenza A Negative (Negative); Influenza B2 Negative (Negative)
--- NOTE | 2023-06-18 22:27 | PC.NURSE ---
per newspaper managing editor pt refused repeat troponin and was seen leaving ed. tank charger aware
== END 2023-06-18 22:30 | disposition left against medical advice (07) ==
LOC: HO.ED 22:29
PROVIDERS: Physician Assistant; Emergency Provider Emergency Medicine; PCP Physician Assistant
DX: R07.9 Chest pain, unspecified (principal); Z11.52 Encounter for screening for COVID-19; R53.1 Weakness; Z79.899 Other long term (current) drug therapy; R06.02 Shortness of breath
CPT/HCPCS: 70450; 80053; 83690; 83880; 84484; 85025; 85610; 85730; 87502; 87635; 99283; 99284

== ENCOUNTER 2023-06-19 11:08 | Emergency (ER) | payer OTHER, SELFPAY ==
--- NOTE | ~2023-06-19 | US_ITS ---
EXAMINATION: US SOFT TISSUE NECK CLINICAL INFORMATION: Soft tissue swelling region of clavicle, base of right neck COMPARISON: None available. TECHNIQUE: Real-time ultrasound imaging performed by the technologist in the area of concern. The acquired images are labeled as right supraclavicular region, right shoulder lump, and right parotid inferior to the ear. Also, a cine sweep of images through the right neck is saved. FINDINGS: In the area of palpable concern in the right supraclavicular region, there is a 1.3 x 3.2 cm soft tissue fullness that is isoechoic to adipose tissue; this is seen adjacent to a muscle on ultrasound series 2 (cine images, containing 181 images) and has the appearance of a lipoma. Otherwise, the visualized soft tissues in this region are unremarkable. No evidence of lymphadenopathy, fluid collection or soft tissue edema. The area of the right parotid gland was evaluated, as well. A small, normal-appearing lymph node with echogenic fatty hilum measures 0.6 x 0.3 x 0.5 cm. No evidence of a parotid tumor. US/US soft tiss head and/or neck IMPRESSION: There appears to be a 1.3 x 3.2 cm lipoma within the area of the palpable lump in the right supraclavicular region. There are no suspicious-appearing soft tissue lesions. No lymphadenopathy.
[2023-06-19 11:20] VITALS: BP 145/76; PULSE 88; RESP 16; TEMP 36.6; O2SAT 96; BMI 49.9
--- NOTE | 2023-06-19 11:21 | ED.GENADULT ---
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 Related Data Home Medications Medication Instructions Recorded Confirmed clonazepam 0.5 mg tablet 0.5 mg PO BEDTIME 06/28/20 06/03/23 buspirone 10 mg tablet 10 mg PO BID 07/11/21 06/03/23 zolpidem 12.5 mg tablet,extended 12.5 mg PO BEDTIME PRN 10/04/21 06/03/23 release,multiphase Previous Rx's Medication Instructions Recorded blood pressure kit-extra large #1 ea 06/06/21 furosemide 20 mg tablet 20 mg PO DAILY #30 tabs 05/02/22 meclizine 25 mg tablet 25 mg PO DAILY PRN dizziness #30 05/02/22 tabs inhalational spacing device #1 ea 08/13/22 hydrochlorothiazide 25 mg tablet 25 mg PO DAILY #90 tabs 09/18/22 hyoscyamine sulfate 0.125 mg 0.125 mg sublingual BID-QID PRN 02/03/23 sublingual tablet (Levsin/SL) dyspepsia #30 tabs topiramate 25 mg tablet (Topamax) 25 mg PO BEDTIME 30 days #30 tabs 02/06/23 calcitriol 0.25 mcg capsule 0.25 mcg PO DAILY 30 days #30 caps 04/01/23 cholecalciferol (vitamin D3) 25 25 mcg PO DAILY #90 caps 04/01/23 mcg (1,000 unit) capsule (Vitamin D3) amlodipine 5 mg tablet 5 mg PO QAM #90 tabs 04/08/23 semaglutide (weight loss) 0.25 0.25 mg (0.5 mL) subcut QWEEK 4 05/28/23 mg/0.5 mL subcutaneous pen weeks #2 mL injector (Wegovy) acetaminophen 300 mg-codeine 15 mg 1 tab PO BID PRN pain 4 days #8 06/03/23 tablet tabs albuterol sulfate 90 mcg/actuation 1 inh inhalation QID 30 days #8.5 06/03/23 aerosol inhaler (Ventolin HFA) grams guaifenesin 600 mg tablet, 600 mg PO BID 7 days #14 tabs 06/03/23 extended release 12 hr (Mucinex) loratadine 10 mg tablet 10 mg PO DAILY #90 tabs 06/03/23 prednisone 20 mg tablet 40 mg (2 x 20 mg) PO DAILY 4 days 06/03/23 #8 tabs propranolol 10 mg tablet 10 mg PO BID #180 tabs 06/13/23 baclofen 5 mg tablet 5 mg PO BEDTIME 7 days #7 tabs 06/18/23 pantoprazole 40 mg tablet,delayed 40 mg PO DAILY #90 tabs 06/18/23 release Allergies Allergy/AdvReac Type Severity Reaction Status Date / Time ibuprofen [IBUPROFEN] Allergy Intermediate RASH Verified 06/18/23 13:50 lisinopril [LISINOPRIL] Allergy Intermediate RASH Verified 06/18/23 13:50 lactulose [LACTULOSE] Allergy Mild STOMACH Verified 06/18/23 13:50 ACHE tizanidine AdvReac Intermediate bradycardia Verified 06/18/23 13:50 Review of Systems Review of Systems: Pertinent positives and negatives as stated in HPI [facility] Past Medical History Source: nursing notes reviewed Medical History Renal calculi Osteopenia Morbid obesity due to excess calories Vitamin D deficiency Hypoparathyroidism Renal colic Chronic abdominal pain Surgical History Hx of colonoscopy H/O thyroidectomy History of esophagogastroduodenoscopy (EGD) History of parathyroid surgery History of hernia repair Status post excision of lipoma (09/26/21) H/O left knee surgery History of cholecystectomy H/O: hysterectomy Family History Family History Father Medical history unknown Mother Cancer Paternal Grandmother Diabetes Paternal Grandfather Diabetes Daughter Behavioral problem Family/Other FH: mental illness Social History Social History Household Members: None Housing: Apartment Alcohol intake: never Patient Tobacco Use Status: Never used Tobacco e-Cigarette/Vaping Use: Never Used Second Hand Smoke Exposure: No Advance Directives: Yes Advance Directives on File: Yes Advance Directives Date on File: 11/02/21 Current occupational status: unemployed and disabled Cognitive needs: No Hearing needs: No Vision needs: No Physical Exam ED Vital Signs: Vital Signs - 24 hr 06/19/23 11:20 06/19/23 16:12 06/19/23 17:12 Temperature 97.8 F 98.0 F 98.5 F Pulse Rate 88 81 81 Respiratory Rate 16 16 16 Blood Pressure 145/76 H 117/73 139/71 Pulse Oximetry 96 97 98 Oxygen Delivery Method Room Air Room Air Room Air BMI result Body Mass Index 49.9 VITAL SIGNS: Reviewed. GENERAL: Elevated BMI, Well developed, well nourished, in no acute distress. HEAD: Normocephalic/atraumatic EYES: PERRLA, EOMI EARS: Ext canals without abnormality, TMs non-bulging and non-erythematous NOSE: Nares patent bilateral OROPHARYNX: no oral lesions noted, posterior pharynx clear and non-erythematous without noted tonsillar enlargement/erythema/exudates NECK: Supple, no adenopathy, no overlying erythema or induration, there is some soft tissue swelling noted but suspect that this is likely adipose tissue, patient does have full range of motion at the shoulder, neurovascular is intact distally LUNGS: Normal breath sounds. No adventitious sounds or accessory muscle use. SpO2<97> CARDIOVASCULAR: Regular rate and rhythm without noted murmurs ABDOMEN: Soft, non-tender, non-distended with bowel sounds. MUSCULOSKELETAL: No tenderness, deformities, or effusions noted on gross inspection. EXTREMITIES: No cyanosis, clubbing or edema. SKIN: Inspection of the skin reveals no rashes NEUROLOGIC: Alert and oriented x 4. Strength and sensation to light touch were grossly intact x 4, no facial asymmetry, no pronator drift Course Course Course Narrative: RME- 52 year old female presents for evaluation of right sided headache, neck pain, radiating down into her chest. She reports difficulty with word finding. She was seen here yesterday had labs, CT scan of the brain being seen. Her potassium was low at 3.1 but otherwise labs were reassuring. Symptoms started 5 days ago. No neuro deficits at this time. Medications Administered Discontinued Medications Generic Name Dose Route Start Last Admin Trade Name Christine PRN Reason Stop Dose Admin Acetaminophen 975 mg 06/19/23 16:54 06/19/23 17:16 Acetaminophen 325 Mg Tablet PO 06/19/23 16:55 975 mg ONCE ONE Administration Lidocaine 1 patch 06/19/23 16:54 06/19/23 17:15 Lidocaine 4 % Patch Adh..Patch TRANSDERMA 06/19/23 16:55 1 patch ONCE ONE Administration Protocol Medical Decision Making Medical Decision Making MDM Narrative: 52-year-old female with history and clinical presentation most suspicious for musculoskeletal/muscle spasm, I suspect that the swelling that she is concerned about is lipomatous in nature but will pursue ultrasound, I did review all lab work obtained yesterday and hematologic indices are chronically stable and there is no evidence of a leukocytosis/thrombocytopenia or anemia. Coagulation studies were noted to be within normal limits. Notably, calcium levels are within normal limits with an albumin that is within normal range, patient appears to have chronically low potassium and will have a magnesium drawn today and provide patient with oral potassium. There are no focal deficits, I have no suspicion for Newton's palsy, at this time I have no suspicion for shingles and I suspect that the mild abdominal discomfort may have been secondary to baclofen but also has a significant history of IBS.. Patient provided with Tylenol and reports allergy to ibuprofen. Ultrasound demonstrates a lipoma, otherwise patient is discharged home in stable condition with instructions to follow-up with the primary care doctor. Differential Diagnosis Differential Diagnoses: The differential diagnosis associated with the presentation includes Please see the discussion above Admission/Observation Consideration of admission/observation: Escalation of care including admission/observation considered Please see the discussion above Lab Data MDM Lab Attestation statement: I reviewed the patient's lab results. Please see the discussion above Labs: Lab Results 06/19/23 Range/Units 17:08 Magnesium 1.9 (1.6-2.6) mg/dL Radiology Impression Discussion of test interpretation with radiology: I have reviewed the radiologist's reading. Radiologist Impression: Please see the discussion above External Record Review External record reviewed: Outpatient record, Prior outpatient labs and Prior outpatient radiology Chronic Conditions Patient?s care impacted by: Diabetes and Hypertension IBS, hypoparathyroidism Critical Care Time Critical Care Time Critical Care Time: Yes Total Critical Care Time: 45 Attestation: I personally attest to this time spent taking care of the patient. Discharge Plan Discharge Clinical Impression: Muscle spasm, Musculoskeletal neck pain, Lipoma Patient Disposition: Home, Self-Care Instructions: Muscle Spasm (ED), Neck Pain (ED), Lipoma (ED) Additional Instructions: 1. Reanudar todos los medicamentos caseros seg?n lo recetado. 2. Tylenol 1000 mg, por v?a oral, cada 6 horas seg?n sea necesario para controlar el dolor. No exceda los 4000 mg en 24 horas. 3. Considere el parche de lidoca?na y apl?quelo en el ?semaj de m?xima sensibilidad roxanna se indica en el paquete exterior. 4. Recomiende continuar con la medicaci?n proporcionada para el espasmo muscular por sung proveedor de atenci?n primaria. 5. Homero un seguimiento con sung proveedor de atenci?n primaria en los pr?ximos 1 o 2 d?as. Regrese a la sandra de emergencias si los s?ntomas empeoran. 1. Resume all home medications as prescribed. 2. Tylenol 1000 mg, orally, every 6 hours as needed for pain control. Do not exceed 4000 mg within 24 hours. 3. Consider lidocaine patch and apply to area of maximal tenderness as directed on the outside packaging. 4. Recommend to continue with medication provided for muscle spasm by your primary care provider. 5. Follow-up with your primary care provider in the next 1-2 days. Return to the ER for any worsening symptoms. Prescriptions: No Action meclizine 25 mg tablet 25 mg PO DAILY PRN (Reason: dizziness) Qty: 30 3RF furosemide 20 mg tablet 20 mg PO DAILY Qty: 30 3RF hydrochlorothiazide 25 mg tablet 25 mg PO DAILY Qty: 90 3RF topiramate [Topamax] 25 mg tablet 25 mg PO BEDTIME 30 Days Qty: 30 3RF calcitriol 0.25 mcg capsule 0.25 mcg PO DAILY 30 Days Qty: 30 3RF cholecalciferol (vitamin D3) [Vitamin D3] 25 mcg (1,000 unit) capsule 25 mcg PO DAILY Qty: 90 0RF amlodipine 5 mg tablet 5 mg PO QAM Qty: 90 0RF Wegovy 0.25 mg/0.5 mL pen injector 0.25 mg subcut QWEEK 28 Days Qty: 2 0RF Rx Instructions: administer weeks 1 through 4 of therapy propranolol 10 mg tablet 10 mg PO BID Qty: 180 0RF pantoprazole 40 mg tablet,delayed release (DR/EC) 40 mg PO DAILY Qty: 90 0RF (DME) inhalational spacing device Spacer See Rx Instructions .Route Qty: 1 0RF Rx Instructions: As directed clonazepam 0.5 mg tablet 0.5 mg PO BEDTIME (DME) blood pressure kit-extra large Kit See Rx Instructions .Route Qty: 1 0RF Rx Instructions: As directed albuterol sulfate [Ventolin HFA] 90 mcg/actuation HFA aerosol inhaler 1 inh inhalation QID 30 Days Qty: 8.5 1RF prednisone 20 mg tablet 40 mg PO DAILY 4 Days Qty: 8 0RF guaifenesin [Mucinex] 600 mg tablet extended release 12hr 600 mg PO BID 7 Days Qty: 14 0RF loratadine 10 mg tablet 10 mg PO DAILY Qty: 90 1RF acetaminophen-codeine 300-15 mg tablet 1 tab PO BID PRN (Reason: pain) 4 Days Qty: 8 0RF baclofen 5 mg tablet 5 mg PO BEDTIME 7 Days Qty: 7 0RF buspirone 10 mg tablet 10 mg PO BID zolpidem 12.5 mg tablet,ext release multiphase 12.5 mg PO BEDTIME PRN hyoscyamine sulfate [Levsin/SL] 0.125 mg tablet, sublingual 0.125 mg sublingual BID-QID PRN (Reason: dyspepsia) Qty: 30 0RF Referrals: Marcus Herman PA-C [Physician Door To Door Sales Representative] - Print Language: Turkmen
[2023-06-19 16:12] VITALS: BP 117/73; PULSE 81; RESP 16; TEMP 36.7; O2SAT 97
--- NOTE | 2023-06-19 16:19 | MHC.EDTECH ---
This pct just assumed care of pt ,vitals taken ,Call shea within Pt reach.
--- NOTE | 2023-06-19 17:11 | MHC.EDTECH ---
Patient magnesium drawn and sent to lab ,vitals taken .
[2023-06-19 17:12] VITALS: BP 139/71; PULSE 81; RESP 16; TEMP 36.9; O2SAT 98
[2023-06-19] MEDS: Lidocaine 4 % Patch ADH..PATCH 1 PATCH TRANSDERMA (17:15)
[2023-06-19] MEDS: Acetaminophen 325 MG TABLET 975 MG PO (17:16)
[2023-06-19 17:44] LABS: Magnesium 1.9 mg/dL (1.6-2.6)
[2023-06-19] MEDS: Potassium Chloride ER 20 MEQ TAB.ER.PRT 60 MEQ PO (18:28)
== END 2023-06-19 18:51 | disposition home or self-care (01) ==
PROVIDERS: Emergency Provider Student in an Organized Health Care Education/Training Program
DX: M62.838 Other muscle spasm (principal); M54.2 Cervicalgia; D17.0 Benign lipomatous neoplasm of skin and subcutaneous tissue of head, face and neck
CPT/HCPCS: 36415; 76536; 83735; 99283; 99284

== ENCOUNTER 2023-06-26 11:58 | Outpatient (REF) | payer OTHER, SELFPAY ==
--- NOTE | ~2023-06-26 | CT_ITS ---
EXAMINATION: CT HEAD WITHOUT CONTRAST CLINICAL INFORMATION: 4 day history of right-sided facial numbness, word finding of fascia, slurring of speech, right upper extremity monoparesis COMPARISON: CT scan of brain on 06/18/2023 TECHNIQUE: Contiguous axial imaging was performed from the skull base to vertex without intravenous administration of contrast. This CT examination was performed using dose optimization techniques as appropriate, variously including the following: *Automated exposure control *Adjustment of mA and/or kV according to patient size (this includes techniques or standardized protocols for targeted exams where dose is matched to indication/reason for exam; i.e. extremities or head) *Use of iterative reconstruction technique DLP: 699 mGy-cm FINDINGS: Ventricles, sulci and cisterns are normal. There is no midline shift, no abnormal intra- or extra- axial fluid accumulation. Saini and white matter differentiation is normal. Bone window images show no evidence of skull fracture. CT/CT head/brain wo IV con IMPRESSION: 1. Unchanged Normal CT scan of the brain. 2. No intracranial hemorrhage or skull fracture is seen. 3. No evidence of space occupying lesion could be found. 4. The current plain CT scan of the brain shows no diagnostic evidence of acute cerebral infarction.
== END 2023-06-26 11:59 | disposition home or self-care (01) ==
LOC: HO.CT 11:58
PROVIDERS: Visit Provider Physician Assistant
DX: R20.0 Anesthesia of skin (principal); R20.2 Paresthesia of skin
CPT/HCPCS: 70450

== ENCOUNTER 2023-07-03 10:10 | Outpatient (AMB) | payer OTHER, SELFPAY ==
[2023-07-03 10:14] VITALS: BP 102/80; PULSE 75; O2SAT 98; BMI 51.0
--- NOTE | 2023-07-03 10:14 | A.OFFPC_ITS ---
Vital Signs 3 07/03/23 10:14 Height 5 ft Weight 261 lb 0.2 oz BMI 51.0 BP 102/80 Blood Pressure Location Lt radial Position Sitting Pulse 75 Pulse Source Pulse Oximeter Pulse Oximetry (%) 98 Oxygen Delivery Method Room Air Intake Visit Reasons: f/u weight check Intake Note: Patient is here to follow up on weight. Tile Picker Required: No Allergies ibuprofen [IBUPROFEN] Allergy (Intermediate, Verified 07/03/23 11:17) RASH lisinopril [LISINOPRIL] Allergy (Intermediate, Verified 07/03/23 11:17) RASH lactulose [LACTULOSE] Allergy (Mild, Verified 07/03/23 11:17) STOMACH ACHE tizanidine Adverse Reaction (Intermediate, Verified 07/03/23 11:17) bradycardia Medication List - Last Reconciled 07/03/23 by Marcus Herman PA-C acetaminophen-codeine 300-15 mg 1 tab PO BID PRN 4 days albuterol sulfate 90 mcg/actuation (Ventolin HFA) 1 inh inhalation QID 30 days amlodipine 5 mg PO QAM baclofen 5 mg PO BEDTIME 7 days blood pressure kit-extra large As directed buspirone 10 mg PO BID calcitriol 0.25 mcg PO DAILY 30 days cholecalciferol (vitamin D3) (Vitamin D3) 25 mcg PO DAILY clonazepam 0.5 mg PO BEDTIME furosemide 20 mg PO DAILY guaifenesin ER (Mucinex) 600 mg PO BID 7 days hydrochlorothiazide 25 mg PO DAILY hyoscyamine sulfate (Levsin/SL) 0.125 mg sublingual BID-QID PRN inhalational spacing device As directed lidocaine 5% (Lidoderm) 1 patch topical DAILY loratadine 10 mg PO DAILY meclizine 25 mg PO DAILY PRN pantoprazole 40 mg PO DAILY propranolol 10 mg PO BID semaglutide (weight loss) (Wegovy) 0.25 mg (0.5 mL) subcut QWEEK 4 weeks topiramate (Topamax) 25 mg PO BEDTIME 30 days zolpidem ER 12.5 mg PO BEDTIME PRN Tobacco use date assessed: 07/03/23 Dental Screening Dental Screen Date: 07/03/23 HPI f/u weight check 2 HPI0 Details Patient is a 52-year-old female here today for a follow-up visit. ? Patient has a past history significant for hypertension, obesity, MDD, Incomnia, frequent migraines, hyperparathyroidism, IBS. Recently seen at the ER for acute right-sided neck pain and headache. CT of head and neck does show a lipoma over the right side of her neck. She does use baclofen now which has been helpful. She is interested in seeing surgeon about removal of lipoma. Anxiety: Had a long discussion today in office about Her anxiety which has been worse over last several months due to issues at her apartment complex. She reports there is a lot of people in hallways making no is and causes her a lot of stress and anger. She has been having difficulty sleeping due to the noise. She is trying to get out of her apartment. This is leading to negative health effects. Obesity--. Has been started on a GLP 1 though had side effects, was found to have hypokalemia could be due to her hydrochlorothiazide use. Will reduce her hydrochlorothiazide 12.5 mg. Hold off on any further use of GLP 1. .. Hypertension: Her blood pressure today in office acceptable. Will continue her current dose of amlodipine 5 mg. [facility] Medical History Renal calculi Osteopenia Morbid obesity due to excess calories Vitamin D deficiency Hypoparathyroidism Renal colic Chronic abdominal pain Surgical History Hx of colonoscopy H/O thyroidectomy History of esophagogastroduodenoscopy (EGD) History of parathyroid surgery History of hernia repair Status post excision of lipoma (09/26/21) H/O left knee surgery History of cholecystectomy H/O: hysterectomy Family History Father Medical history unknown Mother Cancer Paternal Grandmother Diabetes Paternal Grandfather Diabetes Daughter Behavioral problem Family/Other FH: mental illness Social History Household Members: None Housing: Apartment Alcohol intake: never Patient Tobacco Use Status: Never used Tobacco e-Cigarette/Vaping Use: Never Used Second Hand Smoke Exposure: No Advance Directives Date on File: 11/02/21 Current occupational status: unemployed and disabled Cognitive needs: No Hearing needs: No Vision needs: No Questionnaire Thrive Questionnaire Date Thrive assessed: 06/03/23 AUDIT C Alcohol Use Questionnaire (AUDIT-C) 1. How often do you have a drink containing alcohol?: Never Total Score: 0 ALYSA-7 AMB Questionnaire ALYSA-7 Date ALYSA - 7 assessed: 06/03/23 Source: Developed by Drs. William Gallagher, Yasmin Shipley, Hari Ortiz and colleagues, with an educational hilda from [employer]. Review of Systems Const Denies headache(s) Eyes Denies loss of vision ENT Denies vertigo, Denies dizziness, Denies headache(s) and Denies sore throat Card Denies chest pain, Denies leg edema and Denies lightheadedness Resp Denies cough, Denies hemoptysis and Denies wheezing GI Denies abdominal pain, Denies melena, Denies constipation, Denies diarrhea and Denies vomiting Denies urinary frequency, Denies dysuria and Denies urinary urgency Musc Denies arthralgias, Denies joint swelling, Denies numbness and Denies tingling Neuro Denies Abnormal speech present, Denies behavioral changes, Denies vertigo, Denies dizziness, Denies headache(s), Denies loss of vision, Denies memory loss, Denies numbness and Denies tingling Psych Denies anxiety, Denies behavioral changes, Denies depression, Denies memory loss and Denies panic attacks Bran/Lymph Denies easy bleeding and Denies easy bruising Aller/Immun Denies wheezing Physical exam (Primary Care) Vital Signs: Last Vital Signs Pulse 75 07/03/23 10:14 BP 102/80 07/03/23 10:14 Pulse Ox 98 07/03/23 10:14 Oxygen Delivery Method Room Air 07/03/23 10:14 BMI result Body Mass Index 51.0 Tobacco/Smoking Status: Tobacco use Status Tobacco use date assessed 07/03/23 07/03/23 10:16 Patient Tobacco Use Status Never used Tobacco 07/03/23 10:16 e-Cigarette/Vaping Use Never Used 07/03/23 10:16 Thrive Assessment: Date of Thrive Assessment Date Thrive assessed 06/03/23 07/03/23 10:16 Const General: healthy appearing, no acute distress, alert and awake Nutritional Appearance: well nourished Orientation/consciousness: oriented to person, oriented to place and oriented to time HENMT Ears: TM's normal bilaterally General nose exam: Normal nasal mucous membranes and turbinates present Eyes Conjunctivae: conjunctivae normal Sclerae: sclerae normal Pupils: Equal, round and reactive pupils present Neck Neck: Yes no lymphadenopathy and Yes no JVD Thyroid: Thyroid normal Carotids: no bruits Neck images: 2 1. FULLNESS IN THE AREA OUTLINED Resp Effort & Inspection: normal respiratory effort and not tachypneic Auscultation: no crackles, no rales, no rhonchi and no wheezes Cardio Rate: regular rate Rhythm: regular rhythm Heart sounds: no murmurs and normal S1 and S2 GI Palpation (GI): Soft to palpation, nontender, no hepatomegaly and no splenomegaly Auscultation: normal bowel sounds Skin General skin exam: no rashes or lesions noted and dry skin Neuro General: oriented to person, oriented to place and oriented to time Cranial nerves: Yes Equal, round and reactive pupils present Speech: No Abnormal speech present Gait exam (Neuro): Normal gait present Motor exam (neuro): no tremor noted Extrem Right upper extremity: full ROM Left upper extremity: full ROM Right lower extremity: full ROM; no edema Left lower extremity: full ROM; no edema Psych Mental Status: mental status grossly normal Speech and movement: Normal speech and movement present Affect: normal affect Attitude: cooperative Thought process: Normal thought process present Assessment and Plan Assessment & Plan (1) Hypokalemia: Code(s): E87.6 - Hypokalemia Plan: Noted to have hypokalemia on most recent lab, could be due to hydrochlorothiazide use. Will reduce her dose to 12.5 mg. Will recheck basic metabolic panel. (2) Lipoma of neck: Code(s): D17.0 - Benign lipomatous neoplasm of skin and subcutaneous tissue of head, face and neck Plan: Evident lipoma over right side neck on head and neck CT. Does have pain in the area likely due to lipoma. She is willing to see general surgeon for possible removal. For now will use baclofen for her pain. (3) ALSYA (generalized anxiety disorder): Code(s): F41.1 - Generalized anxiety disorder Plan: As per HPI, anxiety has worsened due to external factors in her living situation. Orders: Orders 2 Basic Metabolic Panel Today E87.6 - Hypokalemia Referrals 2 General Surgery Referral D17.0 - Benign lipomatous neoplasm of skin and subcutaneous tissue of head, face and neck Medications: New 2 hydrochlorothiazide 12.5 mg PO DAILY 90 days 90 tabs 1RF I10 - Essential (primary) hypertension Changed 2 From baclofen 5 mg PO BEDTIME 7 days 7 tabs 0RF M43.6 - Torticollis To baclofen 5 mg PO BEDTIME 30 days 30 tabs 1RF M43.6 - Torticollis Discontinued 2 hydrochlorothiazide Discontinued Reason: Doctor's Order 25 mg PO DAILY 90 tabs 3RF Coding Level of Care Code Est Pt Level 4 (65357) Diagnoses Hypokalemia E87.6 Lipoma of neck D17.0 ALYSA (generalized anxiety disorder) F41.1
== END 2023-07-03 11:46 | disposition home or self-care (01) ==
PROVIDERS: PCP Physician Assistant; Visit Provider Physician Assistant
DX: E87.6 Hypokalemia (principal); D17.0 Benign lipomatous neoplasm of skin and subcutaneous tissue of head, face and neck; F41.1 Generalized anxiety disorder
CPT/HCPCS: 99214

== ENCOUNTER 2023-07-22 11:09 | Outpatient (REF) | payer OTHER, SELFPAY ==
--- NOTE | ~2023-07-22 | US_ITS ---
EXAMINATION: US RETROPERITONEAL LIMITED (RENAL ONLY) CLINICAL INFORMATION: Calculus of kidney. COMPARISON: Limited abdominal ultrasound with elastography 03/04/2023. CT abdomen and pelvis 09/23/2022. TECHNIQUE: Real-time imaging of the kidneys. FINDINGS: RIGHT KIDNEY: 10.3 x 3.6 x 4.4 cm (SAG x AP x TRV). The kidney is normal in size, contour, and echogenicity. Renal cortical thickness is normal. No calculi or focal parenchymal lesions. No hydronephrosis. LEFT KIDNEY: 9.3 x 5.4 x 4.5 cm (SAG x AP x TRV). The kidney is normal in size, contour, and echogenicity. Renal cortical thickness is normal. No renal calculi or hydronephrosis. Benign-appearing renal cyst measuring 0.9 cm. No follow up imaging is recommended. Partially imaged liver appears echogenic suggestive of hepatic steatosis or underlying liver disease similar to prior. US/US renal BI IMPRESSION: 1. No hydronephrosis or nephrolithiasis. 2. Partially imaged liver appears echogenic suggestive of hepatic steatosis or underlying liver disease similar to prior.
== END 2023-07-22 11:10 | disposition home or self-care (01) ==
LOC: HO.US 11:09
PROVIDERS: Visit Provider Urology
DX: N20.0 Calculus of kidney (principal)
CPT/HCPCS: 76775

== ENCOUNTER 2023-07-31 10:41 | Outpatient (REF) | payer OTHER, SELFPAY ==
--- NOTE | ~2023-07-31 | XR_ITS ---
EXAMINATION: XR LUMBOSACRAL SPINE WITH OBLIQUES CLINICAL INFORMATION: Intervertebral disc displacement lumbosacral region. COMPARISON: MRI lumbar spine 12/26/2021. X-ray lumbar spine 07/26/2021. TECHNIQUE: AP, both oblique, and lateral views of the lumbar spine. Lateral view of the lumbosacral junction. FINDINGS: Degenerative changes in the imaged lower thoracic spine. Surgical clips in the right upper quadrant of the abdomen. Rightward curvature of the lumbar spine. Mild rightward curvature of the lumbar spine. Degenerative changes in the bilateral sacroiliac joints. Advanced facet arthritis in the lower lumbar spine. Mild multilevel lumbar spondylosis. XR/XR lumbar spine 4V min IMPRESSION: 1. Mild multilevel lumbar spondylosis. 2. Advanced facet arthritis in the lower lumbar spine.
[2023-07-31 12:25] LABS: Potassium 4.5 mmol/L (3.3-5.1)
[2023-07-31 12:26] LABS: Anion Gap 15 (12-20); Blood Urea Nitrogen 13 mg/dL (9-16); Calcium 9.1 mg/dL (8.4-10.2); Carbon Dioxide 28 mmol/L (22-29); Chloride 104 mmol/L (96-108); Estimated Glomerular Filt Rate > 60; Glucose Random 106 mg/dL (60-115); Potassium 4.4 mmol/L (3.3-5.1); Sodium 143 mmol/L (135-145)
== END 2023-07-31 10:42 | disposition home or self-care (01) ==
LOC: HO.XRAY 10:41
PROVIDERS: PCP Physician Assistant; Visit Provider Physician Assistant
DX: M51.27 Other intervertebral disc displacement, lumbosacral region (principal); R53.1 Weakness; E87.6 Hypokalemia; D17.0 Benign lipomatous neoplasm of skin and subcutaneous tissue of head, face and neck; D17.39 Benign lipomatous neoplasm of skin and subcutaneous tissue of other sites; Z79.899 Other long term (current) drug therapy
CPT/HCPCS: 36415; 72110; 80048; 82310; 84132; 99212

== ENCOUNTER 2023-07-31 12:06 | Outpatient (AMB) | payer OTHER, SELFPAY ==
--- NOTE | 2023-07-31 13:12 | MHC.OFFVIS ---
Intake Vital Signs 07/31/23 13:21 Height 5 ft Weight 265 lb 4 oz BMI 51.8 BP 146/65 H Blood Pressure Location Lt brachial Position Sitting Pulse 82 Intake Visit Reasons: Lipoma on head, neck and back Intake Note: Patient is seen in office for evaluation of multiple lipomas. Pt c/o: neck mass for one month, right arm mass for one year has increase in size, aprox 4 back masses for 2 yrs, all masses are painful, denies discharge, redness or other concerns Press Leader Required: Yes Press Leader Language: Apartment House Manager Name: Evita MONDRAGON Information Interpreted: non-clinical & clinical Manager Credit Risk: Manager Credit Risk Present Accompanied by: Self / Same As Patient Allergies ibuprofen [IBUPROFEN] Allergy (Intermediate, Verified 07/31/23 13:22) RASH lisinopril [LISINOPRIL] Allergy (Intermediate, Verified 07/31/23 13:22) RASH lactulose [LACTULOSE] Allergy (Mild, Verified 07/31/23 13:22) STOMACH ACHE tizanidine Adverse Reaction (Intermediate, Verified 07/31/23 13:22) bradycardia Medication List - Last Reconciled 07/31/23 by Jamal Ragsdale MD acetaminophen-codeine 300-15 mg 1 tab PO BID PRN 4 days albuterol sulfate 90 mcg/actuation (Ventolin HFA) 1 inh inhalation QID 30 days amlodipine 5 mg PO QAM baclofen 5 mg PO BEDTIME 30 days blood pressure kit-extra large As directed buspirone 10 mg PO BID calcitriol 0.25 mcg PO DAILY 30 days cholecalciferol (vitamin D3) (Vitamin D3) 25 mcg PO DAILY clonazepam 0.5 mg PO BEDTIME furosemide 20 mg PO DAILY guaifenesin ER (Mucinex) 600 mg PO BID 7 days hydrochlorothiazide 12.5 mg PO DAILY 90 days hyoscyamine sulfate (Levsin/SL) 0.125 mg sublingual BID-QID PRN inhalational spacing device As directed lidocaine 5% (Lidoderm) 1 patch topical DAILY loratadine 10 mg PO DAILY meclizine 25 mg PO DAILY PRN pantoprazole 40 mg PO DAILY prednisone 10 mg PO DIRECTED 6 days propranolol 10 mg PO BID semaglutide (weight loss) (Wegovy) 0.25 mg (0.5 mL) subcut QWEEK 4 weeks topiramate 25 mg PO BEDTIME zolpidem ER 12.5 mg PO BEDTIME PRN HPI HPI Comments History of Present Illness Details 52-year-old female patient well known to me with a previous history of lipomas of the back now presenting with several lipomas involving the right arm, right neck, and back. She feels the lipomas are increasing in size and are now causing discomfort therefore is requesting excision. She denies any bleeding or discharge, fever or chills. PFSH Medical History Renal calculi Osteopenia Morbid obesity due to excess calories Vitamin D deficiency Hypoparathyroidism Renal colic Chronic abdominal pain Surgical History Hx of colonoscopy H/O thyroidectomy History of esophagogastroduodenoscopy (EGD) History of parathyroid surgery History of hernia repair Status post excision of lipoma (09/26/21) H/O left knee surgery History of cholecystectomy H/O: hysterectomy Family History Father Medical history unknown Mother Cancer Paternal Grandmother Diabetes Paternal Grandfather Diabetes Daughter Behavioral problem Family/Other FH: mental illness Social History Household Members: None Housing: Apartment Alcohol intake: never Patient Tobacco Use Status: Never used Tobacco e-Cigarette/Vaping Use: Never Used Second Hand Smoke Exposure: No Advance Directives Date on File: 11/02/21 Current occupational status: unemployed and disabled Cognitive needs: No Hearing needs: No Vision needs: No Review of Systems Const All systems reviewed & are unremarkable except as noted in HPI and below Reports body aches, Denies chills, Denies fever(s) and Reports weight gain ENT Denies dysphagia and Denies sore throat Card Denies chest pain, Denies rapid heart rate, Denies irregular heart rhythm and Reports dyspnea on exertion Resp Denies hemoptysis, Reports dyspnea on exertion and Denies wheezing GI Reports as per HPI, Reports abdominal pain, Denies constipation, Denies dysphagia, Denies heartburn and Reports diarrhea Skin/Breast Reports as per HPI Bran/Lymph Denies lymphadenopathy Aller/Immun Denies wheezing Physical Exam Vital Signs: Last Vital Signs Pulse 82 07/31/23 13:21 BP 146/65 H 07/31/23 13:21 BMI result Body Mass Index 51.8 Const General: cooperative, healthy appearing and no acute distress Orientation/consciousness: patient oriented x3 Limitations: ambulation with cane HEENT Head: Yes normal to inspection Ears: hearing grossly normal bilaterally General nose exam: Normal external nose present Face and sinus: Yes normal facial exam Eyes General: appearance normal, both eyes and all related structures Neck Neck images: 1. 3 cm tender lipoma Resp Effort & Inspection: normal respiratory effort Auscultation: clear to auscultation bilaterally Cardio Rate: regular rate Rhythm: regular rhythm Heart sounds: S1 normal heart sound present and S2 normal heart sound present GI Inspection: No distended, Yes Abdominal panniculus present, Yes obesity and Yes scar (Midline laparotomy scar, pubis to umbilicus) Palpation (GI): Soft to palpation, nontender and no guarding Auscultation: normal bowel sounds Back/Spine/Pelvis Back/spine/pelvis image: 1. 1.5 cm lipoma 2. 2 cm lipoma 3. 1.5 cm lipoma 4. 2 cm lipoma Skin General skin exam: no rashes or lesions noted Full body images: 1. 2 cm lipoma just below the antecubital fossa, very tender to palpation Neuro General: patient oriented x3 Extrem General: No edema Psych Appearance: grossly normal Mental Status: mental status grossly normal Speech and movement: Normal speech and movement present Affect: normal affect Attitude: cooperative Assessment & Plan Assessment & Plan (1) Lipoma of neck: Code(s): D17.0 - Benign lipomatous neoplasm of skin and subcutaneous tissue of head, face and neck Plan 52-year-old female patient presenting with multiple lipomas throughout the body including the right arm, right neck, and for painful lipomas of the back. She reports that the lipoma was are affecting her lifestyle because of the pain is requesting excision. I recommended an excision under anesthesia as a short-stay surgery. After discussion of the procedure, risks, and alternatives, she consents to excision of lipomas of the right arm, right neck and back x4. Coding Level of Care Code Est Pt Level 4 (89526) Diagnoses Lipoma of neck D17.0
[2023-07-31 13:21] VITALS: BP 146/65; PULSE 82; BMI 51.8
== END 2023-07-31 14:00 | disposition home or self-care (01) ==
PROVIDERS: PCP Physician Assistant; Visit Provider Surgery
DX: D17.0 Benign lipomatous neoplasm of skin and subcutaneous tissue of head, face and neck (principal)
CPT/HCPCS: 99214

== ENCOUNTER 2023-07-31 14:07 | Outpatient (AMB) | payer OTHER, SELFPAY ==
--- NOTE | 2023-07-31 14:08 | A.OFFVIS_ITS ---
Intake Intake Visit Reasons: 9m/US Intake Note: Follow up US results and RENAL ULTRASOUND results: Declined obtaining litholink due to fee medications: none Blood thinners: none Crane Ladle Person Required: No Accompanied by: Self / Same As Patient Allergies ibuprofen [IBUPROFEN] Allergy (Intermediate, Verified 07/31/23 14:10) RASH lisinopril [LISINOPRIL] Allergy (Intermediate, Verified 07/31/23 14:10) RASH lactulose [LACTULOSE] Allergy (Mild, Verified 07/31/23 14:10) STOMACH ACHE tizanidine Adverse Reaction (Intermediate, Verified 07/31/23 14:10) bradycardia HPI HPI Comments History of Present Illness Details 07/31/2023--Amalia presents for telehealth visit to review renal ultrasound results. She states she is doing well. Denies abdominal pain or gross hematuria. States she did not complete the 24 hour urine. I have reviewed renal ultrasound results with the patient. 07/22/23- kidneys within normal limits n egative renal stones or hydronephrosis. Plan-continue to monitor kidneys. Follow-up in 1 year renal ultrasound prior. Review of chart: Amalia is a 51-year-old female who presents to the office for discussion of CT- KUB results. LV--06/03/22--here for follow-up for kidney stones. PCP- Marcus Herman PA-C reviewed imaging KUB 05/23/2022 no radiopaque stones visualized, had renal ultrasound--01/11/2022, and CT KUB 11/02/2021, both consistent with small bilateral kidney stones, complains of chronic back pain, discussed will check CT KUB in 4 months, and 24 hour urine. 09/30/2022-- The patient is taking calciu m supplement which is recommended by her doctor. The patient did not undergo 24-hour urine collection test because it is not covered by her insurance. She states she drinks 6-8 glasses of water. Diet sheet for renal calculi prevention was provided to the patient. Discussed to consume adequate amount of water, 2-2.5 liters of water daily. Discussed Low oxalate diet---green leafy vegetable, nuts, and tea in moderation as they are rich in oxalate.Follow-up after 9 months. renal US prior. CTAP results reviewed--09/23/22-- findings of punctate stones in the lower pole right kidney and lower pole left kidney. Evaluation today-- UA --Blood:negative leukocytes: negative. 07/31/2023 Plan: continue to monitor meenakshi bowles. Follow-up in 1 year renal ultrasound prior. [facility] Medical History Renal calculi Osteopenia Morbid obesity due to excess calories Vitamin D deficiency Hypoparathyroidism Renal colic Chronic abdominal pain Surgical History Hx of colonoscopy H/O thyroidectomy History of esophagogastroduodenoscopy (EGD) History of parathyroid surgery History of hernia repair Status post excision of lipoma (09/26/21) H/O left knee surgery History of cholecystectomy H/O: hysterectomy Family History Father Medical history unknown Mother Cancer Paternal Grandmother Diabetes Paternal Grandfather Diabetes Daughter Behavioral problem Family/Other FH: mental illness Social History Household Members: None Housing: Apartment Alcohol intake: never Patient Tobacco Use Status: Never used Tobacco e-Cigarette/Vaping Use: Never Used Second Hand Smoke Exposure: No Advance Directives Date on File: 11/02/21 Current occupational status: unemployed and disabled Cognitive needs: No Hearing needs: No Vision needs: No Review of Systems Const All systems reviewed & are unremarkable except as noted in HPI and below Reports no additional complaints Eyes Reports no additional complaints ENT Reports no additional complaints Card Reports no additional complaints Resp Reports no additional complaints GI Reports no additional complaints Reports as per HPI Musc Reports no additional complaints Skin/Breast Reports system reviewed and no additional complaints, except as documented Neuro Reports no additional complaints Psych Reports no additional complaints Endo Reports no additional complaints Bran/Lymph Reports no additional complaints Aller/Immun Reports no additional complaints Results Reviewed Results Reviewed: Date of Service: 07/22/23 EXAMINATION: US RETROPERITONEAL LIMITED (RENAL ONLY) CLINICAL INFORMATION: Calculus of kidney. COMPARISON: Limited abdominal ultrasound with elastography 03/04/2023. CT abdomen and pelvis 09/23/2022. TECHNIQUE: Real-time imaging of the kidneys. FINDINGS: RIGHT KIDNEY: 10.3 x 3.6 x 4.4 cm (SAG x AP x TRV). The kidney is normal in size, contour, and echogenicity. Renal cortical thickness is normal. No calculi or focal parenchymal lesions. No hydronephrosis. LEFT KIDNEY: 9.3 x 5.4 x 4.5 cm (SAG x AP x TRV). The kidney is normal in size, contour, and echogenicity. Renal cortical thickness is normal. No renal calculi or hydronephrosis. Benign-appearing renal cyst measuring 0.9 cm. No follow up imaging is recommended. Partially imaged liver appears echogenic suggestive of hepatic steatosis or underlying liver disease similar to prior. IMPRESSION: 1. No hydronephrosis or nephrolithiasis. 2. Partially imaged liver appears echogenic suggestive of hepatic steatosis or underlying liver disease similar to prior. Assessment & Plan Assessment & Plan (1) Bilateral kidney stones: Code(s): N20.0 - Calculus of kidney Plan Follow-up in 1 year renal ultrasound prior Orders: Orders US renal BI 1 Year N20.0 - Calculus of kidney Medications: Discontinued semaglutide (weight loss) administer weeks 1 through 4 of therapy Discontinued Reason: Patient no longer taking 0.25 mg (0.5 mL) subcut QWEEK 4 weeks 2 mL 0RF Z68.42 - Body mass index [BMI] 45.0-49.9, adult Patient Instructions: The patient had an opportunity to ask questions regarding treatment plan. All questions were answered. Imaging, Laboratory studies and physical exam results were discussed and reviewed in detail. No major barriers to understanding were identified. The patient expressed understanding and agreement with the above treatment plan. The patient is aware they should contact our office by phone for worsening of their current condition or the appearance of new symptoms. Compliance is encouraged with any medications and followup testing that is ordered. It is a privilege to be allowed the opportunity to participate in the urologic care of your patient. If you have any questions or concerns regarding treatment for the above conditions please do not hesitate to contact me. The office telephone contact is [phone]. This note is constructed in part using voice recognition software. While every effort has been made to ensure accuracy quality control clerk errors may have been included. Yours sincerely, Silas Gillis MD Telehealth Telehealth Location of provider rendering services: practice address Location of patient: address on file Patient Identification confirmed using: Name, : Yes Telehealth method: voice only Patient verbally consented to treatment: Yes Patient verbally consented to billing insurance company: Yes Patient informed of any privacy concerns related to visit: Yes Minutes spent on Phone/Video with Pt.: 15 Coding Level of Care Code Tele Est Pt Level 3 (72611) Diagnoses Bilateral kidney stones N20.0
== END 2023-07-31 15:31 | disposition home or self-care (01) ==
LOC: HO.HUSH 14:08
PROVIDERS: PCP Physician Assistant; Visit Provider Urology
DX: N20.0 Calculus of kidney (principal)
CPT/HCPCS: 99213

== ENCOUNTER 2023-09-05 11:07 | Outpatient (AMB) | payer OTHER, SELFPAY ==
--- NOTE | 2023-09-05 11:20 | A.OFFVIS_ITS ---
Vital Signs 09/05/23 11:23 Height 5 ft Weight 263 lb BMI 51.4 BP 134/69 Blood Pressure Location Lt radial Position Sitting Pulse 78 Intake Visit Reasons: Follow up RUQ pain Intake Note: Amlaia presents in the office as a follow up fopr RUQ pains. CC: gave her medication for BP and her potassium was elevated. She thinks it was due to the Hydrochlorothiazide. She states that her stomach is doing okay but she states that in the right flank she feels like there is a sharp pain that she is unable to move or do anything. Central Supply Assistant Required: Yes Central Supply Assistant Name: [id number] Hali Allergies ibuprofen [IBUPROFEN] Allergy (Intermediate, Verified 09/05/23 11:22) RASH lisinopril [LISINOPRIL] Allergy (Intermediate, Verified 09/05/23 11:22) RASH lactulose [LACTULOSE] Allergy (Mild, Verified 09/05/23 11:22) STOMACH ACHE tizanidine Adverse Reaction (Intermediate, Verified 09/05/23 11:22) bradycardia HPI HPI Follow up RUQ pain: Details: 52 yr old f w hx of cholecystectomy 2007 being seen for f/u RECAP: She had right sided upper abdo pain in 12/2018, lipase was 3000-came to hospital and MRI with stranding around pancreas, CBD 1 cm but no stones/strictures dx with pancreatitis, also ?adherent small bowel, hepatomegaly and steatosis she had ongoing sx and flare up and again admitted 02/2019--transaminitis, liapse at 800 and MRI again done with stable CBD, normal pancreas no divisum HEp serologies were neg Since d/c ongoing pain ruq (but is pointing to her right flank and can locate with one finger), PCP flexeril and bentyl and not helping she does have nausea, emesis occ brown or yellow appetite is poor, weight down 2# this month stool is normal, no blood in stool, she does have chills, no fevers whole elft side can feel weak, gets dizzy at times--attacks every day can last 10 mins at a time--saw neurologist and being assessed. she was not a consistent historian debbie as regards her pain and how it was during her attacks as opposed to at the visit, clinically her pain was not consistent with a pancreatic etiology and appeared to be more myofascial in origin she was given lido/kenalog injection in case of myofascial component but felt it didn;t help she was getting w/u for hypercalcemia she was also c/o dysphagia which was new and EGD was planned as well as pain in her right loin At visit: 04/2019 she went to ED for abdominal pain, had severe worsening idffuse abdo pain with nausea and vomiting (bilious) passing small amount of stool with pressure but no gas she had small bowel obstruction in past and feels the same had CT in ED with evidence of SBO, seems to be transition point around prior ventral hernia surgery site, no pancreatitis. EGD: 06/2019 for dysphagia--4 cm hiatal hernia, patulous GEJ, bx -active esophagitis, GEJ chronic inflammation--advised to take PPI At TV 09/2019 she was c/o SOb, chest pain and confusion, vomiting she was advised to go to ED labs with nml hgb, mild leukopenia, LFt nml, trop, nml, CT scan:enlarged liver, scarring lower abd wall, no bowel obstruction Last time she was having migraines and I suspected her nausea was from this she was given propranolol to see if it helped advised to get CO monitor for home, makse sure no CO exposure she was advised to see Dr Cruz for hiatal hernia repair, plan is for sleeve gastrectomy and hiatal hernia repair after she completes the necessary steps F/U 01/28/22 I gave her TCA due to concern for fucntional dyspepsia and pain LABS: nml CMP/LFT 10/2022 CT 09/2022--bladder lesion, kidney stones INTERIM: she has had worsening severe RUQ pain,goes all the way down to her back and legs going on for 3 weeks appetite is poor she has emesis, and nausea she denies constipation PCP ordered MRI but refused by insurance? she is seeing pain management today as well she had urine freq yesterday --urgency EXAM: GENERAL: The patient is well developed and nontoxic. VITAL SIGNS:see workflow HEENT: Nonicteric sclerae, PERRLA, EOMI. Oropharynx clear. Moist mucous membranes. Conjunctivae appear well perfused. No thyroid mass. CHEST: Chest wall is nontender. HEART: Regular rate and rhythm without murmurs. LUNGS: Clear to auscultation bilaterally. ABDOMEN: Soft, positive bowel sounds, nontender, no organomegaly.no flank tenderness SKIN: No rash, no excessive bruising, petechiae, or purpura. NEUROLOGIC: Cranial nerves II-XII intact without motor/sensory deficit. Psych: normal affect Assessments 1. RUQ abdominal pain, r/o retained or de brandon gallstones, tender right flank and spine as well so could be musculoskeletal vs Plan: 1/ retry levsin see if helps 2/ check labs incl UA and get MRCP 3/ refuses to go to ED due to having to wait long but will see her pain doc today [facility] Medical History Pancreatitis IBS (irritable bowel syndrome) Arthritis Depression Asthma Sleep apnea HTN (hypertension) Renal calculi Osteopenia Morbid obesity due to excess calories Vitamin D deficiency Hypoparathyroidism Renal colic Chronic abdominal pain Surgical History Hx of colonoscopy H/O thyroidectomy History of esophagogastroduodenoscopy (EGD) History of parathyroid surgery History of hernia repair Status post excision of lipoma (09/26/21) H/O left knee surgery History of cholecystectomy H/O: hysterectomy Family History Father Medical history unknown Mother Cancer Paternal Grandmother Diabetes Paternal Grandfather Diabetes Daughter Behavioral problem Family/Other FH: mental illness Social History Household Members: None Housing: Apartment Are you a primary manager managed care to a significant other at home: No Do you presently have visiting nurse or other home services: No Alcohol intake: never Patient Tobacco Use Status: Never used Tobacco e-Cigarette/Vaping Use: Never Used Second Hand Smoke Exposure: No Advance Directives Date on File: 11/02/21 Current occupational status: unemployed and disabled Cognitive needs: No Hearing needs: No Vision needs: No Physical Exam Vital Signs: Last Vital Signs Pulse 78 09/05/23 11:23 BP 134/69 09/05/23 11:23 BMI result Body Mass Index 51.4 Assessment & Plan Assessment & Plan (1) Choledocholithiasis: Code(s): K80.50 - Calculus of bile duct without cholangitis or cholecystitis without obstruction Category: Medical Plan: see above (2) Renal calculi: Code(s): N20.0 - Calculus of kidney Category: Medical Plan: see above Orders: Orders MR MRCP Today K80.50 - Calculus of bile duct without cholangitis or cholecystitis without obstruction Complete Blood Count Auto Diff Today K80.50 - Calculus of bile duct without cholangitis or cholecystitis without obstruction, N20.0 - Calculus of kidney Comprehensive Met. Panel Today K75.81 - Nonalcoholic steatohepatitis (VU), K80.50 - Calculus of bile duct without cholangitis or cholecystitis without obstruction, N20.0 - Calculus of kidney UA CC w/rflx Micro + Cult Today K80.50 - Calculus of bile duct without cholangitis or cholecystitis without obstruction, N20.0 - Calculus of kidney, R30.0 - Dysuria Medications: New hyoscyamine sulfate 0.125 mg sublingual BID-QID PRN 30 tabs 0RF dyspepsia
[2023-09-05 11:23] VITALS: BP 134/69; PULSE 78; BMI 51.4
== END 2023-09-05 11:58 | disposition home or self-care (01) ==
PROVIDERS: PCP Physician Assistant; Visit Provider Internal Medicine Gastroenterology
DX: K80.50 Calculus of bile duct without cholangitis or cholecystitis without obstruction (principal); N20.0 Calculus of kidney
CPT/HCPCS: 99214

== ENCOUNTER → 2023-09-05 11:07 | Outpatient (BNVA) | payer OTHER, SELFPAY | PROVIDERS: Visit Provider Internal Medicine Gastroenterology | DX: K80.50 Calculus of bile duct without cholangitis or cholecystitis without obstruction (principal); K75.81 Nonalcoholic steatohepatitis (NASH); N20.0 Calculus of kidney; Z90.49 Acquired absence of other specified parts of digestive tract | CPT/HCPCS: 99212 ==

== ENCOUNTER 2023-09-05 12:11 | Outpatient (REF) | payer OTHER, SELFPAY ==
[2023-09-05 13:29] LABS: Appearance Urine Cloudy; Color Urine Yellow; Glucose Urine UA Negative (Negative); Leukocyte Esterase Urine Negative (Negative); Nitrite Urine Negative (Negative); Urine Blood Negative (Negative); Urine Ketones Negative (Negative); Urine Protein Negative (Neg-Trace)
[2023-09-05 13:52] LABS: MANUAL DIFF FLAG NO
[2023-09-05 13:59] LABS: Basophils Absolute Auto 0.1 X10*3/uL (0.0-0.2); Basophils Percent Auto 0.7 % (0-2); Eosinophils Absolute Auto 0.1 X10*3/uL (0.0-0.4); Eosinophils Percent Auto 1.5 % (0-4); Hematocrit 39.1 % (37.0-47.0); Hemoglobin 13.3 g/dl (12.0-16.0); Imm Gran Abs Auto 0.02 X10*3/uL (0.00-0.03); Imm Gran Pct Auto 0.3 % (0.0-0.4); Lymphocytes Absolute Auto 2.5 X10*3/uL (1.2-4.9); Lymphocytes Percent Auto 34.2 % (20-40); Mean Corpuscular Hemoglobin 32.1 pg (27.0-33.0); Mean Corpuscular Volume 94.4 fL (80.0-98.0); Mean Platelet Volume 10.4 fL (9.4-12.3); Monocytes Absolute Auto 0.3 X10*3/uL (0.1-1.2); Monocytes Percent Auto 4.7 % (2-11); Neutrophils Absolute Auto 4.3 x10*3/uL (2.0-8.3); Neutrophils Percent Auto 58.6 % (45-73); Platelet Count 258 X10*3/uL (160-400); Red Blood Count 4.14 X10*6/uL (4.20-5.50); Red Cell Distribution Width 12.4 % (11.0-16.0); White Blood Count 7.3 X10*3/uL (4.8-10.8)
[2023-09-05 16:58] LABS: Alanine Aminotransferase 13 U/L (0-31); Albumin Level 4.5 g/dL (3.5-5.0); Alkaline Phosphatase 88 U/L (39-117); Anion Gap 12 (12-20); Aspartate Amino Transferase 12 U/L (5-31); Bilirubin Total 0.4 mg/dL (0.0-1.0); Blood Urea Nitrogen 13 mg/dL (9-16); Calcium 9.2 mg/dL (8.4-10.2); Carbon Dioxide 31 mmol/L (22-29); Chloride 104 mmol/L (96-108); Estimated Glomerular Filt Rate > 60; Glucose Random 103 mg/dL (60-115); Potassium 4.5 mmol/L (3.3-5.1); Sodium 142 mmol/L (135-145); Total Protein 7.7 g/dL (6.5-8.0)
== END 2023-09-05 12:12 | disposition home or self-care (01) ==
LOC: HO.10HDL 12:11
PROVIDERS: Visit Provider Internal Medicine Gastroenterology
DX: K75.81 Nonalcoholic steatohepatitis (NASH) (principal); K80.50 Calculus of bile duct without cholangitis or cholecystitis without obstruction; N20.0 Calculus of kidney; R30.0 Dysuria
CPT/HCPCS: 36415; 80053; 81003; 85025; 99212

== ENCOUNTER 2023-09-05 12:30 | Outpatient (AMB) | payer OTHER, SELFPAY ==
[2023-09-05 13:12] VITALS: BP 146/91; PULSE 78; RESP 18; O2SAT 97; BMI 51.1
--- NOTE | 2023-09-05 13:12 | A.OFFVIS_ITS ---
Vital Signs 09/05/23 13:12 Height 5 ft Weight 261 lb 8 oz BMI 51.1 BP 146/91 H Blood Pressure Location Rt radial Position Sitting Respiration 18 Pulse 78 Pulse Source Pulse Oximeter Pulse Oximetry (%) 97 Oxygen Delivery Method Room Air Intake Visit Reasons: chronic lower lumbar spine pain Allergies ibuprofen [IBUPROFEN] Allergy (Intermediate, Verified 09/05/23 13:12) RASH lisinopril [LISINOPRIL] Allergy (Intermediate, Verified 09/05/23 13:12) RASH lactulose [LACTULOSE] Allergy (Mild, Verified 09/05/23 13:12) STOMACH ACHE tizanidine Adverse Reaction (Intermediate, Verified 09/05/23 13:12) bradycardia HPI Comments Details: Amalia presents back to the office today for acute right-sided back pain She denies inciting injury, fall or trauma Endorses diffuse tenderness to her back and legs. Has been taking baclofen without relief. Primary care doctor prescribed her oxycodone/acetaminophen 7 day supply which helped with the pain but she is since run out. She has reach out to his office for refill in his awaiting call back. History of fibromyalgia, she has done research and been evaluated by Rheumatology. Last attempt at PT was many years ago. She also underwent injections in our office approximately 1.5 years ago PCP ordered MRI, appointment pending. Previous visit with Dr. Lopez on 05/03/2022: Patient is a 51-year-old female presenting for a follow-up after a Diagnostic L3-L4-L5 MBBs. Patient reported 100% relief immediately following the procedure but denies any lasting effect beyond the first hour with continued aches and soreness. Past Procedures: 05/01/22: Diagnostic L3-L4-L5 MBBs ? No relief. 11/07/21: Left L5-S1 Parasagittal Interlaminar ALEXI ? No relief.? ? PFSH Medical History Pancreatitis IBS (irritable bowel syndrome) Arthritis Depression Asthma Sleep apnea HTN (hypertension) Renal calculi Osteopenia Morbid obesity due to excess calories Vitamin D deficiency Hypoparathyroidism Renal colic Chronic abdominal pain Surgical History Hx of colonoscopy H/O thyroidectomy History of esophagogastroduodenoscopy (EGD) History of parathyroid surgery History of hernia repair Status post excision of lipoma (09/26/21) H/O left knee surgery History of cholecystectomy H/O: hysterectomy Family History Father Medical history unknown Mother Cancer Paternal Grandmother Diabetes Paternal Grandfather Diabetes Daughter Behavioral problem Family/Other FH: mental illness Social History Household Members: None Housing: Apartment Are you a primary customer care assistant to a significant other at home: No Do you presently have visiting nurse or other home services: No Alcohol intake: never Patient Tobacco Use Status: Never used Tobacco e-Cigarette/Vaping Use: Never Used Second Hand Smoke Exposure: No Advance Directives Date on File: 11/02/21 Current occupational status: unemployed and disabled Cognitive needs: No Hearing needs: No Vision needs: No Review of Systems Const All systems reviewed & are unremarkable except as noted in HPI and below Physical Exam Vital Signs: Last Vital Signs Pulse 78 09/05/23 13:12 Resp 18 09/05/23 13:12 BP 146/91 H 09/05/23 13:12 Pulse Ox 97 09/05/23 13:12 Oxygen Delivery Method Room Air 09/05/23 13:12 BMI result Body Mass Index 51.1 General: awake, alert, oriented. Answers questions appropriately. Fully engaged in examination. Skin: warm, dry, intact HEENT: Normocephalic. Hearing intact. Cardiac: External chest normal in appearance. Respiratory: No cough, audible wheezing or stridor. Abdomen: without gross distension. MS: No obvious swelling or deformities. Ambulates with the use of a walker Able to transition from sit to stand unassisted Diffusely tender across the entirety of her back with most significant tenderness over the right lower back. Neurological: Oriented to person, place, time and situation. Thought process intact. Psychiatric: Appropriate mood and affect. Good judgment and insight. Results Reviewed Results Reviewed: 07/31/23 XR/XR lumbar spine 4V min FINDINGS: Degenerative changes in the imaged lower thoracic spine. Surgical clips in the right upper quadrant of the abdomen. Rightward curvature of the lumbar spine. Mild rightward curvature of the lumbar spine. Degenerative changes in the bilateral sacroiliac joints. Advanced facet arthritis in the lower lumbar spine. Mild multilevel lumbar spondylosis. IMPRESSION: 1. Mild multilevel lumbar spondylosis. 2. Advanced facet arthritis in the lower lumbar spine. Assessment & Plan Assessment & Plan (1) Myofascial muscle pain: Code(s): M79.18 - Myalgia, other site Category: Medical (2) Lumbar spondylosis: Code(s): M47.816 - Spondylosis without myelopathy or radiculopathy, lumbar region Category: Medical Plan Patient presented to the office today for evaluation and management of her acute back pain Order placed for PT eval and treat Recent x-ray reviewed, results as per above Discontinue baclofen, new Rx for methocarbamol 500 mg p.o. t.i.d. as needed. She was instructed to contact her primary care doctor to further discuss refill of her opioid medications that she has requested today. All questions and concerns were answered, patient agrees with the plan. Follow up after PT, sooner if needed Orders: Orders PT Evaluation and Treatment Today M79.18 - Myalgia, other site Medications: New methocarbamol Discontinue use of baclofen No driving while taking this medication. Do no take with alcohol or other RHEUMATOLOGY SPECIALIST Depressants 500 mg PO TID PRN 90 tabs 0RF muscle spasm
== END 2023-09-05 13:56 | disposition home or self-care (01) ==
PROVIDERS: PCP Physician Assistant; Visit Provider Registered Nurse Emergency
DX: M79.18 Myalgia, other site (principal); M47.816 Spondylosis without myelopathy or radiculopathy, lumbar region
CPT/HCPCS: 99214

== ENCOUNTER 2023-09-10 08:17 | Day surgery (SDC) | payer OTHER, SELFPAY ==
[2023-09-02 10:43] VITALS: BMI 51.7
--- NOTE | 2023-09-08 13:13 | P.CONAN_ITS ---
Documented by User: Mary Ellen Alberts NP 09/08/23 13:14 HPI - Anesthesia Eval Consult details Narrative: 52yo F for Right Excision Lipoma, forearm, neck, mid back X4 PMFSH Active Problems Active Problems: All Active Problems Myofascial muscle pain (Acute) Choledocholithiasis (Acute) Lipoma of neck (Acute) Hypokalemia (Acute) Acute torticollis (Acute) Weakness (Acute) Numbness and tingling of right side of face (Acute) Borderline high cholesterol (Acute) ALYSA (generalized anxiety disorder) (Acute) Asthma (Acute) Morbid obesity (Acute) RUQ pain (Acute) NAVDEEP (obstructive sleep apnea) (Acute) Annual physical exam (Acute) MDD (major depressive disorder), recurrent episode, moderate (Acute) Allergic rhinitis (Acute) Obese (Acute) Bronchospasm (Acute) Bilateral primary osteoarthritis of knee (Acute) Back pain (Acute) Bilateral kidney stones (Acute) Lumbar spondylosis (Acute) Herniated nucleus pulposus, L5-S1, left (Acute) H/O acute pancreatitis (Acute) Arthritis (Acute) Left knee pain (Acute) Fatigue (Acute) Lipoma of back (Acute) Lumbar radiculopathy, chronic (Acute) Retroperitoneal mass (Acute) Sciatica of right side (Acute) Portal hypertension (Acute) Cough (Acute) Back pain (Acute) Malaise and fatigue (Acute) Left shoulder pain (Acute) Generalized abdominal pain (Acute) Incisional hernia (Acute) Generalized anxiety disorder with panic attacks (Acute) Insomnia (Acute) Hand paresthesia (Acute) Hypocalcemia (Acute) Preoperative examination (Acute) Shortness of breath (Acute) BMI 45.0-49.9, adult (Acute) Hiatal hernia (Acute) Nausea & vomiting (Acute) Constipation by delayed colonic transit (Acute) Rib pain on right side (Acute) Pneumonia due to 2019 novel coronavirus (Acute) Vertigo (Acute) Hernia (Acute) Pancreatitis (Acute) IBS (irritable bowel syndrome) (Acute) HTN (hypertension) (Acute) Renal calculi (Acute) Osteopenia (Acute) Morbid obesity due to excess calories (Acute) History of parathyroid surgery (Acute) Vitamin D deficiency (Acute) Hypoparathyroidism (Acute) Past Medical History Medical History Pancreatitis IBS (irritable bowel syndrome) Arthritis Depression Asthma Sleep apnea HTN (hypertension) Renal calculi Osteopenia Morbid obesity due to excess calories Vitamin D deficiency Hypoparathyroidism Renal colic Chronic abdominal pain Family History Family History Father Medical history unknown Mother Cancer Paternal Grandmother Diabetes Paternal Grandfather Diabetes Daughter Behavioral problem Family/Other FH: mental illness Family history of problems with anesthesia: No Surgical History Surgical History Hx of colonoscopy H/O thyroidectomy History of esophagogastroduodenoscopy (EGD) History of parathyroid surgery History of hernia repair Status post excision of lipoma (09/26/21) H/O left knee surgery History of cholecystectomy H/O: hysterectomy History of Problems with Anesthesia: No Social History Social History Household Members: None Housing: Apartment Are you a primary career development coordinator to a significant other at home: No Do you presently have visiting nurse or other home services: No Alcohol intake: never Patient Tobacco Use Status: Never used Tobacco e-Cigarette/Vaping Use: Never Used Second Hand Smoke Exposure: No Use of substances other than those prescribed or required for medical reasons: No Have you been hit, kicked, punched, or otherwise hurt by someone within the past year? If so, by whom?: No Are you DNR?: No Advance Directives: No Advance Directives Information Provided: Yes Advance Directives on File: Yes Advance Directives Date on File: 11/02/21 Recently lost weight without trying: No Eating poorly because of decreased appetite: No Nutrition Risks: No Nutritional Risk Current occupational status: unemployed and disabled Cognitive needs: No Hearing needs: No Vision needs: No Meds Allergies Allergy/AdvReac Type Severity Reaction Status Date / Time ibuprofen [IBUPROFEN] Allergy Intermediate RASH Verified 09/10/23 08:35 lisinopril [LISINOPRIL] Allergy Intermediate RASH Verified 09/10/23 08:35 lactulose [LACTULOSE] Allergy Mild STOMACH Verified 09/10/23 08:35 ACHE tizanidine AdvReac Intermediate bradycardia Verified 09/10/23 08:35 Home Medications ?Medication ?Instructions ?Recorded ?Confirmed ?Last Taken ?Type clonazepam 0.5 mg tablet 0.5 mg PO BEDTIME 06/28/20 09/02/23 Unknown History buspirone 10 mg tablet 10 mg PO BID 07/11/21 09/02/23 Unknown History zolpidem 12.5 mg tablet,extended 12.5 mg PO BEDTIME PRN Insomnia 10/04/21 09/02/23 Unknown History release,multiphase Exam Height,Weight and Vital Signs: Height 5 ft Weight 120.202 kg Pertinent Lab Results Pertinent Lab Results: Laboratory Tests 09/05/23 12:15 WBC 7.3 Hgb 13.3 Hct 39.1 Plt Count 258 Sodium 142 Potassium 4.5 Chloride 104 Carbon Dioxide 31 H BUN 13 Creatinine 0.90 Assessment and Plan Final Anesthetic Review Family History of Problems with Anesthesia: No History of Problems with Anesthesia: No Documented by User: Lubna Rodriguez MD 09/10/23 09:51 PMFSH Past Medical History Medical History Pancreatitis IBS (irritable bowel syndrome) Arthritis Depression Asthma Sleep apnea HTN (hypertension) Renal calculi Osteopenia Morbid obesity due to excess calories Vitamin D deficiency Hypoparathyroidism Renal colic Chronic abdominal pain Family History Family History Father Medical history unknown Mother Cancer Paternal Grandmother Diabetes Paternal Grandfather Diabetes Daughter Behavioral problem Family/Other FH: mental illness Surgical History Surgical History Hx of colonoscopy H/O thyroidectomy History of esophagogastroduodenoscopy (EGD) History of parathyroid surgery History of hernia repair Status post excision of lipoma (09/26/21) H/O left knee surgery History of cholecystectomy H/O: hysterectomy Social History Social History Household Members: None Housing: Apartment Are you a primary career development coordinator to a significant other at home: No Do you presently have visiting nurse or other home services: No Alcohol intake: never Patient Tobacco Use Status: Never used Tobacco e-Cigarette/Vaping Use: Never Used Second Hand Smoke Exposure: No Use of substances other than those prescribed or required for medical reasons: No Have you been hit, kicked, punched, or otherwise hurt by someone within the past year? If so, by whom?: No Are you DNR?: No Advance Directives: No Advance Directives Information Provided: Yes Advance Directives on File: Yes Advance Directives Date on File: 11/02/21 Recently lost weight without trying: No Eating poorly because of decreased appetite: No Nutrition Risks: No Nutritional Risk Current occupational status: unemployed and disabled Cognitive needs: No Hearing needs: No Vision needs: No Meds Allergies Allergy/AdvReac Type Severity Reaction Status Date / Time ibuprofen [IBUPROFEN] Allergy Intermediate RASH Verified 09/10/23 08:35 lisinopril [LISINOPRIL] Allergy Intermediate RASH Verified 09/10/23 08:35 lactulose [LACTULOSE] Allergy Mild STOMACH Verified 09/10/23 08:35 ACHE tizanidine AdvReac Intermediate bradycardia Verified 09/10/23 08:35 Home Medications ?Medication ?Instructions ?Recorded ?Confirmed ?Last Taken ?Type clonazepam 0.5 mg tablet 0.5 mg PO BEDTIME 06/28/20 09/02/23 Unknown History buspirone 10 mg tablet 10 mg PO BID 07/11/21 09/02/23 Unknown History zolpidem 12.5 mg tablet,extended 12.5 mg PO BEDTIME PRN Insomnia 10/04/21 09/02/23 Unknown History release,multiphase Exam Airway Mallampati Class: III (caps top front 2) TM Dist: >3cm Neck ROM: Full Heart: rrr Lungs: cta Assessment and Plan Assessment Anesthesia Assessment: Anesthesia Plan Discussed and Chart Reviewed Final Anesthetic Review NPO: Yes ASA Class: III Final Preanesthetic Review: No Changes in Pt Med Stat, Meds/Allgs Chart Reviewed and Consent Obtained/Reviewed Patient Risk: Intermediate Procedure Risk: Low Anesthetic Plan Anesthetic Plan: GA Disposition: Standard PACU
[2023-09-10] VITALS (9 sets, daily range): BP systolic 127–165; BP diastolic 69–98; PULSE 76–80; RESP 16–20; TEMP 36.2–36.4; O2SAT 95–100
[2023-09-10] MEDS: Lactated Ringers 1,000 ML 100 ML IVCONT (09:25)
--- NOTE | 2023-09-10 09:40 | MHC.SHP ---
Pre-Procedural Eval Section A - 24 Hr Update-Section A only Date of Service: 09/10/23 The patient is an INPATIENT: No Changes since office visit: Yes Patient answered all questions; No Cold of Flu in the past 2 weeks, No New Medical Problems and No Changes in Medication The patient has been examined within 24 hours of the surgical procedure. The History & Physical has been completed within 30 days and I have reviewed it.: Yes Section B - Complete if H&P > 30 days Chief Complaint: Benign lipomatous neoplasm of skin and subcutaneou Details of Present Illness: No change from previous visit Relevant Family History (Specify if Yes): No Relevant Social History: None Present Medications: see Short Stay Collaborative assessment Medical History: Significant History (Diabetes, asthma, obesity) History of Previous Operations: No relevant previous surgery Allergies: Allergies Allergy/AdvReac Type Severity Reaction Status Date / Time ibuprofen [IBUPROFEN] Allergy Intermediate RASH Verified 09/10/23 08:35 lisinopril [LISINOPRIL] Allergy Intermediate RASH Verified 09/10/23 08:35 lactulose [LACTULOSE] Allergy Mild STOMACH Verified 09/10/23 08:35 ACHE tizanidine AdvReac Intermediate bradycardia Verified 09/10/23 08:35 Review of Systems Sugical H&P ROS: Negative: Constitution, Cardiovascular, Respiratory, Neurological, Psychiatric, Hem-Onc, Allergic/Immunologic, Gastrointestinal, Genitourinary, Musculoskeletal, Integumentary, Endocrine and Eyes/Ears/Nose/Throat Exam Surgical H&P Exam: Normal: HEENT, Normal: Heart, Normal: Lungs, Normal: Extremities, Normal: Abdomen, Normal: Skin and Normal: Neurological Plan Diagnosis/Plan: Unchanged I have reviewed the history and physical and performed a pertinent physical examination on my patient. No changes have occurred unless specified. Time Spent With Patient Time: Total time managing care of this patient today ____ minutes.
--- NOTE | 2023-09-10 11:34 | P.OP_ITS ---
Operative Note Operative Note Date of Service: 09/10/23 Narrative: Preoperative diagnosis: Lipoma of right neck, right arm, and back x4 Postoperative diagnosis: Same Procedure: Excision of lipoma right neck, right arm, and back x4 Surgeon: Jamal Ragsdale MD Mussel Farmer: Katelin Sheikh PA-C, DIXIE Rondon Anesthesia: General endotracheal Indications for procedure: 52-year-old female patient with history of morbid obesity and asthma presenting with several symptomatic lipomas including a 4 cm lipoma of the right neck at the supraclavicular region, 1 on the right forearm measuring 3 cm, and another 4 on the back including a right lateral lipoma measuring 5 x 3 cm, an upper midline lesion measuring 4 cm in diameter, a lower midline lesion measuring 3 cm in diameter, and a mid left back lesion measuring 2 cm. All were mobile within the subcutaneous tissue in most consistent with lipomas. Operative findings: Lipomas of the right neck measuring 4 cm, right forearm measuring 3 cm, and back x4 as noted above Specimen: Lipoma right neck, right arm, and back x4 Estimated blood loss: 15 mL. Complications: None Procedure details: Patient was brought to the OR and placed in a supine position. After administering general anesthesia the patient's right neck and right arm were prepped with ChloraPrep and draped in a sterile fashion. A surgical time-out was called the consent confirmed. Patient received preoperative and Venodyne boots were in place. Local anesthesia was infiltrated over the lesion in the right neck. Incision was then made from anterior to posterior carried out through subcutaneous tissue. The lipoma was palpated in grasped with an Allis clamp. It was then dissected from the surrounding subcutaneous tissue with electrocautery and blunt dissection. Several slightly enlarged lymph nodes were noted within this fat pad. This was removed and sent to pathology for further examination. This measured approximately 4 cm in diameter. Hemostasis was assured using electrocautery. Dermis was then reapproximated using interrupted 3-0 Polysorb sutures. Skin was closed using a running subcuticular 4-0 Polysorb suture. Attention was then directed to the right arm were again local was infiltrated in longitudinal fashion directly over the lipoma in the forearm. Incision was then made with a scalpel carried out through subcutaneous tissue. The lipoma was immediately identified and bluntly dissected. This measured 3 cm in diameter. After assuring adequate hemostasis the dermis was reapproximated using interrupted 3-0 Polysorb sutures. Skin was then closed using a running subcuticular 4-0 Polysorb suture. Attention was then directed to the back. The patient was repositioned to a left lateral decubitus position. Arms in legs were secured and protected with pillows. The back was then prepped with ChloraPrep and draped in a sterile fashion. Beginning with the right lateral lipoma a transverse incision was then made over the lipoma and carried out through subcutaneous tissue. Hemostasis was assured using electrocautery. Combination of electrocautery and blunt dissection was then used to dissect the lipoma from the surrounding subcutaneous tissue. The lesion measured 5 x 3 cm. This was passed off the table and sent to pathology further examination. After assuring adequate hemostasis the dermis was reapproximated using interrupted 3-0 Polysorb sutures skin closed using a running subcuticular 4-0 Polysorb suture. Attention was then directed to the more superior midline lesion which was also anesthetized. Incision was made in a transverse fashion directly over the lipoma and carried out through subcutaneous tissue up to lipoma. Blunt dissection was then used to dissect the lesion from the surrounding subcutaneous tissue. Adequate hemostasis was assured using electrocautery. The lesion measured 4 cm in diameter. This was sent to pathology for further examination. Dermis was then reapproximated using interrupted 3-0 Polysorb sutures and skin closed using a running subcuticular 4-0 Polysorb suture. Attention was then directed to the lower midline back lesion. Again local was infiltrated around the lesion and a transverse incision made directly over the lipoma. This was then carried out through subcutaneous tissue up to the lipoma. Combination of blunt dissection and electrocautery was then used to dissect the lesion from the surrounding subcutaneous tissue. This lesion measured 3 cm in diameter. Adequate hemostasis was assured using electrocautery. Dermis was then reapproximated using interrupted 3-0 Polysorb sutures. Skin was closed using a running subcuticular 4-0 Polysorb suture. Finally touch was directed to the left lateral lesion. Local was infiltrated over the lesion and incision made in a transverse fashion directly over the lipoma. This was then carried out through subcutaneous tissue up to lipoma. Combination of blunt and electrocautery dissection was then used to dissect the lesion from the surrounding subcutaneous tissue. This lesion measured 2 cm in diameter. Was passed off the table and sent to pathology for further examination. After assuring adequate hemostasis the dermis was reapproximated using interrupted 3-0 Polysorb sutures and skin closed using a running subcuticular 4-0 Polysorb suture. Sterile dressings were then applied including Steri-Strips, 2 x 2 gauze and Tegaderm over each lesion. The patient tolerated the procedure well. Sponge, instrument, and needle counts reported as correct. The patient was transferred to PACU in stable condition.
[2023-09-10] MEDS: fentaNYL citrate/PF 100 MCG/2 ML VIAL 50 MCG IVPUSH (12:30)
[2023-09-10] MEDS: oxyCODONE HCl Immed Release 5 MG TABLET PO (12:35)
== END 2023-09-10 14:11 | disposition home or self-care (01) ==
PROVIDERS: PCP Physician Assistant; Visit Provider Surgery
PROC: (CPT 21552; principal; 2023-09-10 09:50)
DX: D17.0 Benign lipomatous neoplasm of skin and subcutaneous tissue of head, face and neck (principal); D17.21 Benign lipomatous neoplasm of skin and subcutaneous tissue of right arm; D17.1 Benign lipomatous neoplasm of skin and subcutaneous tissue of trunk; J45.909 Unspecified asthma, uncomplicated; E89.2 Postprocedural hypoparathyroidism; I10 Essential (primary) hypertension; G47.33 Obstructive sleep apnea (adult) (pediatric); E66.01 Morbid (severe) obesity due to excess calories; Z68.43 Body mass index [BMI] 50.0-59.9, adult; Z79.85 Long-term (current) use of injectable non-insulin antidiabetic drugs; Z79.899 Other long term (current) drug therapy; Z88.6 Allergy status to analgesic agent; Z88.8 Allergy status to other drugs, medicaments and biological substances; Z98.890 Other specified postprocedural states; Z56.0 Unemployment, unspecified
CPT/HCPCS: 21552; 25071; 21931 ×3; 21930; 88304; 88305; J0131; J0330; J0665; J0690; J1100; J2250; J2405; J2704; J3010

== ENCOUNTER → 2023-09-10 08:17 | Outpatient (BNV) | payer OTHER, SELFPAY | PROVIDERS: PCP Physician Assistant; Visit Provider Surgery | DX: D17.0 Benign lipomatous neoplasm of skin and subcutaneous tissue of head, face and neck (principal); D17.21 Benign lipomatous neoplasm of skin and subcutaneous tissue of right arm; D17.1 Benign lipomatous neoplasm of skin and subcutaneous tissue of trunk | CPT/HCPCS: 21552; 21930; 21931; 24076 ==

== ENCOUNTER 2023-09-19 10:39 | Outpatient (AMB) | payer OTHER, SELFPAY ==
--- NOTE | 2023-09-19 10:40 | MHC.OFFVIS ---
Vital Signs 09/19/23 10:56 Height 5 ft Weight 260 lb 2.327 oz BMI 50.8 BP 176/89 H Blood Pressure Location Lt brachial Position Sitting Pulse 72 Intake Visit Reasons: S/P excision of multiple lipomas (x6) Intake Note: Patient is seen in office for post op assessment post excision of multiple lipomas. Pt c/o: excision of the right side of the neck is very painful and swollen, admits to chills and numbness around the area, the other areas are healing well Print Journalist Required: No Accompanied by: Self / Same As Patient Allergies ibuprofen [IBUPROFEN] Allergy (Intermediate, Verified 09/19/23 10:56) RASH lisinopril [LISINOPRIL] Allergy (Intermediate, Verified 09/19/23 10:56) RASH lactulose [LACTULOSE] Allergy (Mild, Verified 09/19/23 10:56) STOMACH ACHE tizanidine Adverse Reaction (Intermediate, Verified 09/19/23 10:56) bradycardia Medication List - Last Reconciled 09/19/23 by Jamal Ragsdale MD albuterol sulfate 90 mcg/actuation (Ventolin HFA) 1 inh inhalation QID 30 days amlodipine 5 mg PO QAM blood pressure kit-extra large As directed buspirone 10 mg PO BID calcitriol 0.25 mcg PO DAILY 30 days cephalexin 500 mg PO Q8H 10 days cholecalciferol (vitamin D3) (Vitamin D3) 25 mcg PO DAILY clonazepam 0.5 mg PO BEDTIME furosemide 20 mg PO DAILY hydrochlorothiazide 12.5 mg PO DAILY 90 days hyoscyamine sulfate (Levsin/SL) 0.125 mg sublingual BID-QID PRN inhalational spacing device As directed meclizine 25 mg PO DAILY PRN methocarbamol 500 mg PO TID PRN oxycodone 5 mg PO Q6H PRN pantoprazole 40 mg PO DAILY propranolol 10 mg PO BID topiramate 25 mg PO BEDTIME zolpidem ER 12.5 mg PO BEDTIME PRN HPI Comments Details: 52-year-old female patient returning 1 week following excision of multiple lipomas including the right neck, right arm and back. She reports swelling in the right neck with increased pain. She returns today for wound check. Pathology revealed lipoma with lymph nodes in the right neck. The remaining lesions were essentially lipomas. [facility]LY [facility] Medical History Pancreatitis IBS (irritable bowel syndrome) Arthritis Depression Asthma Sleep apnea HTN (hypertension) Renal calculi Osteopenia Morbid obesity due to excess calories Vitamin D deficiency Hypoparathyroidism Renal colic Chronic abdominal pain Surgical History Hx of colonoscopy H/O thyroidectomy History of esophagogastroduodenoscopy (EGD) History of parathyroid surgery History of hernia repair Status post excision of lipoma (09/26/21) H/O left knee surgery History of cholecystectomy H/O: hysterectomy Family History Father Medical history unknown Mother Cancer Paternal Grandmother Diabetes Paternal Grandfather Diabetes Daughter Behavioral problem Family/Other FH: mental illness Social History Household Members: None Housing: Apartment Are you a primary residential care facility manager to a significant other at home: No Do you presently have visiting nurse or other home services: No Alcohol intake: never Patient Tobacco Use Status: Never used Tobacco e-Cigarette/Vaping Use: Never Used Second Hand Smoke Exposure: No Advance Directives Date on File: 11/02/21 Current occupational status: unemployed and disabled Cognitive needs: No Hearing needs: No Vision needs: No Physical Exam Const General: no acute distress Neck Other: Incision is clean, dry and intact. There is area of swelling which may indicate an underlying seroma following lymph node excision. No erythema is appreciated in the surrounding skin. Back/Spine/Pelvis Other: Excision sites in the back are clean, dry, and intact. There is some skin irritation from the Steri-Strips which were all removed. No hematoma or seroma is appreciated. Extrem Other: Excision site in the right arm is clean and intact without seroma or hematoma. Steri-Strips removed. Assessment & Plan Assessment & Plan (1) Lipoma of neck: Code(s): D17.0 - Benign lipomatous neoplasm of skin and subcutaneous tissue of head, face and neck Category: Medical Plan Patient with multiple lipomas throughout her body. There appears to be a small seroma in the right neck which will be observed. This may be due to the lymph nodes within the specimen. I recommended observation with follow-up in approximately 2 weeks. I would also recommend no further lipoma excision in the future. The patient expressed understanding and agrees with the plan. Coding Level of Care Code Global (65983) Diagnoses Lipoma of neck D17.0
[2023-09-19 10:56] VITALS: BP 176/89; PULSE 72; BMI 50.8
== END 2023-09-19 10:59 | disposition home or self-care (01) ==
PROVIDERS: PCP Physician Assistant; Visit Provider Surgery
DX: D17.0 Benign lipomatous neoplasm of skin and subcutaneous tissue of head, face and neck (principal)
CPT/HCPCS: 99024

== ENCOUNTER → 2023-09-19 10:39 | Outpatient (BNVA) | payer OTHER, SELFPAY | PROVIDERS: PCP Physician Assistant; Visit Provider Surgery | DX: L76.33 Postprocedural seroma of skin and subcutaneous tissue following a dermatologic procedure (principal); D17.0 Benign lipomatous neoplasm of skin and subcutaneous tissue of head, face and neck; D17.1 Benign lipomatous neoplasm of skin and subcutaneous tissue of trunk; D17.21 Benign lipomatous neoplasm of skin and subcutaneous tissue of right arm | CPT/HCPCS: 99212 ==

== ENCOUNTER 2023-10-03 09:41 | Outpatient (AMB) | payer OTHER, SELFPAY ==
--- NOTE | 2023-10-03 09:48 | A.OFFVIS_ITS ---
Vital Signs 3 10/03/23 09:50 Height 5 ft Weight 260 lb 2.327 oz BMI 50.8 BP 149/48 H Blood Pressure Location Lt radial Position Sitting Pulse 75 Intake Visit Reasons: 2 wk follow up excision of multiple lipomas (x6) Intake Note: This patient presents for two week follow-status post excision multiple lipomas (x6). Patient c/o; reports pain and burning sensation, reports dysphagia, reports lump on neck incision, reports feeling fatigue and tired. Stand Up Comedian Required: No Accompanied by: Self / Same As Patient Allergies ibuprofen [IBUPROFEN] Allergy (Intermediate, Verified 10/03/23 09:59) RASH lisinopril [LISINOPRIL] Allergy (Intermediate, Verified 10/03/23 09:59) RASH lactulose [LACTULOSE] Allergy (Mild, Verified 10/03/23 09:59) STOMACH ACHE tizanidine Adverse Reaction (Intermediate, Verified 10/03/23 09:59) bradycardia Medication List - Last Reconciled 10/03/23 by Jamal Ragsdale MD albuterol sulfate 90 mcg/actuation (Ventolin HFA) 1 inh inhalation QID 30 days amlodipine 5 mg PO QAM blood pressure kit-extra large As directed buspirone 10 mg PO BID calcitriol 0.25 mcg PO DAILY 30 days cephalexin 500 mg PO Q8H 10 days cholecalciferol (vitamin D3) (Vitamin D3) 25 mcg PO DAILY clonazepam 0.5 mg PO BEDTIME furosemide 20 mg PO DAILY hydrochlorothiazide 12.5 mg PO DAILY 90 days hyoscyamine sulfate (Levsin/SL) 0.125 mg sublingual BID-QID PRN inhalational spacing device As directed meclizine 25 mg PO DAILY PRN methocarbamol 500 mg PO TID PRN oxycodone 5 mg PO Q6H PRN oxycodone 5 mg (5 mL) PO Q6H PRN pantoprazole 40 mg PO DAILY propranolol 10 mg PO BID topiramate 25 mg PO BEDTIME zolpidem ER 12.5 mg PO BEDTIME PRN HPI Comments Details: Patient reports continued pain and swelling from the right neck incision. Having trouble sleeping because of the pain. [facility] Medical History Pancreatitis IBS (irritable bowel syndrome) Arthritis Depression Asthma Sleep apnea HTN (hypertension) Renal calculi Osteopenia Morbid obesity due to excess calories Vitamin D deficiency Hypoparathyroidism Renal colic Chronic abdominal pain Surgical History Hx of colonoscopy H/O thyroidectomy History of esophagogastroduodenoscopy (EGD) History of parathyroid surgery History of hernia repair Status post excision of lipoma (09/26/21) H/O left knee surgery History of cholecystectomy H/O: hysterectomy Family History Father Medical history unknown Mother Cancer Paternal Grandmother Diabetes Paternal Grandfather Diabetes Daughter Behavioral problem Family/Other FH: mental illness Social History Household Members: None Housing: Apartment Are you a primary technical healthcare consultant to a significant other at home: No Do you presently have visiting nurse or other home services: No Alcohol intake: never Patient Tobacco Use Status: Never used Tobacco e-Cigarette/Vaping Use: Never Used Second Hand Smoke Exposure: No Advance Directives Date on File: 11/02/21 Current occupational status: unemployed and disabled Cognitive needs: No Hearing needs: No Vision needs: No Physical Exam Vital Signs: Last Vital Signs Pulse 75 10/03/23 09:50 BP 149/48 H 10/03/23 09:50 BMI result Body Mass Index 50.8 Neck Other: Supraclavicular incision clean and intact without erythema. Palpable seroma located below incision, tender to palpation. Neck images: 2 1. Site of seroma. Skin Other: Warm, dry, no rash Assessment & Plan Assessment & Plan (1) Lipoma of neck: Code(s): D17.0 - Benign lipomatous neoplasm of skin and subcutaneous tissue of head, face and neck Category: Medical (2) Seroma of musculoskeletal structure after musculoskeletal system procedure: Code(s): M96.842 - Postprocedural seroma of a musculoskeletal structure following a musculoskeletal system procedure Category: Medical Plan 52-year-old female patient status post excision of a painful lump in the right neck now with postoperative seroma after excision of lymph node. Discussed possible needle aspiration either in the office or with ultrasound guidance. I recommended ultrasound guidance as the best option. Patient expressed understanding and agrees with the plan. Refilled the pain medication also provided for patient. Follow-up based on ultrasound results. Orders: Orders 2 US soft tiss head and/or neck Today D17.0 - Benign lipomatous neoplasm of skin and subcutaneous tissue of head, face and neck US guided punture aspiration Today D17.0 - Benign lipomatous neoplasm of skin and subcutaneous tissue of head, face and neck, M96.842 - Postprocedural seroma of a musculoskeletal structure following a musculoskeletal system procedure Coding Level of Care Code Est Pt Level 3 (50439) Diagnoses Lipoma of neck D17.0 Seroma of musculoskeletal structure after musculoskeletal system procedure M96.842
[2023-10-03 09:50] VITALS: BP 149/48; PULSE 75; BMI 50.8
== END 2023-10-03 10:13 | disposition home or self-care (01) ==
PROVIDERS: PCP Physician Assistant; Visit Provider Surgery
DX: D17.0 Benign lipomatous neoplasm of skin and subcutaneous tissue of head, face and neck (principal); M96.842 Postprocedural seroma of a musculoskeletal structure following a musculoskeletal system procedure
CPT/HCPCS: 99024

== ENCOUNTER → 2023-10-03 09:41 | Outpatient (BNVA) | payer OTHER, SELFPAY | PROVIDERS: PCP Physician Assistant; Visit Provider Surgery | DX: D17.0 Benign lipomatous neoplasm of skin and subcutaneous tissue of head, face and neck (principal); M96.842 Postprocedural seroma of a musculoskeletal structure following a musculoskeletal system procedure | CPT/HCPCS: 99212 ==

== ENCOUNTER 2023-10-16 13:02 | Outpatient (REF) | payer OTHER, SELFPAY ==
--- NOTE | ~2023-10-16 | US_ITS ---
EXAMINATION: US SOFT TISSUE HEAD/NECK CLINICAL INFORMATION: Previous lymph node biopsy right supraclavicular region now with seroma. COMPARISON: Ultrasound soft tissue neck 06/19/2023. TECHNIQUE: Linear transducer mckeon-scale and color Doppler examination of the right supraclavicular neck. FINDINGS: Targeted ultrasound images were obtained by the supervisor pleating of the area of concern as indicated by the patient in the right supraclavicular region and demonstrated a small fluid collection measuring 3.1 x 0.6 x 0.8 cm. Just deep to this region in the area of the scar/incision, there is a focal heterogeneous, hyperechoic area with ill-defined margins and no demonstrable internal vascularity of indeterminate etiology. Differential considerations include postsurgical change, recurrent/residual lipoma versus other etiology. Radiologist was not in attendance. Images were later provided for interpretation. US/US soft tiss head and/or neck IMPRESSION: Small fluid collection measuring 3.1 cm in the area of concern as indicated by the patient in the right supraclavicular region, possibly representing a postoperative fluid collection such as a seroma. Just deep to this region in the area of the scar/incision, there is a focal heterogeneous, hyperechoic area with ill-defined margins and no demonstrable internal vascularity of indeterminate etiology. Differential considerations include postsurgical change, recurrent/residual lesion versus other etiology. Correlation with clinical exam and surgical consultation recommended to determine further management including possible biopsy.
== END 2023-10-16 13:03 | disposition home or self-care (01) ==
LOC: HO.US 13:02
PROVIDERS: PCP Physician Assistant; Visit Provider Surgery
DX: D17.0 Benign lipomatous neoplasm of skin and subcutaneous tissue of head, face and neck (principal)
CPT/HCPCS: 76536

== ENCOUNTER 2023-10-20 12:10 | Outpatient (REF) | payer OTHER, SELFPAY ==
--- NOTE | ~2023-10-20 | US_ITS ---
Ultrasound-guided aspiration of right supraclavicular fluid collection status post excision of lipoma Indication: Right supraclavicular pain after excision of lipoma. Diagnostic ultrasound demonstrates a very scant amount of fluid deep to the surgical scar. Surgery requests aspiration to rule out infection. Procedure: Informed consent was obtained from the patient prior to the procedure. During this process, the procedure and potential alternatives were explained, along with the intended outcome and benefits. The risks of the procedure, as well as the risks of not doing the procedure, were discussed. The patient was given the opportunity to ask questions regarding the procedure and appeared competent to make medical decisions. A signed consent form which documents this discussion was placed in the medical record. A timeout was performed in the room. The patient was placed in a supine position with the neck extended. The right side of the neck and chest was prepped and draped in routine sterile fashion. 1% lidocaine was used as anesthetic. Under real-time ultrasound guidance, a 22-gauge spinal needle was advanced into the hypoechoic region deep to the surgical scar. No fluid could be aspirated. The needle was removed.. Postprocedure images showed no hematoma. A dry dressing was applied to the right supraclavicular puncture site. The patient tolerated the procedure well with no immediate complications. Permanent ultrasound images were archived to the procedure. US/US guided fine needle asp Impression: Ultrasound-guided right supraclavicular aspiration yielding no fluid. This procedure was performed by Mohamud Gonzalez PA-C, and directly supervised by Dr. Barahona
[2023-10-20] MEDS: Lidocaine HCl 1 % MPF 5 ML VIAL SUBCUT (13:47)
== END 2023-10-20 12:11 | disposition home or self-care (01) ==
LOC: HO.US 12:10
PROVIDERS: PCP Physician Assistant; Visit Provider Surgery
DX: M96.842 Postprocedural seroma of a musculoskeletal structure following a musculoskeletal system procedure (principal)
CPT/HCPCS: 10005

== ENCOUNTER → 2023-10-20 12:14 | Outpatient (BNV) | payer OTHER, SELFPAY | PROVIDERS: PCP Physician Assistant; Visit Provider Physician Assistant Surgical | DX: R22.1 Localized swelling, mass and lump, neck (principal) | CPT/HCPCS: 10005 ==

== ENCOUNTER 2023-10-30 12:28 | Outpatient (AMB) | payer OTHER, SELFPAY ==
--- NOTE | 2023-10-30 12:58 | MHC.OFFVIS ---
Vital Signs 10/30/23 13:24 Height 5 ft Weight 264 lb 8 oz BMI 51.7 BP 141/87 H Blood Pressure Location Lt brachial Position Sitting Pulse 84 Intake Visit Reasons: ultrasound results, post seroma lymph node neck Intake Note: Patient is seen in office for ultrasound results, post seroma of the neck. Pt c/o: admits to increase pain in the area, radiates to the arm, had ultrasound done here for results Registered Nurse Maternity Required: No Accompanied by: Self / Same As Patient Allergies ibuprofen [IBUPROFEN] Allergy (Intermediate, Verified 10/30/23 13:25) RASH lisinopril [LISINOPRIL] Allergy (Intermediate, Verified 10/30/23 13:25) RASH lactulose [LACTULOSE] Allergy (Mild, Verified 10/30/23 13:25) STOMACH ACHE tizanidine Adverse Reaction (Intermediate, Verified 10/30/23 13:25) bradycardia HPI Comments Details: 52-year-old female returning following excision of a lipoma of the right supraclavicular region. She continues to have some discomfort associated with this extending over the clavicle. She was evaluated with ultrasound and a small fluid collection identified however needle aspiration revealed no fluid to be aspirated. PENDING SALE TO [facility] Medical History Pancreatitis IBS (irritable bowel syndrome) Arthritis Depression Asthma Sleep apnea HTN (hypertension) Renal calculi Osteopenia Morbid obesity due to excess calories Vitamin D deficiency Hypoparathyroidism Renal colic Chronic abdominal pain Surgical History Hx of colonoscopy H/O thyroidectomy History of esophagogastroduodenoscopy (EGD) History of parathyroid surgery History of hernia repair Status post excision of lipoma (09/26/21) H/O left knee surgery History of cholecystectomy H/O: hysterectomy Family History Father Medical history unknown Mother Cancer Paternal Grandmother Diabetes Paternal Grandfather Diabetes Daughter Behavioral problem Family/Other FH: mental illness Social History Household Members: None Housing: Apartment Are you a primary direct care worker to a significant other at home: No Do you presently have visiting nurse or other home services: No Alcohol intake: never Patient Tobacco Use Status: Never used Tobacco e-Cigarette/Vaping Use: Never Used Second Hand Smoke Exposure: No Advance Directives Date on File: 11/02/21 Current occupational status: unemployed and disabled Cognitive needs: No Hearing needs: No Vision needs: No Physical Exam Vital Signs: Last Vital Signs Pulse 84 10/30/23 13:24 BP 141/87 H 10/30/23 13:24 BMI result Body Mass Index 51.7 Neck Other: Supraclavicular incision clean and intact without erythema. Residual swelling is noted but no evidence of abscess or seroma. Skin Other: Warm, dry, no rash Assessment & Plan Assessment & Plan (1) Seroma of musculoskeletal structure after musculoskeletal system procedure: Code(s): M96.842 - Postprocedural seroma of a musculoskeletal structure following a musculoskeletal system procedure Category: Medical Plan Workup revealed small seroma by ultrasound however needle aspiration was unable to produce any fluid due to its small size. I suggest the patient follow-up with her pain clinical program coordinator. Her wounds are now well healed with no evidence of infection. She should follow up as needed. She was given 1 last prescription for the oxycodone elix. Medications: Refilled oxycodone Partial Fill upon patient request. 5 mg (5 mL) PO Q6H PRN 200 mL 0RF pain (scale score 7-10) D17.0 - Benign lipomatous neoplasm of skin and subcutaneous tissue of head, face and neck Coding Level of Care Code Global (38122) Diagnoses Seroma of musculoskeletal structure after musculoskeletal system procedure M96.842
[2023-10-30 13:24] VITALS: BP 141/87; PULSE 84; BMI 51.7
== END 2023-10-30 13:19 | disposition home or self-care (01) ==
PROVIDERS: PCP Physician Assistant; Visit Provider Surgery
DX: M96.842 Postprocedural seroma of a musculoskeletal structure following a musculoskeletal system procedure (principal)
CPT/HCPCS: 99024

== ENCOUNTER → 2023-10-30 12:28 | Outpatient (BNVA) | payer OTHER, SELFPAY | PROVIDERS: PCP Physician Assistant; Visit Provider Surgery | DX: M96.842 Postprocedural seroma of a musculoskeletal structure following a musculoskeletal system procedure (principal) | CPT/HCPCS: 99212 ==

== ENCOUNTER 2023-11-05 10:56 | Outpatient (AMB) | payer OTHER, SELFPAY ==
[2023-11-05 10:57] VITALS: BP 118/74; PULSE 88; O2SAT 98; BMI 51.6
--- NOTE | 2023-11-05 10:57 | A.OFFPC_ITS ---
Vital Signs 11/05/23 10:57 Height 5 ft Weight 264 lb BMI 51.6 BP 118/74 Blood Pressure Location Lt brachial Position Sitting Pulse 88 Pulse Source Pulse Oximeter Pulse Oximetry (%) 98 Oxygen Delivery Method Room Air Intake Visit Reasons: Annual Exam Intake Note: The patient is here today for a physical and is requesting to resume Wegovy medication to aid in weight loss. Cemetery Keeper Required: No Accompanied by: Self / Same As Patient Allergies ibuprofen [IBUPROFEN] Allergy (Intermediate, Verified 11/05/23 10:58) RASH lisinopril [LISINOPRIL] Allergy (Intermediate, Verified 11/05/23 10:58) RASH lactulose [LACTULOSE] Allergy (Mild, Verified 11/05/23 10:58) STOMACH ACHE tizanidine Adverse Reaction (Intermediate, Verified 11/05/23 10:58) bradycardia Tobacco use date assessed: 07/03/23 Dental Screening Dental Screen Date: 07/03/23 HPI Annual Exam HPI Details Patient is a 52-year-old female here today for a annual physical ? Patient has a past history significant for hypertension, obesity, MDD, Incomnia, frequent migraines, hyperparathyroidism, IBS. Has recently had a cerumen removed from her neck by her general surgeon, has a some extended pain' issue to which she has been using oxycodone elix for few weeks now. Anxiety: Had a long discussion today in office about Her anxiety which has been worse over last several months due to issues at her apartment complex. She reports there is a lot of people in hallways making no is and causes her a lot of stress and anger. She has been having difficulty sleeping due to the noise. She is trying to get out of her apartment. This is leading to negative health effects. Obesity--patient's BMI today of 51.6. She is interested in restarting Wegovy for weight loss as she did report weight loss with the medication. There was some concern about hypokalemia while on this medication and will continue to m onitor her closely .. Hypertension: Her blood pressure today in office acceptable. Will continue her current dose of amlodipine 5 mg. Colon cancer screening- UTD - Dr katharina Queen: done 05/2023 - [facility]- 1 Vaccines- up-to-date with tetanus, needs pneumonia vaccine, declines COVID vaccine. Laboratory Tests 06/18/23 06/18/23 09/05/23 14:54 18:17 12:15 RBC 4.14 L Hgb 13.3 Potassium 3.2 L 3.1 L Creatinine 0.90 PFSH Medical History Pancreatitis IBS (irritable bowel syndrome) Arthritis Depression Asthma Sleep apnea HTN (hypertension) Renal calculi Osteopenia Morbid obesity due to excess calories Vitamin D deficiency Hypoparathyroidism Renal colic Chronic abdominal pain Surgical History Hx of colonoscopy H/O thyroidectomy History of esophagogastroduodenoscopy (EGD) History of parathyroid surgery History of hernia repair Status post excision of lipoma (09/26/21) H/O left knee surgery History of cholecystectomy H/O: hysterectomy Family History Father Medical history unknown Mother Cancer Paternal Grandmother Diabetes Paternal Grandfather Diabetes Daughter Behavioral problem Family/Other FH: mental illness Social History Household Members: None Housing: Apartment Are you a primary care aide to a significant other at home: No Do you presently have visiting nurse or other home services: No Alcohol intake: never Patient Tobacco Use Status: Never used Tobacco e-Cigarette/Vaping Use: Never Used Second Hand Smoke Exposure: No Advance Directives Date on File: 11/02/21 Current occupational status: unemployed and disabled Cognitive needs: No Hearing needs: No Vision needs: No Questionnaire Thrive Questionnaire Date Thrive assessed: 06/03/23 ALYSA-7 AMB Questionnaire ALYSA-7 Date ALYSA - 7 assessed: 06/03/23 Source: Developed by Drs. William Gallagher, Yasmin Shipley, Hari Ortiz and colleagues, with an educational hilda from [employer]. Review of Systems Const Denies body aches, Denies chills, Denies excessive sweating, Denies fatigue, Denies fever(s) and Denies headache(s) Eyes Denies blurry vision ENT Denies dysphagia, Denies vertigo, Denies dizziness, Denies headache(s), Denies hearing loss and Denies tinnitus Card Denies chest pain, Denies chest pain with activity, Denies syncope, Denies irregular heart rhythm and Denies dyspnea Resp Denies chest congestion, Denies cough, Denies hemoptysis, Denies dyspnea and Denies wheezing GI Denies abdominal pain, Denies melena, Denies hematochezia, Denies coffee ground emesis, Denies dysphagia, Denies diarrhea, Denies nausea and Denies vomiting Denies urinary frequency, Denies dysuria, Denies urinary hesitancy and Denies urinary urgency Musc Denies arthralgias, Denies limited range of motion, Denies muscle cramps and Denies muscle weakness Skin/Breast Denies rash and Denies skin ulcer Neuro Denies Abnormal speech present, Denies confusion, Denies vertigo, Denies dizziness, Denies syncope, Denies headache(s), Denies memory loss and Denies seizure-like activity Psych Denies anxiety, Denies confusion, Denies depression, Denies memory loss, Denies panic attacks and Denies paranoia Endo Denies excessive sweating, Denies fatigue, Denies flushing, Denies polydipsia and Denies polyuria Aller/Immun Denies wheezing Physical exam (Primary Care) Vital Signs: Last Vital Signs Pulse 88 11/05/23 10:57 BP 118/74 11/05/23 10:57 Pulse Ox 98 11/05/23 10:57 Oxygen Delivery Method Room Air 11/05/23 10:57 BMI result Body Mass Index 51.6 BMI Assessment/Plan discussion: High BMI High, discussed plan: lifestyle, weight reduction, dietary and physical activity Tobacco/Smoking Status: Tobacco use Status Tobacco use date assessed 07/03/23 11/05/23 10:58 Patient Tobacco Use Status Never used Tobacco 11/05/23 10:58 e-Cigarette/Vaping Use Never Used 11/05/23 10:58 Thrive Assessment: Date of Thrive Assessment Date Thrive assessed 06/03/23 11/05/23 10:58 Const Other: MORBIDLY OBESE General: cooperative, comfortable, no acute distress, alert and awake; No confusion Orientation/consciousness: oriented to person, oriented to place, patient oriented x3 and No confusion HENMT Head: Yes normocephalic Ears: external ears normal and TM's normal bilaterally Face and sinus: No sinus tenderness Mouth: Normal oral and palatal mucosa present and tongue normal Teeth and gingiva: dentition normal and gingiva normal Throat: Yes posterior oropharynx normal, Yes tonsils normal and Yes uvula midline Eyes Conjunctivae: conjunctivae normal Sclerae: sclerae normal Pupils: Equal, round and reactive pupils present EOM: EOMs intact bilaterally Direct Ophthalmoscopy: No no photophobia Neck Neck: Yes no lymphadenopathy, No tender and Yes no JVD Thyroid: Thyroid normal Carotids: no bruits Chest Chest palpation & inspection: no tenderness Resp Effort & Inspection: normal respiratory effort, no audible wheezes, not labored and no stridor Auscultation: no crackles, no rales, no rhonchi and no wheezes Cardio Jugular venous distension: no JVD Rate: regular rate, not bradycardic and not tachycardic Rhythm: regular rhythm Bruits: no carotid bruits Peripheral pulses: Peripheral pulses 2+ throughout GI Inspection: Yes normal to inspection, No abdominal wall ecchymosis and No visible herniation Palpation (GI): Soft to palpation, nontender, no guarding, not rigid and No hepatosplenomegaly present Auscultation: normoactive bowel sounds General: Yes no CVA tenderness Back/Spine/Pelvis Back: no CVA tenderness and No back tenderness Cervical Spine: cervical ROM normal Thoracic/Lumbar Spine: thoracic and lumbar spine normal to inspection, straight leg raise negative bilaterally, No thoraco-lumbar ROM limited and No lumbar spinal tenderness Skin Lesions: no lesions Rashes: no rashes Wounds: no wounds Neuro General: oriented to person, oriented to place, patient oriented x3, CN's II-XI intact bilaterally and No confusion Cranial nerves: Yes Equal, round and reactive pupils present and Yes Normal accommodation reflex present Cognition (Neuro): normal cognition Speech: No Abnormal speech present Gait exam (Neuro): Normal gait present Motor exam (neuro): 5/5 motor strength present throughout Extrem Right upper extremity: full ROM; no cyanosis Left upper extremity: full ROM; no cyanosis Right lower extremity: no edema Left lower extremity: no edema Psych Appearance: grossly normal Mental Status: mental status grossly normal Affect: normal affect Attitude: cooperative Thought process: Normal thought process present Assessment and Plan Assessment & Plan (1) Annual physical exam: Code(s): Z00.00 - Encounter for general adult medical examination without abnormal findings (2) Morbid obesity due to excess calories: Code(s): E66.01 - Morbid (severe) obesity due to excess calories Plan: Patient will be restart Wegovy for weight loss. She reports losing weight and benefit from Wegovy in the past though there was a concern about hypokalemia. Will recheck her labs Will follow-up in 4 weeks to evaluate for benefit. (3) BMI 45.0-49.9, adult: Code(s): Z68.42 - Body mass index [BMI] 45.0-49.9, adult Plan: As above (4) Hypoparathyroidism: Code(s): E20.9 - Hypoparathyroidism, unspecified Qualifiers: Hypoparathyroidism type: unspecified Qualified Code(s): E20.9 - Hypoparathyroidism, unspecified Plan: Patient has follow-up with endocrinology. Most recent parathyroid hormone and calcium has been fairly stable. She continues on Calcitrol (5) HTN (hypertension): Code(s): I10 - Essential (primary) hypertension Qualifiers: Hypertension type: primary hypertension Qualified Code(s): I10 - Essential (primary) hypertension Plan: Patient's blood pressure acceptable today in office. Will continue her current dose of amlodipine. Goal blood pressures to remain below 140/90 (6) Fibromyalgia: Code(s): M79.7 - Fibromyalgia Plan: Patient willing to try Cymbalta for her diagnosis of fibromyalgia. (7) Lipoma of neck: Code(s): D17.0 - Benign lipomatous neoplasm of skin and subcutaneous tissue of head, face and neck Plan: DID HAVE A CERUMEN REMOVED FROM HER NECK. STILL REPORTS PAIN. HAS BEEN USING A OXYCODONE LUNG ELIX GIVEN TO HER BY HER SURGEON. DID EXPLAIN THAT I WILL NOT BE REFILLING THIS MEDICATION AND SHOULD FOLLOW-UP WITH HER PAIN MANAGEMENT ABOUT HER CHRONIC PAIN. DOES HAVE FIBROMYALGIA SEEMS AND SHE IS WILLING TO TRY CYMBALTA. Orders: Orders Comprehensive [place]. Panel Fast Today E78.9 - Disorder of lipoprotein metabolism, unspecified Lipid Panel Today E78.9 - Disorder of lipoprotein metabolism, unspecified Complete Blood Count no Diff Today E78.9 - Disorder of lipoprotein metabolism, unspecified Medications: New semaglutide (weight loss) (Wegovy) administer weeks 1 through 4 of therapy 0.25 mg (0.5 mL) subcut QWEEK 2 mL 0RF 4 weeks E66.01 - Morbid (severe) obesity due to excess calories, G47.33 - Obstructive sleep apnea (adult) (pediatric), I10 - Essential (primary) hypertension duloxetine (Cymbalta) 30 mg PO DAILY 30 caps 3RF 30 days M79.7 - Fibromyalgia, R10.84 - Generalized abdominal pain Discontinued cephalexin Discontinued Reason: Doctor's Order 500 mg PO Q8H 10 days 30 caps 0RF Coding Level of Care Code Est Pt Prev Care 40-64y(18368) Diagnoses Annual physical exam Z00.00 Morbid obesity due to excess calories E66.01 BMI 45.0-49.9, adult Z68.42 Hypoparathyroidism, unspecified hypoparathyroidism type E20.9 Hypoparathyroidism type: unspecified Primary hypertension I10 Hypertension type: primary hypertension Fibromyalgia M79.7 Lipoma of neck D17.0
== END 2023-11-05 11:36 | disposition home or self-care (01) ==
PROVIDERS: Visit Provider Physician Assistant
DX: Z00.00 Encounter for general adult medical examination without abnormal findings (principal); E66.01 Morbid (severe) obesity due to excess calories; Z68.42 Body mass index [BMI] 45.0-49.9, adult; E20.9 Hypoparathyroidism, unspecified; I10 Essential (primary) hypertension; M79.7 Fibromyalgia; D17.0 Benign lipomatous neoplasm of skin and subcutaneous tissue of head, face and neck
CPT/HCPCS: 99396

== ENCOUNTER 2023-11-12 12:34 | Outpatient (REF) | payer OTHER, SELFPAY ==
[2023-11-12 13:31] LABS: Hemoglobin 13.7 g/dl (12.0-16.0); Mean Corpuscular HGB Conc 34.3 g/dl (31.0-35.0); Mean Corpuscular Hemoglobin 31.6 pg (27.0-33.0); Mean Corpuscular Volume 92.4 fL (80.0-98.0); Mean Platelet Volume 10.1 fL (9.4-12.3); Platelet Count 286 X10*3/uL (160-400); Red Blood Count 4.33 X10*6/uL (4.20-5.50); Red Cell Distribution Width 12.4 % (11.0-16.0); White Blood Count 8.5 X10*3/uL (4.8-10.8)
[2023-11-12 14:06] LABS: Alanine Aminotransferase 11 U/L (0-31); Albumin Level 4.5 g/dL (3.5-5.0); Alkaline Phosphatase 102 U/L (39-117); Amylase 42 U/L (28-100); Anion Gap 14 (12-20); Aspartate Amino Transferase 11 U/L (5-31); Bilirubin Total 0.5 mg/dL (0.0-1.0); Blood Urea Nitrogen 13 mg/dL (9-16); Calcium 9.2 mg/dL (8.4-10.2); Carbon Dioxide 28 mmol/L (22-29); Chloride 103 mmol/L (96-108); Cholesterol 205 mg/dL (<200); Estimated Glomerular Filt Rate 59; Glucose Fasting 130 mg/dL (60-99); Glucose Random 130 mg/dL (60-115); HDL Cholesterol 45 mg/dL (>40); LDL Cholesterol Calculated 126 mg/dL (<100); Lipase 18 U/L (8-78); Potassium 3.5 mmol/L (3.3-5.1); Sodium 141 mmol/L (135-145); Total Protein 7.9 g/dL (6.5-8.0); Triglycerides 173 mg/dL (<150)
== END 2023-11-12 12:35 | disposition home or self-care (01) ==
LOC: HO.LAB 12:34
PROVIDERS: PCP Physician Assistant; Visit Provider Physician Assistant
DX: E78.9 Disorder of lipoprotein metabolism, unspecified (principal); K85.90 Acute pancreatitis without necrosis or infection, unspecified
CPT/HCPCS: 36415; 80053; 80061; 82150; 83690; 85027

== ENCOUNTER 2023-12-05 11:48 | Outpatient (AMB) | payer OTHER, SELFPAY ==
--- NOTE | 2023-12-05 11:50 | A.OFFVIS_ITS ---
Vital Signs 12/05/23 11:51 Height 5 ft Weight 260 lb BMI 50.8 BP 95/60 Blood Pressure Location Lt radial Position Sitting Intake Visit Reasons: 3 month follow up Intake Note: Amalia presents in the office as a 3 month follow up. CC: She states that she was put on wegovy and she is not losing weight. Right now she has to wait for her insurance to cover it . Painsd in the stomadch and diarrhea. She states whenever she eats anything or leaves the house she has severe diarrhea. Her stomach is gurgling and she states that she gets like that but she is not hungry. She wants to know if you can explain to her why her body feels like her body 'locked' on her. She states that the whole right side was unable to move - this was Wed into . Embedded Software Developer Required: Yes Embedded Software Developer Name: [id number] Allergies ibuprofen [IBUPROFEN] Allergy (Intermediate, Verified 11/05/23 10:58) RASH lisinopril [LISINOPRIL] Allergy (Intermediate, Verified 11/05/23 10:58) RASH lactulose [LACTULOSE] Allergy (Mild, Verified 11/05/23 10:58) STOMACH ACHE tizanidine Adverse Reaction (Intermediate, Verified 11/05/23 10:58) bradycardia HPI HPI 3 month follow up: Details: 52 yr old f w hx of cholecystectomy 2007 being seen for f/u RECAP: She had right sided upper abdo pain in 12/2018, lipase was 3000-came to hospital and MRI with stranding around pancreas, CBD 1 cm but no stones/strictures dx with pancreatitis, also ?adherent small bowel, hepatomegaly and steatosis she had ongoing sx and flare up and again admitted 02/2019--transaminitis, liapse at 800 and MRI again done with stable CBD, normal pancreas no divisum HEp serologies were neg Since d/c ongoing pain ruq (but is pointing to her right flank and can locate with one finger), PCP flexeril and bentyl and not helping she does have nausea, emesis occ brown or yellow appetite is poor, weight down 2# this month stool is normal, no blood in stool, she does have chills, no fevers whole elft side can feel weak, gets dizzy at times--attacks every day can last 10 mins at a time--saw neurologist and being assessed. she was not a consistent historian debbie as regards her pain and how it was during her attacks as opposed to at the visit, clinically her pain was not consistent with a pancreatic etiology and appeared to be more myofascial in origin she was given lido/kenalog injection in case of myofascial component but felt it didn;t help she was getting w/u for hypercalcemia she was also c/o dysphagia which was new and EGD was planned as well as pain in her right loin At visit: 04/2019 she went to ED for abdominal pain, had severe worsening idffuse abdo pain with nausea and vomiting (bilious) passing small amount of stool with pressure but no gas she had small bowel obstruction in past and feels the same had CT in ED with evidence of SBO, seems to be transition point around prior ventral hernia surgery site, no pancreatitis. EGD: 06/2019 for dysphagia--4 cm hiatal hernia, patulous GEJ, bx -active esophagitis, GEJ chronic inflammation--advised to take PPI At TV 09/2019 she was c/o SOb, chest pain and confusion, vomiting she was advised to go to ED labs with nml hgb, mild leukopenia, LFt nml, trop, nml, CT scan:enlarged liver, scarring lower abd wall, no bowel obstruction Last time she was having migraines and I suspected her nausea was from this she was given propranolol to see if it helped advised to get CO monitor for home, makse sure no CO exposure she was advised to see Dr Cruz for hiatal hernia repair, plan is for sleeve gastrectomy and hiatal hernia repair after she completes the necessary steps F/U 01/28/22 I gave her TCA due to concern for fucntional dyspepsia and pain LABS: nml CMP/LFT 10/2022 CT 09/2022--bladder lesion, kidney stones INTERIM: she has a lot of stress down her spine and locked into her sides feels wind sensation in the abdomen she is referred to pain management, feels excision of large lipoma from rigth supra clavicular area made this much worse she has been having falls as well not went for her MRI due to transport issues EXAM: GENERAL: The patient is obese, uses roller VITAL SIGNS:see workflow HEENT: Nonicteric sclerae, PERRLA, EOMI. Oropharynx clear. Moist mucous membranes. Conjunctivae appear well perfused. No thyroid mass. CHEST: Chest wall is nontender. HEART: Regular rate and rhythm without murmurs. LUNGS: Clear to auscultation bilaterally. ABDOMEN: Soft, positive bowel sounds, nontender, no organomegaly.no flank tenderness SKIN: No rash, no excessive bruising, petechiae, or purpura. NEUROLOGIC: Cranial nerves II-XII intact without motor/sensory deficit. Psych: normal affect Assessments 1. RUQ abdominal pain, r/o retained or de brandon gallstones, tender right flank and spine as well so could be musculoskeletal vs --sound smore spinal Plan: 1/ see if can get PROJECT COORDINATOR for MRI scan 2/ lasb today r/o b vit def causing her falls and spinal sx etc 3/ f/u pain mx PFSH Medical History Pancreatitis IBS (irritable bowel syndrome) Arthritis Depression Asthma Sleep apnea HTN (hypertension) Renal calculi Osteopenia Morbid obesity due to excess calories Vitamin D deficiency Hypoparathyroidism Renal colic Chronic abdominal pain Surgical History Hx of colonoscopy H/O thyroidectomy History of esophagogastroduodenoscopy (EGD) History of parathyroid surgery History of hernia repair Status post excision of lipoma (09/26/21) H/O left knee surgery History of cholecystectomy H/O: hysterectomy Family History Father Medical history unknown Mother Cancer Paternal Grandmother Diabetes Paternal Grandfather Diabetes Daughter Behavioral problem Family/Other FH: mental illness Social History Household Members: None Housing: Apartment Are you a primary pediatric care coordinator to a significant other at home: No Do you presently have visiting nurse or other home services: No Alcohol intake: never Patient Tobacco Use Status: Never used Tobacco e-Cigarette/Vaping Use: Never Used Second Hand Smoke Exposure: No Advance Directives Date on File: 11/02/21 Current occupational status: unemployed and disabled Cognitive needs: No Hearing needs: No Vision needs: No Physical Exam Vital Signs: Last Vital Signs BP 95/60 12/05/23 11:51 BMI result Body Mass Index 50.8 Assessment & Plan Assessment & Plan (1) Hypokalemia: Code(s): E87.6 - Hypokalemia Category: Medical Plan: see above (2) Choledocholithiasis: Code(s): K80.50 - Calculus of bile duct without cholangitis or cholecystitis without obstruction Category: Medical Plan: see above Orders: Orders Vitamin B3 (Niacin) Today E46 - Unspecified protein-calorie malnutrition, E87.6 - Hypokalemia, K80.50 - Calculus of bile duct without cholangitis or cholecystitis without obstruction Vitamin B5 (Pantothenic Acid) Today E46 - Unspecified protein-calorie malnutrit ion, E87.6 - Hypokalemia, K80.50 - Calculus of bile duct without cholangitis or cholecystitis without obstruction Vitamin B6 Today E46 - Unspecified protein-calorie malnutrition, E87.6 - Hypokalemia, K80.50 - Calculus of bile duct without cholangitis or cholecystitis without obstruction Vitamin C Today E46 - Unspecified protein-calorie malnutrition, E87.6 - Hypokalemia, K80.50 - Calculus of bile duct without cholangitis or cholecystitis without obstruction Vitamin E Today E46 - Unspecified protein-calorie malnutrition, E87.6 - Hypokalemia, K80.50 - Calculus of bile duct without cholangitis or cholecystitis without obstruction Vitamin K1 Today E46 - Unspecified protein-calorie malnutrition, E87.6 - Hypokalemia, K80.50 - Calculus of bile duct without cholangitis or cholecystitis without obstruction Zinc Today E46 - Unspecified protein-calorie malnutrition, E87.6 - Hypokalemia, K80.50 - Calculus of bile duct without cholangitis or cholecystitis without obstruction Aldolase Today E46 - Unspecified protein-calorie malnutrition, E87.6 - Hypokalemia, K80.50 - Calculus of bile duct without cholangitis or cholecystitis without obstruction C Reactive Protein Today E46 - Unspecified protein-calorie malnutrition, E87.6 - Hypokalemia, K80.50 - Calculus of bile duct without cholangitis or cholecystitis without obstruction Vitamin B12 and Folate Today E46 - Unspecified protein-calorie malnutrition, E87.6 - Hypokalemia, K80.50 - Calculus of bile duct without cholangitis or cholecystitis without obstruction Vitamin B1 Today E46 - Unspecified protein-calorie malnutrition, E87.6 - Hypokalemia, K80.50 - Calculus of bile duct without cholangitis or cholecystitis without obstruction Vitamin A Today E46 - Unspecified protein-calorie malnutrition, E87.6 - Hypokalemia, K80.50 - Calculus of bile duct without cholangitis or cholecystitis without obstruction Vitamin D 25-OH Total Today E46 - Unspecified protein-calorie malnutrition, E87.6 - Hypokalemia, K80.50 - Calculus of bile duct without cholangitis or cholecystitis without obstruction Ferritin Today E46 - Unspecified protein-calorie malnutrition, E87.6 - Hypokalemia, K80.50 - Calculus of bile duct without cholangitis or cholecystitis without obstruction Complete Blood Count Auto Diff Today E46 - Unspecified protein-calorie malnutrition, E87.6 - Hypokalemia, K80.50 - Calculus of bile duct without cholangitis or cholecystitis without obstruction Comprehensive Met. Panel Today E46 - Unspecified protein-calorie malnutrition, E87.6 - Hypokalemia, K75.81 - Nonalcoholic steatohepatitis (VU), K80.50 - Calculus of bile duct without cholangitis or cholecystitis without obstruction Magnesium Today E46 - Unspecified protein-calorie malnutrition, E87.6 - Hypokalemia, K80.50 - Calculus of bile duct without cholangitis or cholecystitis without obstruction Coding Level of Care Code Est Pt Level 3 (47945) Diagnoses Hypokalemia E87.6 Choledocholithiasis K80.50
[2023-12-05 11:51] VITALS: BP 95/60; BMI 50.8
== END 2023-12-05 12:58 | disposition home or self-care (01) ==
PROVIDERS: PCP Physician Assistant; Visit Provider Internal Medicine Gastroenterology
DX: E87.6 Hypokalemia (principal); K80.50 Calculus of bile duct without cholangitis or cholecystitis without obstruction
CPT/HCPCS: 99213

== ENCOUNTER 2023-12-05 11:48 | Outpatient (REF) | payer OTHER, SELFPAY ==
[2023-12-05 12:53] LABS: MANUAL DIFF FLAG NO
[2023-12-05 13:22] LABS: Basophils Absolute Auto 0.1 X10*3/uL (0.0-0.2); Basophils Percent Auto 0.7 % (0-2); Eosinophils Absolute Auto 0.1 X10*3/uL (0.0-0.4); Eosinophils Percent Auto 1.2 % (0-4); Hematocrit 39.3 % (37.0-47.0); Hemoglobin 13.3 g/dl (12.0-16.0); Imm Gran Abs Auto 0.04 X10*3/uL (0.00-0.03); Imm Gran Pct Auto 0.4 % (0.0-0.4); Lymphocytes Absolute Auto 2.7 X10*3/uL (1.2-4.9); Lymphocytes Percent Auto 30.6 % (20-40); Mean Corpuscular HGB Conc 33.8 g/dl (31.0-35.0); Mean Corpuscular Hemoglobin 31.5 pg (27.0-33.0); Mean Corpuscular Volume 93.1 fL (80.0-98.0); Mean Platelet Volume 10.2 fL (9.4-12.3); Monocytes Absolute Auto 0.4 X10*3/uL (0.1-1.2); Monocytes Percent Auto 4.7 % (2-11); Neutrophils Absolute Auto 5.6 x10*3/uL (2.0-8.3); Neutrophils Percent Auto 62.4 % (45-73); Platelet Count 263 X10*3/uL (160-400); Red Blood Count 4.22 X10*6/uL (4.20-5.50); Red Cell Distribution Width 12.7 % (11.0-16.0); White Blood Count 8.9 X10*3/uL (4.8-10.8)
[2023-12-05 21:18] LABS: Alanine Aminotransferase 12 U/L (0-31); Albumin Level 4.5 g/dL (3.5-5.0); Alkaline Phosphatase 95 U/L (39-117); Anion Gap 18 (12-20); Aspartate Amino Transferase 12 U/L (5-31); Bilirubin Total 0.5 mg/dL (0.0-1.0); Blood Urea Nitrogen 13 mg/dL (9-16); C Reactive Protein 0.78 mg/dL (< or = 0.50); Calcium 9.2 mg/dL (8.4-10.2); Carbon Dioxide 25 mmol/L (22-29); Chloride 103 mmol/L (96-108); Estimated Glomerular Filt Rate 52; Glucose Random 91 mg/dL (60-115); Magnesium 2.3 mg/dL (1.6-2.6); Potassium 4.3 mmol/L (3.3-5.1); Sodium 142 mmol/L (135-145); Total Protein 7.8 g/dL (6.5-8.0)
[2023-12-05 21:29] LABS: Folate 11.4 ng/mL (> or = 4.0); Vitamin B12 184 pg/mL (200-900)
[2023-12-05 21:33] LABS: Ferritin 73 ng/mL (10-250); Vitamin D 25-OH Total 46.6 ng/mL (>30)
[2023-12-09 02:33] LABS: Zinc 87 mcg/dL (60-130)
[2023-12-09 16:58] LABS: Alpha-Tocopherol 18.8 mg/L (5.7-19.9)
[2023-12-09 19:38] LABS: Aldolase 4.1 U/L (<=8.1)
[2023-12-09 20:44] LABS: Vitamin A 61 mcg/dL (38-98)
[2023-12-10 13:29] LABS: Vitamin B1 14 nmol/L (8-30)
[2023-12-10 14:44] LABS: Vitamin B5 (Pantothenic Acid) 51 ng/mL (<275)
[2023-12-10 19:23] LABS: Vitamin K1 604 pg/mL (130-1500)
[2023-12-11 13:07] LABS: Nicotinamide <20 ng/mL (see note); Vit B3 - Nicotinic Acid <20 ng/mL (see note)
[2023-12-11 14:29] LABS: Vitamin C 0.3 mg/dL (0.3-2.7)
[2023-12-12 06:14] LABS: Vitamin B6 5.6 ng/mL (2.1-21.7)
== END 2023-12-05 11:49 | disposition home or self-care (01) ==
LOC: HO.LAB 11:48
PROVIDERS: PCP Physician Assistant; Visit Provider Internal Medicine Gastroenterology
DX: K80.50 Calculus of bile duct without cholangitis or cholecystitis without obstruction (principal); E87.6 Hypokalemia; E46 Unspecified protein-calorie malnutrition; K75.81 Nonalcoholic steatohepatitis (NASH); R10.9 Unspecified abdominal pain; R19.7 Diarrhea, unspecified
CPT/HCPCS: 36415; 80053; 82085; 82180; 82306; 82607; 82728; 82746; 83735; 84207; 84425; 84446; 84590; 84591; 84597; 84630; 85025; 86140; 99212

== ENCOUNTER 2023-12-10 10:25 | Outpatient (AMB) | payer OTHER, SELFPAY ==
[2023-12-10 10:53] VITALS: BP 90/62; PULSE 82; O2SAT 97; BMI 51.1
--- NOTE | 2023-12-10 10:53 | A.OFFPC_ITS ---
Vital Signs 12/10/23 10:53 Height 5 ft Weight 261 lb 11.019 oz BMI 51.1 BP 90/62 Blood Pressure Location Lt brachial Position Sitting Pulse 82 Pulse Source Pulse Oximeter Pulse Oximetry (%) 97 Oxygen Delivery Method Room Air Intake Visit Reasons: bump neck after surgery/requesting pain meds Senior Biostatistician Required: Yes Senior Biostatistician Language: [place] Citizen Accompanied by: Self / Same As Patient Allergies ibuprofen [IBUPROFEN] Allergy (Intermediate, Verified 12/10/23 11:39) RASH lisinopril [LISINOPRIL] Allergy (Intermediate, Verified 12/10/23 11:39) RASH lactulose [LACTULOSE] Allergy (Mild, Verified 12/10/23 11:39) STOMACH ACHE duloxetine [From Cymbalta] Adverse Reaction (Intermediate, Verified 12/10/23 11:48) Insomnia gabapentin Adverse Reaction (Intermediate, Verified 12/10/23 11:48) Insomnia tizanidine Adverse Reaction (Intermediate, Verified 12/10/23 11:39) bradycardia Medication List - Last Reconciled 12/10/23 by Marcus Herman PA-C albuterol sulfate 90 mcg/actuation (Ventolin HFA) 1 inh inhalation QID 30 days amlodipine 5 mg PO QAM blood pressure kit-extra large As directed buspirone 10 mg PO BID calcitriol 0.25 mcg PO DAILY 30 days cholecalciferol (vitamin D3) (Vitamin D3) 25 mcg PO DAILY clonazepam 0.5 mg PO BEDTIME cyanocobalamin (vitamin B-12) 1,000 mcg PO DAILY duloxetine (Cymbalta) 30 mg PO DAILY 30 days furosemide 20 mg PO DAILY hydrochlorothiazide 12.5 mg PO DAILY 90 days hyoscyamine sulfate (Levsin/SL) 0.125 mg sublingual BID-QID PRN inhalational spacing device As directed meclizine 25 mg PO DAILY PRN methocarbamol 500 mg PO TID PRN oxycodone 5 mg (5 mL) PO Q6H PRN pantoprazole 40 mg PO DAILY propranolol 10 mg PO BID semaglutide (weight loss) (Wegovy) 1 mg (0.5 mL) subcut Q7D 4 weeks topiramate 25 mg PO BEDTIME zolpidem ER 12.5 mg PO BEDTIME PRN Tobacco use date assessed: 07/03/23 Dental Screening Dental Screen Date: 07/03/23 HPI bump neck after surgery/requesting pain meds HPI Details Patient is a 53-year-old female here today for a a problem visit ? Patient has a past history significant for hypertension, obesity, MDD, Incomnia, frequent migraines, hyperparathyroidism, IBS. Had a cyst removed neck by her general surgeon in 09/06/2023, has a some extended pain' issue to which she has been using oxycodone elix for few weeks now. Reports she still some swelling over the right side of her neck and pain in this area. She also reports chronic all over pain which is likely related to her fibromyalgia. She did see pain management in the past for her lower back pain and received injections though were not effective. She still complains of pain in his asking now for PCP to manage her pain. We have tried Cymbalta 30 mg and gabapentin 100 mg though reports insomnia with this medications. PLAN: Will give her 1 final script of oxycodone 5 mg , will also consider trying Lyrica for her fibromyalgia pain. 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 [facility] Medical History Pancreatitis IBS (irritable bowel syndrome) Arthritis Depression Asthma Sleep apnea HTN (hypertension) Renal calculi Osteopenia Morbid obesity due to excess calories Vitamin D deficiency Hypoparathyroidism Renal colic Chronic abdominal pain Surgical History Hx of colonoscopy H/O thyroidectomy History of esophagogastroduodenoscopy (EGD) History of parathyroid surgery History of hernia repair Status post excision of lipoma (09/26/21) H/O left knee surgery History of cholecystectomy H/O: hysterectomy Family History Father Medical history unknown Mother Cancer Paternal Grandmother Diabetes Paternal Grandfather Diabetes Daughter Behavioral problem Family/Other FH: mental illness Social History Household Members: None Housing: Apartment Are you a primary hemodialysis patient care specialist to a significant other at home: No Do you presently have visiting nurse or other home services: No Alcohol intake: never Patient Tobacco Use Status: Never used Tobacco e-Cigarette/Vaping Use: Never Used Second Hand Smoke Exposure: No Advance Directives Date on File: 11/02/21 service: No Current occupational status: unemployed and disabled Cognitive needs: No Hearing needs: No Vision needs: No Questionnaire Thrive Questionnaire Date Thrive assessed: 06/03/23 ALYSA-7 AMB Questionnaire ALYSA-7 Date ALYSA - 7 assessed: 06/03/23 Source: Developed by Drs. William Gallagher, Yasmin Shipley, Hari Ortiz and colleagues, with an educational hilda from [employer]. Review of Systems Const Denies headache(s) Eyes Denies loss of vision ENT Denies vertigo, Denies dizziness, Denies headache(s) and Denies sore throat Card Denies chest pain, Denies leg edema and Denies lightheadedness Resp Denies cough, Denies hemoptysis and Denies wheezing GI Denies abdominal pain, Denies melena, Denies constipation, Denies diarrhea and Denies vomiting Denies urinary frequency, Denies dysuria and Denies urinary urgency Musc Denies arthralgias, Denies joint swelling, Denies numbness and Denies tingling Neuro Denies Abnormal speech present, Denies behavioral changes, Denies vertigo, Denies dizziness, Denies headache(s), Denies loss of vision, Denies memory loss, Denies numbness and Denies tingling Psych Denies anxiety, Denies behavioral changes, Denies depression, Denies memory loss and Denies panic attacks Bran/Lymph Denies easy bleeding and Denies easy bruising Aller/Immun Denies wheezing Physical exam (Primary Care) Vital Signs: Last Vital Signs Pulse 82 12/10/23 10:53 BP 90/62 12/10/23 10:53 Pulse Ox 97 12/10/23 10:53 Oxygen Delivery Method Room Air 12/10/23 10:53 BMI result Body Mass Index 51.1 Tobacco/Smoking Status: Tobacco use Status Tobacco use date assessed 07/03/23 12/10/23 10:54 Patient Tobacco Use Status Never used Tobacco 12/10/23 10:54 e-Cigarette/Vaping Use Never Used 12/10/23 10:54 Thrive Assessment: Date of Thrive Assessment Date Thrive assessed 06/03/23 12/10/23 10:54 Const General: healthy appearing, no acute distress, alert and awake Nutritional Appearance: well nourished Orientation/consciousness: oriented to person, oriented to place and oriented to time HENMT Ears: TM's normal bilaterally General nose exam: Normal nasal mucous membranes and turbinates present Eyes Conjunctivae: conjunctivae normal Sclerae: sclerae normal Pupils: Equal, round and reactive pupils present Neck Neck: Yes no lymphadenopathy and Yes no JVD Thyroid: Thyroid normal Carotids: no bruits Resp Effort & Inspection: normal respiratory effort and not tachypneic Auscultation: no crackles, no rales, no rhonchi and no wheezes Cardio Rate: regular rate Rhythm: regular rhythm Heart sounds: no murmurs and normal S1 and S2 GI Palpation (GI): Soft to palpation, nontender, no hepatomegaly and no splenomegaly Auscultation: normal bowel sounds Skin General skin exam: no rashes or lesions noted and dry skin Neuro General: oriented to person, oriented to place and oriented to time Cranial nerves: Yes Equal, round and reactive pupils present Speech: No Abnormal speech present Gait exam (Neuro): Normal gait present Motor exam (neuro): no tremor noted Extrem Right upper extremity: full ROM Left upper extremity: full ROM Right lower extremity: full ROM; no edema Left lower extremity: full ROM; no edema Psych Mental Status: mental status grossly normal Speech and movement: Normal speech and movement present Affect: normal affect Attitude: cooperative Thought process: Normal thought process present Assessment and Plan Assessment & Plan (1) Fibromyalgia: Code(s): M79.7 - Fibromyalgia Plan: Patient reports whole-body pain for quite some time now. No clear cause of her pain. Likely fibromyalgia. She continues to request oxycodone. Agreed to give her 1 last script of oxycodone liquid to use on a p.r.n. basis for pain scales of 9-10. We did discuss possibly starting Lyrica for her pain (2) Morbid obesity due to excess calories: Code(s): E66.01 - Morbid (severe) obesity due to excess calories Plan: Patient will be restart Wegovy 0.5 mg weekly for weight loss. Has been having insurance trouble getting Wegovy covered. Medications: New semaglutide (weight loss) (Wegovy) Will return back to using 0.5mg weekly 0.5 mg subcut QWEEK 4 mL 1RF 4 weeks Z68.42 - Body mass index [BMI] 45.0-49.9, adult Changed From oxycodone Partial Fill upon patient request. 5 mg (5 mL) PO Q6H PRN 200 mL 0RF pain (scale score 7-10) D17.0 - Benign lipomatous neoplasm of skin and subcutaneous tissue of head, face and neck To oxycodone 5 mg (5 mL) PO Q6H PRN 200 mL 0RF pain (scale score 7-10) D17.0 - Benign lipomatous neoplasm of skin and subcutaneous tissue of head, face and neck Discontinued duloxetine (Cymbalta) Discontinued Reason: Doctor's Order 30 mg PO DAILY 30 days 30 caps 3RF M79.7 - Fibromyalgia, R10.84 - Generalized abdominal pain semaglutide (weight loss) (Sb) Discontinued Reason: Doctor's Order 1 mg (0.5 mL) subcut Q7D 4 weeks 2 mL 1RF E66.01 - Morbid (severe) obesity due to excess calories, Z68.41 - Body mass index [BMI] 40.0-44.9, adult Coding Level of Care Code Est Pt Level 4 (90877) Diagnoses Fibromyalgia M79.7 Morbid obesity due to excess calories E66.01
== END 2023-12-10 12:01 | disposition home or self-care (01) ==
PROVIDERS: PCP Physician Assistant; Visit Provider Physician Assistant
DX: M79.7 Fibromyalgia (principal); E66.01 Morbid (severe) obesity due to excess calories; Z68.43 Body mass index [BMI] 50.0-59.9, adult
CPT/HCPCS: 99214

== ENCOUNTER 2023-12-23 11:31 | Outpatient (AMB) | payer OTHER, SELFPAY ==
[2023-12-23 11:38] VITALS: BP 110/78; PULSE 82; O2SAT 98; BMI 52.3
--- NOTE | 2023-12-23 11:38 | A.OFFPC_ITS ---
Vital Signs 12/23/23 11:38 Height 5 ft Weight 268 lb BMI 52.3 BP 110/78 Blood Pressure Location Lt brachial Position Sitting Pulse 82 Pulse Source Pulse Oximeter Pulse Oximetry (%) 98 Oxygen Delivery Method Room Air Intake Visit Reasons: f/u labs - Weight check Operations Controller Required: No Accompanied by: Self / Same As Patient Allergies ibuprofen [IBUPROFEN] Allergy (Intermediate, Verified 12/23/23 11:44) RASH lisinopril [LISINOPRIL] Allergy (Intermediate, Verified 12/23/23 11:44) RASH lactulose [LACTULOSE] Allergy (Mild, Verified 12/23/23 11:44) STOMACH ACHE duloxetine [From Cymbalta] Adverse Reaction (Intermediate, Verified 12/23/23 11:44) Insomnia gabapentin Adverse Reaction (Intermediate, Verified 12/23/23 11:44) Insomnia tizanidine Adverse Reaction (Intermediate, Verified 12/23/23 11:44) bradycardia Medication List - Last Reconciled 12/23/23 by Marcus Herman PA-C albuterol sulfate 90 mcg/actuation (Ventolin HFA) 1 inh inhalation QID 30 days amlodipine 5 mg PO QAM blood pressure kit-extra large As directed buspirone 10 mg PO BID calcitriol 0.25 mcg PO DAILY 30 days cholecalciferol (vitamin D3) (Vitamin D3) 25 mcg PO DAILY clonazepam 0.5 mg PO BEDTIME cyanocobalamin (vitamin B-12) 1,000 mcg PO DAILY furosemide 20 mg PO DAILY hydrochlorothiazide 12.5 mg PO DAILY 90 days hyoscyamine sulfate (Levsin/SL) 0.125 mg sublingual BID-QID PRN inhalational spacing device As directed meclizine 25 mg PO DAILY PRN methocarbamol 500 mg PO TID PRN oxycodone 5 mg (5 mL) PO Q6H PRN pantoprazole 40 mg PO DAILY propranolol 10 mg PO BID semaglutide (weight loss) (Wegovy) 0.25 mg (0.5 mL) subcut QWEEK 4 weeks topiramate 25 mg PO BEDTIME zolpidem ER 12.5 mg PO BEDTIME PRN Tobacco use date assessed: 07/03/23 Dental Screening Dental Screen Date: 07/03/23 HPI f/u labs - Weight check HPI Details Patient is a 53-year-old female here today for a follow-up visit. ? Patient has a past history significant for hypertension, obesity, MDD, Incomnia, frequent migraines, hyperparathyroidism, IBS. Obesity: Was on Wegovy 0.25 mg and did notice some benefit of small amount of weight loss. Unfortunately has not been able to get insurance coverage for 0.5 mg weekly. Will return back to 0.25 mg in hopes to gain some more benefit of weight loss.. Chronic pain/fibromyalgia: She does use oxycodone fairly regularly. Admits to buying narcotics from the street for pain. She has no clear pain generator and does have a clinical picture fibromyalgia. She is willing to try Lyrica to help her with her fibromyalgia pain. Will give her letter to justify the need for more CALCINER FEEDER hours to help her with activities daily living in hopes this will help her pain as well. .. PFSH Medical History Pancreatitis IBS (irritable bowel syndrome) Arthritis Depression Asthma Sleep apnea HTN (hypertension) Renal calculi Osteopenia Morbid obesity due to excess calories Vitamin D deficiency Hypoparathyroidism Renal colic Chronic abdominal pain Surgical History Hx of colonoscopy H/O thyroidectomy History of esophagogastroduodenoscopy (EGD) History of parathyroid surgery History of hernia repair Status post excision of lipoma (09/26/21) H/O left knee surgery History of cholecystectomy H/O: hysterectomy Family History Father Medical history unknown Mother Cancer Paternal Grandmother Diabetes Paternal Grandfather Diabetes Daughter Behavioral problem Family/Other FH: mental illness Social History Household Members: None Housing: Apartment Are you a primary plant health care technician to a significant other at home: No Do you presently have visiting nurse or other home services: No Alcohol intake: never Patient Tobacco Use Status: Never used Tobacco e-Cigarette/Vaping Use: Never Used Second Hand Smoke Exposure: No Advance Directives Date on File: 11/02/21 service: No Current occupational status: unemployed and disabled Cognitive needs: No Hearing needs: No Vision needs: No Questionnaire Thrive Questionnaire Date Thrive assessed: 06/03/23 ALYSA-7 AMB Questionnaire ALYSA-7 Date ALYSA - 7 assessed: 06/03/23 Source: Developed by Drs. William Gallagher, Yasmin Shipley, Hari Ortiz and colleagues, with an educational hilda from [employer]. Review of Systems Const Denies headache(s) Eyes Denies loss of vision and Denies eye pain ENT Denies vertigo, Denies dizziness, Denies headache(s), Reports neck pain and Denies sore throat Card Denies chest pain, Denies leg edema and Denies lightheadedness Resp Denies cough, Denies hemoptysis and Denies wheezing GI Denies abdominal pain, Denies melena, Denies constipation, Denies diarrhea and Denies vomiting Denies urinary frequency, Denies dysuria and Denies urinary urgency Musc Reports back pain, Reports arthralgias, Denies joint swelling, Reports neck pain, Denies numbness, Reports stiffness and Denies tingling Neuro Denies Abnormal speech present, Denies behavioral changes, Denies vertigo, Denies dizziness, Denies headache(s), Denies loss of vision, Denies memory loss, Denies numbness and Denies tingling Psych Denies anxiety, Denies behavioral changes, Denies depression, Denies memory loss and Denies panic attacks Bran/Lymph Denies easy bleeding and Denies easy bruising Aller/Immun Denies wheezing Physical exam (Primary Care) Vital Signs: Last Vital Signs Pulse 82 12/23/23 11:38 BP 110/78 12/23/23 11:38 Pulse Ox 98 12/23/23 11:38 Oxygen Delivery Method Room Air 12/23/23 11:38 BMI result Body Mass Index 52.3 BMI Assessment/Plan discussion: High BMI High, discussed plan: lifestyle, weight reduction, dietary and physical activity Tobacco/Smoking Status: Tobacco use Status Tobacco use date assessed 07/03/23 12/23/23 11:41 Patient Tobacco Use Status Never used Tobacco 12/23/23 11:41 e-Cigarette/Vaping Use Never Used 12/23/23 11:41 Thrive Assessment: Date of Thrive Assessment Date Thrive assessed 06/03/23 12/23/23 11:41 Const Other: Morbidly obese General: no acute distress, alert and awake Nutritional Appearance: well nourished Orientation/consciousness: oriented to person, oriented to place and oriented to time HENMT Ears: TM's normal bilaterally General nose exam: Normal nasal mucous membranes and turbinates present Eyes Conjunctivae: conjunctivae normal Sclerae: sclerae normal Pupils: Equal, round and reactive pupils present Neck Neck: Yes no lymphadenopathy and Yes no JVD Thyroid: Thyroid normal Carotids: no bruits Resp Effort & Inspection: normal respiratory effort and not tachypneic Auscultation: no crackles, no rales, no rhonchi and no wheezes Cardio Rate: regular rate Rhythm: regular rhythm Heart sounds: no murmurs and normal S1 and S2 GI Palpation (GI): Soft to palpation, nontender, no hepatomegaly and no splenomegaly Auscultation: normal bowel sounds Skin General skin exam: no rashes or lesions noted and dry skin Neuro General: oriented to person, oriented to place and oriented to time Cranial nerves: Yes Equal, round and reactive pupils present Speech: No Abnormal speech present Gait exam (Neuro): Normal gait present Motor exam (neuro): no tremor noted Extrem Right upper extremity: full ROM Left upper extremity: full ROM Right lower extremity: full ROM; no edema Left lower extremity: full ROM; no edema Psych Mental Status: mental status grossly normal Speech and movement: Normal speech and movement present Affect: normal affect Attitude: cooperative Thought process: Normal thought process present Assessment and Plan Assessment & Plan (1) Fibromyalgia: Code(s): M79.7 - Fibromyalgia Plan: Patient reports whole-body pain for quite some time now. She admits to buying narcotics from the street. I have given her last script of oxycodone and she understands that this is likely not the right treatment for her type of chronic pain. Has seen pain management though has not been able to help with her chronic pain. We have tried gabapentin though cause side effect. She is not interested in Cymbalta as she believes she has tried this in the past without any effect. She is now willing to give Lyrica a trial period to see if it will reduce any for globalized pain. (2) Morbid obesity due to excess calories: Code(s): E66.01 - Morbid (severe) obesity due to excess calories Plan: Patient will be Wegovy 0.25 mg weekly for weight loss. Has been having insurance trouble getting Wegovy covered. Medications: New semaglutide (weight loss) (Wegovy) 0.25 mg (0.5 mL) subcut QWEEK 2 mL 3RF 4 weeks E66.01 - Morbid (severe) obesity due to excess calories, I10 - Essential (primary) hypertension, Z68.41 - Body mass index [BMI] 40.0-44.9, adult pregabalin 50 mg PO BID 60 caps 0RF 30 days M79.7 - Fibromyalgia Refilled cholecalciferol (vitamin D3) (Vitamin D3) 25 mcg PO DAILY 90 caps 0RF E66.01 - Morbid (severe) obesity due to excess calories, Z68.41 - Body mass index [BMI] 40.0-44.9, adult Discontinued oxycodone Discontinued Reason: Doctor's Order 5 mg (5 mL) PO Q6H PRN 200 mL 0RF pain (scale score 7-10) D17.0 - Benign lipomatous neoplasm of skin and subcutaneous tissue of head, face and neck semaglutide (weight loss) (Wegovy) Will return back to using 0.5mg weekly Discontinued Reason: Doctor's Order 0.5 mg subcut QWEEK 4 weeks 4 mL 1RF Z68.42 - Body mass index [BMI] 45.0-49.9, adult Coding Level of Care Code Est Pt Level 4 (99688) Diagnoses Fibromyalgia M79.7 Morbid obesity due to excess calories E66.01
== END 2023-12-23 12:15 | disposition home or self-care (01) ==
PROVIDERS: PCP Physician Assistant; Visit Provider Physician Assistant
DX: M79.7 Fibromyalgia (principal); E66.01 Morbid (severe) obesity due to excess calories; Z68.43 Body mass index [BMI] 50.0-59.9, adult
CPT/HCPCS: 99214

== ENCOUNTER 2024-01-01 13:19 | Outpatient (AMB) | payer OTHER, SELFPAY ==
--- NOTE | 2024-01-01 13:35 | A.OFFVIS_ITS ---
Vital Signs 01/01/24 13:37 Height 5 ft Weight 269 lb 6.478 oz BMI 52.6 BP 110/64 Blood Pressure Location Lt radial Position Sitting Pulse 76 Pulse Source Pulse Oximeter Intake Visit Reasons: f/u hypoparathyroidism Intake Note: Patient present today for Hypoparathyroidism follow up. Securities Settlement Processor Required: Yes Securities Settlement Processor Language: Home And School Visitor Services: Securities Settlement Processor Present Securities Settlement Processor Name: Mariam STALLINGS Information Interpreted: non-clinical & clinical Accompanied by: Self / Same As Patient Allergies ibuprofen [IBUPROFEN] Allergy (Intermediate, Verified 01/01/24 13:42) RASH lisinopril [LISINOPRIL] Allergy (Intermediate, Verified 01/01/24 13:42) RASH lactulose [LACTULOSE] Allergy (Mild, Verified 01/01/24 13:42) STOMACH ACHE duloxetine [From Cymbalta] Adverse Reaction (Intermediate, Verified 01/01/24 13:42) Insomnia gabapentin Adverse Reaction (Intermediate, Verified 01/01/24 13:42) Insomnia tizanidine Adverse Reaction (Intermediate, Verified 01/01/24 13:42) bradycardia HPI Comments Details: 52 YO F with an extensive PMHx including Pancreatitis and Recurrent Nephrolithiasis who is seen in F/U. She underwent a multigland (3 gland) parathyroidectomy 04/04/[address] Brittni Aguilar and has subsequently developed hypoparathyroidism.. The patient last saw Dr. Manrique on 11/13/2022 In terms of her hypercalcemia: First noted to have high calcium in 2011 based on labs, but it appears no full evaluation was completed. 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 Calcium level has been over 11 on multiple occasions, most recently 10.4 with Albumin WNL. Her Vitamin D was very low at 8 in early 2018. It has remained this low ever since. After her initial visit with me we checked a complete workup. 03/31/19 Total Calcium 11.9, Albumin 4.6, Vitamin D 9.9, PTH 127, Phos 2.3. She had a 24 hour urine collection which was an inadequate sample. She had an ultrasound of the neck which was read as a 2.2 R mid pole posterior hypoechoic nodule. Review of the images does appear that this is extracapsular and potentially represents a parathyroid adenoma. She underwent a 3 gland ( R inferior and Bilateral Superior) parathyroidectomy on 04/04/2020. Intraoperative PTH declined from 170-13. She did develop hypocalcemia postoperatively. She was resumed on Calcium citrate 1 tab PO TID and also started on Calcitriol 0.25 mg PO daily. She was having significant cramping and paresthesias, but this initially resolved after starting Calcitriol. She subsequently stopped the Calcium but has resumed on calcitriol and Vitamin D. She has not been compliant with regular F/U and lab checks.. She is currently on calcitriol 0.25 mcg daily as well as vitamin D3. She also takes hydrochlorothiazide 25 mg daily She does report some paresthesias of her hands and her legs. Renal imaging: Abd/Pelvis CT 06/02/2019: Nephrolithiasis of R Kidney, nonobstructing DEXA: 07/26/2021 FINDINGS: AP SPINE L1-L4: Current: BMD 1.069 g/cm2, Z-score -1.3, T-score -0.9, normal, 4.7% increase from baseline (<5% change is not significant). Baseline: BMD 1.021 g/cm2. LEFT FEMUR, NECK: Current: BMD 0.579 g/cm2, Z-score -3.0, T-score -3.3, osteoporosis. Baseline: BMD 0.875 g/cm2. LEFT FEMUR, TOTAL: Current: BMD 0.730 g/cm2, Z-score -2.3, T-score -2.2, osteopenia, 24.0% decrease from baseline (<5% change is not significant). Baseline: BMD 0.961 g/cm2. LEFT FOREARM RADIUS 33%: BMD 0.893 g/cm2, Z-score 0.3, T-score 0.2, normal, 1.7% increase from baseline (<5% change is not significant). Baseline: BMD 0.878 g/cm2. Labs: Laboratory Tests 05/15/21 07/26/21 07/26/21 16:46 14:57 14:57 Creatinine 0.78 0.79 Estimated GFR > 60 > 60 Phosphorus 3.9 Albumin 4.2 4.1 25-OH Vitamin D Total 28.9 PTH Intact 38 Calcium (PTH Intact) 8.4 L Ur 24 Hour Volume Ur Creatinine 24 Hour Ur Calcium 24 Hr 08/01/21 08/01/21 10:02 10:02 Creatinine Estimated GFR Phosphorus Albumin 25-OH Vitamin D Total PTH Intact Calcium (PTH Intact) Ur 24 Hour Volume 1025 Ur Creatinine 24 Hour 1.28 Ur Calcium 24 Hr 45 Currently on calcitriol 0.25 mcg q.d., vitamin D3 2000 units q.d. and calcium citrate 1 tab t.i.d. 9 pt not taking) and hydrochlorothiazide 25 mg q.d. PFS Medical History (Updated 01/01/24 @ 13:43 by GIANCARLO Waller) Pancreatitis IBS (irritable bowel syndrome) Arthritis Depression Asthma Sleep apnea HTN (hypertension) Renal calculi Osteopenia Morbid obesity due to excess calories Vitamin D deficiency Hypoparathyroidism Renal colic Chronic abdominal pain Surgical History Hx of lipoma Hx of colonoscopy H/O thyroidectomy History of esophagogastroduodenoscopy (EGD) History of parathyroid surgery History of hernia repair Status post excision of lipoma (09/26/21) H/O left knee surgery History of cholecystectomy H/O: hysterectomy Family History Father Medical history unknown Mother Cancer Paternal Grandmother Diabetes Paternal Grandfather Diabetes Daughter Behavioral problem Family/Other FH: mental illness Social History Household Members: None Housing: Apartment Are you a primary hiv/aids care nurse to a significant other at home: No Do you presently have visiting nurse or other home services: No Alcohol intake: never Patient Tobacco Use Status: Never used Tobacco e-Cigarette/Vaping Use: Never Used Second Hand Smoke Exposure: No Advance Directives Date on File: 11/02/21 service: No Current occupational status: unemployed and disabled Cognitive needs: No Hearing needs: No Vision needs: No Physical Exam Vital Signs: Last Vital Signs Pulse 76 01/01/24 13:37 BP 110/64 01/01/24 13:37 BMI result Body Mass Index 52.6 Assessment & Plan Assessment & Plan (1) Hypoparathyroidism: Code(s): E20.9 - Hypoparathyroidism, unspecified Category: Medical Qualifiers: Hypoparathyroidism type: unspecified Qualified Code(s): E20.9 - Hypoparathyroidism, unspecified Plan: This is a 53-year-old female with a history of surgically induced hypoparathyroidism currently being treated with calcitriol, calcium, vitamin D3 and hydrochlorothiazide with calcium low normal. Plan is to continue the current therapy. I added back calcium citrate 500 mg b.i.d. and will recheck calcium, albumin, phosphorus, 24 hour urine for calcium and creatinine in about 2 months' time. Could consider use of Transcon PTH ([employer]or[employer]os) when it becomes available Orders: Orders Albumin Level 2 Months E20.9 - Hypoparathyroidism, unspecified Phosphorus 2 Months E20.9 - Hypoparathyroidism, unspecified Calcium, 24 Hr Ur 2 Months E20.9 - Hypoparathyroidism, unspecified Creatinine, 24 Hr Group 2 Months E20.9 - Hypoparathyroidism, unspecified Calcium 2 Months E20.9 - Hypoparathyroidism, unspecified Medications: New calcium citrate 500 mg (2 x 250 mg calcium) PO BID 120 tabs 5RF Coding Level of Care Code Est Pt Level 3 (01362) Diagnoses Hypoparathyroidism, unspecified hypoparathyroidism type E20.9 Hypoparathyroidism type: unspecified
[2024-01-01 13:37] VITALS: BP 110/64; PULSE 76; BMI 52.6
== END 2024-01-01 14:08 | disposition home or self-care (01) ==
PROVIDERS: PCP Physician Assistant; Visit Provider Internal Medicine Endocrinology, Diabetes & Metabolism
DX: E20.9 Hypoparathyroidism, unspecified (principal)
CPT/HCPCS: 99213

== ENCOUNTER → 2024-01-01 13:19 | Outpatient (BNVA) | payer OTHER, SELFPAY | PROVIDERS: PCP Physician Assistant; Visit Provider Internal Medicine Endocrinology, Diabetes & Metabolism | DX: E20.9 Hypoparathyroidism, unspecified (principal) | CPT/HCPCS: 99212 ==

== ENCOUNTER → 2024-02-24 15:35 | Outpatient (BNVA) | payer OTHER, SELFPAY | PROVIDERS: PCP Physician Assistant ==

== ENCOUNTER → 2024-03-05 16:22 | Outpatient (BNVA) | payer OTHER, SELFPAY | PROVIDERS: PCP Physician Assistant ==

== ENCOUNTER 2024-03-24 09:27 | Outpatient (REF) | payer OTHER, SELFPAY | END 2024-03-24 09:28 | disposition home or self-care (01) | LOC: HO.HOSX 09:27 | PROVIDERS: Visit Provider Orthopaedic Surgery | DX: M25.561 Pain in right knee (principal); M25.562 Pain in left knee; M17.0 Bilateral primary osteoarthritis of knee; F41.1 Generalized anxiety disorder; E66.813 Obesity, class 3; F33.1 Major depressive disorder, recurrent, moderate; M79.7 Fibromyalgia; Z23 Encounter for immunization; I10 Essential (primary) hypertension; J45.31 Mild persistent asthma with (acute) exacerbation; E66.01 Morbid (severe) obesity due to excess calories; Z68.41 Body mass index [BMI] 40.0-44.9, adult | CPT/HCPCS: 20610; 73562; 90471; 90656; 99212; J1010; J2003 ==

== ENCOUNTER 2024-03-24 11:38 | Outpatient (AMB) | payer OTHER, SELFPAY ==
--- NOTE | 2024-03-24 12:01 | A.OFFPC_ITS ---
Vital Signs 03/24/24 12:01 Height 5 ft Blood Pressure Location Lt brachial Position Sitting Pulse Source Pulse Oximeter Oxygen Delivery Method Room Air Intake Visit Reasons: 3 Month F/U Logistics Planning Manager Required: No Accompanied by: Self / Same As Patient Allergies ibuprofen [IBUPROFEN] Allergy (Intermediate, Verified 03/24/24 13:24) RASH lisinopril [LISINOPRIL] Allergy (Intermediate, Verified 03/24/24 13:24) RASH lactulose [LACTULOSE] Allergy (Mild, Verified 03/24/24 13:24) STOMACH ACHE duloxetine [From Cymbalta] Adverse Reaction (Intermediate, Verified 03/24/24 13:24) Insomnia gabapentin Adverse Reaction (Intermediate, Verified 03/24/24 13:24) Insomnia semaglutide [From Wegovy] Adverse Reaction (Intermediate, Verified 03/24/24 13:24) Sickness tizanidine Adverse Reaction (Intermediate, Verified 03/24/24 13:24) bradycardia Medication List - Last Reconciled 03/24/24 by Marcus Herman PA-C albuterol sulfate 90 mcg/actuation (Ventolin HFA) 1 inh inhalation QID 30 days amlodipine 5 mg PO QAM blood pressure kit-extra large As directed buspirone 10 mg PO BID calcitriol 0.25 mcg PO DAILY 30 days calcium citrate 500 mg (2 x 250 mg calcium) PO BID cholecalciferol (vitamin D3) (Vitamin D3) 25 mcg PO DAILY clonazepam 0.5 mg PO BEDTIME cyanocobalamin (vitamin B-12) 1,000 mcg PO DAILY duloxetine mg PO furosemide 20 mg PO DAILY hydrochlorothiazide 12.5 mg PO DAILY 90 days hyoscyamine sulfate (Levsin/SL) 0.125 mg sublingual BID-QID PRN inhalational spacing device As directed meclizine 25 mg PO DAILY PRN methocarbamol 500 mg PO TID PRN pantoprazole 40 mg PO DAILY pregabalin 50 mg PO BID 30 days propranolol 10 mg PO BID topiramate 25 mg PO BEDTIME zolpidem ER 12.5 mg PO BEDTIME PRN Tobacco use date assessed: 07/03/23 Dental Screening Dental Screen Date: 07/03/23 HPI 3 Month F/U HPI Details Patient is a 53-year-old female here today for a follow-up visit. ? Patient has a past history significant for hypertension, obesity, MDD, Incomnia, frequent migraines, hyperparathyroidism, IBS. Obesity: Has not been able to tolerate Wegovy due to side effects. Has found it very difficult to lose weight, she is not too physically active due to her pain. Chronic pain/fibromyalgia: She has no clear pain generator and does have a clinical picture fibromyalgia. She reports that Lyrica has been helpful for her pain and is interested in higher dose to help her more with her patent. Unfortunately still has global pain which has been a chronic complaint of hers. [facility] Medical History Pancreatitis IBS (irritable bowel syndrome) Arthritis Depression Asthma Sleep apnea HTN (hypertension) Renal calculi Osteopenia Morbid obesity due to excess calories Vitamin D deficiency Hypoparathyroidism Renal colic Chronic abdominal pain Surgical History Hx of lipoma Hx of colonoscopy H/O thyroidectomy History of esophagogastroduodenoscopy (EGD) History of parathyroid surgery History of hernia repair Status post excision of lipoma (09/26/21) H/O left knee surgery History of cholecystectomy H/O: hysterectomy Family History Father Medical history unknown Mother Cancer Paternal Grandmother Diabetes Paternal Grandfather Diabetes Daughter Behavioral problem Family/Other FH: mental illness Social History Household Members: None Housing: Apartment Are you a primary insurance healthcare representative to a significant other at home: No Do you presently have visiting nurse or other home services: No Alcohol intake: never Patient Tobacco Use Status: Never used Tobacco e-Cigarette/Vaping Use: Never Used Second Hand Smoke Exposure: No Advance Directives Date on File: 11/02/21 service: No Current occupational status: unemployed and disabled Cognitive needs: No Hearing needs: No Vision needs: No Questionnaire Thrive Questionnaire Date Thrive assessed: 06/03/23 ALYSA-7 AMB Questionnaire ALYSA-7 Date ALYSA - 7 assessed: 06/03/23 Source: Developed by Drs. William Gallagher, Yasmin Shipley, Hari Ortiz and colleagues, with an educational hilda from [employer]. Review of Systems Const Denies headache(s) Eyes Denies loss of vision ENT Denies vertigo, Denies dizziness, Denies headache(s) and Denies sore throat Card Denies chest pain, Denies leg edema and Denies lightheadedness Resp Denies cough, Denies hemoptysis and Denies wheezing GI Denies abdominal pain, Denies melena, Denies constipation, Denies diarrhea and Denies vomiting Denies urinary frequency, Denies dysuria and Denies urinary urgency Musc Denies arthralgias, Denies joint swelling, Denies numbness and Denies tingling Neuro Denies Abnormal speech present, Denies behavioral changes, Denies vertigo, Denies dizziness, Denies headache(s), Denies loss of vision, Denies memory loss, Denies numbness and Denies tingling Psych Denies anxiety, Denies behavioral changes, Denies depression, Denies memory loss and Denies panic attacks Bran/Lymph Denies easy bleeding and Denies easy bruising Aller/Immun Denies wheezing Physical exam (Primary Care) Vital Signs: Oxygen Delivery Method Room Air 03/24/24 12:01 Tobacco/Smoking Status: Tobacco use Status Tobacco use date assessed 07/03/23 03/24/24 12:01 Patient Tobacco Use Status Never used Tobacco 03/24/24 12:01 e-Cigarette/Vaping Use Never Used 03/24/24 12:01 Thrive Assessment: Date of Thrive Assessment Date Thrive assessed 06/03/23 03/24/24 12:01 Const General: healthy appearing, no acute distress, alert and awake Nutritional Appearance: well nourished Orientation/consciousness: oriented to person, oriented to place and oriented to time HENMT Ears: TM's normal bilaterally General nose exam: Normal nasal mucous membranes and turbinates present Eyes Conjunctivae: conjunctivae normal Sclerae: sclerae normal Pupils: Equal, round and reactive pupils present Neck Neck: Yes no lymphadenopathy and Yes no JVD Thyroid: Thyroid normal Carotids: no bruits Resp Effort & Inspection: normal respiratory effort and not tachypneic Auscultation: no crackles, no rales, no rhonchi and no wheezes Cardio Rate: regular rate Rhythm: regular rhythm Heart sounds: no murmurs and normal S1 and S2 GI Palpation (GI): Soft to palpation, nontender, no hepatomegaly and no splenomegaly Auscultation: normal bowel sounds Skin General skin exam: no rashes or lesions noted and dry skin Neuro General: oriented to person, oriented to place and oriented to time Cranial nerves: Yes Equal, round and reactive pupils present Speech: No Abnormal speech present Gait exam (Neuro): Normal gait present Motor exam (neuro): no tremor noted Extrem Right upper extremity: full ROM Left upper extremity: full ROM Right lower extremity: full ROM; no edema Left lower extremity: full ROM; no edema Psych Mental Status: mental status grossly normal Speech and movement: Normal speech and movement present Affect: normal affect Attitude: cooperative Thought process: Normal thought process present Office Procedures Flu Questionnaire Does the patient have a severe egg allergy?: No Does the patient have severe life threatening allergies?: No Does the patient have a fever or illness today?: No Has the patient ever had Guillain-Calum[place] Syndrome?: No Has the patient ever had any past reaction to a flu shot?: No Immunizations Fluarix Triv [id number] (PF) 45 mcg (15 mcg x 3)/0.5 mL IM syringe Performing Provider: Marcus Herman PA-C [facility] [place] [facility] Administered by: ASHISH Rand on 03/24/24 12:01 Dose Route Admin Location Dispensed Lot Number Expiration Date [facility] Art Instructor 0.5 mL IM Left Deltoid 0.5 mL [id number] 11/15/24 [id number] [email or web address] VIS Given Date VIS Provided VIS Publication Date 03/24/24 Single Vaccine 20 Eligibility Eligibility Date Funding Source Not [facility] Eligible 03/24/24 Private Coding Level of Care Code Est Pt Level 4 (91978) Diagnoses ALYSA (generalized anxiety disorder) F41.1 Class 3 obesity E66.813 MDD (major depressive disorder), recurrent episode, moderate F33.1 Fibromyalgia M79.7 Assessment & Plan Assessment & Plan (1) ALYSA (generalized anxiety disorder): Code(s): F41.1 - Generalized anxiety disorder Category: Medical Plan: Patient continues to have anxiety to which he talks to her mental health therapist and psychiatrist about bear she relates a lot of anxiety and depression from her (2) Class 3 obesity: Code(s): E66.813 - Obesity, class 3 Category: Medical Plan: Area she lives. She is trying to get a new apartment. Patient does understand her BMI is elevated. She is had a very difficult time losing weight. She has not been able to stay consistent with weight management program. She has tried GLP 1 though has had side effects. We did discuss temporary use of phentermine though would like to hold off on this for now because they are is cardiovascular risks involved. (3) MDD (major depressive disorder), recurrent episode, moderate: Code(s): F33.1 - Major depressive disorder, recurrent, moderate Category: Medical Plan: As above patient is still suffers with depression and relates this to her area of living. She does not like where she is living in his trying to get a new apartment (4) Fibromyalgia: Code(s): M79.7 - Fibromyalgia Category: Medical Plan: Patient does report her fibromyalgia pain has been a bit better since starting Lyrica. She would like to increase her Lyrica dose to 100 mg b.i.d. for better pain control. Orders: Orders Influenza [id number] Immunization 03/24/24 Z23 - Encounter for immunization Complete Blood Count no Diff 03/24/24 J45.31 - Mild persistent asthma with (acute) exacerbation Comprehensive [place]. Panel Fast 03/24/24 I10 - Essential (primary) hypertension Microalbumin, Random (w Creat) 03/24/24 I10 - Essential (primary) hypertension Medications: New pregabalin 100 mg PO BID 60 caps 3RF 30 days M79.7 - Fibromyalgia Refilled albuterol sulfate 90 mcg/actuation (Ventolin HFA) 1 inh inhalation QID 8.5 grams 1RF 30 days J45.31 - Mild persistent asthma with (acute) exacerbation amlodipine 5 mg PO QAM 90 tabs 2RF I10 - Essential (primary) hypertension cholecalciferol (vitamin D3) (Vitamin D3) 25 mcg PO DAILY 90 caps 0RF E66.01 - Morbid (severe) obesity due to excess calories, Z68.41 - Body mass index [BMI] 40.0-44.9, adult Discontinued pregabalin Discontinued Reason: Doctor's Order 50 mg PO BID 30 days 60 caps 3RF M79.7 - Fibromyalgia
== END 2024-03-24 12:45 | disposition home or self-care (01) ==
LOC: HO.HMCH 11:38
PROVIDERS: PCP Physician Assistant; Visit Provider Physician Assistant
DX: F41.1 Generalized anxiety disorder (principal); E66.813 Obesity, class 3; F33.1 Major depressive disorder, recurrent, moderate; M79.7 Fibromyalgia

== ENCOUNTER 2024-03-24 13:03 | Outpatient (AMB) | payer OTHER, SELFPAY ==
--- NOTE | 2024-03-24 13:12 | MHC.OFFVIS ---
Intake Visit Reasons: Bilateral knee pain Intake Note: Amalia is a 53 year old female who presents with complaints of progressively worsening bilateral knee pains. She describes her pains as sharp in nature. She did have a series of Euflexxa injections given into her bilateral knees earlier this year. Those injections gave her temporary relief. She has done physical therapy exercises which aggravated her pain. She has also tried Tylenol and anti-inflammatory medicines which gave her minimal relief. She has tried Tylenol with codeine which gave her fairly good relief. Allergies ibuprofen [IBUPROFEN] Allergy (Intermediate, Verified 03/24/24 13:24) RASH lisinopril [LISINOPRIL] Allergy (Intermediate, Verified 03/24/24 13:24) RASH lactulose [LACTULOSE] Allergy (Mild, Verified 03/24/24 13:24) STOMACH ACHE duloxetine [From Cymbalta] Adverse Reaction (Intermediate, Verified 03/24/24 13:24) Insomnia gabapentin Adverse Reaction (Intermediate, Verified 03/24/24 13:24) Insomnia semaglutide [From Wegovy] Adverse Reaction (Intermediate, Verified 03/24/24 13:24) Sickness tizanidine Adverse Reaction (Intermediate, Verified 03/24/24 13:24) bradycardia Medication List - Last Reconciled 03/25/24 by Larry Meyer MD acetaminophen-codeine 300-30 mg 1 tab PO Q12H PRN albuterol sulfate 90 mcg/actuation (Ventolin HFA) 1 inh inhalation QID 30 days amlodipine 5 mg PO QAM blood pressure kit-extra large As directed buspirone 10 mg PO BID calcitriol 0.25 mcg PO DAILY 30 days calcium citrate 500 mg (2 x 250 mg calcium) PO BID cholecalciferol (vitamin D3) (Vitamin D3) 25 mcg PO DAILY clonazepam 0.5 mg PO BEDTIME cyanocobalamin (vitamin B-12) 1,000 mcg PO DAILY duloxetine mg PO furosemide 20 mg PO DAILY hydrochlorothiazide 12.5 mg PO DAILY 90 days hyoscyamine sulfate (Levsin/SL) 0.125 mg sublingual BID-QID PRN inhalational spacing device As directed meclizine 25 mg PO DAILY PRN methocarbamol 500 mg PO TID PRN pantoprazole 40 mg PO DAILY pregabalin 100 mg PO BID 30 days propranolol 10 mg PO BID topiramate 25 mg PO BEDTIME zolpidem ER 12.5 mg PO BEDTIME PRN PFSH Medical History (Updated 03/25/24 @ 07:32 by Larry Meyer MD) Pancreatitis IBS (irritable bowel syndrome) Arthritis Depression Asthma Sleep apnea HTN (hypertension) Renal calculi Osteopenia Morbid obesity due to excess calories Vitamin D deficiency Hypoparathyroidism Renal colic Chronic abdominal pain Surgical History Hx of lipoma Hx of colonoscopy H/O thyroidectomy History of esophagogastroduodenoscopy (EGD) History of parathyroid surgery History of hernia repair Status post excision of lipoma (09/26/21) H/O left knee surgery History of cholecystectomy H/O: hysterectomy Family History Father Medical history unknown Mother Cancer Paternal Grandmother Diabetes Paternal Grandfather Diabetes Daughter Behavioral problem Family/Other FH: mental illness Social History Household Members: None Housing: Apartment Are you a primary transitional care nurse to a significant other at home: No Do you presently have visiting nurse or other home services: No Alcohol intake: never Patient Tobacco Use Status: Never used Tobacco e-Cigarette/Vaping Use: Never Used Second Hand Smoke Exposure: No Advance Directives Date on File: 11/02/21 service: No Current occupational status: unemployed and disabled Cognitive needs: No Hearing needs: No Vision needs: No Physical Exam Const Other: Well-nourished well-developed very friendly female awake alert and oriented x3 in no acute distress Extrem Other: Bilateral lower extremity examination shows good capillary refill, no skin lesions noted, normal sensation light touch Bilateral knee examination shows minimal effusions, palpable crepitus with range of motion, pain with range of motion, no instability Office Procedures AMB Joint Injection/Aspiration Joint Injection/Aspiration Primary Site: left knee Prep: site was prepped using aseptic technique Injected: 40 mg of, DepoMedrol and 1% plain lidocaine Procedure: The patient tolerated the procedure well Coding 60171 - Large joint Procedure code (CPT) selection complete AMB Joint Injection/Aspiration Joint Injection/Aspiration Primary Site: right knee Prep: site was prepped using aseptic technique Injected: 40 mg of, DepoMedrol and 1% plain lidocaine Procedure: The patient tolerated the procedure well Coding 25115 - Large joint Procedure code (CPT) selection complete Results Reviewed Results Reviewed: X-rays of the patient's bilateral knee show joint space narrowing, subchondral sclerosis, osteophyte formation, no acute bony abnormalities Assessment & Plan Assessment & Plan (1) Arthritis of left knee: Code(s): M17.12 - Unilateral primary osteoarthritis, left knee Category: Medical (2) Arthritis of right knee: Code(s): M17.11 - Unilateral primary osteoarthritis, right knee Category: Medical (3) Pain in both knees: Code(s): M25.561 - Pain in right knee; M25.562 - Pain in left knee Plan Ms. Fish presents with bilateral knee pains due to degenerative joint disease. I had a lengthy discussion with the patient regarding the treatment options. The risks and benefits of bilateral knee cortisone injections were discussed at length with the patient. The patient wished to proceed. She tolerated the injections well. She will continue with her home exercise program. She will contact me prior to her follow-up appointment in 3 months should any questions or concerns arise. Feel free to call me at any time should questions regarding her orthopedic management arise. I spent 22 minutes in reviewing the patient's records and imaging studies, seeing the patient and documenting in the medical record. Orders: Orders XR knee RT 3V 03/24/24 M25.561 - Pain in right knee XR knee LT 3V 03/24/24 M25.562 - Pain in left knee AMB Joint Injection/Aspiration 03/24/24 M17.12 - Unilateral primary osteoarthritis, left knee AMB Joint Injection/Aspiration 03/24/24 M17.11 - Unilateral primary osteoarthritis, right knee Medications: New acetaminophen-codeine 300-30 mg 1 tab PO Q12H PRN 30 tabs 0RF pain Coding Level of Care Code Est Pt Level 3 (17856) Complex EM visit Add On G2211 Diagnoses Arthritis of left knee M17.12 Arthritis of right knee M17.11 Pain in both knees M25.561; M25.562 CPT Codes Coding - 14930 Large joint: 95764 - Large joint ([id number]) Coding - 08891 Large joint: 67068 - Large joint ([id number])
== END 2024-03-24 13:40 | disposition home or self-care (01) ==
LOC: HO.HOS 13:03
PROVIDERS: PCP Physician Assistant; Visit Provider Orthopaedic Surgery
DX: M17.0 Bilateral primary osteoarthritis of knee (principal)
CPT/HCPCS: 20610; 99213

== ENCOUNTER 2024-04-01 12:32 | Outpatient (REF) | payer OTHER, SELFPAY ==
[2024-04-01 16:07] LABS: Total Volume 24 Hour Urine 2150 mL
[2024-04-01 16:54] LABS: Creatinine, 24Hr Urine 1.6 G/Day (1.0-2.0); Creatinine, mg/dL 75.24
[2024-04-02 17:39] LABS: Calcium, 24 Hr Urine 129 mg/24 h; Calcium/Creatinine Ratio 86 mg/g creat (30-275); Creatinine 24Hr Urine 1.51 g/24 h (0.50-2.15)
== END 2024-04-01 12:33 | disposition home or self-care (01) ==
LOC: HO.10HDLNP 12:32
PROVIDERS: Visit Provider Internal Medicine Endocrinology, Diabetes & Metabolism
DX: E20.9 Hypoparathyroidism, unspecified (principal)
CPT/HCPCS: 82340; 82570; 99212

== ENCOUNTER 2024-04-01 12:35 | Outpatient (AMB) | payer OTHER, SELFPAY ==
--- NOTE | 2024-04-01 13:08 | MHC.OFFVIS ---
Vital Signs 04/01/24 13:11 Height 5 ft Weight 279 lb 1.683 oz BMI 54.5 BP 112/66 Blood Pressure Location Rt radial Position Sitting Pulse 81 Pulse Source Pulse Oximeter Intake Visit Reasons: f/u hypoparathyroidism Intake Note: Patient present today for Hypoparathyroidism follow up. Business Integration Analyst Required: Yes Business Integration Analyst Language: Automatic Grinding Machine Operator Services: Business Integration Analyst Offered & Declined Accompanied by: Self / Same As Patient Allergies ibuprofen [IBUPROFEN] Allergy (Intermediate, Verified 04/01/24 13:12) RASH lisinopril [LISINOPRIL] Allergy (Intermediate, Verified 04/01/24 13:12) RASH lactulose [LACTULOSE] Allergy (Mild, Verified 04/01/24 13:12) STOMACH ACHE duloxetine [From Cymbalta] Adverse Reaction (Intermediate, Verified 04/01/24 13:12) Insomnia gabapentin Adverse Reaction (Intermediate, Verified 04/01/24 13:12) Insomnia semaglutide [From Wegovy] Adverse Reaction (Intermediate, Verified 04/01/24 13:12) Sickness tizanidine Adverse Reaction (Intermediate, Verified 04/01/24 13:12) bradycardia HPI Comments Details: 53 YO F with an extensive PMHx including Pancreatitis and Recurrent Nephrolithiasis who is seen in F/U. She underwent a multigland (3 gland) parathyroidectomy 04/04/[address] Brittni Aguilar and has subsequently developed hypoparathyroidism.. In terms of her hypercalcemia: First noted to have high calcium in 2011 based on labs, but it appears no full evaluation was completed. 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 Calcium level has been over 11 on multiple occasions, most recently 10.4 with Albumin WNL. Her Vitamin D was very low at 8 in early 2018. It has remained this low ever since. After her initial visit with me we checked a complete workup. 03/31/19 Total Calcium 11.9, Albumin 4.6, Vitamin D 9.9, PTH 127, Phos 2.3. She had a 24 hour urine collection which was an inadequate sample. She had an ultrasound of the neck which was read as a 2.2 R mid pole posterior hypoechoic nodule. Review of the images does appear that this is extracapsular and potentially represents a parathyroid adenoma. She underwent a 3 gland ( R inferior and Bilateral Superior) parathyroidectomy on 04/04/2020. Intraoperative PTH declined from 170-13. She did develop hypocalcemia postoperatively. She was resumed on Calcium citrate 1 tab PO TID and also started on Calcitriol 0.25 mg PO daily. She was having significant cramping and paresthesias, but this initially resolved after starting Calcitriol. She subsequently stopped the Calcium but has resumed on calcitriol and Vitamin D. She has not been compliant with regular F/U and lab checks.. She is currently on calcitriol 0.25 mcg daily as well as vitamin D3. She also takes hydrochlorothiazide 25 mg daily She does report some paresthesias of her hands and her legs. Renal imaging: Abd/Pelvis CT 06/02/2019: Nephrolithiasis of R Kidney, nonobstructing DEXA: 07/26/2021 FINDINGS: AP SPINE L1-L4: Current: BMD 1.069 g/cm2, Z-score -1.3, T-score -0.9, normal, 4.7% increase from baseline (<5% change is not significant). Baseline: BMD 1.021 g/cm2. LEFT FEMUR, NECK: Current: BMD 0.579 g/cm2, Z-score -3.0, T-score -3.3, osteoporosis. Baseline: BMD 0.875 g/cm2. LEFT FEMUR, TOTAL: Current: BMD 0.730 g/cm2, Z-score -2.3, T-score -2.2, osteopenia, 24.0% decrease from baseline (<5% change is not significant). Baseline: BMD 0.961 g/cm2. LEFT FOREARM RADIUS 33%: BMD 0.893 g/cm2, Z-score 0.3, T-score 0.2, normal, 1.7% increase from baseline (<5% change is not significant). Baseline: BMD 0.878 g/cm2. Labs: Laboratory Tests 05/15/21 07/26/21 07/26/21 16:46 14:57 14:57 Creatinine 0.78 0.79 Estimated GFR > 60 > 60 Phosphorus 3.9 Albumin 4.2 4.1 25-OH Vitamin D Total 28.9 PTH Intact 38 Calcium (PTH Intact) 8.4 L Ur 24 Hour Volume Ur Creatinine 24 Hour Ur Calcium 24 Hr 08/01/21 08/01/21 10:02 10:02 Creatinine Estimated GFR Phosphorus Albumin 25-OH Vitamin D Total PTH Intact Calcium (PTH Intact) Ur 24 Hour Volume 1025 Ur Creatinine 24 Hour 1.28 Ur Calcium 24 Hr 45 Currently on calcitriol 0.25 mcg q.d., vitamin D3 2000 units q.d. and calcium citrate 2 tabs B.i.d. and hydrochlorothiazide 12.5 mg q.d. Has arthritic pain but no sx of hypoglycemia . Did collection for 24 hr but not available yet [facility] Medical History Pancreatitis IBS (irritable bowel syndrome) Arthritis Depression Asthma Sleep apnea HTN (hypertension) Renal calculi Osteopenia Morbid obesity due to excess calories Vitamin D deficiency Hypoparathyroidism Renal colic Chronic abdominal pain Surgical History Hx of lipoma Hx of colonoscopy H/O thyroidectomy History of esophagogastroduodenoscopy (EGD) History of parathyroid surgery History of hernia repair Status post excision of lipoma (09/26/21) H/O left knee surgery History of cholecystectomy H/O: hysterectomy Family History Father Medical history unknown Mother Cancer Paternal Grandmother Diabetes Paternal Grandfather Diabetes Daughter Behavioral problem Family/Other FH: mental illness Social History Household Members: None Housing: Apartment Are you a primary animal care provider to a significant other at home: No Do you presently have visiting nurse or other home services: No Alcohol intake: never Patient Tobacco Use Status: Never used Tobacco e-Cigarette/Vaping Use: Never Used Second Hand Smoke Exposure: No Advance Directives Date on File: 11/02/21 service: No Current occupational status: unemployed and disabled Cognitive needs: No Hearing needs: No Vision needs: No Assessment & Plan Assessment & Plan (1) Hypoparathyroidism: Code(s): E20.9 - Hypoparathyroidism, unspecified Category: Medical Qualifiers: Hypoparathyroidism type: unspecified Qualified Code(s): E20.9 - Hypoparathyroidism, unspecified Plan: This is a 53-year-old female with a history of surgically induced hypoparathyroidism currently being treated with calcitriol, calcium, vitamin D3 and hydrochlorothiazide with calcium low normal. Plan is to continue the current therapy. We will check phosphorus, Mg and calcium , 24 hour urine for calcium and creatinine when available . Could consider use of [employer] PTH ([place]) when it becomes available Orders: Orders Phosphorus Today E20.9 - Hypoparathyroidism, unspecified Magnesium Today E20.9 - Hypoparathyroidism, unspecified Coding Level of Care Code Est Pt Level 3 (16758) Diagnoses Hypoparathyroidism, unspecified hypoparathyroidism type E20.9 Hypoparathyroidism type: unspecified
[2024-04-01 13:11] VITALS: BP 112/66; PULSE 81; BMI 54.5
== END 2024-04-01 13:35 | disposition home or self-care (01) ==
PROVIDERS: PCP Physician Assistant; Visit Provider Internal Medicine Endocrinology, Diabetes & Metabolism
DX: E20.9 Hypoparathyroidism, unspecified (principal)
CPT/HCPCS: 99213

== ENCOUNTER 2024-04-01 13:44 | Outpatient (REF) | payer OTHER, SELFPAY ==
[2024-04-01 16:54] LABS: Albumin Level 4.5 g/dL (3.5-5.0); Calcium 9.1 mg/dL (8.4-10.2); Magnesium 2.2 mg/dL (1.6-2.6); Phosphorus 4.1 mg/dL (2.7-4.5)
== END 2024-04-01 13:45 | disposition home or self-care (01) ==
LOC: HO.LAB 13:44
PROVIDERS: Internal Medicine Endocrinology, Diabetes & Metabolism; PCP Physician Assistant; Visit Provider Physician Assistant
DX: E20.9 Hypoparathyroidism, unspecified (principal)
CPT/HCPCS: 36415; 82040; 82310; 83735; 84100

== ENCOUNTER → 2024-04-13 14:45 | Outpatient (BNVA) | payer OTHER, SELFPAY | PROVIDERS: PCP Physician Assistant ==

== ENCOUNTER 2024-05-07 11:04 | Outpatient (AMB) | payer OTHER, SELFPAY ==
--- NOTE | 2024-05-07 11:07 | MHC.OFFVIS ---
Vital Signs 05/07/24 11:10 Height 5 ft Weight 269 lb BMI 52.5 BP 119/72 Blood Pressure Location Lt brachial Position Sitting Pulse 73 Intake Visit Reasons: Abdominal pain Intake Note: Patient follow up for abdominal pain. Patient cc: abdominal pain/bloating, acid reflex, between diarrhea and constipation with BM with different form and color, chronic left middle quadrant. Traffic Controller Cable Required: Yes Traffic Controller Cable Name: [facility] [place] Accompanied by: Self / Same As Patient Allergies ibuprofen [IBUPROFEN] Allergy (Intermediate, Verified 05/07/24 12:18) RASH lisinopril [LISINOPRIL] Allergy (Intermediate, Verified 05/07/24 12:18) RASH lactulose [LACTULOSE] Allergy (Mild, Verified 05/07/24 12:18) STOMACH ACHE duloxetine [From Cymbalta] Adverse Reaction (Intermediate, Verified 05/07/24 12:18) Insomnia gabapentin Adverse Reaction (Intermediate, Verified 05/07/24 12:18) Insomnia semaglutide [From Wegovy] Adverse Reaction (Intermediate, Verified 05/07/24 12:18) Sickness tizanidine Adverse Reaction (Intermediate, Verified 05/07/24 12:18) bradycardia HPI HPI Abdominal pain: Details: 53 yr old f w hx of cholecystectomy 2007 being seen for f/u RECAP: She had right sided upper abdo pain in 12/2018, lipase was 3000-came to hospital and MRI with stranding around pancreas, CBD 1 cm but no stones/strictures dx with pancreatitis, also ?adherent small bowel, hepatomegaly and steatosis she had ongoing sx and flare up and again admitted 02/2019--transaminitis, liapse at 800 and MRI again done with stable CBD, normal pancreas no divisum HEp serologies were neg Since d/c ongoing pain ruq (but is pointing to her right flank and can locate with one finger), PCP flexeril and bentyl and not helping she does have nausea, emesis occ brown or yellow appetite is poor, weight down 2# this month stool is normal, no blood in stool, she does have chills, no fevers whole elft side can feel weak, gets dizzy at times--attacks every day can last 10 mins at a time--saw neurologist and being assessed. she was not a consistent historian debbie as regards her pain and how it was during her attacks as opposed to at the visit, clinically her pain was not consistent with a pancreatic etiology and appeared to be more myofascial in origin she was given lido/kenalog injection in case of myofascial component but felt it didn;t help she was getting w/u for hypercalcemia she was also c/o dysphagia which was new and EGD was planned as well as pain in her right loin At visit: 04/2019 she went to ED for abdominal pain, had severe worsening idffuse abdo pain with nausea and vomiting (bilious) passing small amount of stool with pressure but no gas she had small bowel obstruction in past and feels the same had CT in ED with evidence of SBO, seems to be transition point around prior ventral hernia surgery site, no pancreatitis. EGD: 06/2019 for dysphagia--4 cm hiatal hernia, patulous GEJ, bx -active esophagitis, GEJ chronic inflammation--advised to take PPI At TV 09/2019 she was c/o SOb, chest pain and confusion, vomiting she was advised to go to ED labs with nml hgb, mild leukopenia, LFt nml, trop, nml, CT scan:enlarged liver, scarring lower abd wall, no bowel obstruction Last time she was having migraines and I suspected her nausea was from this she was given propranolol to see if it helped advised to get CO monitor for home, makse sure no CO exposure she was advised to see Dr Cruz for hiatal hernia repair, plan is for sleeve gastrectomy and hiatal hernia repair after she completes the necessary steps F/U 01/28/22 I gave her TCA due to concern for fucntional dyspepsia and pain LABS: nml CMP/LFT 10/2022 CT 09/2022--bladder lesion, kidney stones INTERIM: she has cramps andf chrlie horse like pain since 1 week started suprapubic area and going into left side 10/10 in severity she cant eat --feels food is just sitting there she has having water stool she has nausea urine is brown, no burning urine coming out small bits stool is white color she is having fever and chills dizzy when tried to walk EXAM: GENERAL: The patient is obese, uses roller, hard to walk, uncomfrtable VITAL SIGNS:see workflow HEENT: Nonicteric sclerae, PERRLA, EOMI. Oropharynx clear. Moist mucous membranes. Conjunctivae appear well perfused. No thyroid mass. CHEST: Chest wall is nontender. HEART: Regular rate and rhythm without murmurs. LUNGS: Clear to auscultation bilaterally. ABDOMEN: Soft, positive bowel sounds, tender suprpapubic and left flank, no organomegaly.no flank tenderness SKIN: No rash, no excessive bruising, petechiae, or purpura. NEUROLOGIC: Cranial nerves II-XII intact without motor/sensory deficit. Psych: normal affect Assessments 1. suprapubic pain and left upper pain, flank with fever ? source, les slikely to be CBD obstruction, r/o bowel obstructionn Plan: 1/ refer ED given fever and severe pain, will likely need labs, and imaging [facility] Medical History Annual physical exam Preoperative examination Weakness Fatigue Malaise and fatigue Rib pain on right side Cough Shortness of breath Pneumonia due to 2019 novel coronavirus Bronchospasm Hand paresthesia Numbness and tingling of right side of face Seroma of musculoskeletal structure after musculoskeletal system procedure Acute torticollis Right knee pain Left shoulder pain Left knee pain Neck pain on right side Back pain Back pain Arthritis of right knee Arthritis of left knee Toe infection Lipoma of back Bilateral kidney stones Suprapubic pain, acute Hypocalcemia Hypokalemia Lipoma of neck RUQ pain Retroperitoneal mass Generalized abdominal pain H/O acute pancreatitis Nausea & vomiting Morbid obesity Class 3 obesity Obese BMI 45.0-49.9, adult Morbid obesity due to excess calories ALYSA (generalized anxiety disorder) Pancreatitis IBS (irritable bowel syndrome) Arthritis Depression Asthma Sleep apnea HTN (hypertension) Renal calculi Osteopenia Vitamin D deficiency Hypoparathyroidism Renal colic Chronic abdominal pain Surgical History Hx of lipoma Hx of colonoscopy H/O thyroidectomy History of esophagogastroduodenoscopy (EGD) History of parathyroid surgery History of hernia repair Status post excision of lipoma (09/26/21) H/O left knee surgery History of cholecystectomy H/O: hysterectomy Family History Father Medical history unknown Mother Cancer Paternal Grandmother Diabetes Paternal Grandfather Diabetes Daughter Behavioral problem Family/Other FH: mental illness Social History Household Members: None Housing: Apartment Are you a primary account executive healthcare to a significant other at home: No Do you presently have visiting nurse or other home services: No Alcohol intake: never Patient Tobacco Use Status: Never used Tobacco e-Cigarette/Vaping Use: Never Used Second Hand Smoke Exposure: No Advance Directives Date on File: 11/02/21 service: No Current occupational status: unemployed and disabled Cognitive needs: No Hearing needs: No Vision needs: No Physical Exam Vital Signs: Last Vital Signs Pulse 73 05/07/24 11:10 BP 119/72 05/07/24 11:10 BMI result Body Mass Index 52.5 Assessment & Plan Assessment & Plan (1) Suprapubic pain, acute: Code(s): R10.2 - Pelvic and perineal pain Category: Medical Plan: as above Plan see above Coding Level of Care Code Est Pt Level 4 (79561) Diagnoses Suprapubic pain, acute R10.2 Comment ED transfer and sign out given personally
[2024-05-07 11:10] VITALS: BP 119/72; PULSE 73; BMI 52.5
== END 2024-05-07 12:17 | disposition home or self-care (01) ==
PROVIDERS: PCP Physician Assistant; Visit Provider Internal Medicine Gastroenterology
DX: R10.2 Pelvic and perineal pain (principal)
CPT/HCPCS: 99214

== ENCOUNTER → 2024-05-07 11:04 | Outpatient (BNVA) | payer OTHER, SELFPAY | PROVIDERS: PCP Physician Assistant; Visit Provider Internal Medicine Gastroenterology ==

== ENCOUNTER 2024-05-07 12:10 | Observation (INO) | payer OTHER, SELFPAY ==
[2024-05-07] VITALS (7 sets, daily range): BP systolic 127–151; BP diastolic 54–94; PULSE 79–87; RESP 16–20; TEMP 36.3–36.9; O2SAT 96–100; BMI 55.3
--- NOTE | 2024-05-07 | ECG_ITS ---
Test Reason : CHEST PAIN Blood Pressure : / mmHG Vent. Rate : 083 BPM Atrial Rate : 083 BPM P-R Int : 144 ms QRS Dur : 080 ms QT Int : 386 ms P-R-T Axes : 050 006 009 degrees QTc Int : 453 ms Normal sinus rhythm Normal ECG When compared with ECG of 13-AUG-2022 16:06, No significant change was found Referred By: Nagi Dennis Electronically Signed By:GELY FAIRBANKS
--- NOTE | ~2024-05-07 | CT_ITS ---
EXAMINATION: CT ABDOMEN AND PELVIS WITH CONTRAST CLINICAL INFORMATION: Abdominal pain COMPARISON: 09/23/2022 TECHNIQUE: Multidetector volumetric images were obtained from the superior aspect of the liver through the pubic symphysis following administration 100 mL of Omnipaque 350 intravenous contrast. Sagittal and coronal reformatted images were obtained on the technologist's workstation. Oral contrast: Yes This CT examination was performed using dose optimization techniques as appropriate, variously including the following: *Automated exposure control *Adjustment of mA and/or kV according to patient size (this includes techniques or standardized protocols for targeted exams where dose is matched to indication/reason for exam; i.e. extremities or head) *Use of iterative reconstruction technique DLP: 1062 mGy-cm FINDINGS: LUNG BASES: The visualized lung bases are unremarkable. LIVER, GALLBLADDER, AND BILIARY TREE: Mild diffuse fatty infiltration of the liver. The gallbladder is surgically absent. PANCREAS: Unremarkable. SPLEEN: Unremarkable. ADRENAL GLANDS: Unremarkable. KIDNEYS AND URETERS: The kidneys are normal in size, shape, and attenuation. No hydronephrosis, hydroureter, or calculi seen. No perinephric stranding. BLADDER: Unremarkable. GASTROINTESTINAL TRACT: Colonic diverticulosis, severe involving the sigmoid, without evidence to indicate diverticulitis. Normal appendix. ABDOMINAL WALL: There is skin thickening surrounding the umbilicus with reticular edema of the subcutaneous fat with soft tissue thickening that extends to the abdominal wall which also appears to be irregular and thickened suggesting inflammatory changes. There are small bowel loops which contact this portion of the abdominal wall and may be adherent. No bowel wall thickening. There is no focal fluid collection to indicate an abscess. LYMPH NODES: Normal. VASCULAR: Unremarkable. PELVIC VISCERA: The uterus is absent. OSSEOUS STRUCTURES: Unremarkable. CT/CT abdomen pelvis w IV con IMPRESSION: 1. There is skin thickening surrounding the umbilicus with reticular edema of the subcutaneous fat and soft tissue thickening that extends to the abdominal wall which also appears to be thickened and irregular suggesting cellulitis and underlying inflammatory changes. There are small bowel loops which contact this portion of the abdominal wall and may be adherent. No bowel wall thickening. No focal fluid collection to indicate an abscess. 2. Colonic diverticulosis, severe involving the sigmoid, without evidence of diverticulitis. 3. Mild fatty infiltration of the liver. Fleischner guidelines were followed. Electronically signed by: Moreno Arce MD 05/07/2024 07:41 PM [facility]
--- NOTE | 2024-05-07 12:13 | ED.GENADULT ---
HPI - General Adult General Chief complaint: Abdominal Pain Stated complaint: Abd pain, fever 2 days Time Seen by Provider: 05/07/24 14:55 Source: patient Mode of arrival: ambulatory Limitations: no limitations History of Present Illness ED Provider: Betzy Wiley PA-C HPI narrative: Patient is a 53 year old assigned female at with a history of fibromyalgia, asthma, NAVDEEP, MDD, HTN, and IBS presenting to the emergency department today with abdominal pain. Patient states that over the last 2 weeks she has had intermittent abdominal pain with the last few days being constant. Patient states that her last bowel movement was 2 days ago and was watery diarrhea. Patient states that her abdomen is very distended and she is not passing gas. Patient states that she is not able to tolerate anything by mouth right now because of the pain. Patient denies any dizziness, lightheadedness, nausea, vomiting, fever, chills, blurry vision, double vision, loss of vision, chest pain, difficulty breathing, shortness of breath, back pain, night sweats, pain with urination, increased urinary frequency, increased urinary urgency, blood in her urine or stool, syncope or a near syncopal episode, recent trauma or falls, bowel incontinence, bladder incontinence, or any other complaints at this time. Relieving factors: none Exacerbating factors: none Associated symptoms: denies other symptoms Treatments prior to arrival: none Related Data Home Medications ?Medication ?Instructions ?Recorded ?Confirmed clonazepam 0.5 mg tablet 0.5 mg PO BEDTIME 06/28/20 03/25/24 buspirone 10 mg tablet 10 mg PO BID 07/11/21 03/25/24 zolpidem 12.5 mg tablet,extended 12.5 mg PO BEDTIME PRN Insomnia 10/04/21 03/25/24 release,multiphase duloxetine 30 mg capsule,delayed mg PO 01/01/24 03/25/24 release Previous Rx's ?Medication ?Instructions ?Recorded blood pressure kit-extra large #1 ea 06/06/21 furosemide 20 mg tablet 20 mg PO DAILY #30 tabs 05/02/22 meclizine 25 mg tablet 25 mg PO DAILY PRN dizziness #30 05/02/22 tabs inhalational spacing device #1 ea 08/13/22 methocarbamol 500 mg tablet 500 mg PO TID PRN muscle spasm #90 10/30/23 tabs cyanocobalamin (vitamin B-12) 1,000 mcg PO DAILY #90 caps 12/09/23 1,000 mcg capsule calcium citrate 500 mg (2 x 250 mg calcium) PO BID 01/01/24 #360 tabs albuterol sulfate 90 mcg/actuation 1 inh inhalation QID 30 days #8.5 03/24/24 aerosol inhaler (Ventolin HFA) grams amlodipine 5 mg tablet 5 mg PO QAM #90 tabs 03/24/24 cholecalciferol (vitamin D3) 25 25 mcg PO DAILY #90 caps 03/24/24 mcg (1,000 unit) capsule (Vitamin D3) pregabalin 100 mg capsule 100 mg PO BID 30 days #60 caps 03/24/24 propranolol 10 mg tablet 10 mg PO BID #180 tabs 03/29/24 hydrochlorothiazide 12.5 mg tablet 12.5 mg PO DAILY 90 days #90 tabs 04/18/24 topiramate 25 mg tablet 25 mg PO BEDTIME #30 ea 04/27/24 hyoscyamine sulfate 0.125 mg 0.125 mg sublingual BID-QID for 04/28/24 sublingual tablet indigestion #30 tabs calcitriol 0.25 mcg capsule 0.25 mcg PO DAILY 30 days #60 caps 05/03/24 acetaminophen 300 mg-codeine 30 mg 1 tab PO Q12H PRN pain #30 tabs 05/06/24 tablet pantoprazole 40 mg tablet,delayed 40 mg PO DAILY #90 tabs 05/07/24 release Allergies Allergy/AdvReac Type Severity Reaction Status Date / Time ibuprofen [IBUPROFEN] Allergy Intermediate RASH Verified 05/07/24 12:18 lisinopril [LISINOPRIL] Allergy Intermediate RASH Verified 05/07/24 12:18 lactulose [LACTULOSE] Allergy Mild STOMACH Verified 05/07/24 12:18 ACHE duloxetine [From Cymbalta] AdvReac Intermediate Insomnia Verified 05/07/24 12:18 gabapentin AdvReac Intermediate Insomnia Verified 05/07/24 12:18 semaglutide [From Wegovy] AdvReac Intermediate Sickness Verified 05/07/24 12:18 tizanidine AdvReac Intermediate bradycardia Verified 05/07/24 12:18 Review of Systems Constitutional: Constitutional: Reports no additional constitutional complaints, Denies chills, Denies fever(s) and Denies night sweats Eyes: Eyes: Reports no additional eye complaints, Denies blurry vision, Denies change in vision, Denies diplopia, Denies eye discharge, Denies loss of vision and Denies eye pain ENT: Denies dizziness Cardiovascular: Cardiovascular: Reports no additional cardiovascular complaints, Denies chest pain, Denies lightheadedness, Denies Loss of Consciousness and Denies dyspnea Respiratory: Respiratory: Reports no additional respiratory complaints and Denies dyspnea Gastrointestinal: Gastrointestinal: Reports no additional gastrointestinal complaints, Reports abdominal pain, Denies melena, Denies hematochezia, Denies change in bowel habits and Denies change in stool character Genitourinary: Genitourinary: Denies hematuria, Denies urinary frequency, Denies dysuria, Denies urinary incontinence, Denies urinary hesitancy and Denies urinary urgency Musculoskeletal: Musculoskeletal: Reports no additional musculoskeletal complaints, Denies numbness and Denies tingling Neurologic: Denies dizziness, Denies loss of vision, Denies numbness and Denies tingling Psychiatric: Psychiatric: Reports no additional psychiatric complaints Endocrine: Endocrine: Reports no additional endocrine complaints Hematologic/Lymphatic: Hematologic/Lymphatic: Reports no additional hematologic/lymphatic complaints Allergic/Immunologic: Allergic/Immunologic: Reports no additional allergic/immunologic complaints [facility] Past Medical History Attestation statement: The following information was validated with the patient. Source: old records reviewed and nursing notes reviewed Medical History Annual physical exam Preoperative examination Weakness Fatigue Malaise and fatigue Rib pain on right side Cough Shortness of breath Pneumonia due to 2019 novel coronavirus Bronchospasm Hand paresthesia Numbness and tingling of right side of face Seroma of musculoskeletal structure after musculoskeletal system procedure Acute torticollis Right knee pain Left shoulder pain Left knee pain Neck pain on right side Back pain Back pain Arthritis of right knee Arthritis of left knee Toe infection Lipoma of back Bilateral kidney stones Suprapubic pain, acute Hypocalcemia Hypokalemia Lipoma of neck RUQ pain Retroperitoneal mass Generalized abdominal pain H/O acute pancreatitis Nausea & vomiting Morbid obesity Class 3 obesity Obese BMI 45.0-49.9, adult Morbid obesity due to excess calories ALYSA (generalized anxiety disorder) Pancreatitis IBS (irritable bowel syndrome) Arthritis Depression Asthma Sleep apnea HTN (hypertension) Renal calculi Osteopenia Vitamin D deficiency Hypoparathyroidism Renal colic Chronic abdominal pain Surgical History Hx of lipoma Hx of colonoscopy H/O thyroidectomy History of esophagogastroduodenoscopy (EGD) History of parathyroid surgery History of hernia repair Status post excision of lipoma (09/26/21) H/O left knee surgery History of cholecystectomy H/O: hysterectomy Family History Family History Father Medical history unknown Mother Cancer Paternal Grandmother Diabetes Paternal Grandfather Diabetes Daughter Behavioral problem Family/Other FH: mental illness Social History Social History Household Members: None Housing: Apartment Are you a primary palliative care specialist to a significant other at home: No Do you presently have visiting nurse or other home services: No Alcohol intake: never Patient Tobacco Use Status: Never used Tobacco e-Cigarette/Vaping Use: Never Used Second Hand Smoke Exposure: No Advance Directives: Yes Advance Directives on File: Yes Advance Directives Date on File: 11/02/21 service: No Current occupational status: unemployed and disabled Cognitive needs: No Hearing needs: No Vision needs: No Physical Exam ED Vital Signs: Vital Signs - 24 hr 05/07/24 12:15 05/07/24 15:50 05/07/24 16:00 Temperature 97.9 F 97.8 F Pulse Rate 87 82 Respiratory Rate 20 16 16 Blood Pressure 151/86 H 146/81 H Pulse Oximetry 97 99 Oxygen Delivery Method Room Air Room Air 05/07/24 18:00 05/07/24 20:00 Temperature 98.4 F 97.3 F Pulse Rate 85 83 Respiratory Rate 16 16 Blood Pressure 130/75 127/59 L Pulse Oximetry 98 100 Oxygen Delivery Method Room Air Room Air BMI result Body Mass Index 55.3 Const General: cooperative, no acute distress, alert and awake Nutritional Appearance: well nourished Orientation/consciousness: patient oriented x3 Limitations: no limitations HENMT Head: Yes normal to inspection and Yes atraumatic Ears: hearing grossly normal bilaterally and external ears normal General nose exam: Normal external nose present, no nasal discharge noted and no epistaxis Face and sinus: Yes normal facial exam, No abrasion and No laceration Mouth: Normal oral and palatal mucosa present, no drooling and no muffled voice Eyes General: appearance normal, both eyes and all related structures Periorbital: periorbital findings normal Eyelids: Yes eyelids normal Conjunctivae: conjunctivae normal Pupils: Equal, round and reactive pupils present EOM: EOMs intact bilaterally Neck Neck: Yes normal visual inspection, Yes full ROM and Yes no lymphadenopathy Chest Chest palpation & inspection: normal inspection of the chest Resp Effort & Inspection: normal respiratory effort and able to speak in complete sentences GI Inspection: Yes normal to inspection and Yes distended Palpation (GI): Firmness to palpation present (GI), no guarding and not rigid Neuro General: patient oriented x3 and moves all extremities Cranial nerves: Yes Equal, round and reactive pupils present Cognition (Neuro): normal cognition Extrem General: Yes normal to inspection, Yes full ROM and Yes capillary refill normal Psych Appearance: grossly normal Mental Status: mental status grossly normal Affect: normal affect Attitude: cooperative Thought process: Normal thought process present Thought content: Normal thought content present Insight: Good insight present (Psych) Course Course Course Narrative: This is a rapid medical exam performed by Sharmin Garza NP: Additional HPI, ROS, PE not included below will be deferred to primary provider. Patient is a 53-year-old female presenting with complaint of left flank pain for the past 2 weeks. Reports diarrhea and constipation intermittently. Saw Dr. Redd today. Plan: labs, UA Reevaluation(s) Reevaluation #1: 8:[address] results returned. Soft tissue changes noted around the umbilicus extending deep to the abdominal wall. Given these findings, we will discuss with surgery. Message to Dr. Craft. 9:00 p.m. patient is seen and evaluated by Dr. Craft. patient will be brought into the hospital for further evaluation and management, IV antibiotics and analgesia. Medications Administered Discontinued Medications Generic Name Dose Route Start Last Admin Trade Name Freq PRN Reason Stop Dose Admin Barium Sulfate 900 ml 05/07/24 17:49 05/07/24 17:49 Barium Sulfate Oral (Vanilla) 450 Ml Oral.Susp PO 05/07/24 17:50 900 ml ONCE ONE Administration Hydromorphone HCl 1 mg 05/07/24 16:45 05/07/24 18:16 Hydromorphone Hcl 1 Mg/Ml Syringe IVPUSH 05/07/24 16:46 1 mg ONCE ONE Administration Protocol Iohexol 100 ml 05/07/24 17:42 05/07/24 17:43 Iohexol 350 Mg/Ml 100 Ml Infus..Btl IV 05/07/24 17:43 100 ml ONCE ONE Administration Morphine Sulfate 4 mg 05/07/24 15:09 05/07/24 15:50 Morphine Sulfate 4 Mg/Ml Cartridge IVPUSH 05/07/24 15:10 4 mg ONCE ONE Administration Protocol Ondansetron HCl 4 mg 05/07/24 15:09 05/07/24 15:50 Ondansetron Hcl 4 Mg/2 Ml Vial IVPUSH 05/07/24 15:10 4 mg ONCE ONE Administration Pantoprazole Sodium 40 mg 05/07/24 19:05 05/07/24 20:53 Pantoprazole Sodium 40 Mg/10 Ml Vial IVPUSH 05/07/24 19:06 40 mg ONCE ONE Administration Medical Decision Making Medical Decision Making MDM Narrative: Patient is a 53 year old assigned female at with a history of fibromyalgia, asthma, NAVDEEP, MDD, HTN, and IBS presenting to the emergency department today with abdominal pain. Patient's physical exam was as noted in the physical exam portion of this note. Patient's blood work was unremarkable. Patient's urine showed no acute process. Patient's CT abd/pelvis is pending. I explained my physical exam findings as well as all test results to the patient. I answered all questions asked by the patient. Patient received IV Dilaudid and Morphine which, upon re-evaluation, she stated it helped her symptoms some. Patient signed out to the evening JULIANA pending CT read. Differential Diagnosis Differential Diagnoses: The differential diagnosis associated with the presentation includes SBO Abdominal pain Diverticulitis Peptic ulcer Admission/Observation Consideration of admission/observation: Escalation of care including admission/observation considered Patient's disposition will be determined after CT abd/pelvis is read. Lab Data [facility] Lab Attestation statement: I reviewed the patient's lab results. My interpretation of these results are in the MDM Rationale portion of this note. 05/07/24 12:51 05/07/24 12:51 Labs: Lab Results 05/07/24 Range/Units 12:51 WBC 6.4 (4.8-10.8) X10*3/uL RBC 3.87 L (4.20-5.50) X10*6/uL Hgb 12.6 (12.0-16.0) g/dl Hct 38.2 (37.0-47.0) % MCV 98.7 H (80.0-98.0) fL MCH 32.6 (27.0-33.0) pg MCHC 33.0 (31.0-35.0) g/dl RDW 13.0 (11.0-16.0) % Plt Count 226 (160-400) X10*3/uL MPV 10.2 (9.4-12.3) fL Immature Gran % (Auto) 0.3 (0.0-0.4) % Neut % (Auto) 54.8 (45-73) % Lymph % (Auto) 37.8 (20-40) % Pine % (Auto) 5.0 (2-11) % Eos % (Auto) 1.6 (0-4) % Baso % (Auto) 0.5 (0-2) % Lymph # (Auto) 2.4 (1.2-4.9) X10*3/uL Pine # (Auto) 0.3 (0.1-1.2) X10*3/uL Eos # (Auto) 0.1 (0.0-0.4) X10*3/uL Baso # (Auto) 0.0 (0.0-0.2) X10*3/uL Abs Immat Gran (auto) 0.02 (0.00-0.03) X10*3/uL Absolute Neuts (auto) 3.5 (2.0-8.3) x10*3/uL Absolute Nucleated RBC 0.000 (0.0-0.012) X10*3/uL Nucleated RBC % (auto) 0.0 (0.0-0.2) /100WBC Sodium 144 (135-145) mmol/L Potassium 4.1 (3.3-5.1) mmol/L Chloride 106 (96-108) mmol/L Carbon Dioxide 31 H (22-29) mmol/L Anion Gap 11 L (12-20) BUN 12 (9-16) mg/dL Creatinine 0.92 (0.5-1.4) mg/dL Estim Creat Clear Calc 86.8 Estimated GFR > 60 Random Glucose 98 (60-115) mg/dL Calcium 8.6 (8.4-10.2) mg/dL Magnesium 1.9 (1.6-2.6) mg/dL Total Bilirubin 0.3 (0.0-1.0) mg/dL AST 16 (5-31) U/L ALT 15 (0-31) U/L Alkaline Phosphatase 93 (39-117) U/L Total Protein 7.3 (6.5-8.0) g/dL Albumin 4.1 (3.5-5.0) g/dL Lipase 13 (8-78) U/L Urine Color Yellow Urine Appearance Cloudy Urine pH 6.0 (5.0-9.0) Ur Specific [place] 1.020 (1.005-1.025) Urine Protein Negative (Neg-Trace) mg/dL Urine Glucose (UA) Negative (Negative) mg/dL Urine Ketones Negative (Negative) mg/dL Urine Blood Negative (Negative) Urine Nitrite Negative (Negative) Ur Leukocyte Esterase Negative (Negative) Chronic Conditions Patient?s care impacted by: Hypertension Critical Care Time Critical Care Time Critical Care Time: Yes Total Critical Care Time: 44 Attestation: I spent 44 minutes of Critical Care Time with this patient. This does not include time spent on separately reported billable procedures. Discharge Plan Discharge Clinical Impression: Abdominal pain, Abdominal distension Patient Disposition: Admitted As Inpatient Print Language: Guinean
[2024-05-07 12:58] LABS: MANUAL DIFF FLAG NO
[2024-05-07 13:00] LABS: Appearance Urine Cloudy; Basophils Percent Auto 0.5 % (0-2); Color Urine Yellow; Eosinophils Absolute Auto 0.1 X10*3/uL (0.0-0.4); Eosinophils Percent Auto 1.6 % (0-4); Glucose Urine UA Negative (Negative); Hematocrit 38.2 % (37.0-47.0); Hemoglobin 12.6 g/dl (12.0-16.0); Imm Gran Abs Auto 0.02 X10*3/uL (0.00-0.03); Imm Gran Pct Auto 0.3 % (0.0-0.4); Leukocyte Esterase Urine Negative (Negative); Lymphocytes Absolute Auto 2.4 X10*3/uL (1.2-4.9); Lymphocytes Percent Auto 37.8 % (20-40); Mean Corpuscular Hemoglobin 32.6 pg (27.0-33.0); Mean Corpuscular Volume 98.7 fL (80.0-98.0); Mean Platelet Volume 10.2 fL (9.4-12.3); Monocytes Absolute Auto 0.3 X10*3/uL (0.1-1.2); Neutrophils Absolute Auto 3.5 x10*3/uL (2.0-8.3); Neutrophils Percent Auto 54.8 % (45-73); Nitrite Urine Negative (Negative); Platelet Count 226 X10*3/uL (160-400); Red Blood Count 3.87 X10*6/uL (4.20-5.50); Urine Blood Negative (Negative); Urine Ketones Negative (Negative); Urine Protein Negative (Neg-Trace); White Blood Count 6.4 X10*3/uL (4.8-10.8)
[2024-05-07 13:21] LABS: Alanine Aminotransferase 15 U/L (0-31); Albumin Level 4.1 g/dL (3.5-5.0); Alkaline Phosphatase 93 U/L (39-117); Anion Gap 11 (12-20); Aspartate Amino Transferase 16 U/L (5-31); Bilirubin Total 0.3 mg/dL (0.0-1.0); Blood Urea Nitrogen 12 mg/dL (9-16); Calcium 8.6 mg/dL (8.4-10.2); Carbon Dioxide 31 mmol/L (22-29); Chloride 106 mmol/L (96-108); Creatinine Clr Calc Pharmacy 86.8; Estimated Glomerular Filt Rate > 60; Glucose Random 98 mg/dL (60-115); Lipase 13 U/L (8-78); Magnesium 1.9 mg/dL (1.6-2.6); Potassium 4.1 mmol/L (3.3-5.1); Sodium 144 mmol/L (135-145); Total Protein 7.3 g/dL (6.5-8.0)
--- NOTE | 2024-05-07 15:49 | PC.NURSE ---
20G to LAC. Tolerated well.
[2024-05-07] MEDS: Morphine Sulfate 4 MG/ML CARTRIDGE IVPUSH (15:50)
[2024-05-07] MEDS: ondansetron HCL 4 MG/2 ML VIAL IVPUSH (15:50)
[2024-05-07] MEDS: iohexoL 350 MG/ML 100 ML INFUS..BTL IV (17:43)
[2024-05-07] MEDS: Barium Sulfate Oral (Vanilla) 450 ML ORAL.SUSP 900 ML PO (17:49)
[2024-05-07] MEDS: HYDROmorphone HCl 1 MG/ML SYRINGE IVPUSH (18:16)
[2024-05-07] MEDS: Pantoprazole Sodium 40 MG/10 ML VIAL IVPUSH (20:53)
--- NOTE | 2024-05-07 21:29 | PM.HPGS ---
History of Present Illness History of Present Illness Date of Service: 05/07/24 Chief complaint: Abdo pain Narrative: Amalia Fish is a 53 year old female who is known to Dr. Ragsdale in the past who has had an umbilical hernia repair with mesh. She comes in after being sent from to the emergency room complaining of abdominal pain nausea vomiting in the last couple of days and diarrhea. She says that she is feeling okay now however she has been having a lot of abdominal pain coming from the left upper quadrant going to the umbilical area. She denies any trauma to the area and is concerned because she had previous hernia repair. CT scan of the abdomen and pelvis was carried out which shows some inflammatory changes in the abdominal wall but it seems like some of these abdominal inflammatory wall changes were chronic and present last year. There is no topical skin changes that are concerning or abnormal. She said that she had a temperature of 100 degrees for couple of days ago. Here her white count is normal. Review of Systems Review of Systems: Yes all other systems are reviewed and are negative PMFSH Past Medical History Medical History Annual physical exam Preoperative examination Weakness Fatigue Malaise and fatigue Rib pain on right side Cough Shortness of breath Pneumonia due to 2019 novel coronavirus Bronchospasm Hand paresthesia Numbness and tingling of right side of face Seroma of musculoskeletal structure after musculoskeletal system procedure Acute torticollis Right knee pain Left shoulder pain Left knee pain Neck pain on right side Back pain Back pain Arthritis of right knee Arthritis of left knee Toe infection Lipoma of back Bilateral kidney stones Suprapubic pain, acute Hypocalcemia Hypokalemia Lipoma of neck RUQ pain Retroperitoneal mass Generalized abdominal pain H/O acute pancreatitis Nausea & vomiting Morbid obesity Class 3 obesity Obese BMI 45.0-49.9, adult Morbid obesity due to excess calories ALYSA (generalized anxiety disorder) Pancreatitis IBS (irritable bowel syndrome) Arthritis Depression Asthma Sleep apnea HTN (hypertension) Renal calculi Osteopenia Vitamin D deficiency Hypoparathyroidism Renal colic Chronic abdominal pain Family History Family History Father Medical history unknown Mother Cancer Paternal Grandmother Diabetes Paternal Grandfather Diabetes Daughter Behavioral problem Family/Other FH: mental illness Surgical History Surgical History Hx of lipoma Hx of colonoscopy H/O thyroidectomy History of esophagogastroduodenoscopy (EGD) History of parathyroid surgery History of hernia repair Status post excision of lipoma (09/26/21) H/O left knee surgery History of cholecystectomy H/O: hysterectomy Social History Social History Household Members: None Housing: Apartment Are you a primary healthcare business analyst to a significant other at home: No Do you presently have visiting nurse or other home services: No Alcohol intake: never Patient Tobacco Use Status: Never used Tobacco e-Cigarette/Vaping Use: Never Used Second Hand Smoke Exposure: No Advance Directives: Yes Advance Directives on File: Yes Advance Directives Date on File: 11/02/21 service: No Current occupational status: unemployed and disabled Cognitive needs: No Hearing needs: No Vision needs: No Meds Allergies Allergy/AdvReac Type Severity Reaction Status Date / Time ibuprofen [IBUPROFEN] Allergy Intermediate RASH Verified 05/07/24 12:18 lisinopril [LISINOPRIL] Allergy Intermediate RASH Verified 05/07/24 12:18 lactulose [LACTULOSE] Allergy Mild STOMACH Verified 05/07/24 12:18 ACHE duloxetine [From Cymbalta] AdvReac Intermediate Insomnia Verified 05/07/24 12:18 gabapentin AdvReac Intermediate Insomnia Verified 05/07/24 12:18 semaglutide [From Wegovy] AdvReac Intermediate Sickness Verified 05/07/24 12:18 tizanidine AdvReac Intermediate bradycardia Verified 05/07/24 12:18 Active Medications: Current Medications Acetaminophen (Acetaminophen 325 Mg Tablet) 650 mg PO Q6H PRN PRN Reason: Pain, Mild (Pain Scale 1-3), fever or headache Piperacillin Sod/Tazobactam (Sod 3.375 gm/ Sodium Chloride) 50 mls @ 100 mls/hr IV Q6H N[facility]O Magnesium Hydroxide (Milk Of Magnesia 30 Ml Oral.Susp) 30 ml PO DAILY PRN PRN Reason: Constipation Melatonin (Melatonin 3 Mg Tablet) 6 mg PO BEDTIME PRN PRN Reason: Insomnia Ondansetron HCl (Ondansetron Hcl 4 Mg/2 Ml Vial) 4 mg IVPUSH Q8H PRN PRN Reason: Nausea and Vomiting Oxycodone HCl (Oxycodone Hcl Immed Release 5 Mg Tablet) 10 mg PO Q6H PRN PRN Reason: Pain, Moderate(Pain Scale 4-6) Sodium Chloride (0.9 % Sodium Chloride Flush 3 Ml Syringe) 3 ml IVFLUSH QSHIFT [facility] Medications ?Medication ?Instructions ?Recorded ?Confirmed ?Last Taken ?Type clonazepam 0.5 mg tablet 0.5 mg PO BEDTIME 06/28/20 03/25/24 Unknown History buspirone 10 mg tablet 10 mg PO BID 07/11/21 03/25/24 Unknown History zolpidem 12.5 mg tablet,extended 12.5 mg PO BEDTIME PRN Insomnia 10/04/21 03/25/24 Unknown History release,multiphase duloxetine 30 mg capsule,delayed mg PO 01/01/24 03/25/24 Unknown History release Physical Exam Vital Signs: Vital Signs: Last Vital Signs Temp 97.3 F 05/07/24 20:00 Pulse 83 05/07/24 20:00 Resp 16 05/07/24 20:00 BP 127/59 L 05/07/24 20:00 Pulse Ox 100 05/07/24 20:00 O2 Del Method Room Air 05/07/24 20:00 BMI result Body Mass Index 55.3 Const: General: cooperative and acute distress mild HEENT: Head: Yes normal to inspection Resp: Effort & Inspection: normal respiratory effort Auscultation: clear to auscultation bilaterally Cardio: Rate: regular rate Rhythm: regular rhythm GI: Other: Abdomen is soft but protuberant. Normal bowel sounds. There is no masses noted on exam but she is tender in the left upper quadrant coming down to the midabdomen coming to the umbilical area. Less so in the right as well as bilateral lower quadrants. Some voluntary guarding no rebound no peritoneal signs no masses in regards to hernia noted. The skin is normal in appearance no erythema Results Results Labs: Short CBC 05/07/24 Range/Units 12:51 WBC 6.4 (4.8-10.8) X10*3/uL Hgb 12.6 (12.0-16.0) g/dl Hct 38.2 (37.0-47.0) % Plt Count 226 (160-400) X10*3/uL BMP 05/07/24 12:51 Sodium 144 Potassium 4.1 Chloride 106 Carbon Dioxide 31 H BUN 12 Creatinine 0.92 Calcium 8.6 Liver Function 05/07/24 Range/Units 12:51 Total Bilirubin 0.3 (0.0-1.0) mg/dL AST 16 (5-31) U/L ALT 15 (0-31) U/L Alkaline Phosphatase 93 (39-117) U/L Albumin 4.1 (3.5-5.0) g/dL Urine 05/07/24 Range/Units 12:51 Urine Color Yellow Urine Appearance Cloudy Urine pH 6.0 (5.0-9.0) Ur Specific [place] 1.020 (1.005-1.025) Urine Protein Negative (Neg-Trace) mg/dL Urine Glucose (UA) Negative (Negative) mg/dL Abdomen CT scan report/results: report reviewed and image reviewed CT scan - pelvis: report reviewed and image reviewed Additional studies: Ordering Physician: Betzy Wiley Date of Service: 05/07/24 Procedure(s): CT abdomen pelvis w IV con Accession Number(s): [id number] cc: Betzy Wiley; Physician,Unknown ~ EXAMINATION: CT ABDOMEN AND PELVIS WITH CONTRAST CLINICAL INFORMATION: Abdominal pain COMPARISON: 09/23/2022 TECHNIQUE: Multidetector volumetric images were obtained from the superior aspect of the liver through the pubic symphysis following administration 100 mL of Omnipaque 350 intravenous contrast. Sagittal and coronal reformatted images were obtained on the technologist's workstation. Oral contrast: Yes This CT examination was performed using dose optimization techniques as appropriate, variously including the following: *Automated exposure control *Adjustment of mA and/or kV according to patient size (this includes techniques or standardized protocols for targeted exams where dose is matched to indication/reason for exam; i.e. extremities or head) *Use of iterative reconstruction technique DLP: 1062 mGy-cm FINDINGS: LUNG BASES: The visualized lung bases are unremarkable. LIVER, GALLBLADDER, AND BILIARY TREE: Mild diffuse fatty infiltration of the liver. The gallbladder is surgically absent. PANCREAS: Unremarkable. SPLEEN: Unremarkable. ADRENAL GLANDS: Unremarkable. KIDNEYS AND URETERS: The kidneys are normal in size, shape, and attenuation. No hydronephrosis, hydroureter, or calculi seen. No perinephric stranding. BLADDER: Unremarkable. GASTROINTESTINAL TRACT: Colonic diverticulosis, severe involving the sigmoid, without evidence to indicate diverticulitis. Normal appendix. ABDOMINAL WALL: There is skin thickening surrounding the umbilicus with reticular edema of the subcutaneous fat with soft tissue thickening that extends to the abdominal wall which also appears to be irregular and thickened suggesting inflammatory changes. There are small bowel loops which contact this portion of the abdominal wall and may be adherent. No bowel wall thickening. There is no focal fluid collection to indicate an abscess. LYMPH NODES: Normal. VASCULAR: Unremarkable. PELVIC VISCERA: The uterus is absent. OSSEOUS STRUCTURES: Unremarkable. CT/CT abdomen pelvis w IV con IMPRESSION: 1. There is skin thickening surrounding the umbilicus with reticular edema of the subcutaneous fat and soft tissue thickening that extends to the abdominal wall which also appears to be thickened and irregular suggesting cellulitis and underlying inflammatory changes. There are small bowel loops which contact this portion of the abdominal wall and may be adherent. No bowel wall thickening. No focal fluid collection to indicate an abscess. 2. Colonic diverticulosis, severe involving the sigmoid, without evidence of diverticulitis. 3. Mild fatty infiltration of the liver. Fleischner guidelines were followed. Electronically signed by: Moreno Arce MD 05/07/2024 07:41 PM [facility] Dictated By: Moreno Arce MD Signed By: <Electronically signed by Moreno Arce MD in OV> 05/07/241940 DD/ 1733 TD/TT: 05/07/24 1748 [employer] Insurance Advisor: [place] Assessment and Plan (1) Abdominal pain: Status: Acute Plan 53-year-old female morbidly obese with abdominal wall pain and changes of inflammatory nature by CT scan. No true hernia is noted patient has had a repair with mesh. Her GI symptoms are nonspecific her white count is normal. Question some mild deeper panniculitis and as result we will admit IV antibiotics little p.o. pain medication and see how she does by tomorrow. Repeat white blood count. She does have fibromyalgia etc. this maybe just secondary to his underlying disease that she has. We will follow along with her exam and re-evaluate tomorrow but no surgical issues at this point in time. Patient understands and agrees with the above plan Quality Stroke Does the patient have a stroke diagnosis?: No VTE Prior VTE?: No VTE Risk Level:: Medical - low VTE Device Contraindication: N/A - Device Ordered VTE Drug Contraindication: Treatment Not Indicated Procedures Date of Service Date of Service: 05/07/24
--- NOTE | 2024-05-07 22:23 | PHA.MEDREC ---
Addendum entered by Missael Villa RP 05/07/24 22:35: MED REC CHECKED BY [facility] Original Note: Pharmacy Consult ? Medication Reconciliation Pharmacy has completed the medication reconciliation. Spoke with patient and she confirmed her medications with me. She stated she has not really been able to take her medications that much due to not being able to keep anything down. She claims she took her morning medications this morning and they stated down all day she stated.
--- NOTE | 2024-05-07 22:50 | PC.NURSE ---
Pt complained of new onset chest pain that feels like a heavy pressure, AX04, no facial drooping observed,pt also complained of right hand weakness, feels numb and she can't move it arms raised and dropped on assessment patient stated she couldn't keep her arm up. VS as follows 98.0f HR 81 bp 125/73 Resp 11. EKG done, pt placed on bedside monitor.
[2024-05-07] MEDS: Piperacillin Sodium/Tazobactam 3.375 GM in 0.9 % Sodium Chloride 50 ML IV (23:36)
[2024-05-08 00:45] LABS: Troponin-I High Sensitivity < 2.7 ng/L (<3.5-17.0)
--- NOTE | 2024-05-08 02:56 | PM.EVENT ---
Event Note Date of Service: 05/08/24 Event Note: Nurse reported chest pressure and right arm tingling/numbness. Patient states she does have neuropathy and has occasional right arm tingling and numbness. No longer has chest pressure. No nausea or sweating. Does complain of abdominal discomfort. Reviewed EKG. Ordered troponin which is negative. Time Spent With Patient Time: Total time managing care of this patient today ____ minutes.
[2024-05-08 03:58] VITALS: BMI 56.6
[2024-05-08 04:00] VITALS: BP 130/86; PULSE 84; RESP 18; TEMP 36.7; O2SAT 94
[2024-05-08 04:10] VITALS: BMI 56.6
[2024-05-08] MEDS: oxyCODONE HCl Immed Release 5 MG TABLET 10 MG PO ×4 (04:43→23:56)
[2024-05-08] MEDS: Piperacillin Sodium/Tazobactam 3.375 GM in 0.9 % Sodium Chloride 50 ML IV ×3 (06:21→18:07)
[2024-05-08] MEDS: 0.9 % Sodium Chloride Flush 3 ML SYRINGE IVFLUSH ×2 (07:38→16:34)
[2024-05-08 07:41] VITALS: BP 113/59; PULSE 79; RESP 20; TEMP 36.1; O2SAT 96
[2024-05-08] MEDS: ondansetron HCL 4 MG/2 ML VIAL IVPUSH ×2 (08:24→16:31)
[2024-05-08 11:41] VITALS: BP 122/83; PULSE 86; RESP 16; TEMP 36.1; O2SAT 97
--- NOTE | 2024-05-08 13:06 | P.PNGS_ITS ---
Subjective Subjective Date of Service: 05/08/24 Interval history: Patient is still complaining of abdominal pain from the left side to the midabdomen does not want to touch it. Still feels like she is having a lot of burping but also passing gas from below. She was nauseated and threw up earlier but now feels better. She is tolerating at least liquids. She denies any fevers or chills. No more episodes of chest pain etc.. She feels like the Zosyn is very strong Physical Exam 2 Vital Signs: Vital Signs: Last Vital Signs Temp 96.9 F 05/08/24 11:41 Pulse 86 05/08/24 11:41 Resp 16 05/08/24 11:41 BP 122/83 05/08/24 11:41 Pulse Ox 97 05/08/24 11:41 O2 Del Method Room Air 05/08/24 11:41 BMI result Body Mass Index 56.6 Const: General: cooperative and no acute distress Nutritional Appearance: o bese GI: Other: Her abdomen is large protuberant soft but she complained of tenderness with pushing it. No peritoneal signs she has active bowel sounds Objective Data Active Medications Acetaminophen (Acetaminophen 325 Mg Tablet) 650 mg PO Q6H PRN PRN Reason: Pain, Mild (Pain Scale 1-3), fever or headache Piperacillin Sod/Tazobactam (Sod 3.375 gm/ Sodium Chloride) 50 mls @ 100 mls/hr IV Q6H [facility]O Last Admin: 05/08/24 11:35 Dose: 100 mls/hr Documented By: REYES Magnesium Hydroxide (Milk Of Magnesia 30 Ml Oral.Susp) 30 ml PO DAILY PRN PRN Reason: Constipation Melatonin (Melatonin 3 Mg Tablet) 6 mg PO BEDTIME PRN PRN Reason: Insomnia Ondansetron HCl (Ondansetron Hcl 4 Mg/2 Ml Vial) 4 mg IVPUSH Q8H PRN PRN Reason: Nausea and Vomiting Last Admin: 05/08/24 08:24 Dose: 4 mg Documented By: REYES Oxycodone HCl (Oxycodone Hcl Immed Release 5 Mg Tablet) 10 mg PO Q6H PRN PRN Reason: Pain, Moderate(Pain Scale 4-6) Last Admin: 05/08/24 11:32 Dose: 10 mg Documented By: REYES Sodium Chloride (0.9 % Sodium Chloride Flush 3 Ml Syringe) 3 ml IVFLUSH QSHIFT [facility] Last Admin: 05/08/24 07:38 Dose: 3 ml Documented By: REYES Labs 05/07/24 12:51 05/07/24 12:51 Labs: Laboratory Results - last 24 hr 05/07/24 05/08/24 12:51 00:15 Anion Gap 11 L Estim Creat Clear Calc 86.8 Estimated GFR > 60 Random Glucose 98 Calcium 8.6 Magnesium 1.9 Total Bilirubin 0.3 AST 16 ALT 15 Alkaline Phosphatase 93 Troponin I High Sens < 2.7 Total Protein 7.3 Albumin 4.1 Lipase 13 Urine Color Yellow Urine Appearance Cloudy Urine pH 6.0 Ur Specific [place] 1.020 Urine Protein Negative Urine Glucose (UA) Negative Urine Ketones Negative Urine Blood Negative Urine Nitrite Negative Ur Leukocyte Esterase Negative Procedures Date of Service Date of Service: 05/08/24 Progress Note: A&P Assessment and plan (1) Abdominal pain: Status: Acute Plan 53-year-old female with abdominal pain and CT showing some inflammatory changes of the soft subcutaneous tissue. The patient is morbidly obese there is no bowel obstruction uncertain the etiology of this chronic type of pain which is acutely worse. Continue with liquid diet and the antibiotics and will try little simethicone 2 decrease her gassy bloatedness. She does have GI IBS issues Time Spent With Patient Time: Total time managing care of this patient today ____ minutes. Quality Stroke Does the patient have a stroke diagnosis?: No VTE Prior VTE?: No VTE Risk Level:: Medical - low VTE Device Contraindication: N/A - Device Ordered VTE Drug Contraindication: Treatment Not Indicated
[2024-05-08] MEDS: Simethicone 40 MG/0.6 ML ORAL.SUSP PO (14:04)
[2024-05-08 15:30] VITALS: BP 154/89; PULSE 93; RESP 18; TEMP 36.5; O2SAT 94
[2024-05-08 19:02] VITALS: BP 136/64; PULSE 91; RESP 18; TEMP 36.2; O2SAT 95
[2024-05-08 23:10] VITALS: BP 139/93; PULSE 90; RESP 18; TEMP 36.1; O2SAT 97
[2024-05-09] MEDS: Piperacillin Sodium/Tazobactam 3.375 GM in 0.9 % Sodium Chloride 50 ML IV ×5 (00:09→23:59)
[2024-05-09 03:31] VITALS: BP 144/65; PULSE 87; RESP 18; TEMP 36.1; O2SAT 94
[2024-05-09] MEDS: oxyCODONE HCl Immed Release 5 MG TABLET 10 MG PO ×3 (06:11→20:42)
[2024-05-09] MEDS: ondansetron HCL 4 MG/2 ML VIAL IVPUSH (07:36)
[2024-05-09] MEDS: 0.9 % Sodium Chloride Flush 3 ML SYRINGE IVFLUSH ×3 (07:36→23:36)
[2024-05-09 08:00] VITALS: BP 141/92; PULSE 96; RESP 20; TEMP 36.1; O2SAT 98
--- NOTE | 2024-05-09 09:39 | MHC.CM.PN ---
PT REPORTS SHE LIVES ALONE IN A STUDIO APARTMENT SHE USES A CANE AND WALKER AND HAS DAILY [employer] HCP ON FILE PCP: KENAN MALIN OBSERVATION NOTICE DELIVERED DCP: HOME RESUME [employer] MAY NEED BLS, SHE LIVES ON [address]ND FLO[address] AND SAYS ELEVATOR OFTEN OUT SHE ALSO DOES NOT HAVE HER WALKER WITH HER
[2024-05-09 11:56] VITALS: BP 139/80; PULSE 87; RESP 16; TEMP 36.1; O2SAT 97
--- NOTE | 2024-05-09 15:03 | P.PNGS_ITS ---
Subjective Subjective Date of Service: 05/09/24 Interval history: pt feeling better, had some bowel movements, less abdo pain Physical Exam 2 Vital Signs: Vital Signs: Last Vital Signs Temp 96.9 F 05/09/24 11:56 Pulse 87 05/09/24 11:56 Resp 16 05/09/24 11:56 BP 139/80 05/09/24 11:56 Pulse Ox 97 05/09/24 11:56 O2 Del Method Room Air 05/09/24 11:56 BMI result Body Mass Index 56.6 GI: Other: abdomen softer less tender Objective Data Active Medications Acetaminophen (Acetaminophen 325 Mg Tablet) 650 mg PO Q6H PRN PRN Reason: Pain, Mild (Pain Scale 1-3), fever or headache Piperacillin Sod/Tazobactam (Sod 3.375 gm/ Sodium Chloride) 50 mls @ 100 mls/hr IV Q6H [facility] Last Infusion: 05/09/24 12:09 Dose: Infused Documented By: REYES Magnesium Hydroxide (Milk Of Magnesia 30 Ml Oral.Susp) 30 ml PO DAILY PRN PRN Reason: Constipation Melatonin (Melatonin 3 Mg Tablet) 6 mg PO BEDTIME PRN PRN Reason: Insomnia Ondansetron HCl (Ondansetron Hcl 4 Mg/2 Ml Vial) 4 mg IVPUSH Q8H PRN PRN Reason: Nausea and Vomiting Last Admin: 05/09/24 07:36 Dose: 4 mg Documented By: REYES Oxycodone HCl (Oxycodone Hcl Immed Release 5 Mg Tablet) 10 mg PO Q6H PRN PRN Reason: Pain, Moderate(Pain Scale 4-6) Last Admin: 05/09/24 14:38 Dose: 10 mg Documented By: REYES Sodium Chloride (0.9 % Sodium Chloride Flush 3 Ml Syringe) 3 ml IVFLUSH [facility] Last Admin: 05/09/24 07:36 Dose: 3 ml Documented By: REYES Labs 05/07/24 12:51 05/07/24 12:51 Procedures Date of Service Date of Service: 05/09/24 Progress Note: A&P Assessment and plan (1) Abdominal pain: Status: Acute Assessment and Plan: pt feeling better has had bowel movement - wants to stay with clear liquids. eager to see Dr Ragsdale tomorrow and discuss her situation with him Time Spent With Patient Time: Total time managing care of this patient today ____ minutes. Quality Stroke Does the patient have a stroke diagnosis?: No VTE Prior VTE?: No VTE Risk Level:: Medical - low VTE Device Contraindication: N/A - Device Ordered VTE Drug Contraindication: Treatment Not Indicated
[2024-05-09 15:34] VITALS: BP 147/80; PULSE 85; RESP 18; TEMP 36.4; O2SAT 96
[2024-05-09 19:05] VITALS: BP 144/95; PULSE 91; RESP 18; TEMP 36.2; O2SAT 96
[2024-05-09] MEDS: Melatonin 3 MG TABLET 6 MG PO (20:42)
[2024-05-10] VITALS: BP 157/71; PULSE 80; RESP 18; TEMP 36.1; O2SAT 98
[2024-05-10] MEDS: oxyCODONE HCl Immed Release 5 MG TABLET 10 MG PO (03:42)
[2024-05-10 03:48] VITALS: BP 143/80; PULSE 84; RESP 18; TEMP 36.1; O2SAT 97
[2024-05-10] MEDS: Piperacillin Sodium/Tazobactam 3.375 GM in 0.9 % Sodium Chloride 50 ML IV (06:13)
[2024-05-10 07:36] VITALS: BP 167/75; PULSE 87; RESP 18; TEMP 36.6; O2SAT 98
[2024-05-10] MEDS: 0.9 % Sodium Chloride Flush 3 ML SYRINGE IVFLUSH (08:39)
--- NOTE | 2024-05-10 08:57 | P.F2F_ITS ---
Service Date Service Date: 05/10/24 Reasons for Services Homebound: Leaving the home is medically contraindicated at this time without the asist of a device and/or another person due th the listed conditions above and below. Certification: Based on the above findings, I certify that this patient is confined to the home and needs intermittent residential care, physical therapy and/or speech therapy, or continues to need occupational therapy. The patient is under my care, and I have initiated the establishment of the plan of care. The patient will be followed by a physician who will periodically review the plan of care. Time Spent With Patient Time: Total time managing care of this patient today ____ minutes.
--- NOTE | 2024-05-10 08:59 | PM.DS ---
DS: Providers Provider Date of Service: 05/10/24 Date of admission: 05/07/24 21:13 Date of discharge: 05/10/24 Primary care physician: Marcus Herman PA-C Admitting clinician: Latisha Craft Discharging clinician: Jamal Ragsdale DS: Diagnosis Discharge Diagnosis (1) Abdominal pain: Status: Acute DS: Summary Hospital Course Hospital Course: Amalia Fish is a 53 year old female who is known to Dr. Ragsdale in the past who has had an umbilical hernia repair with mesh. She comes in after being sent from to the emergency room complaining of abdominal pain nausea vomiting in the last couple of days and diarrhea. She says that she is feeling okay now however she has been having a lot of abdominal pain coming from the left upper quadrant going to the umbilical area. She denies any trauma to the area and is concerned because she had previous hernia repair. CT scan of the abdomen and pelvis was carried out which shows some inflammatory changes in the abdominal wall but it seems like some of these abdominal inflammatory wall changes were chronic and present last year. There is no topical skin changes that are concerning or abnormal. She said that she had a temperature of 100 degrees for couple of days ago. Here her white count is normal. She was admitted to the surgical service and started on IV antibiotics. She was also started on clear liquids and tolerated this well. She reports having several bowel movements which were normal. The pain is now much improved with no fever, chills, a normal WBC. Exam reveals normal postoperative changes with no evidence of hernia recurrence or infection. Patient is to be discharged to home today. She will continue her [employer] services. There is no restriction to her activity and she may resume a regular diet. She could follow up in our office as needed. Time spent discussing smoking cessation with patient: 3 to 10 minutes Status at Discharge Functional status at discharge: uses cane/walker Overall status at discharge: patient is back to baseline Time Attestation Total time managing care of this patient today: 27 mintues. Discharge Coordination Time (in mins): 27 Quality: Safe Use of Opioids Does Pt have an Active Cancer Diagnosis on the Problem List?: No Quality: Stroke Does the patient have a stroke diagnosis?: No Physical Exam Vital Signs: Vital Signs: Last Vital Signs Temp 97.9 F 05/10/24 07:36 Pulse 87 05/10/24 07:36 Resp 18 05/10/24 07:36 BP 167/75 H 05/10/24 07:36 Pulse Ox 98 05/10/24 07:36 O2 Del Method Room Air 05/10/24 07:36 BMI result Body Mass Index 56.6 Const: General: no acute distress Nutritional Appearance: well nourished and obese Orientation/consciousness: patient oriented x3 Limitations: no limitations HEENT: Head: Yes normocephalic and Yes atraumatic Resp: Effort & Inspection: normal respiratory effort GI: Inspection: No Abdominal wall edema and Yes obesity Palpation (GI): Soft to palpation, nontender, no guarding, not rigid and no hernias Percussion: Yes normal to percussion Neuro: General: patient oriented x3 Extrem: General: No edema Discharge Plan Discharge Anticipated Discharge Date/Time: 05/10/24 08:57 Patient Disposition: Home, Self-Care Discharge Diagnosis: Abdominal pain Referrals: Marcus Herman PA-C [Primary Care Provider] - 1 Week Discharge Medications: Continued cyanocobalamin (vitamin B-12) 1,000 mcg capsule 1,000 mcg PO DAILY Qty: 90 1RF calcium citrate 250 mg calcium tablet 500 mg PO BID Qty: 360 5RF propranolol 10 mg tablet 10 mg PO BID Qty: 180 0RF hydrochlorothiazide 12.5 mg tablet 12.5 mg PO DAILY 90 Days Qty: 90 1RF topiramate 25 mg tablet 25 mg PO BEDTIME Qty: 30 1RF calcitriol 0.25 mcg capsule 0.25 mcg PO DAILY 30 Days Qty: 60 1RF acetaminophen-codeine 300-30 mg tablet 1 tab PO Q12H PRN (Reason: pain) Qty: 30 0RF pantoprazole 40 mg tablet,delayed release (DR/EC) 40 mg PO DAILY Qty: 90 0RF (DME) inhalational spacing device Spacer See Rx Instructions .Route Qty: 1 0RF Rx Instructions: As directed amitriptyline 25 mg tablet 25 mg PO BEDTIME amlodipine 5 mg tablet 5 mg PO DAILY meclizine 25 mg tablet 25 mg PO DAILY hyoscyamine sulfate 0.125 mg tablet, sublingual 0.125 mg sublingual BID-QID clonazepam 0.5 mg tablet 0.5 mg PO BEDTIME (DME) blood pressure kit-extra large Kit See Rx Instructions .Route Qty: 1 0RF Rx Instructions: As directed buspirone 10 mg tablet 10 mg PO BID zolpidem 12.5 mg tablet,ext release multiphase 12.5 mg PO BEDTIME albuterol sulfate [Ventolin HFA] 90 mcg/actuation HFA aerosol inhaler 1 inh inhalation QID 30 Days Qty: 8.5 1RF cholecalciferol (vitamin D3) [Vitamin D3] 25 mcg (1,000 unit) capsule 25 mcg PO DAILY Qty: 90 0RF pregabalin 100 mg capsule 100 mg PO BID 30 Days Qty: 60 3RF Discharge Orders: Discharge Order (Routine); Ordered 05/10/24 Ordered By: Jamal Ragsdale Diet: Advance to usual diet Activity on Discharge: As tolerated Stand Alone Forms: Patient Portal Discharge page Print Language: Slovenian Care Plan Goals: return to normal diet and activity Health Concerns: abdominal pain, inflammation near hernia repair, post operative changes Plan of Treatment: IV antibiotics Assessment: Resolution of abdominal pain
--- NOTE | 2024-05-10 09:09 | PM.PNGS ---
Subjective Subjective Date of Service: 05/10/24 Interval history: Patient reports feeling much improved with no abdominal pain. She wishes to go home. Physical Exam Vital Signs: Vital Signs: Last Vital Signs Temp 97.9 F 05/10/24 07:36 Pulse 87 05/10/24 07:36 Resp 18 05/10/24 07:36 BP 167/75 H 05/10/24 07:36 Pulse Ox 98 05/10/24 07:36 O2 Del Method Room Air 05/10/24 07:36 BMI result Body Mass Index 56.6 Const: General: no acute distress Nutritional Appearance: well nourished and obese Orientation/consciousness: patient oriented x3 Limitations: no limitations HEENT: Head: Yes normocephalic and Yes atraumatic Resp: Effort & Inspection: normal respiratory effort GI: Inspection: No Abdominal wall edema and Yes obesity Palpation (GI): Soft to palpation, nontender, no guarding, not rigid and no hernias Percussion: Yes normal to percussion Neuro: General: patient oriented x3 Extrem: General: No edema Objective Data Active Medications Acetaminophen (Acetaminophen 325 Mg Tablet) 650 mg PO Q6H PRN PRN Reason: Pain, Mild (Pain Scale 1-3), fever or headache Piperacillin Sod/Tazobactam (Sod 3.375 gm/ Sodium Chloride) 50 mls @ 100 mls/hr IV Q6H NACHO Last Infusion: 05/10/24 06:46 Dose: Infused Documented By: ROHITH Magnesium Hydroxide (Milk Of Magnesia 30 Ml Oral.Susp) 30 ml PO DAILY PRN PRN Reason: Constipation Melatonin (Melatonin 3 Mg Tablet) 6 mg PO BEDTIME PRN PRN Reason: Insomnia Last Admin: 05/09/24 20:42 Dose: 6 mg Documented By: ROHITH Ondansetron HCl (Ondansetron Hcl 4 Mg/2 Ml Vial) 4 mg IVPUSH Q8H PRN PRN Reason: Nausea and Vomiting Last Admin: 05/09/24 07:36 Dose: 4 mg Documented By: GRAZIC Oxycodone HCl (Oxycodone Hcl Immed Release 5 Mg Tablet) 10 mg PO Q6H PRN PRN Reason: Pain, Moderate(Pain Scale 4-6) Last Admin: 05/10/24 03:42 Dose: 10 mg Documented By: ROHITH Sodium Chloride (0.9 % Sodium Chloride Flush 3 Ml Syringe) 3 ml IVFLUSH QSHIFT [facility] Last Admin: 05/10/24 08:39 Dose: 3 ml Documented By: ANA LILIA Labs 05/07/24 12:51 05/07/24 12:51 Procedures Date of Service Date of Service: 05/10/24 Progress Note: A&P Assessment and plan (1) Abdominal pain: Status: Acute Plan Patient reports feeling much improved with no further abdominal pain. She is tolerating a diet without nausea, vomiting, or increased pain. She was requesting discharge to home. She should follow up with primary care; she should follow up in our office as needed. Time Spent With Patient Time: Total time managing care of this patient today ____ minutes. Quality Stroke Does the patient have a stroke diagnosis?: No VTE Prior VTE?: No VTE Risk Level:: Medical - low VTE Device Contraindication: N/A - Device Ordered VTE Drug Contraindication: Treatment Not Indicated
--- NOTE | 2024-05-10 09:36 | MHC.CM.PN ---
DP: PT HAS BEEN MEDICALLY CLEARED FOR DC HOME WITH [employer]UMPTION OF [employer]. PT HAS REQUESTED BLS TRANSPORT THE ELEVATOR IS BROKEN AT HER APARTMENT BUILDING. BLS TRANSPORT BOOKED FOR 11AM VIA MED. RN AWARE.
== END 2024-05-10 12:28 | disposition home or self-care (01) ==
LOC: HO.ED 21:02 → HO.EDOVER 21:26 → HO.S3 05-08 01:54
PROVIDERS: Registered Nurse Emergency; Student in an Organized Health Care Education/Training Program; Admitting Provider Surgery; Emergency Provider Emergency Medicine Emergency Medical Services; PCP Physician Assistant; Visit Provider Surgery
DX: R10.12 Left upper quadrant pain (principal); R07.9 Chest pain, unspecified; R11.2 Nausea with vomiting, unspecified; R19.7 Diarrhea, unspecified; R20.2 Paresthesia of skin; Z79.899 Other long term (current) drug therapy
CPT/HCPCS: 36415; 74177; 80053; 81003; 83690; 83735; 84484; 85025; 93005; 96365; 96366; 96375; 96376; 99212; 99221; 99285; J1171; J2270; J2405; J2470; J2543; Q9967

== ENCOUNTER 2024-05-07 21:13 | Outpatient (BNV) | payer OTHER, SELFPAY | END 2024-05-07 22:44 | PROVIDERS: Admitting Provider Surgery; Emergency Provider Emergency Medicine Emergency Medical Services; Visit Provider Internal Medicine | DX: R07.9 Chest pain, unspecified (principal) | CPT/HCPCS: 93010 ==

== ENCOUNTER → 2024-05-07 21:13 | Outpatient (BNV) | payer OTHER, SELFPAY | PROVIDERS: Admitting Provider Surgery; Emergency Provider Emergency Medicine Emergency Medical Services; Visit Provider Surgery | DX: R10.9 Unspecified abdominal pain (principal) | CPT/HCPCS: 99222; 99232; 99238; 99499 ==

== ENCOUNTER 2024-05-20 08:42 | Outpatient (AMB) | payer OTHER, SELFPAY ==
--- NOTE | 2024-05-20 10:38 | A.OFFPC_ITS ---
Vital Signs 05/20/24 10:39 Height 5 ft Weight 285 lb 0.923 oz BMI 55.7 BP 122/72 Blood Pressure Location Lt brachial Position Sitting Pulse 85 Pulse Source Pulse Oximeter Pulse Oximetry (%) 96 Oxygen Delivery Method Room Air Intake Visit Reasons: [facility] [place] 05/10 Intake Note: Visit Reason: TCM Intake Note: Patient is here for hospital discharge follow up. Patient was discharged from Historical Guide Required: No Enforcement Manager: Not Required per policy Accompanied by: Self / Same As Patient Allergies ibuprofen [IBUPROFEN] Allergy (Intermediate, Verified 05/20/24 11:17) RASH lisinopril [LISINOPRIL] Allergy (Intermediate, Verified 05/20/24 11:17) RASH lactulose [LACTULOSE] Allergy (Mild, Verified 05/20/24 11:17) STOMACH ACHE duloxetine [From Cymbalta] Adverse Reaction (Intermediate, Verified 05/20/24 11:17) Insomnia gabapentin Adverse Reaction (Intermediate, Verified 05/20/24 11:17) Insomnia semaglutide [From Wegovy] Adverse Reaction (Intermediate, Verified 05/20/24 11:17) Sickness tizanidine Adverse Reaction (Intermediate, Verified 05/20/24 11:17) bradycardia Medication List - Last Reconciled 05/20/24 by Galilea Gould PA-C acetaminophen-codeine 300-30 mg 1 tab PO Q12H PRN albuterol sulfate 90 mcg/actuation (Ventolin HFA) 1 inh inhalation QID 30 days amitriptyline 25 mg PO BEDTIME amlodipine 5 mg PO DAILY blood pressure kit-extra large As directed buspirone 10 mg PO BID calcitriol 0.25 mcg PO DAILY 30 days calcium citrate 500 mg (2 x 250 mg calcium) PO BID cholecalciferol (vitamin D3) (Vitamin D3) 25 mcg PO DAILY clonazepam 0.5 mg PO BEDTIME cyanocobalamin (vitamin B-12) 1,000 mcg PO DAILY hydrochlorothiazide 12.5 mg PO DAILY 90 days hyoscyamine sulfate 0.125 mg sublingual BID-QID inhalational spacing device As directed meclizine 25 mg PO DAILY pantoprazole 40 mg PO DAILY pregabalin 100 mg PO BID 30 days propranolol 10 mg PO BID topiramate 25 mg PO BEDTIME zolpidem ER 12.5 mg PO BEDTIME Tobacco use date assessed: 07/03/23 Dental Screening Dental Screen Date: 07/03/23 [facility] HPI Comments History of Present Illness Details Patient presents to the office for a TCM visit. Date of admission: 05/07/24 Date of discharge: 05/10/24 This is a Follow-up from admission at [facility] [place] HPI: The patient is a 53-year-old female presenting with follow-up concerns after her recent hospitalization for abdominal pain. The initial onset of the pain was on May 07, 2024, leading to an emergency visit at [facility]. The pain was located primarily in the left upper quadrant radiating towards the umbilical area. The patient experienced associated symptoms of nausea, vomiting, and diarrhea. A previously repaired umbilical hernia was noted, raising concerns for potential complications. A computed tomography (CT) scan indicated minor inflammation of the abdominal wall. The patient was admitted under the surgical service. During the hospitalization, the patient received IV antibiotics although due to normal white blood cell count and CT scan revealing chronic changes the antibiotics were discontinued. After demonstrating clinical improvement, including resolution of nausea, vomiting, and diarrhea, and tolerating clear liquids with return of normal bowel activity, she was discharged home on May 10, 2024. Post-discharge, she reports feeling better, yet she expresses concerns over unexplained weight gain despite a perceived reduction in food intake. The patient denies diabetes. She reported the presence of persistent abdominal fullness upon eating and back pain, which she described as longstanding. Patient has a follow-up with Dr. Redd on July 12 the grain sampler. Hospital Course/Discharge Summary: Amalia Fish is a 53 year old female who is known to Dr. Ragsdale in the past who has had an umbilical hernia repair with mesh. She comes in after being sent from to the emergency room complaining of abdominal pain nausea vomiting in the last couple of days and diarrhea. She says that she is feeling okay now however she has been having a lot of abdominal pain coming from the left upper quadrant going to the umbilical area. She denies any trauma to the area and is concerned because she had previous hernia repair. CT scan of the abdomen and pelvis was carried out which shows some inflammatory changes in the abdominal wall but it seems like some of these abdominal inflammatory wall changes were chronic and present last year. There is no topical skin changes that are concerning or abnormal. She said that she had a temperature of 100 degrees for couple of days ago. Here her white count is normal. She was admitted to the surgical service and started on IV antibiotics. She was also started on clear liquids and tolerated this well. She reports having several bowel movements which were normal. The pain is now much improved with no fever, chills, a normal WBC. Exam reveals normal postoperative changes with no evidence of hernia recurrence or infection. Patient is to be discharged to home today. She will continue her INTEGRATED MARKETING MANAGER services. There is no restriction to her activity and she may resume a regular diet. She could follow up in our office as needed. Written by Dr. Ragsdale. Discharged to/Current Location: To her home Lives with: Patient lives alone Diagnosis: abdominal pain, inflammation near hernia repair, post operative changes Procedures performed: Patient had a CT scan of abdomen and pelvis which showed inflammation New medications: No new medications prescribed. Discontinued medications: No discontinued medications. Change medications/dosing: No changes in medications. Pending labs: No pending blood work. Pending diagnostic test: No pending diagnostic tests. Any Follow-up Labs required? No follow-up labs required. Any Follow-up Diagnostic test required? No follow-up diagnostic tests required. How are you feeling? Patient reports she is feeling better. Patient is unsure why she continues to gain weight even when she eats a healthy diet and small amounts of food. Are you in any pain or discomfort? Pain has completely subsided. Pain level is 0. Do you have any questions about your condition or discharge instructions? Patient denies any concerns or questions at this time. She reports she was informed Hess of her diagnosis. Were you able to get your medications filled? She is currently on all her medications no new medications were prescribed. Do you have any questions about your medications? not at this time. Any referrals required? None at this time Were you able to schedule your follow-up appointment? Patient has follow-up with Dr. Redd 07/12/2024 If home health was ordered, have they contact you? None were ordered at this time Any outpatient services, if so, are you scheduled? No new outpatient services are required patient already has [employer]ET[employer]NAGER services. Are there any additional resources like transportation you might need during her recovery? - VNA? Patient does not have a VNA nurs e and does not feel like she needs a VNA nurse is handling her medications at this time properly - INTEGRATED MARKETING MANAGER? Patient has 12 hours of INTEGRATED MARKETING MANAGER week ly - Meals on wheels? Patient does not hav e meals on wheels although would be interested in this Educational need/resources: not at this time What support system do you have? Self [facility] Medical History Annual physical exam Preoperative examination Weakness Fatigue Malaise and fatigue Rib pain on right side Cough Shortness of breath Pneumonia due to 2019 novel coronavirus Bronchospasm Hand paresthesia Numbness and tingling of right side of face Seroma of musculoskeletal structure after musculoskeletal system procedure Acute torticollis Right knee pain Left shoulder pain Left knee pain Neck pain on right side Back pain Back pain Arthritis of right knee Arthritis of left knee Toe infection Lipoma of back Bilateral kidney stones Suprapubic pain, acute Hypocalcemia Hypokalemia Lipoma of neck RUQ pain Retroperitoneal mass Generalized abdominal pain H/O acute pancreatitis Nausea & vomiting Morbid obesity Class 3 obesity Obese BMI 45.0-49.9, adult Morbid obesity due to excess calories ALYSA (generalized anxiety disorder) Pancreatitis IBS (irritable bowel syndrome) Arthritis Depression Asthma Sleep apnea HTN (hypertension) Renal calculi Osteopenia Vitamin D deficiency Hypoparathyroidism Renal colic Chronic abdominal pain Surgical History Hx of lipoma Hx of colonoscopy H/O thyroidectomy History of esophagogastroduodenoscopy (EGD) History of parathyroid surgery History of hernia repair Status post excision of lipoma (09/26/21) H/O left knee surgery History of cholecystectomy H/O: hysterectomy Family History Father Medical history unknown Mother Cancer Paternal Grandmother Diabetes Paternal Grandfather Diabetes Daughter Behavioral problem Family/Other FH: mental illness Social History Household Members: None Housing: Apartment Are you a primary rn managed care to a significant other at home: No Do you presently have visiting nurse or other home services: No Alcohol intake: never Patient Tobacco Use Status: Never used Tobacco e-Cigarette/Vaping Use: Never Used Second Hand Smoke Exposure: No Advance Directives Date on File: 11/02/21 service: No Current occupational status: unemployed and disabled Cognitive needs: No Hearing needs: No Vision needs: No Questionnaire Thrive Questionnaire Date Thrive assessed: 05/09/24 ALYSA-7 AMB Questionnaire ALYSA-7 Date ALYSA - 7 assessed: 06/03/23 Source: Developed by Drs. William Gallagher, Yasmin Shipley, Hari Ortiz and colleagues, with an educational hilda from [employer]. Physical exam (Primary Care) Vital Signs: Last Vital Signs Pulse 85 05/20/24 10:39 BP 122/72 05/20/24 10:39 Pulse Ox 96 05/20/24 10:39 Oxygen Delivery Method Room Air 05/20/24 10:39 Vitals signs have been reviewed. BMI result Body Mass Index 55.7 Tobacco/Smoking Status: Tobacco use Status Tobacco use date assessed 07/03/23 05/20/24 10:40 Patient Tobacco Use Status Never used Tobacco 05/20/24 10:40 e-Cigarette/Vaping Use Never Used 05/20/24 10:40 Thrive Assessment: Date of Thrive Assessment Date Thrive assessed 05/09/24 05/20/24 10:40 Coding Level of Care Code TCM Mod MDM <= 7 Days Complex EM visit Add On G2211 Diagnoses Abdominal pain R10.84 Abdominal location: generalized Postoperative generalized abdominal pain G89.18; R10.84 History of hernia repair Z98.890; Z87.19 Assessment & Plan Assessment & Plan (1) Abdominal pain: Code(s): R10.9 - Unspecified abdominal pain Category: Medical Qualifiers: Abdominal location: generalized Qualified Code(s): R10.84 - Generalized abdominal pain Plan: Abdominal pain has resolved. Patient has follow-up. Condition stable. Will continue to monitor. (2) Postoperative generalized abdominal pain: Code(s): G89.18 - Other acute postprocedural pain; R10.84 - Generalized abdominal pain Category: Medical Plan: Patient's abdominal pain has improved. Condition is stable. Patient has proper follow-up with grain sampler Dr. Redd on July 12. (3) History of hernia repair: Comment: 2018 with mesh, failed s/p revision x2 ( incisional hernia) Code(s): Z98.890 - Other specified postprocedural states; Z87.19 - Personal history of other diseases of the digestive system Category: Surgical Plan: Condition is stable. Patient has follow-up with Dr. Redd on July 12. Will continue to monitor. Plan Plan - Continue current medications, including hydrochlorothiazide, to manage fluid overload. - Arrange Meals on Wheels service for dietary support. - Provide rails for bathroom safety to assist with mobility. - Follow up with Dr. Redd on July 12, 2024, for gastrointestinal evaluation. Patient Instructions: Patient Instructions - Continue taking all prescribed medications, including hydrochlorothiazide. - Attend follow-up appointment with Dr. Redd on July 12, 2024. - Monitor for any changes in symptoms or new concerns, and seek medical attention if necessary. - Ensure safety in the home environment with planned installations of bathroom support rails. - Consider meals on wheels service for ongoing nutritional support. Scribe Plan - Not visible on output: History of Present Illness The patient is a 53-year-old female presenting with follow-up concerns after her recent hospitalization for abdominal pain. The initial onset of the pain was on May 07, 2024, leading to an emergency visit at [facility]. The pain was located primarily in the left upper quadrant radiating towards the umbilical area. The patient experienced associated symptoms of nausea, vomiting, and diarrhea. A previously repaired umbilical hernia was noted, raising concerns for potential complications. A computed tomography (CT) scan indicated minor inflammation of the abdominal wall. The patient was admitted under the surgical service. During the hospitalization, the patient received IV antibiotics although due to normal white blood cell count and CT scan revealing chronic changes the antibiotics were discontinued. After demonstrating clinical improvement, including resolution of nausea, vomiting, and diarrhea, and tolerating clear liquids with return of normal bowel activity, she was discharged home on May 10, 2024. Post-discharge, she reports feeling better, yet she expresses concerns over unexplained weight gain despite a perceived reduction in food intake. The patient denies diabetes. She reported the presence of persistent abdominal fullness upon eating and back pain, which she described as longstanding. Patient has a follow-up with Dr. Redd on July 12 the grain sampler. Social History - Lives alone. - Exercises regularly by climbing stairs due to a malfunctioning elevator. - Experiences back pain, which limits activity. - Has supportive interaction with her son, who is a police guard. - No known substance use. - Reports not having nutritional support like meals on wheels; open to exploring this option. Review of Systems - Gastrointestinal: Reports feeling full quickly after eating. Denies ongoing abdominal pain, diarrhea, or any changes in bowel habits post-discharge. - Musculoskeletal: Reports chronic back pain. - General: Reports persistent sweating and swelling since discharge. Physical Exam Appearance: Alert. Oriented X3. No acute distress. Head: Normal external exam. Normocephalic. Atraumatic. No Sanchez signs noted. No raccoon eyes noted. Eyes: Pupils are equal, round, and reactive to light. Extraocular movements int act. Conjunctiva and sclera normal. Eyelids normal. Ears: External auditory canal normal. Tympanic membranes normal. Throat: Pharynx normal. Uvula midline. Moist mucous membranes. No trismus noted. No drooling noted. No muffled voice noted. Neck: Normal inspection. Neck supple. Full range of motion. No adenopathy. Thyroid Normal. No meningeal signs. No neck mass noted. Cardiovascular: Normal heart rate and rhythm. Heart sound normal. No murmurs noted. Pulses normal throughout. Respiratory: No respiratory distress. Painless inspiration. Breath sounds normal. No wheezes/rales/rhonchi noted. Chest nontender. No accessory muscle usage noted or decreased air movement noted. Abdomen: Soft and nontender. Bowel sounds normal in all 4 quadrants. No distention noted. No organomegaly noted. No visible injury noted. Back: No costovertebral angle tenderness. Full range of motion noted. Reports chronic back pain. Skin: Skin warm and dry. Normal skin color. Normal skin turgor. No rashes/lesions/lacerations noted. Extremities: No lower extremity edema. Extremities exhibit normal range of motion. Extremities nontender. Neuro: Oriented X 3. No motor deficit. No sensory deficit. Reflexes normal. Results - Imaging: CT scan of the abdomen showed inflammation of the abdominal wall and suspected mild cholecystitis, noted as unchanged from the previous year. Patient was informed and verbally consented to the use of an ambient scribe for clinic note documentation during this visit. Discussion Notes I reaffirmed that the patient's symptoms were consistent with mild cholecystitis and the chronic abdominal wall inflammation previously identified. I discussed her management with antibiotics, which yielded clinical improvement. Her current complaint of weight gain was evaluated, noting her medication could contribute to fluid retention; hence, continued use of hydrochlorothiazide was warranted. We explored social support aspects, and I emphasized the pending request for Meals on Wheels to aid in nutritional management. I revisited her safety needs, planning to provide necessary bathroom aids. I recorded that the patient plans to update her healthcare proxy documentation, preferring to appoint her son and his godmother as primary and secondary proxies, respectively. No new outpatient services are presently required, given she receives INTEGRATED MARKETING MANAGER assistance. I advised her to maintain scheduled follow-up with her grain sampler.
[2024-05-20 10:39] VITALS: BP 122/72; PULSE 85; O2SAT 96; BMI 55.7
== END 2024-05-20 11:26 | disposition home or self-care (01) ==
PROVIDERS: PCP Physician Assistant; Visit Provider Internal Medicine
DX: R10.84 Generalized abdominal pain (principal); G89.18 Other acute postprocedural pain; Z98.890 Other specified postprocedural states; Z87.19 Personal history of other diseases of the digestive system

== ENCOUNTER → 2024-05-20 08:42 | Outpatient (BNVA) | payer OTHER, SELFPAY | PROVIDERS: PCP Physician Assistant; Visit Provider Internal Medicine | DX: R10.84 Generalized abdominal pain (principal); G89.18 Other acute postprocedural pain; Z98.890 Other specified postprocedural states; Z87.19 Personal history of other diseases of the digestive system | CPT/HCPCS: 99212 ==

== ENCOUNTER → 2024-06-08 11:32 | Outpatient (BNV) | payer OTHER, SELFPAY | PROVIDERS: PCP Physician Assistant; Visit Provider Radiology Diagnostic Radiology | DX: M23.91 Unspecified internal derangement of right knee (principal); M17.11 Unilateral primary osteoarthritis, right knee | CPT/HCPCS: 73721 ==

== ENCOUNTER 2024-06-08 12:02 | Outpatient (REF) | payer OTHER, SELFPAY ==
--- NOTE | ~2024-06-08 | MR_ITS ---
EXAMINATION: MRI RIGHT KNEE WITHOUT CONTRAST HISTORY: M25.561 - Pain in right knee COMPARISON: Correlation is made to plain films of the right knee dated 03/24/2024. TECHNIQUE: Coronal T1 and fat-suppressed proton density, sagittal proton density and fat-suppressed proton density, and axial fat suppressed T2 weighted MR images of the right knee were obtained. FINDINGS: There is markedly heterogeneous bone marrow signal intensity in the metadiaphyses of the distal femur and proximal tibia, which may be due to red marrow reconversion. There is a moderate suprapatellar joint effusion. There is no Norwood's cyst. There is severe osteoarthritis of the medial compartment with cartilage loss and osteophyte formation. There is mild to moderate osteoarthritis of the lateral and patellofemoral compartments. The anterior cruciate ligament is not identified, compatible with a tear. The posterior cruciate ligament is intact. The medial and lateral collateral ligaments are intact. The medial meniscus is extruded and demonstrates an irregular shape, with multiple foci of increased T2 signal intensity consistent with a degenerative tear. The body and posterior horn of the lateral meniscus are intact. There is increased T2 signal intensity in the anterior horn, consistent with degeneration, without definite evidence of a tear. The patellar and quadriceps tendons and patellar retinacula the are intact. MR/MR knee RT wo con IMPRESSION: 1. Severe osteoarthritis of the medial compartment and mild to moderate osteoarthritis of the lateral and patellofemoral compartments. 2. ACL tear. 3. Probable degenerative tear of the medial meniscus. 4. Moderate joint effusion. Heterogeneous bone marrow signal intensity is likely secondary to red marrow reconversion. Electronically signed by: William Velasquez MD 06/08/2024 01:59 PM [facility]
== END 2024-06-08 12:03 | disposition home or self-care (01) ==
LOC: HO.MRI 12:02
PROVIDERS: PCP Physician Assistant; Visit Provider Orthopaedic Surgery
DX: M25.561 Pain in right knee (principal)
CPT/HCPCS: 73721

== ENCOUNTER 2024-06-09 10:43 | Outpatient (REF) | payer OTHER, SELFPAY | END 2024-06-09 10:44 | disposition home or self-care (01) | LOC: HO.MAMMO 10:43 | PROVIDERS: PCP Physician Assistant; Visit Provider Physician Assistant | DX: Z13.89 Encounter for screening for other disorder (principal) ==

== ENCOUNTER 2024-06-22 11:08 | Outpatient (AMB) | payer OTHER, SELFPAY ==
--- NOTE | 2024-06-22 11:12 | A.OFFPC_ITS ---
Vital Signs 06/22/24 11:13 Height 5 ft Weight 296 lb 1.293 oz BMI 57.8 BP 100/60 Blood Pressure Location Lt brachial Position Sitting Pulse 88 Pulse Source Pulse Oximeter Temp 96.9 F Temp Source Temporal Artery Scan Pulse Oximetry (%) 93 Oxygen Delivery Method Room Air Intake Visit Reasons: 1mth f/u Facility Maintenance Manager Required: No Accompanied by: Self / Same As Patient Allergies ibuprofen [IBUPROFEN] Allergy (Intermediate, Verified 06/22/24 11:24) RASH lisinopril [LISINOPRIL] Allergy (Intermediate, Verified 06/22/24 11:24) RASH lactulose [LACTULOSE] Allergy (Mild, Verified 06/22/24 11:24) STOMACH ACHE duloxetine [From Cymbalta] Adverse Reaction (Intermediate, Verified 06/22/24 11:24) Insomnia gabapentin Adverse Reaction (Intermediate, Verified 06/22/24 11:24) Insomnia semaglutide [From Wegovy] Adverse Reaction (Intermediate, Verified 06/22/24 11:24) Sickness tizanidine Adverse Reaction (Intermediate, Verified 06/22/24 11:24) bradycardia Medication List - Last Reconciled 06/22/24 by Marcus Herman PA-C albuterol sulfate 90 mcg/actuation (Ventolin HFA) 1 inh inhalation QID 30 days amitriptyline 25 mg PO BEDTIME amlodipine 5 mg PO DAILY blood pressure kit-extra large As directed buspirone 10 mg PO BID calcitriol 0.25 mcg PO DAILY 30 days calcium citrate 500 mg (2 x 250 mg calcium) PO BID cholecalciferol (vitamin D3) (Vitamin D3) 25 mcg PO DAILY clonazepam 0.5 mg PO BEDTIME cyanocobalamin (vitamin B-12) 1,000 mcg PO DAILY hydrochlorothiazide 12.5 mg PO DAILY 90 days hyoscyamine sulfate 0.125 mg sublingual BID-QID inhalational spacing device As directed meclizine 25 mg PO DAILY pantoprazole 40 mg PO DAILY pregabalin 100 mg PO BID 30 days propranolol 10 mg PO BID topiramate 25 mg PO BEDTIME zolpidem ER 12.5 mg PO BEDTIME Tobacco use date assessed: 07/03/23 Dental Screening Dental Screen Date: 07/03/23 HPI 1mth f/u HPI Details Patient is a 53-year-old female here today for a follow-up visit. ? Patient has a past history significant for hypertension, obesity, MDD, Incomnia, frequent migraines, hyperparathyroidism, IBS. Recently seen at the hospital for acute abdominal pain and swelling was found to have a cellulitis and was treated with IV antibiotics. Here pain has resolved. Class 3 obesity: Unfortunately continues to gain weight, today's BMI at 57. She has not been able to be physically active due to her continued pain in her knees and lower back . She now has gained access to a 1st floor apartment which she is happy about. We have tried GLP 1 for weight reduction though have not been effective and has caused intolerable side effects. Chronic pain/fibromyalgia: She has no clear pain generator and does have a clinical picture fibromyalgia. She reports that Lyrica has been helpful for her pain and is interested in higher dose to help her more with her patent. Unfortunately still has global pain which has been a chronic complaint of hers. Right knee ACL tear: Regarding her knees, the patient has been diagnosed with an ACL tear in the right knee and suffers from significant osteoarthritis, as noted in recent imaging studies. She underwent an MRI which confirmed the ligament tear. Pre viously tried medications include Tylenol with Codeine, which proved ineffective, and Pregabalin, recently increased to 150 mg but still not providing adequate relief. COUNT INCLUDES [facility] Medical History (Updated 06/22/24 @ 11:32 by Marcus Herman PA-C) Class 3 obesity Right knee pain Annual physical exam Preoperative examination Weakness Fatigue Malaise and fatigue Rib pain on right side Cough Shortness of breath Pneumonia due to 2019 novel coronavirus Bronchospasm Hand paresthesia Numbness and tingling of right side of face Seroma of musculoskeletal structure after musculoskeletal system procedure Acute torticollis Left shoulder pain Left knee pain Neck pain on right side Back pain Back pain Arthritis of right knee Arthritis of left knee Toe infection Lipoma of back Bilateral kidney stones Suprapubic pain, acute Hypocalcemia Hypokalemia Lipoma of neck RUQ pain Retroperitoneal mass Generalized abdominal pain H/O acute pancreatitis Nausea & vomiting Morbid obesity Obese BMI 45.0-49.9, adult Morbid obesity due to excess calories ALYSA (generalized anxiety disorder) Pancreatitis IBS (irritable bowel syndrome) Arthritis Depression Asthma Sleep apnea HTN (hypertension) Renal calculi Osteopenia Vitamin D deficiency Hypoparathyroidism Renal colic Chronic abdominal pain Surgical History Hx of lipoma Hx of colonoscopy H/O thyroidectomy History of esophagogastroduodenoscopy (EGD) History of parathyroid surgery History of hernia repair Status post excision of lipoma (09/26/21) H/O left knee surgery History of cholecystectomy H/O: hysterectomy Family History Father Medical history unknown Mother Cancer Paternal Grandmother Diabetes Paternal Grandfather Diabetes Daughter Behavioral problem Family/Other FH: mental illness Social History Household Members: None Housing: Apartment Are you a primary janitor caretaker to a significant other at home: No Do you presently have visiting nurse or other home services: No Alcohol intake: never Patient Tobacco Use Status: Never used Tobacco e-Cigarette/Vaping Use: Never Used Second Hand Smoke Exposure: No Advance Directives Date on File: 11/02/21 service: No Current occupational status: unemployed and disabled Cognitive needs: No Hearing needs: No Vision needs: No Questionnaire PHQ-9 Over the last 2 weeks, how often have you been bothered by any of the following problems? 1. Little interest or pleasure in doing things: more than half the days 2. Feeling down, depressed, or hopeless: more than half the days 3. Trouble falling or staying asleep, or sleeping too much: nearly every day 4. Feeling tired or having little energy: nearly every day 5. Poor appetite or overeating: more than half the days 6. Feeling bad about yourself - or that you are a failure or have let yourself or your family down: more than half the days 7. Trouble concentrating on things, such as reading the newspaper or watching television: not at all 8. Moving or speaking so slowly that other people could have noticed. Or the opposite - being so fidgety or restless that you have been moving around a lot more than usual: nearly every day 9. Thoughts that you would be better off or of hurting yourself in some way: not at all Total score: 17 Depression Screening Interpretation: Positive Depression Screening Follow-up: Existing condition and In treatment Depression Screening Done: Yes 48826 - PHQ-9 Billing: Yes Source: Developed by Drs. William Gallagher, Hari Quinones and colleagues, with an educational hilda from [employer]. Thrive Questionnaire Date Thrive assessed: 06/22/24 I am a: Patient What is your living situation today?: I have a steady place to live Within the past 12 months, did the food you bought not last and you didn't have the money to get more?: Never true Within the past 12 months, did you worry whether your food would run out before you got money to buy more?: Never true Do you have trouble paying for medicines?: No Do you have trouble getting transportation to medical appointments?: No Do you have trouble paying your heating and electricity bill?: No Do you have trouble taking care of your child, family member or friend?: No Do you have trouble with day-to-day activities such as bathing, preparing meals, shopping, managing finances, etc.?: No Are you currently unemployed and looking for a job?: No Are you interested in more education?: No Please select the resources that you would like help with: None Currently or been in a relationship where the following occur: No concerns reported THRIVE Score: 0 AUDIT C Alcohol Use Questionnaire (AUDIT-C) 1. How often do you have a drink containing alcohol?: Never 3. How often do you have six or more drinks on one occasion?: Never Total Score: 0 ALYSA-7 AMB Questionnaire ALYSA-7 Date ALYSA - 7 assessed: 06/22/24 Feeling nervous, anxious, or on edge: 0 = Not at all Not being able to stop or control worryin = Not at all Worrying too much about different things: 0 = Not at all Trouble relaxin = Not at all Being so restless that it is hard to sit still: 0 = Not at all Becoming easily annoyed or irritable: 0 = Not at all Feeling afraid as if something awful might happen: 0 = Not at all Total ALYSA-7 score (0-4 normal; 5-9 mild; 10-14 moderate; 15-21 severe): 0 Source: Developed by Drs. William Gallagher, Hari Quinones and colleagues, with an educational hilda from [employer]. ALYSA-7 Assessment Billing ALYSA-7 Assessment Tool: ALYSA-7 Assessment 52717 Review of Systems Const Denies headache(s) Eyes Denies loss of vision ENT Denies vertigo, Denies dizziness, Denies headache(s) and Denies sore throat Card Denies chest pain, Denies leg edema and Denies lightheadedness Resp Denies cough, Denies hemoptysis and Denies wheezing GI Denies abdominal pain, Denies melena, Denies constipation, Denies diarrhea and Denies vomiting Denies urinary frequency, Denies dysuria and Denies urinary urgency Musc Denies arthralgias, Denies joint swelling, Denies numbness and Denies tingling Neuro Denies Abnormal speech present, Denies behavioral changes, Denies vertigo, Denies dizziness, Denies headache(s), Denies loss of vision, Denies memory loss, Denies numbness and Denies tingling Psych Denies anxiety, Denies behavioral changes, Denies depression, Denies memory loss and Denies panic attacks Bran/Lymph Denies easy bleeding and Denies easy bruising Aller/Immun Denies wheezing Physical exam (Primary Care) Vital Signs: Last Vital Signs Temp 96.9 F 06/22/24 11:13 Pulse 88 06/22/24 11:13 BP 100/60 06/22/24 11:13 Pulse Ox 93 06/22/24 11:13 Oxygen Delivery Method Room Air 06/22/24 11:13 BMI result Body Mass Index 57.8 Tobacco/Smoking Status: Tobacco use Status Tobacco use date assessed 07/03/23 06/22/24 11:12 Patient Tobacco Use Status Never used Tobacco 06/22/24 11:12 e-Cigarette/Vaping Use Never Used 06/22/24 11:12 PHQ-9: PHQ-9 Score PHQ-9: Total score 17 06/22/24 11:25 Depression Screening Interpretation: Positive Depression Screening Follow-up: Existing condition and In treatment Thrive Assessment: Date of Thrive Assessment Date Thrive assessed 06/22/24 06/22/24 11:21 Currently or been in a relationship where the following occur: No concerns reported Const General: healthy appearing, no acute distress, alert and awake Nutritional Appearance: well nourished Orientation/consciousness: oriented to person, oriented to place and oriented to time HENMT Ears: TM's normal bilaterally General nose exam: Normal nasal mucous membranes and turbinates present Eyes Conjunctivae: conjunctivae normal Sclerae: sclerae normal Pupils: Equal, round and reactive pupils present Neck Neck: Yes no lymphadenopathy and Yes no JVD Thyroid: Thyroid normal Carotids: no bruits Resp Effort & Inspection: normal respiratory effort and not tachypneic Auscultation: no crackles, no rales, no rhonchi and no wheezes Cardio Rate: regular rate Rhythm: regular rhythm Heart sounds: no murmurs and normal S1 and S2 GI Palpation (GI): Soft to palpation, nontender, no hepatomegaly and no splenomegaly Auscultation: normal bowel sounds Skin General skin exam: no rashes or lesions noted and dry skin Neuro General: oriented to person, oriented to place and oriented to time Cranial nerves: Yes Equal, round and reactive pupils present Speech: No Abnormal speech present Gait exam (Neuro): Normal gait present Motor exam (neuro): no tremor noted Extrem Right upper extremity: full ROM Left upper extremity: full ROM Right lower extremity: full ROM; no edema Left lower extremity: full ROM; no edema Psych Mental Status: mental status grossly normal Speech and movement: Normal speech and movement present Affect: normal affect Attitude: cooperative Thought process: Normal thought process present Coding Level of Care Code Est Pt Level 4 (33052) Diagnoses Fibromyalgia M79.7 Borderline high cholesterol E78.9 MDD (major depressive disorder), recurrent episode, moderate F33.1 Lumbar radiculopathy, chronic M54.16 Additional Codes ALYSA-7 Assessment Billing - ALYSA-7 Assessment Tool: ALYSA-7 Assessment 92937 ([id number]) PHQ-9 - 02875 - PHQ-9 Billing: Yes ([id number]) Assessment & Plan Assessment & Plan (1) Fibromyalgia: Code(s): M79.7 - Fibromyalgia Category: Medical Plan: As per HPI patient continues to all-over pain. Has been using Lyrica which has been increased recently to 150 b.i.d. which has helped her pain a bit though continues to complain of chronic pain. (2) Borderline high cholesterol: Onset Date: ~11/10/23 Code(s): E78.9 - Disorder of lipoprotein metabolism, unspecified Category: Medical Plan: Patient has a history of borderline high cholesterol. Will recheck fasting lipid panel. (3) MDD (major depressive disorder), recurrent episode, moderate: Code(s): F33.1 - Major depressive disorder, recurrent, moderate Category: Medical Plan: Patient's PHQ-9 score positive for depression which has been existing condition for her. She is being treated by a psychiatrist and a mental health therapist at this time. (4) Lumbar radiculopathy, chronic: Code(s): M54.16 - Radiculopathy, lumbar region Category: Medical Plan: Patient continues to have lower lumbar spine pain along with other pain generators. Also was noted to a right knee ACL tear and moderate to severe arthritis. She is seeing orthopedics and getting injections. She reports none of the pain medication she has been using recently has been helpful. We did discuss using oxycodone 5 mg p.r.n for her pain. Orders: Orders Lipid Panel Today E78.9 - Disorder of lipoprotein metabolism, unspecified Medications: New oxycodone Partial Fill upon patient request. 5 mg PO BID PRN 10 tabs 0RF pain 5 days M51.27 - Other intervertebral disc displacement, lumbosacral region
[2024-06-22 11:13] VITALS: BP 100/60; PULSE 88; TEMP 36.1; O2SAT 93; BMI 57.8
== END 2024-06-22 11:43 | disposition home or self-care (01) ==
PROVIDERS: PCP Physician Assistant; Visit Provider Physician Assistant
DX: M79.7 Fibromyalgia (principal); E78.9 Disorder of lipoprotein metabolism, unspecified; F33.1 Major depressive disorder, recurrent, moderate; M54.16 Radiculopathy, lumbar region

== ENCOUNTER → 2024-06-22 11:08 | Outpatient (BNVA) | payer OTHER, SELFPAY | PROVIDERS: PCP Physician Assistant; Visit Provider Physician Assistant | DX: M79.7 Fibromyalgia (principal); E78.9 Disorder of lipoprotein metabolism, unspecified; F33.1 Major depressive disorder, recurrent, moderate; M54.16 Radiculopathy, lumbar region | CPT/HCPCS: 96127; 99212 ==

== ENCOUNTER 2024-06-23 12:40 | Outpatient (AMB) | payer OTHER, SELFPAY ==
--- NOTE | 2024-06-23 12:52 | MHC.OFFVIS ---
Vital Signs 06/23/24 12:53 Height 5 ft Weight 296 lb BMI 57.8 Intake Visit Reasons: Bilateral knee pain Intake Note: Amalia is a 53 year old female who presents with complaints of progressively worsening bilateral knee pains. She describes her pains as sharp in nature. She did have a series of Euflexxa injections given into her bilateral knees in the past which gave her fairly good relief. She has had cortisone injections which gave her no relief. She has done physical therapy exercises which aggravated her pain. She has also tried Tylenol and anti-inflammatory medicines which gave her minimal relief. She has tried Tylenol with codeine which gave her minimal relief. She was recently given a prescription for oxycodone which gives her mild relief. She denies any locking or giving way. Allergies ibuprofen [IBUPROFEN] Allergy (Intermediate, Verified 06/23/24 12:53) RASH lisinopril [LISINOPRIL] Allergy (Intermediate, Verified 06/23/24 12:53) RASH lactulose [LACTULOSE] Allergy (Mild, Verified 06/23/24 12:53) STOMACH ACHE duloxetine [From Cymbalta] Adverse Reaction (Intermediate, Verified 06/23/24 12:53) Insomnia gabapentin Adverse Reaction (Intermediate, Verified 06/23/24 12:53) Insomnia semaglutide [From Wegovy] Adverse Reaction (Intermediate, Verified 06/23/24 12:53) Sickness tizanidine Adverse Reaction (Intermediate, Verified 06/23/24 12:53) bradycardia Medication List - Last Reconciled 06/23/24 by Larry Meyer MD albuterol sulfate 90 mcg/actuation (Ventolin HFA) 1 inh inhalation QID 30 days amitriptyline 25 mg PO BEDTIME amlodipine 5 mg PO DAILY blood pressure kit-extra large As directed buspirone 10 mg PO BID calcitriol 0.25 mcg PO DAILY 30 days calcium citrate 500 mg (2 x 250 mg calcium) PO BID cholecalciferol (vitamin D3) (Vitamin D3) 25 mcg PO DAILY clonazepam 0.5 mg PO BEDTIME cyanocobalamin (vitamin B-12) 1,000 mcg PO DAILY hydrochlorothiazide 12.5 mg PO DAILY 90 days hyoscyamine sulfate 0.125 mg sublingual BID-QID inhalational spacing device As directed meclizine 25 mg PO DAILY oxycodone 5 mg PO BID PRN 5 days pantoprazole 40 mg PO DAILY pregabalin 100 mg PO BID 30 days propranolol 10 mg PO BID topiramate 25 mg PO BEDTIME zolpidem ER 12.5 mg PO BEDTIME [facility] Medical History (Updated 06/23/24 @ 15:48 by Larry Meyer MD) Class 3 obesity Right knee pain Annual physical exam Preoperative examination Weakness Fatigue Malaise and fatigue Rib pain on right side Cough Shortness of breath Pneumonia due to 2019 novel coronavirus Bronchospasm Hand paresthesia Numbness and tingling of right side of face Seroma of musculoskeletal structure after musculoskeletal system procedure Acute torticollis Left shoulder pain Left knee pain Neck pain on right side Back pain Back pain Arthritis of right knee Arthritis of left knee Toe infection Lipoma of back Bilateral kidney stones Suprapubic pain, acute Hypocalcemia Hypokalemia Lipoma of neck RUQ pain Retroperitoneal mass Generalized abdominal pain H/O acute pancreatitis Nausea & vomiting Morbid obesity Obese BMI 45.0-49.9, adult Morbid obesity due to excess calories ALYSA (generalized anxiety disorder) Pancreatitis IBS (irritable bowel syndrome) Arthritis Depression Asthma Sleep apnea HTN (hypertension) Renal calculi Osteopenia Vitamin D deficiency Hypoparathyroidism Renal colic Chronic abdominal pain Surgical History Hx of lipoma Hx of colonoscopy H/O thyroidectomy History of esophagogastroduodenoscopy (EGD) History of parathyroid surgery History of hernia repair Status post excision of lipoma (09/26/21) H/O left knee surgery History of cholecystectomy H/O: hysterectomy Family History Father Medical history unknown Mother Cancer Paternal Grandmother Diabetes Paternal Grandfather Diabetes Daughter Behavioral problem Family/Other FH: mental illness Social History Household Members: None Housing: Apartment Are you a primary pharmacy customer care specialist to a significant other at home: No Do you presently have visiting nurse or other home services: No Alcohol intake: never Patient Tobacco Use Status: Never used Tobacco e-Cigarette/Vaping Use: Never Used Second Hand Smoke Exposure: No Advance Directives Date on File: 11/02/21 service: No Current occupational status: unemployed and disabled Cognitive needs: No Hearing needs: No Vision needs: No Physical Exam Vital Signs: BMI result Body Mass Index 57.8 Const Other: Well-nourished well-developed very friendly female awake alert and oriented x3 in no acute distress Extrem Other: Bilateral knee examination shows minimal effusions, palpable crepitus with range of motion, pain with range of motion, no instability Results Reviewed Results Reviewed: MRI of the patient's right knee shows severe degenerative joint disease most significant in the medial compartment X-rays of the patient's bilateral knees taken previously show severe joint space narrowing, subchondral sclerosis, no acute bony abnormalities Assessment & Plan Assessment & Plan (1) Pain in both knees: Code(s): M25.561 - Pain in right knee; M25.562 - Pain in left knee (2) Osteoarthritis of left knee: Code(s): M17.12 - Unilateral primary osteoarthritis, left knee Category: Medical (3) Osteoarthritis of right knee: Code(s): M17.11 - Unilateral primary osteoarthritis, right knee Category: Medical Plan Ms. Fish presents with bilateral knee pains due to osteoarthritis. The risks and benefits of a series of bilateral knee viscosupplementation injections were discussed at length with the patient. The patient is interested in proceeding with the injections. She will be scheduled for next available date. She will follow-up as instructed. Feel free to call me at any time should questions regarding her orthopedic management arise. I spent 21 minutes in reviewing the patient's records and imaging studies, seeing the patient and documenting in the medical record. Coding Level of Care Code Est Pt Level 3 (45519) Complex EM visit Add On G2211 Diagnoses Pain in both knees M25.561; M25.562 Osteoarthritis of left knee M17.12 Osteoarthritis of right knee M17.11
[2024-06-23 12:53] VITALS: BMI 57.8
== END 2024-06-23 13:01 | disposition home or self-care (01) ==
PROVIDERS: PCP Physician Assistant; Visit Provider Orthopaedic Surgery
DX: M17.0 Bilateral primary osteoarthritis of knee (principal)
CPT/HCPCS: 99213; G2211

== ENCOUNTER → 2024-06-23 12:40 | Outpatient (BNVA) | payer OTHER, SELFPAY | PROVIDERS: PCP Physician Assistant; Visit Provider Orthopaedic Surgery | DX: M25.561 Pain in right knee (principal); M25.562 Pain in left knee; M17.0 Bilateral primary osteoarthritis of knee | CPT/HCPCS: 99212 ==

== ENCOUNTER 2024-07-12 09:00 | Outpatient (AMB) | payer OTHER, SELFPAY ==
[2024-07-12 09:08] VITALS: BP 140/62; PULSE 84; BMI 54.7
--- NOTE | 2024-07-12 09:08 | A.OFFVIS_ITS ---
Vital Signs 07/12/24 09:08 Height 5 ft Weight 280 lb BMI 54.7 BP 140/62 H Blood Pressure Location Lt brachial Position Sitting Pulse 84 Intake Visit Reasons: follow up r/s from 04/23/24 Intake Note: Amalia presents in the office as a follow up. CC: She was supposed to move and has yet to move. She states that she is having knee issues and she states that she is stressing. She has lost a lot of weight. 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 Allergies ibuprofen [IBUPROFEN] Allergy (Intermediate, Verified 07/12/24 09:10) RASH lisinopril [LISINOPRIL] Allergy (Intermediate, Verified 07/12/24 09:10) RASH lactulose [LACTULOSE] Allergy (Mild, Verified 07/12/24 09:10) STOMACH ACHE duloxetine [From Cymbalta] Adverse Reaction (Intermediate, Verified 07/12/24 09:10) Insomnia gabapentin Adverse Reaction (Intermediate, Verified 07/12/24 09:10) Insomnia semaglutide [From Wegovy] Adverse Reaction (Intermediate, Verified 07/12/24 09:10) Sickness tizanidine Adverse Reaction (Intermediate, Verified 07/12/24 09:10) bradycardia HPI HPI follow up r/s from 04/23/24: Details: 53 yr old f w hx of cholecystectomy 2007 being seen for f/u RECAP: She had right sided upper abdo pain in 12/2018, lipase was 3000-came to hospital and MRI with stranding around pancreas, CBD 1 cm but no stones/strictures dx with pancreatitis, also ?adherent small bowel, hepatomegaly and steatosis she had ongoing sx and flare up and again admitted 02/2019--transaminitis, liapse at 800 and MRI again done with stable CBD, normal pancreas no divisum HEp serologies were neg Since d/c ongoing pain ruq (but is pointing to her right flank and can locate with one finger), PCP flexeril and bentyl and not helping she does have nausea, emesis occ brown or yellow appetite is poor, weight down 2# this month stool is normal, no blood in stool, she does have chills, no fevers whole elft side can feel weak, gets dizzy at times--attacks every day can last 10 mins at a time--saw neurologist and being assessed. she was not a consistent historian debbie as regards her pain and how it was during her attacks as opposed to at the visit, clinically her pain was not consistent with a pancreatic etiology and appeared to be more myofascial in origin she was given lido/kenalog injection in case of myofascial component but felt it didn;t help she was getting w/u for hypercalcemia she was also c/o dysphagia which was new and EGD was planned as well as pain in her right loin At visit: 04/2019 she went to ED for abdominal pain, had severe worsening idffuse abdo pain with nausea and vomiting (bilious) passing small amount of stool with pressure but no gas she had small bowel obstruction in past and feels the same had CT in ED with evidence of SBO, seems to be transition point around prior ventral hernia surgery site, no pancreatitis. EGD: 06/2019 for dysphagia--4 cm hiatal hernia, patulous GEJ, bx -active esophagitis, GEJ chronic inflammation--advised to take PPI At TV 09/2019 she was c/o SOb, chest pain and confusion, vomiting she was advised to go to ED labs with nml hgb, mild leukopenia, LFt nml, trop, nml, CT scan:enlarged liver, scarring lower abd wall, no bowel obstruction Last time she was having migraines and I suspected her nausea was from this she was given propranolol to see if it helped advised to get CO monitor for home, make sure no CO exposure she was advised to see Dr Cruz for hiatal hernia repair, plan is for sleeve gastrectomy and hiatal hernia repair after she completes the necessary steps F/U 01/28/22 I gave her TCA due to concern for fucntional dyspepsia and pain LABS: nml CMP/LFT 10/2022 CT 09/2022--bladder lesion, kidney stones INTERIM: last time i saw her i sent her to ED and she had testing with cellulitis on CT--given ABX severe diverticulosis noted on CT but no inflammation she is feeling pretty good now no nausea no abdominal pain urine is normal no significant dysphagia or heartburn she is asking for lactulose as it helps her constipation EXAM: GENERAL: The patient is obese, uses roller, hard to walk, uncomfrtable VITAL SIGNS:see workflow HEENT: Nonicteric sclerae, PERRLA, EOMI. Oropharynx clear. Moist mucous membranes. Conjunctivae appear well perfused. No thyroid mass. CHEST: Chest wall is nontender. HEART: Regular rate and rhythm without murmurs. LUNGS: Clear to auscultation bilaterally. ABDOMEN: Soft, positive bowel sounds, tender suprpapubic and left flank, no organomegaly.no flank tenderness SKIN: No rash, no excessive bruising, petechiae, or purpura. NEUROLOGIC: Cranial nerves II-XII intact without motor/sensory deficit. Psych: normal affect Assessments 1. severe diverticulosis and constipation Plan: 1/ sent lactulose 2/ given high fiber leaflet 3/ reviewed diverticulosis and rept colo next year [facility] Medical History Class 3 obesity Right knee pain Annual physical exam Preoperative examination Weakness Fatigue Malaise and fatigue Rib pain on right side Cough Shortness of breath Pneumonia due to 2019 novel coronavirus Bronchospasm Hand paresthesia Numbness and tingling of right side of face Seroma of musculoskeletal structure after musculoskeletal system procedure Acute torticollis Left shoulder pain Left knee pain Neck pain on right side Back pain Back pain Arthritis of right knee Arthritis of left knee Toe infection Lipoma of back Bilateral kidney stones Suprapubic pain, acute Hypocalcemia Hypokalemia Lipoma of neck RUQ pain Retroperitoneal mass Generalized abdominal pain H/O acute pancreatitis Nausea & vomiting Morbid obesity Obese BMI 45.0-49.9, adult Morbid obesity due to excess calories ALYSA (generalized anxiety disorder) Pancreatitis IBS (irritable bowel syndrome) Arthritis Depression Asthma Sleep apnea HTN (hypertension) Renal calculi Osteopenia Vitamin D deficiency Hypoparathyroidism Renal colic Chronic abdominal pain Surgical History Hx of lipoma Hx of colonoscopy H/O thyroidectomy History of esophagogastroduodenoscopy (EGD) History of parathyroid surgery History of hernia repair Status post excision of lipoma (09/26/21) H/O left knee surgery History of cholecystectomy H/O: hysterectomy Family History Father Medical history unknown Mother Cancer Paternal Grandmother Diabetes Paternal Grandfather Diabetes Daughter Behavioral problem Family/Other FH: mental illness Social History Household Members: None Housing: Apartment Are you a primary customer care voice consultant to a significant other at home: No Do you presently have visiting nurse or other home services: No Alcohol intake: never Patient Tobacco Use Status: Never used Tobacco e-Cigarette/Vaping Use: Never Used Second Hand Smoke Exposure: No Advance Directives Date on File: 11/02/21 service: No Current occupational status: unemployed and disabled Cognitive needs: No Hearing needs: No Vision needs: No Physical Exam Vital Signs: Last Vital Signs Pulse 84 07/12/24 09:08 BP 140/62 H 07/12/24 09:08 BMI result Body Mass Index 54.7 Assessment & Plan Assessment & Plan (1) Constipation by delayed colonic transit: Code(s): K59.01 - Slow transit constipation Category: Medical Plan: as above Medications: New lactulose 10 grams (15 mL) PO BEDTIME PRN 1,500 mL 1RF constipation Coding Level of Care Code Est Pt Level 3 (13986) Diagnoses Constipation by delayed colonic transit K59.01
== END 2024-07-12 09:40 | disposition home or self-care (01) ==
PROVIDERS: PCP Physician Assistant; Visit Provider Internal Medicine Gastroenterology
DX: K59.01 Slow transit constipation (principal)
CPT/HCPCS: 99213

== ENCOUNTER → 2024-07-12 09:00 | Outpatient (BNVA) | payer OTHER, SELFPAY | PROVIDERS: PCP Physician Assistant; Visit Provider Internal Medicine Gastroenterology | DX: K59.01 Slow transit constipation (principal) | CPT/HCPCS: 99212 ==

== ENCOUNTER 2024-07-20 11:47 | Outpatient (REF) | payer OTHER, SELFPAY ==
--- NOTE | ~2024-07-20 | MM_ITS ---
EXAMINATION: MM SCREENING DIGITAL BREAST TOMOSYNTHESIS, BILATERAL CLINICAL INFORMATION: Screening. Asymptomatic. COMPARISON: Mammography: Comparison is made with available priors TECHNIQUE: Digital breast mammography with tomosynthesis is performed in both the craniocaudal and mediolateral oblique views along with computer-aided detection (CAD). FINDINGS: There are scattered areas of fibroglandular density (ACR BI-RADS breast composition Category b). There are no significant masses, abnormal calcifications, or other abnormalities. MM/MM tomosynthesis screening BI IMPRESSION: No mammographic evidence of malignancy. ASSESSMENT: BI-RADS BI-RADS 1 - Negative RECOMMENDATION: Routine annual mammography screening. 1 year F/U This examination should not preclude the clinical evaluation of a suspicious palpable abnormality. This patient's information was entered into a reminder system with a target due date for their next mammogram. Electronically signed by: Sera Li DO 07/22/2024 11:40 AM GIULIA
== END 2024-07-20 11:48 | disposition home or self-care (01) ==
LOC: HO.MAMMO 11:47
PROVIDERS: PCP Physician Assistant; Visit Provider Physician Assistant
DX: Z12.31 Encounter for screening mammogram for malignant neoplasm of breast (principal)
CPT/HCPCS: 77063; 77067

== ENCOUNTER → 2024-07-20 12:15 | Outpatient (BNV) | payer OTHER, SELFPAY | PROVIDERS: PCP Physician Assistant; Visit Provider Internal Medicine | DX: Z12.31 Encounter for screening mammogram for malignant neoplasm of breast (principal) | CPT/HCPCS: 77063; 77067 ==

== ENCOUNTER 2024-07-28 12:37 | Outpatient (AMB) | payer OTHER, SELFPAY ==
--- NOTE | 2024-07-28 12:55 | MHC.OFFVIS ---
Vital Signs 07/28/24 12:56 Height 5 ft Weight 280 lb BMI 54.7 Intake Visit Reasons: Bilateral knee pains Intake Note: Amalia is a 53 year old female who presents with complaints of progressively worsening bilateral knee pains. She describes her pains as sharp in nature. She has had cortisone injections in the past which gave her minimal relief. She has also done physical therapy exercises which aggravated her pain. She has tried Tylenol and anti-inflammatory medicines which gave her minimal relief. At this point her bilateral knee pains are interfering with her activities of daily living and her ability to sleep well through the night. Allergies ibuprofen [IBUPROFEN] Allergy (Intermediate, Verified 07/28/24 12:57) RASH lisinopril [LISINOPRIL] Allergy (Intermediate, Verified 07/28/24 12:57) RASH lactulose [LACTULOSE] Allergy (Mild, Verified 07/28/24 12:57) STOMACH ACHE duloxetine [From Cymbalta] Adverse Reaction (Intermediate, Verified 07/28/24 12:57) Insomnia gabapentin Adverse Reaction (Intermediate, Verified 07/28/24 12:57) Insomnia semaglutide [From Wegovy] Adverse Reaction (Intermediate, Verified 07/28/24 12:57) Sickness tizanidine Adverse Reaction (Intermediate, Verified 07/28/24 12:57) bradycardia Medication List - Last Reconciled 07/28/24 by Larry Meyer MD albuterol sulfate 90 mcg/actuation (Ventolin HFA) 1 inh inhalation QID 30 days amitriptyline 25 mg PO BEDTIME amlodipine 5 mg PO DAILY blood pressure kit-extra large As directed buspirone 10 mg PO BID calcitriol 0.25 mcg PO DAILY 30 days calcium citrate 500 mg (2 x 250 mg calcium) PO BID cholecalciferol (vitamin D3) (Vitamin D3) 25 mcg PO DAILY clonazepam 0.5 mg PO BEDTIME cyanocobalamin (vitamin B-12) 1,000 mcg PO DAILY hydrochlorothiazide 12.5 mg PO DAILY 90 days hyoscyamine sulfate 0.125 mg sublingual BID-QID 90 days inhalational spacing device As directed lactulose 10 grams (15 mL) PO BEDTIME PRN meclizine 25 mg PO DAILY oxycodone 5 mg PO BID PRN 5 days pantoprazole 40 mg PO DAILY pregabalin mg PO propranolol 10 mg PO BID topiramate 25 mg PO BEDTIME zolpidem ER 12.5 mg PO BEDTIME [facility] Medical History Class 3 obesity Right knee pain Annual physical exam Preoperative examination Weakness Fatigue Malaise and fatigue Rib pain on right side Cough Shortness of breath Pneumonia due to 2019 novel coronavirus Bronchospasm Hand paresthesia Numbness and tingling of right side of face Seroma of musculoskeletal structure after musculoskeletal system procedure Acute torticollis Left shoulder pain Left knee pain Neck pain on right side Back pain Back pain Arthritis of right knee Arthritis of left knee Toe infection Lipoma of back Bilateral kidney stones Suprapubic pain, acute Hypocalcemia Hypokalemia Lipoma of neck RUQ pain Retroperitoneal mass Generalized abdominal pain H/O acute pancreatitis Nausea & vomiting Morbid obesity Obese BMI 45.0-49.9, adult Morbid obesity due to excess calories ALYSA (generalized anxiety disorder) Pancreatitis IBS (irritable bowel syndrome) Arthritis Depression Asthma Sleep apnea HTN (hypertension) Renal calculi Osteopenia Vitamin D deficiency Hypoparathyroidism Renal colic Chronic abdominal pain Surgical History Hx of lipoma Hx of colonoscopy H/O thyroidectomy History of esophagogastroduodenoscopy (EGD) History of parathyroid surgery History of hernia repair Status post excision of lipoma (09/26/21) H/O left knee surgery History of cholecystectomy H/O: hysterectomy Family History Father Medical history unknown Mother Cancer Paternal Grandmother Diabetes Paternal Grandfather Diabetes Daughter Behavioral problem Family/Other FH: mental illness Social History Household Members: None Housing: Apartment Are you a primary health care marketing specialist to a significant other at home: No Do you presently have visiting nurse or other home services: No Alcohol intake: never Patient Tobacco Use Status: Never used Tobacco e-Cigarette/Vaping Use: Never Used Second Hand Smoke Exposure: No Advance Directives Date on File: 11/02/21 service: No Current occupational status: unemployed and disabled Cognitive needs: No Hearing needs: No Vision needs: No Physical Exam Vital Signs: BMI result Body Mass Index 54.7 Const Other: Well-nourished well-developed very friendly female awake alert and oriented x3 in no acute distress Extrem Other: Bilateral lower extremity examination shows good capillary refill, no skin lesions noted, normal sensation light touch Bilateral knee examination shows minimal effusions, palpable crepitus with range of motion, pain with range of motion, no instability Office Procedures AMB Joint Injection/Aspiration Joint Injection/Aspiration Primary Site: right knee Prep: site was prepped using aseptic technique Injected: 20 mg of (Euflexxa viscosupplementation) Procedure: The patient tolerated the procedure well Coding - Large joint Procedure code (CPT) selection complete AMB Joint Injection/Aspiration Joint Injection/Aspiration Primary Site: left knee Prep: site was prepped using aseptic technique Injected: 20 mg of (Euflexxa viscosupplementation) and 1% plain lidocaine Procedure: The patient tolerated the procedure well Coding - Large joint Procedure code (CPT) selection complete Results Reviewed Results Reviewed: X-rays of the patient's bilateral knees taken previously show joint space narrowing, subchondral sclerosis, no acute bony abnormalities Assessment & Plan Assessment & Plan (1) Osteoarthritis of left knee: Code(s): M17.12 - Unilateral primary osteoarthritis, left knee Category: Medical (2) Osteoarthritis of right knee: Code(s): M17.11 - Unilateral primary osteoarthritis, right knee Category: Medical Plan Ms. Fish presents with bilateral knee pains due to osteoarthritis. The risks and benefits of a series of bilateral knee Euflexxa viscosupplementation injections were discussed at length with the patient. The patient wished to proceed. She tolerated the injections well. She will continue with her home exercise program. She will follow up next week as scheduled. Feel free to call me at any time should questions regarding her orthopedic management arise. I spent 22 minutes in reviewing the patient's records and imaging studies, seeing the patient and documenting in the medical record. Orders: Orders AMB Joint Injection/Aspiration Today M17.12 - Unilateral primary osteoarthritis, left knee AMB Joint Injection/Aspiration Today M17.11 - Unilateral primary osteoarthritis, right knee Coding Level of Care Code Est Pt Level 3 (59791) Complex EM visit Add On G2211 Diagnoses Osteoarthritis of left knee M17.12 Osteoarthritis of right knee M17.11 CPT Codes Coding - Large joint: 94234 - Large joint ([id number]) Coding - 30992 Large joint: - Large joint ([id number])
[2024-07-28 12:56] VITALS: BMI 54.7
== END 2024-07-28 13:23 | disposition home or self-care (01) ==
LOC: HO.HOS 12:38
PROVIDERS: PCP Physician Assistant; Visit Provider Orthopaedic Surgery
DX: M17.0 Bilateral primary osteoarthritis of knee (principal)
CPT/HCPCS: 20610; 99213

== ENCOUNTER → 2024-07-28 12:37 | Outpatient (BNVA) | payer OTHER, SELFPAY | PROVIDERS: PCP Physician Assistant; Visit Provider Orthopaedic Surgery | DX: M17.0 Bilateral primary osteoarthritis of knee (principal) | CPT/HCPCS: 20610; 99212; J2003; J7323 ==

== ENCOUNTER 2024-08-04 14:00 | Outpatient (AMB) | payer OTHER, SELFPAY ==
--- NOTE | 2024-08-04 14:03 | A.OFFVIS_ITS ---
Vital Signs 08/04/24 14:07 Height 5 ft Weight 280 lb BMI 54.7 Intake Visit Reasons: Inj- Bilateral Knee Euflexxa #2 Intake Note: Amalia is a 53 year old female who presents today for her second bilateral knees Euflexxa injections. She states that she has gotten mild relief from the 1st set of injections. She continues with her home exercise program. Allergies ibuprofen [IBUPROFEN] Allergy (Intermediate, Verified 08/04/24 14:08) RASH lisinopril [LISINOPRIL] Allergy (Intermediate, Verified 08/04/24 14:08) RASH lactulose [LACTULOSE] Allergy (Mild, Verified 08/04/24 14:08) STOMACH ACHE duloxetine [From Cymbalta] Adverse Reaction (Intermediate, Verified 08/04/24 14:08) Insomnia gabapentin Adverse Reaction (Intermediate, Verified 08/04/24 14:08) Insomnia semaglutide [From Wegovy] Adverse Reaction (Intermediate, Verified 08/04/24 14:08) Sickness tizanidine Adverse Reaction (Intermediate, Verified 08/04/24 14:08) bradycardia Medication List - Last Reconciled 08/05/24 by Larry Meyer MD albuterol sulfate 90 mcg/actuation (Ventolin HFA) 1 inh inhalation QID 30 days amitriptyline 25 mg PO BEDTIME amlodipine 5 mg PO DAILY blood pressure kit-extra large As directed buspirone 10 mg PO BID calcitriol 0.25 mcg PO DAILY 30 days calcium citrate 500 mg (2 x 250 mg calcium) PO BID cholecalciferol (vitamin D3) (Vitamin D3) 25 mcg PO DAILY clonazepam 0.5 mg PO BEDTIME cyanocobalamin (vitamin B-12) 1,000 mcg PO DAILY hydrochlorothiazide 12.5 mg PO DAILY 90 days hyoscyamine sulfate 0.125 mg sublingual BID-QID 90 days inhalational spacing device As directed lactulose 10 grams (15 mL) PO BEDTIME PRN meclizine 25 mg PO DAILY oxycodone 5 mg PO BID PRN 5 days pantoprazole 40 mg PO DAILY pregabalin mg PO propranolol 10 mg PO BID topiramate 25 mg PO BEDTIME zolpidem ER 12.5 mg PO BEDTIME [facility] Medical History Class 3 obesity Right knee pain Annual physical exam Preoperative examination Weakness Fatigue Malaise and fatigue Rib pain on right side Cough Shortness of breath Pneumonia due to 2019 novel coronavirus Bronchospasm Hand paresthesia Numbness and tingling of right side of face Seroma of musculoskeletal structure after musculoskeletal system procedure Acute torticollis Left shoulder pain Left knee pain Neck pain on right side Back pain Back pain Arthritis of right knee Arthritis of left knee Toe infection Lipoma of back Bilateral kidney stones Suprapubic pain, acute Hypocalcemia Hypokalemia Lipoma of neck RUQ pain Retroperitoneal mass Generalized abdominal pain H/O acute pancreatitis Nausea & vomiting Morbid obesity Obese BMI 45.0-49.9, adult Morbid obesity due to excess calories ALYSA (generalized anxiety disorder) Pancreatitis IBS (irritable bowel syndrome) Arthritis Depression Asthma Sleep apnea HTN (hypertension) Renal calculi Osteopenia Vitamin D deficiency Hypoparathyroidism Renal colic Chronic abdominal pain Surgical History Hx of lipoma Hx of colonoscopy H/O thyroidectomy History of esophagogastroduodenoscopy (EGD) History of parathyroid surgery History of hernia repair Status post excision of lipoma (09/26/21) H/O left knee surgery History of cholecystectomy H/O: hysterectomy Family History Father Medical history unknown Mother Cancer Paternal Grandmother Diabetes Paternal Grandfather Diabetes Daughter Behavioral problem Family/Other FH: mental illness Social History Household Members: None Housing: Apartment Are you a primary transition of care specialist to a significant other at home: No Do you presently have visiting nurse or other home services: No Alcohol intake: never Patient Tobacco Use Status: Never used Tobacco e-Cigarette/Vaping Use: Never Used Second Hand Smoke Exposure: No Advance Directives Date on File: 11/02/21 service: No Current occupational status: unemployed and disabled Cognitive needs: No Hearing needs: No Vision needs: No Physical Exam Vital Signs: BMI result Body Mass Index 54.7 Extrem Other: Bilateral knee examination shows minimal effusions, palpable crepitus with range of motion, pain with range of motion, no instability Office Procedures AMB Joint Injection/Aspiration Joint Injection/Aspiration Primary Site: left knee Prep: site was prepped using aseptic technique Injected: 20 mg of (Euflexxa viscosupplementation) and 1% plain lidocaine Procedure: The patient tolerated the procedure well Coding 02073 - Large joint Procedure code (CPT) selection complete AMB Joint Injection/Aspiration Joint Injection/Aspiration Primary Site: right knee Prep: site was prepped using aseptic technique Injected: 20 mg of (Euflexxa viscosupplementation) and 1% plain lidocaine Procedure: The patient tolerated the procedure well Coding 90111 - Large joint Procedure code (CPT) selection complete Results Reviewed Results Reviewed: X-rays of the patient's bilateral knees taken previously show joint space narrowing, subchondral sclerosis, no acute bony abnormalities Assessment & Plan Assessment & Plan (1) Osteoarthritis of left knee: Code(s): M17.12 - Unilateral primary osteoarthritis, left knee Category: Medical (2) Osteoarthritis of right knee: Code(s): M17.11 - Unilateral primary osteoarthritis, right knee Category: Medical Plan Ms. Fish presents with bilateral knee pains due to osteoarthritis. The risks and benefits of a 2nd set of Euflexxa viscosupplementation injections were discussed at length with the patient. The patient wished to proceed. She tolerated the injections well. She will continue with her home exercise program. She will follow up next week as scheduled. Orders: Orders AMB Joint Injection/Aspiration 08/04/24 M17.12 - Unilateral primary osteoarthritis, left knee AMB Joint Injection/Aspiration 08/04/24 M17.11 - Unilateral primary osteoarthritis, right knee Coding Level of Care Code Procedure Only Diagnoses Osteoarthritis of left knee M17.12 Osteoarthritis of right knee M17.11 CPT Codes Coding - 00912 Large joint: 38166 - Large joint ([id number]) Coding - 14464 Large joint: 41316 - Large joint ([id number])
[2024-08-04 14:07] VITALS: BMI 54.7
== END 2024-08-04 14:25 | disposition home or self-care (01) ==
LOC: HO.HOS 14:01
PROVIDERS: PCP Physician Assistant; Visit Provider Orthopaedic Surgery
DX: M17.0 Bilateral primary osteoarthritis of knee (principal)
CPT/HCPCS: 20610

== ENCOUNTER → 2024-08-04 14:00 | Outpatient (BNVA) | payer OTHER, SELFPAY | PROVIDERS: PCP Physician Assistant; Visit Provider Orthopaedic Surgery | DX: M17.0 Bilateral primary osteoarthritis of knee (principal) | CPT/HCPCS: 20610; J2003; J7323 ==

== ENCOUNTER 2024-08-11 12:42 | Outpatient (AMB) | payer OTHER, SELFPAY ==
--- NOTE | 2024-08-11 12:52 | MHC.OFFVIS ---
Intake Visit Reasons: Inj- Bilateral Knee Euflexxa #3 Intake Note: Amalia is a 53 year old female who presents today for her third dose of bilateral Euflexxa gel injections. She states that she has gotten fairly good relief from the 1st 2 sets of injections. She continues with her home exercise program. Allergies ibuprofen [IBUPROFEN] Allergy (Intermediate, Verified 08/11/24 12:53) RASH lisinopril [LISINOPRIL] Allergy (Intermediate, Verified 08/11/24 12:53) RASH lactulose [LACTULOSE] Allergy (Mild, Verified 08/11/24 12:53) STOMACH ACHE duloxetine [From Cymbalta] Adverse Reaction (Intermediate, Verified 08/11/24 12:53) Insomnia gabapentin Adverse Reaction (Intermediate, Verified 08/11/24 12:53) Insomnia semaglutide [From Wegovy] Adverse Reaction (Intermediate, Verified 08/11/24 12:53) Sickness tizanidine Adverse Reaction (Intermediate, Verified 08/11/24 12:53) bradycardia Medication List - Last Reconciled 08/11/24 by Larry Meyer MD albuterol sulfate 90 mcg/actuation (Ventolin HFA) 1 inh inhalation QID 30 days amitriptyline 25 mg PO BEDTIME amlodipine 5 mg PO DAILY blood pressure kit-extra large As directed buspirone 10 mg PO BID calcitriol 0.25 mcg PO DAILY 30 days calcium citrate 500 mg (2 x 250 mg calcium) PO BID cholecalciferol (vitamin D3) (Vitamin D3) 25 mcg PO DAILY clonazepam 0.5 mg PO BEDTIME cyanocobalamin (vitamin B-12) 1,000 mcg PO DAILY hydrochlorothiazide 12.5 mg PO DAILY 90 days hyoscyamine sulfate 0.125 mg sublingual BID-QID 90 days inhalational spacing device As directed lactulose 10 grams (15 mL) PO BEDTIME PRN meclizine 25 mg PO DAILY oxycodone 5 mg PO BID PRN 5 days pantoprazole 40 mg PO DAILY pregabalin mg PO propranolol 10 mg PO BID topiramate 25 mg PO BEDTIME zolpidem ER 12.5 mg PO BEDTIME [facility] Medical History Class 3 obesity Right knee pain Annual physical exam Preoperative examination Weakness Fatigue Malaise and fatigue Rib pain on right side Cough Shortness of breath Pneumonia due to 2019 novel coronavirus Bronchospasm Hand paresthesia Numbness and tingling of right side of face Seroma of musculoskeletal structure after musculoskeletal system procedure Acute torticollis Left shoulder pain Left knee pain Neck pain on right side Back pain Back pain Arthritis of right knee Arthritis of left knee Toe infection Lipoma of back Bilateral kidney stones Suprapubic pain, acute Hypocalcemia Hypokalemia Lipoma of neck RUQ pain Retroperitoneal mass Generalized abdominal pain H/O acute pancreatitis Nausea & vomiting Morbid obesity Obese BMI 45.0-49.9, adult Morbid obesity due to excess calories ALYSA (generalized anxiety disorder) Pancreatitis IBS (irritable bowel syndrome) Arthritis Depression Asthma Sleep apnea HTN (hypertension) Renal calculi Osteopenia Vitamin D deficiency Hypoparathyroidism Renal colic Chronic abdominal pain Surgical History Hx of lipoma Hx of colonoscopy H/O thyroidectomy History of esophagogastroduodenoscopy (EGD) History of parathyroid surgery History of hernia repair Status post excision of lipoma (09/26/21) H/O left knee surgery History of cholecystectomy H/O: hysterectomy Family History Father Medical history unknown Mother Cancer Paternal Grandmother Diabetes Paternal Grandfather Diabetes Daughter Behavioral problem Family/Other FH: mental illness Social History Household Members: None Housing: Apartment Are you a primary home care consultant to a significant other at home: No Do you presently have visiting nurse or other home services: No Alcohol intake: never Patient Tobacco Use Status: Never used Tobacco e-Cigarette/Vaping Use: Never Used Second Hand Smoke Exposure: No Advance Directives Date on File: 11/02/21 service: No Current occupational status: unemployed and disabled Cognitive needs: No Hearing needs: No Vision needs: No Physical Exam Const Other: Well-nourished well-developed very friendly female awake alert and oriented x3 in no acute distress Extrem Other: Bilateral knee examination shows minimal effusions, palpable crepitus with range of motion, pain with range of motion, no instability Office Procedures AMB Joint Injection/Aspiration Joint Injection/Aspiration Primary Site: left knee Prep: site was prepped using aseptic technique Injected: 20 mg of (Euflexxa viscosupplementation) and 1% plain lidocaine Procedure: The patient tolerated the procedure well Coding - Large joint Procedure code (CPT) selection complete AMB Joint Injection/Aspiration Joint Injection/Aspiration Primary Site: right knee Prep: site was prepped using aseptic technique Injected: 20 mg of (Euflexxa viscosupplementation) and 1% plain lidocaine Procedure: The patient tolerated the procedure well Coding - Large joint Procedure code (CPT) selection complete Results Reviewed Results Reviewed: X-rays of the patient's bilateral knee show joint space narrowing, subchondral sclerosis, no acute bony abnormalities Assessment & Plan Assessment & Plan (1) Osteoarthritis of left knee: Code(s): M17.12 - Unilateral primary osteoarthritis, left knee Category: Medical (2) Osteoarthritis of right knee: Code(s): M17.11 - Unilateral primary osteoarthritis, right knee Category: Medical Plan Ms. Fish presents with bilateral knee pains due to osteoarthritis. The risks and benefits of a 3rd set of Euflexxa viscosupplementation injections were discussed at length with the patient. The patient wished to proceed. She tolerated the injections well. She will continue with her home exercise program. She will contact me prior to her follow-up appointment in 3 months should any questions or concerns arise. Feel free to call me at any time should questions regarding her orthopedic management arise. Orders: Orders AMB Joint Injection/Aspiration Today M17.11 - Unilateral primary osteoarthritis, right knee AMB Joint Injection/Aspiration Today M17.12 - Unilateral primary osteoarthritis, left knee Coding Level of Care Code Procedure Only Diagnoses Osteoarthritis of left knee M17.12 Osteoarthritis of right knee M17.11 CPT Codes Coding - 86393 Large joint: 34666 - Large joint ([id number]) Coding - 19239 Large joint: 81615 - Large joint ([id number])
== END 2024-08-11 13:05 | disposition home or self-care (01) ==
LOC: HO.HOS 12:42
PROVIDERS: PCP Physician Assistant; Visit Provider Orthopaedic Surgery
DX: M17.0 Bilateral primary osteoarthritis of knee (principal)
CPT/HCPCS: 20610

== ENCOUNTER → 2024-08-11 12:42 | Outpatient (BNVA) | payer OTHER, SELFPAY | PROVIDERS: PCP Physician Assistant; Visit Provider Orthopaedic Surgery | DX: M17.0 Bilateral primary osteoarthritis of knee (principal) | CPT/HCPCS: 20610; J2003; J7323 ==

== ENCOUNTER 2024-08-19 11:23 | Outpatient (REF) | payer OTHER, SELFPAY ==
--- NOTE | ~2024-08-19 | US_ITS ---
CLINICAL HISTORY: N20.0 - Calculus of kidney US Renal Comparison: 07/22/2023 Findings: Right kidney normal size and echotexture, 10.8 cm length. Left kidney normal size and echotexture, 10.2 cm length. There is a Bosniak 1 left renal cortical 0.9 x 0.8 x 0.8 cm cyst. No hydronephrosis of either kidney. Normal color Doppler The appearance of the liver suggests fatty infiltration. IMPRESSION: 1. Bosniak 1 left renal cortical cyst. 2. Hepatic steatosis. This document has been electronically signed by: Ronnie Cortez MD on 08/20/2024 08:59:58
== END 2024-08-19 11:24 | disposition home or self-care (01) ==
LOC: HO.US 11:23
PROVIDERS: PCP Physician Assistant; Visit Provider Urology
DX: N20.0 Calculus of kidney (principal)
CPT/HCPCS: 76775

== ENCOUNTER → 2024-08-19 11:25 | Outpatient (BNV) | payer OTHER, SELFPAY | PROVIDERS: PCP Physician Assistant; Visit Provider Specialist | DX: N28.1 Cyst of kidney, acquired (principal); K76.0 Fatty (change of) liver, not elsewhere classified | CPT/HCPCS: 76775 ==

== ENCOUNTER 2024-08-31 12:17 | Outpatient (REF) | payer OTHER, SELFPAY ==
[2024-08-31 13:39] LABS: Albumin Level 4.1 g/dL (3.5-5.0); Calcium 8.6 mg/dL (8.4-10.2); Phosphorus 4.4 mg/dL (2.7-4.5)
== END 2024-08-31 12:18 | disposition home or self-care (01) ==
LOC: HO.LAB 12:17
PROVIDERS: PCP Physician Assistant; Visit Provider Internal Medicine Endocrinology, Diabetes & Metabolism
DX: E20.9 Hypoparathyroidism, unspecified (principal)
CPT/HCPCS: 36415; 82040; 82310; 84100

== ENCOUNTER 2024-09-22 12:29 | Outpatient (AMB) | payer OTHER, SELFPAY ==
[2024-09-22 12:33] VITALS: BP 140/82; PULSE 87; O2SAT 97; BMI 58.4
--- NOTE | 2024-09-22 12:33 | MHC.OFFVIS ---
Vital Signs 09/22/24 12:33 Height 5 ft Weight 298 lb 15.149 oz BMI 58.4 BP 140/82 H Blood Pressure Location Lt brachial Position Sitting Pulse 87 Pulse Source Pulse Oximeter Pulse Oximetry (%) 97 Oxygen Delivery Method Room Air Intake Visit Reasons: f/u hypoparathyroidism Intake Note: Patient presents for follow up on hypoparathyroidism. Allergies ibuprofen [IBUPROFEN] Allergy (Intermediate, Verified 09/22/24 12:37) RASH lisinopril [LISINOPRIL] Allergy (Intermediate, Verified 09/22/24 12:37) RASH lactulose [LACTULOSE] Allergy (Mild, Verified 09/22/24 12:37) STOMACH ACHE duloxetine [From Cymbalta] Adverse Reaction (Intermediate, Verified 09/22/24 12:37) Insomnia gabapentin Adverse Reaction (Intermediate, Verified 09/22/24 12:37) Insomnia semaglutide [From Wegovy] Adverse Reaction (Intermediate, Verified 09/22/24 12:37) Sickness tizanidine Adverse Reaction (Intermediate, Verified 09/22/24 12:37) bradycardia Medication List - Last Reconciled 09/22/24 by William Elias MD albuterol sulfate 90 mcg/actuation (Ventolin HFA) 1 inh inhalation QID 30 days amitriptyline 25 mg PO BEDTIME amlodipine 5 mg PO DAILY blood pressure kit-extra large As directed buspirone 10 mg PO BID calcitriol 0.25 mcg PO DAILY 30 days calcium citrate 500 mg (2 x 250 mg calcium) PO BID cholecalciferol (vitamin D3) (Vitamin D3) 25 mcg PO DAILY clonazepam 0.5 mg PO BEDTIME cyanocobalamin (vitamin B-12) 1,000 mcg PO DAILY hydrochlorothiazide 12.5 mg PO DAILY 90 days hyoscyamine sulfate 0.125 mg sublingual BID-QID 90 days inhalational spacing device As directed lactulose 10 grams (15 mL) PO BEDTIME PRN meclizine 25 mg PO DAILY oxycodone 5 mg PO BID PRN 5 days pantoprazole 40 mg PO DAILY prednisone 20 mg PO DAILY 5 days pregabalin mg PO propranolol 10 mg PO BID topiramate 25 mg PO BEDTIME zolpidem ER 12.5 mg PO BEDTIME HPI Comments Details: 53 YO F with an extensive PMHx including Pancreatitis and Recurrent Nephrolithiasis who is seen in F/U. She underwent a multigland (3 gland) parathyroidectomy 04/04/[address] Brittni Aguilar and has subsequently developed hypoparathyroidism.. In terms of her hypercalcemia: First noted to have high calcium in 2011 based on labs, but it appears no full evaluation was completed. 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 Calcium level has been over 11 on multiple occasions, most recently 10.4 with Albumin WNL. Her Vitamin D was very low at 8 in early 2018. It has remained this low ever since. After her initial visit with me we checked a complete workup. 03/31/19 Total Calcium 11.9, Albumin 4.6, Vitamin D 9.9, PTH 127, Phos 2.3. She had a 24 hour urine collection which was an inadequate sample. She had an ultrasound of the neck which was read as a 2.2 R mid pole posterior hypoechoic nodule. Review of the images does appear that this is extracapsular and potentially represents a parathyroid adenoma. She underwent a 3 gland ( R inferior and Bilateral Superior) parathyroidectomy on 04/04/2020. Intraoperative PTH declined from 170-13. She did develop hypocalcemia postoperatively. She was resumed on Calcium citrate 1 tab PO TID and also started on Calcitriol 0.25 mg PO daily. She was having significant cramping and paresthesias, but this initially resolved after starting Calcitriol. She subsequently stopped the Calcium but has resumed on calcitriol and Vitamin D. She has not been compliant with regular F/U and lab checks.. She is currently on calcitriol 0.25 mcg daily as well as vitamin D3. She also takes hydrochlorothiazide 25 mg daily She does report some paresthesias of her hands and her legs. Renal imaging: Abd/Pelvis CT 06/02/2019: Nephrolithiasis of R Kidney, nonobstructing DEXA: 07/26/2021 FINDINGS: AP SPINE L1-L4: Current: BMD 1.069 g/cm2, Z-score -1.3, T-score -0.9, normal, 4.7% increase from baseline (<5% change is not significant). Baseline: BMD 1.021 g/cm2. LEFT FEMUR, NECK: Current: BMD 0.579 g/cm2, Z-score -3.0, T-score -3.3, osteoporosis. Baseline: BMD 0.875 g/cm2. LEFT FEMUR, TOTAL: Current: BMD 0.730 g/cm2, Z-score -2.3, T-score -2.2, osteopenia, 24.0% decrease from baseline (<5% change is not significant). Baseline: BMD 0.961 g/cm2. LEFT FOREARM RADIUS 33%: BMD 0.893 g/cm2, Z-score 0.3, T-score 0.2, normal, 1.7% increase from baseline (<5% change is not significant). Baseline: BMD 0.878 g/cm2. Labs: Laboratory Tests 05/15/21 07/26/21 07/26/21 16:46 14:57 14:57 Creatinine 0.78 0.79 Estimated GFR > 60 > 60 Phosphorus 3.9 Albumin 4.2 4.1 25-OH Vitamin D Total 28.9 PTH Intact 38 Calcium (PTH Intact) 8.4 L Ur 24 Hour Volume Ur Creatinine 24 Hour Ur Calcium 24 Hr 08/01/21 08/01/21 10:02 10:02 Creatinine Estimated GFR Phosphorus Albumin 25-OH Vitamin D Total PTH Intact Calcium (PTH Intact) Ur 24 Hour Volume 1025 Ur Creatinine 24 Hour 1.28 Ur Calcium 24 Hr 45 Currently on calcitriol 0.25 mcg q.d., vitamin D3 2000 units q.d. and calcium citrate 2 tabs B.i.d. and hydrochlorothiazide 12.5 mg q.d. no symptoms of hypocalcemia [facility] Medical History (Updated 09/13/24 @ 07:54 by Marcus Herman PA-C) Class 3 obesity Right knee pain Annual physical exam Preoperative examination Weakness Fatigue Malaise and fatigue Rib pain on right side Cough Shortness of breath Pneumonia due to 2019 novel coronavirus Bronchospasm Hand paresthesia Numbness and tingling of right side of face Seroma of musculoskeletal structure after musculoskeletal system procedure Acute torticollis Left shoulder pain Left knee pain Neck pain on right side Back pain Back pain Arthritis of right knee Arthritis of left knee Toe infection Lipoma of back Bilateral kidney stones Suprapubic pain, acute Hypocalcemia Hypokalemia Lipoma of neck RUQ pain Retroperitoneal mass Generalized abdominal pain H/O acute pancreatitis Nausea & vomiting Morbid obesity Obese BMI 45.0-49.9, adult Morbid obesity due to excess calories ALYSA (generalized anxiety disorder) Pancreatitis IBS (irritable bowel syndrome) Arthritis Depression Asthma Sleep apnea HTN (hypertension) Renal calculi Osteopenia Vitamin D deficiency Hypoparathyroidism Renal colic Chronic abdominal pain Surgical History (Updated 08/31/24 @ 10:39 by Kimmy Dawson) Hx of lipoma Hx of colonoscopy (~08/30/20) H/O thyroidectomy History of esophagogastroduodenoscopy (EGD) History of parathyroid surgery History of hernia repair Status post excision of lipoma (09/26/21) H/O left knee surgery History of cholecystectomy H/O: hysterectomy Family History Father Medical history unknown Mother Cancer Paternal Grandmother Diabetes Paternal Grandfather Diabetes Daughter Behavioral problem Family/Other FH: mental illness Social History Household Members: None Housing: Apartment Are you a primary field care coordinator to a significant other at home: No Do you presently have visiting nurse or other home services: No Alcohol intake: never Patient Tobacco Use Status: Never used Tobacco e-Cigarette/Vaping Use: Never Used Second Hand Smoke Exposure: No Advance Directives Date on File: 11/02/21 service: No Current occupational status: unemployed and disabled Cognitive needs: No Hearing needs: No Vision needs: No Physical Exam Vital Signs: Last Vital Signs Pulse 87 09/22/24 12:33 BP 140/82 H 09/22/24 12:33 Pulse Ox 97 09/22/24 12:33 Oxygen Delivery Method Room Air 09/22/24 12:33 BMI result Body Mass Index 58.4 Assessment & Plan Assessment & Plan (1) Hypoparathyroidism: Code(s): E20.9 - Hypoparathyroidism, unspecified Category: Medical Qualifiers: Hypoparathyroidism type: unspecified Qualified Code(s): E20.9 - Hypoparathyroidism, unspecified Plan: This is a 53-year-old female with a history of surgically induced hypoparathyroidism currently being treated with calcitriol, calcium, vitamin D3 and hydrochlorothiazide with calcium low normal and normal 24 hour urine for calcium. Plan is to continue the current therapy. . Could consider use of Transcon PTH (Yorivath) when it becomes available. Spoke with patient at length about the use of Yoripath and she is quite interested in using the over Repatha injection particularly if she can eliminate the calcium vitamin-D supplementation or minimize. Orders: Orders Albumin Level 4 Months E20.9 - Hypoparathyroidism, unspecified Calcium 4 Months E20.9 - Hypoparathyroidism, unspecified Phosphorus 4 Months E20.9 - Hypoparathyroidism, unspecified Coding Level of Care Code Est Pt Level 3 (75296) Diagnoses Hypoparathyroidism, unspecified hypoparathyroidism type E20.9 Hypoparathyroidism type: unspecified
== END 2024-09-22 13:05 | disposition home or self-care (01) ==
LOC: HO.ENCR 12:30
PROVIDERS: PCP Physician Assistant; Visit Provider Internal Medicine Endocrinology, Diabetes & Metabolism
DX: E20.9 Hypoparathyroidism, unspecified (principal)
CPT/HCPCS: 99213

== ENCOUNTER → 2024-09-22 12:29 | Outpatient (BNVA) | payer OTHER, SELFPAY | PROVIDERS: PCP Physician Assistant; Visit Provider Internal Medicine Endocrinology, Diabetes & Metabolism | DX: E20.9 Hypoparathyroidism, unspecified (principal) | CPT/HCPCS: 99212 ==

== ENCOUNTER 2024-09-29 11:15 | Outpatient (REF) | payer OTHER, SELFPAY ==
--- NOTE | ~2024-09-29 | US_ITS ---
EXAMINATION: US LOWER EXTREMITY VEINS LIMITED FOLLOW UP RIGHT HISTORY: R60.0 - Localized edema COMPARISON: There are no prior studies for comparison. TECHNIQUE: Duplex and color Doppler sonographic examination of the deep venous system of the right lower extremity was performed. FINDINGS: The common femoral, superficial femoral, and popliteal veins are patent demonstrating normal compressibility, spontaneous flow, and augmentation. There is a normal color and spectral Doppler waveform appearance of the visualized deep venous system above the knee. There is limited visualization of the posterior tibial and peroneal veins. US/US venous duplex LE RT IMPRESSION: No evidence of acute DVT in the right lower extremity. Electronically signed by: William Velasquez MD 09/29/2024 12:10 PM EDT
== END 2024-09-29 11:16 | disposition home or self-care (01) ==
LOC: HO.US 11:15
PROVIDERS: PCP Physician Assistant; Visit Provider Physician Assistant
DX: R60.0 Localized edema (principal)
CPT/HCPCS: 93971

== ENCOUNTER → 2024-09-29 11:20 | Outpatient (BNV) | payer OTHER, SELFPAY | PROVIDERS: PCP Physician Assistant; Visit Provider Radiology Diagnostic Radiology | DX: R60.0 Localized edema (principal) | CPT/HCPCS: 93971 ==

== ENCOUNTER 2024-10-04 12:38 | Outpatient (AMB) | payer OTHER, SELFPAY ==
--- NOTE | 2024-10-04 13:07 | A.OFFVIS_ITS ---
Intake Visit Reasons: yearly follow up/US Intake Note: Patient presents to office today for a 1 year follow up/US Urlogy medications: none Blood thinners: none Echocardiography Technologist Required: No Accompanied by: Self / Same As Patient Allergies ibuprofen [IBUPROFEN] Allergy (Intermediate, Verified 10/04/24 13:08) RASH lisinopril [LISINOPRIL] Allergy (Intermediate, Verified 10/04/24 13:08) RASH lactulose [LACTULOSE] Allergy (Mild, Verified 10/04/24 13:08) STOMACH ACHE duloxetine [From Cymbalta] Adverse Reaction (Intermediate, Verified 10/04/24 13:08) Insomnia gabapentin Adverse Reaction (Intermediate, Verified 10/04/24 13:08) Insomnia semaglutide [From Wegovy] Adverse Reaction (Intermediate, Verified 10/04/24 13:08) Sickness tizanidine Adverse Reaction (Intermediate, Verified 10/04/24 13:08) bradycardia Medication List - Last Reconciled 10/04/24 by Silas Gillis MD albuterol sulfate 90 mcg/actuation (Ventolin HFA) 1 inh inhalation QID 30 days amitriptyline 25 mg PO BEDTIME amlodipine 5 mg PO DAILY blood pressure kit-extra large As directed buspirone 10 mg PO BID calcitriol 0.25 mcg PO DAILY 30 days calcium citrate 500 mg (2 x 250 mg calcium) PO BID cholecalciferol (vitamin D3) (Vitamin D3) 25 mcg PO DAILY clonazepam 0.5 mg PO BEDTIME cyanocobalamin (vitamin B-12) 1,000 mcg PO DAILY hydrochlorothiazide 12.5 mg PO DAILY 90 days hyoscyamine sulfate 0.125 mg sublingual BID-QID 90 days inhalational spacing device As directed lactulose 10 grams (15 mL) PO BEDTIME PRN meclizine 25 mg PO DAILY pantoprazole 40 mg PO DAILY pregabalin mg PO propranolol 10 mg PO BID pyridoxine (vitamin B6) 100 mg PO DAILY topiramate 25 mg PO BEDTIME zolpidem ER 12.5 mg PO BEDTIME HPI Comments Details: 10/04/24--Amalia is being followed for history of kidney stones. She had a renal ultrasound done. I have reviewed the results no recurrent kidney stones. The patient states that she has back pain. She uses a cane to assist with walking. Comorbidity obesity. I have encouraged the patient to continue to hydrate and add lemon to her diet to increase citrate and will place her on vitamin B6 daily 100 mg. Plan continue to monitor kidneys follow-up next year. Results:--08/19/24--left renal cysts, no recurrent renal calculi. 07/31/2023--Amalia presents for telehealth visit to review renal ultrasound results. She states she is doing well. Denies abdominal pain or gross he maturia. States she did not complete the 24 hour urine. I have reviewed renal ultrasound results with the patient. 07/22/23- kidneys within normal limits negative renal stones or hydronephrosis. Plan-continue to monitor kidneys. Follow-up in 1 year renal ultrasound prior. Amalia is a 51-year-old female who presents to the office for discussion of CT- KUB results. LV--06/03/22--here for follow-up for kidney stones. PCP- Marcus Herman PA-C reviewed imaging KUB 05/23/2022 no radiopaque stones visualized, had renal ultrasound--01/11/2022, and CT KUB 11/02/2021, both consistent with small bilateral kidney stones, complains of chronic back pain, discussed will check CT KUB in 4 months, and 24 hour urine. 09/30/2022-- The patient is taking calcium supplement which is recommended by her doctor. The patient did not undergo 24-hour urine collection test because it is not covered by her insurance. She states she drinks 6-8 glasses of water. Diet sheet for renal calculi prevention was provided to the patient. Discussed to consume adequate amount of water, 2-2.5 liters of water daily. Discussed Low oxalate diet---green leafy vegetable, nuts, and tea in moderation as they are rich in oxalate.Follow-up after 9 months. renal US prior. CTAP results reviewed--09/23/22-- findings of punctate stones in the lower pole right kidney and lower pole left kidney. Evaluation today-- UA --Blood:negative leukocytes: negative. 07/31/2023 Plan: continue to monitor kidneys. Follow-up in 1 year renal ultrasound prior. [facility] Medical History Class 3 obesity Right knee pain Annual physical exam Preoperative examination Weakness Fatigue Malaise and fatigue Rib pain on right side Cough Shortness of breath Pneumonia due to 2019 novel coronavirus Bronchospasm Hand paresthesia Numbness and tingling of right side of face Seroma of musculoskeletal structure after musculoskeletal system procedure Acute torticollis Left shoulder pain Left knee pain Neck pain on right side Back pain Back pain Arthritis of right knee Arthritis of left knee Toe infection Lipoma of back Bilateral kidney stones Suprapubic pain, acute Hypocalcemia Hypokalemia Lipoma of neck RUQ pain Retroperitoneal mass Generalized abdominal pain H/O acute pancreatitis Nausea & vomiting Morbid obesity Obese BMI 45.0-49.9, adult Morbid obesity due to excess calories ALYSA (generalized anxiety disorder) Pancreatitis IBS (irritable bowel syndrome) Arthritis Depression Asthma Sleep apnea HTN (hypertension) Renal calculi Osteopenia Vitamin D deficiency Hypoparathyroidism Renal colic Chronic abdominal pain Surgical History Hx of lipoma Hx of colonoscopy (~08/30/20) H/O thyroidectomy History of esophagogastroduodenoscopy (EGD) History of parathyroid surgery History of hernia repair Status post excision of lipoma (09/26/21) H/O left knee surgery History of cholecystectomy H/O: hysterectomy Family History Father Medical history unknown Mother Cancer Paternal Grandmother Diabetes Paternal Grandfather Diabetes Daughter Behavioral problem Family/Other FH: mental illness Social History Household Members: None Housing: Apartment Are you a primary client care representative to a significant other at home: No Do you presently have visiting nurse or other home services: No Alcohol intake: never Patient Tobacco Use Status: Never used Tobacco e-Cigarette/Vaping Use: Never Used Second Hand Smoke Exposure: No Advance Directives Date on File: 11/02/21 service: No Current occupational status: unemployed and disabled Cognitive needs: No Hearing needs: No Vision needs: No Review of Systems Const All systems reviewed & are unremarkable except as noted in HPI and below Reports no additional complaints Eyes Reports no additional complaints ENT Reports no additional complaints Card Reports no additional complaints Resp Reports no additional complaints GI Reports no additional complaints Reports as per HPI Musc Reports no additional complaints Skin/Breast Reports system reviewed and no additional complaints, except as documented Neuro Reports no additional complaints Psych Reports no additional complaints Endo Reports no additional complaints Bran/Lymph Reports no additional complaints Aller/Immun Reports no additional complaints Results AMB Urinalysis Dipstick UR Leukocytes Negative Last Edit by Crystal Brown on 10/04/24 13:42 UR Nitrite Negative Last Edit by Crystal Brown on 10/04/24 13:42 UR Urobilinogen 4 Last Edit by Crystal Brown on 10/04/24 13:42 UR Protein Negative Last Edit by Crystal Brown on 10/04/24 13:42 UR Ph 6.0 Last Edit by Crystal Brown on 10/04/24 13:42 UR Blood Negative Last Edit by Crystal Brown on 10/04/24 13:42 UR Specific Cabins 1.020 Last Edit by Crystal Brown on 10/04/24 13:42 UR Ketone Negative Last Edit by Crystal Brown on 10/04/24 13:42 UR Bilirubin Negative Last Edit by Crystal Brown on 10/04/24 13:42 UR Glucose Negative Last Edit by Crystal Brown on 10/04/24 13:42 Results Reviewed Results Reviewed: Laboratory Last Values Urine pH (Clinic) 6.0 10/04/24 13:30 Specific Cabins (Clinic) 1.020 10/04/24 13:30 Ur Protein (Clinic) Negative 10/04/24 13:30 Ur Ketones (Clinic) Negative 10/04/24 13:30 Urine Blood (Clinic) Negative 10/04/24 13:30 Urine Nitrite Negative 10/04/24 13:30 Urine Bilirubin (Clinic) Negative 10/04/24 13:30 Urobilinogen (Clinic) 4 10/04/24 13:30 Leukocyte Esterase (Clinic) Negative 10/04/24 13:30 Urine Glucose (Clinic) Negative 10/04/24 13:30 Date of Service: 08/19/24 CLINICAL HISTORY: N20.0 - Calculus of kidney US Renal Comparison: 07/22/2023 Findings: Right kidney normal size and echotexture, 10.8 cm length. Left kidney normal size and echotexture, 10.2 cm length. There is a Bosniak 1 left renal cortical 0.9 x 0.8 x 0.8 cm cyst. No hydronephrosis of either kidney. Normal color Doppler The appearance of the liver suggests fatty infiltration. IMPRESSION: 1. Bosniak 1 left renal cortical cyst. Date of Service: 07/22/23 EXAMINATION: US RETROPERITONEAL LIMITED (RENAL ONLY) CLINICAL INFORMATION: Calculus of kidney. COMPARISON: Limited abdominal ultrasound with elastography 03/04/2023. CT abdomen and pelvis 09/23/2022. TECHNIQUE: Real-time imaging of the kidneys. FINDINGS: RIGHT KIDNEY: 10.3 x 3.6 x 4.4 cm (SAG x AP x TRV). The kidney is normal in size, contour, and echogenicity. Renal cortical thickness is normal. No calculi or focal parenchymal lesions. No hydronephrosis. LEFT KIDNEY: 9.3 x 5.4 x 4.5 cm (SAG x AP x TRV). The kidney is normal in size, contour, and echogenicity. Renal cortical thickness is normal. No renal calculi or hydronephrosis. Benign-appearing renal cyst measuring 0.9 cm. No follow up imaging is recommended. Partially imaged liver appears echogenic suggestive of hepatic steatosis or underlying liver disease similar to prior. IMPRESSION: 1. No hydronephrosis or nephrolithiasis. 2. Partially imaged liver appears echogenic suggestive of hepatic steatosis or underlying liver disease similar to prior. Assessment & Plan Assessment & Plan (1) Renal calculi: Code(s): N20.0 - Calculus of kidney Category: Medical (2) History of kidney stones: Code(s): Z87.442 - Personal history of urinary calculi Category: Medical (3) Renal cyst: Code(s): N28.1 - Cyst of kidney, acquired Category: Medical Plan I have encouraged the patient to continue to hydrate and add lemon to her diet to increase citrate and will place her on vitamin B6 daily 100 mg. Plan continue to monitor kidneys follow-up next year. Results:--08/19/24--left renal cysts, no recurrent renal calculi. Orders: Orders AMB Urinalysis Dipstick Today Z13.9 - Encounter for screening, unspecified US renal BI 11 Months N28.1 - Cyst of kidney, acquired, Z87.442 - Personal history of urinary calculi Medications: New pyridoxine (vitamin B6) 100 mg PO DAILY 90 tabs 3RF Patient Instructions: The patient had an opportunity to ask questions regarding treatment plan. The patient expressed understanding and agreement with the above treatment plan. The patient is aware they should contact our office by phone for worsening of their current condition or the appearance of new symptoms. Compliance is encouraged with any medications and followup testing that is ordered. It is a privilege to be allowed the opportunity to participate in the urologic care of your patient. If you have any questions or concerns regarding treatment for the above conditions please do not hesitate to contact me. The office telephone contact is [phone]. This note is constructed in part using voice recognition software. While every effort has been made to ensure accuracy lamp cleaner street light errors may have been included. Yours sincerely, Silas Gillis MD Coding Level of Care Code Est Pt Level 4 (19249) Diagnoses Renal calculi N20.0 History of kidney stones Z87.442 Renal cyst N28.1
== END 2024-10-04 13:47 | disposition home or self-care (01) ==
LOC: HO.HUSH 12:38
PROVIDERS: PCP Physician Assistant; Visit Provider Urology
DX: N20.0 Calculus of kidney (principal); Z87.442 Personal history of urinary calculi; N28.1 Cyst of kidney, acquired; Z13.9 Encounter for screening, unspecified
CPT/HCPCS: 99214

== ENCOUNTER → 2024-10-04 12:38 | Outpatient (BNVA) | payer OTHER, SELFPAY | PROVIDERS: PCP Physician Assistant; Visit Provider Urology | DX: N28.1 Cyst of kidney, acquired (principal); Z87.442 Personal history of urinary calculi | CPT/HCPCS: 81002; 99212 ==

== ENCOUNTER → 2024-10-29 15:16 | Outpatient (BNVA) | payer OTHER, SELFPAY | PROVIDERS: PCP Physician Assistant ==

== ENCOUNTER 2024-11-05 10:01 | Outpatient (REF) | payer OTHER, SELFPAY ==
[2024-11-05 13:48] LABS: Hematocrit 37.9 % (37.0-47.0); Hemoglobin 12.4 g/dl (12.0-16.0); Mean Corpuscular HGB Conc 32.7 g/dl (31.0-35.0); Mean Corpuscular Hemoglobin 32.3 pg (27.0-33.0); Mean Corpuscular Volume 98.7 fL (80.0-98.0); Platelet Count 247 X10*3/uL (160-400); Red Blood Count 3.84 X10*6/uL (4.20-5.50); Red Cell Distribution Width 13.3 % (11.0-16.0); White Blood Count 6.7 X10*3/uL (4.8-10.8)
[2024-11-05 13:55] LABS: Creatinine Urine 183.31 mg/dL; Microalbum/Creatinine Ratio Ur 4.9 ug/mg cr (<30)
[2024-11-05 14:29] LABS: Alanine Aminotransferase 35 U/L (0-31); Albumin Level 4.4 g/dL (3.5-5.0); Alkaline Phosphatase 78 U/L (39-117); Anion Gap 14 (12-20); Aspartate Amino Transferase 32 U/L (5-31); Bilirubin Total 0.3 mg/dL (0.0-1.0); Blood Urea Nitrogen 14 mg/dL (9-16); Calcium 9.5 mg/dL (8.4-10.2); Carbon Dioxide 30 mmol/L (22-29); Chloride 102 mmol/L (96-108); Cholesterol 206 mg/dL (<200); Estimated Glomerular Filt Rate 53; Glucose Fasting 125 mg/dL (60-99); HDL Cholesterol 48 mg/dL (>40); LDL Cholesterol Calculated 111 mg/dL (<100); Potassium 4.1 mmol/L (3.3-5.1); Sodium 142 mmol/L (135-145); Total Protein 7.5 g/dL (6.5-8.0); Triglycerides 237 mg/dL (<150)
== END 2024-11-05 10:02 | disposition home or self-care (01) ==
LOC: HO.10HDL 10:01
PROVIDERS: Visit Provider Physician Assistant
DX: J45.31 Mild persistent asthma with (acute) exacerbation (principal); I10 Essential (primary) hypertension; E78.9 Disorder of lipoprotein metabolism, unspecified
CPT/HCPCS: 36415; 80053; 80061; 82043; 82570; 85027

== ENCOUNTER 2024-11-09 09:54 | Outpatient (AMB) | payer OTHER, SELFPAY ==
[2024-11-09 09:56] VITALS: BP 120/82; PULSE 87; TEMP 36.2; O2SAT 95; BMI 59.2
--- NOTE | 2024-11-09 09:56 | A.OFFPC_ITS ---
Vital Signs 11/09/24 09:56 Height 5 ft Weight 303 lb 2.17 oz BMI 59.2 BP 120/82 Blood Pressure Location Lt brachial Position Sitting Pulse 87 Pulse Source Pulse Oximeter Temp 97.1 F Temp Source Temporal Artery Scan Pulse Oximetry (%) 95 Oxygen Delivery Method Room Air Intake Visit Reasons: Annual Exam Ring Stamper Required: No Accompanied by: Self / Same As Patient Allergies ibuprofen (IBUPROFEN) Allergy (Intermediate, Verified 11/09/24 10:11) RASH lisinopril (LISINOPRIL) Allergy (Intermediate, Verified 11/09/24 10:11) RASH lactulose (LACTULOSE) Allergy (Mild, Verified 11/09/24 10:11) STOMACH ACHE duloxetine (From Cymbalta) Adverse Reaction (Intermediate, Verified 11/09/24 10:11) Insomnia gabapentin Adverse Reaction (Intermediate, Verified 11/09/24 10:11) Insomnia semaglutide (From Wegovy) Adverse Reaction (Intermediate, Verified 11/09/24 10:11) Sickness tizanidine Adverse Reaction (Intermediate, Verified 11/09/24 10:11) bradycardia Medication List - Last Reconciled 11/09/24 by Marcus Herman PA-C [4 quad cane As directed] albuterol sulfate 90 mcg/actuation (Ventolin HFA) 1 inh inhalation QID 30 days amitriptyline 25 mg PO BEDTIME amlodipine 5 mg PO DAILY baclofen 20 mg PO DAILY 14 days blood pressure kit-extra large As directed buspirone 10 mg PO BID calcitriol 0.25 mcg PO DAILY 30 days calcium citrate 500 mg (2 x 250 mg calcium) PO BID cholecalciferol (vitamin D3) (Vitamin D3) 25 mcg PO DAILY clonazepam 0.5 mg PO BEDTIME cyanocobalamin (vitamin B-12) 1,000 mcg PO DAILY hydrochlorothiazide 12.5 mg PO DAILY 90 days hyoscyamine sulfate 0.125 mg sublingual BID-QID 90 days inhalational spacing device As directed lactulose 10 grams (15 mL) PO BEDTIME PRN meclizine 25 mg PO DAILY pantoprazole 40 mg PO DAILY pregabalin mg PO propranolol 10 mg PO BID pyridoxine (vitamin B6) 100 mg PO DAILY topiramate 25 mg PO BEDTIME zolpidem ER 12.5 mg PO BEDTIME Tobacco use date assessed: 11/09/24 Dental Screening Dental Screen Date: 11/09/24 Did you have a dental visit in the last 12 months?: Yes Did you have a dental problem in the last 6 months where you did not have access to dental care?: No Was dental information given to patient?: Patient has dentist HPI Annual Exam HPI Details Patient is a 53-year-old female here today for routine annual physical. ? Patient has a past history significant for hypertension, obesity, MDD, Incomnia, frequent migraines, hyperparathyroidism, IBS. Class 3 obesity: Unfortunately continues to gain weight, today's BMI at 59. She has not been able to be physically active due to her continued pain in her knees and lower back . She now has gained access to a 1st floor apartment which she is happy about. We have tried Wegovy at higher doses she had side effects. She is interested in restarting Wegovy at 0.25 to help reduce her appetite weight. .. Elevated fasting blood sugar: Elevated fasting blood sugar 125, A1c today at 5.4. We did discuss the need to reduce carbohydrates in her diet. Again will start Wegovy which may help give her some glycemic control. Chronic pain/fibromyalgia: She has no clear pain generator and does have a clinical picture fibromyalgia. She reports that Lyrica has been helpful for her pain and is interested in higher dose to help her more with her patent. Unfortunately still has global pain which has been a chronic complaint of hers. Will supply patient with lidocaine 5% patches to use on her knees. She will be following up with Orthopedics in near future Right knee ACL tear: Regarding her knees, the patient has been diagnosed with an ACL tear in the right knee and suffers from significant osteoarthritis, as noted in recent imaging studies. She underwent an MRI which confirmed the ligament tear. Previously tried medications include Tylenol with Codeine, which proved ineffective, and Pregabalin, recently increased to 150 mg but still not providing adequate relief. 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 [facility] Medical History (Updated 11/09/24 @ 10:23 by Marcus [facility], PA-C) Annual physical exam Class 3 obesity Right knee pain Preoperative examination Weakness Fatigue Malaise and fatigue Rib pain on right side Cough Shortness of breath Pneumonia due to 2019 novel coronavirus Bronchospasm Hand paresthesia Numbness and tingling of right side of face Seroma of musculoskeletal structure after musculoskeletal system procedure Acute torticollis Left shoulder pain Left knee pain Neck pain on right side Back pain Back pain Arthritis of right knee Arthritis of left knee Toe infection Lipoma of back Bilateral kidney stones Suprapubic pain, acute Hypocalcemia Hypokalemia Lipoma of neck RUQ pain Retroperitoneal mass Generalized abdominal pain H/O acute pancreatitis Nausea & vomiting Morbid obesity Obese BMI 45.0-49.9, adult Morbid obesity due to excess calories ALYSA (generalized anxiety disorder) Pancreatitis IBS (irritable bowel syndrome) Arthritis Depression Asthma Sleep apnea HTN (hypertension) Renal calculi Osteopenia Vitamin D deficiency Hypoparathyroidism Renal colic Chronic abdominal pain Surgical History Hx of lipoma Hx of colonoscopy (~08/30/20) H/O thyroidectomy History of esophagogastroduodenoscopy (EGD) History of parathyroid surgery History of hernia repair Status post excision of lipoma (09/26/21) H/O left knee surgery History of cholecystectomy H/O: hysterectomy Family History (Updated 11/09/24 @ 10:15 by Marcus Herman PA-C) Father Medical history unknown Mother Cancer Uterine cancer Paternal Grandmother Diabetes Paternal Grandfather Diabetes Daughter Behavioral problem Family/Other FH: mental illness Social History Household Members: None Housing: Apartment Are you a primary rn long term care to a significant other at home: No Do you presently have visiting nurse or other home services: No Alcohol intake: never Patient Tobacco Use Status: Never used Tobacco e-Cigarette/Vaping Use: Never Used Second Hand Smoke Exposure: No Advance Directives Date on File: 11/02/21 service: No Current occupational status: unemployed and disabled Cognitive needs: No Hearing needs: No Vision needs: No Questionnaire PHQ-9 Over the last 2 weeks, how often have you been bothered by any of the following problems? 1. Little interest or pleasure in doing things: several days 2. Feeling down, depressed, or hopeless: several days 3. Trouble falling or staying asleep, or sleeping too much: more than half the days 4. Feeling tired or having little energy: more than half the days 5. Poor appetite or overeating: several days 6. Feeling bad about yourself - or that you are a failure or have let yourself or your family down: not at all 7. Trouble concentrating on things, such as reading the newspaper or watching television: not at all 8. Moving or speaking so slowly that other people could have noticed. Or the opposite - being so fidgety or restless that you have been moving around a lot more than usual: several days 9. Thoughts that you would be better off or of hurting yourself in some way: not at all Total score: 8 Depression Screening Interpretation: Positive Depression Screening Follow-up: Existing condition and In treatment Depression Screening Done: Yes 57677 - PHQ-9 Billing: Yes Source: Developed by Drs. William Gallagher, Yasmin Shipley, Hari Ortiz and colleagues, with an educational hilda from [employer]. Thrive Questionnaire Date Thrive assessed: 11/09/24 I am a: Patient What is your living situation today?: I have a steady place to live Within the past 12 months, did the food you bought not last and you didn't have the money to get more?: Sometimes True Within the past 12 months, did you worry whether your food would run out before you got money to buy more?: Sometimes True Do you have trouble paying for medicines?: No Do you have trouble getting transportation to medical appointments?: No Do you have trouble paying your heating and electricity bill?: No Do you have trouble taking care of your child, family member or friend?: No Do you have trouble with day-to-day activities such as bathing, preparing meals, shopping, managing finances, etc.?: Yes Are you currently unemployed and looking for a job?: I choose not to answer this question Are you interested in more education?: No Please select the resources that you would like help with: None Currently or been in a relationship where the following occur: I choose not to answer THRIVE Score: 2 AUDIT C Alcohol Use Questionnaire (AUDIT-C) 1. How often do you have a drink containing alcohol?: Never 3. How often do you have six or more drinks on one occasion?: Never Total Score: 0 ALYSA-7 AMB Questionnaire ALYSA-7 Date ALYSA - 7 assessed: 11/09/24 Feeling nervous, anxious, or on edge: 0 = Not at all Not being able to stop or control worryin = Not at all Worrying too much about different things: 0 = Not at all Trouble relaxin = Several days Being so restless that it is hard to sit still: 0 = Not at all Becoming easily annoyed or irritable: 1 = Several days Feeling afraid as if something awful might happen: 0 = Not at all Total ALYSA-7 score (0-4 normal; 5-9 mild; 10-14 moderate; 15-21 severe): 2 Source: Developed by Drs. William Gallagher, Yasmin Shipley, Hari Ortiz and colleagues, with an educational hilda from [employer]. ALYSA-7 Assessment Billing ALYSA-7 Assessment Tool: ALYSA-7 Assessment 08075 Review of Systems Const Denies body aches, Denies chills, Denies excessive sweating, Denies fatigue, Denies fever(s) and Denies headache(s) Eyes Denies blurry vision ENT Denies dysphagia, Denies vertigo, Denies dizziness, Denies headache(s), Denies hearing loss and Denies tinnitus Card Denies chest pain, Denies chest pain with activity, Denies syncope, Denies irregular heart rhythm and Denies dyspnea Resp Denies chest congestion, Denies cough, Denies hemoptysis, Denies dyspnea and Denies wheezing GI Denies abdominal pain, Denies melena, Denies hematochezia, Denies coffee ground emesis, Denies dysphagia, Denies diarrhea, Denies nausea and Denies vomiting Denies urinary frequency, Denies dysuria, Denies urinary hesitancy and Denies urinary urgency Musc Denies arthralgias, Denies limited range of motion, Denies muscle cramps and Denies muscle weakness Skin/Breast Denies rash and Denies skin ulcer Neuro Denies Abnormal speech present, Denies confusion, Denies vertigo, Denies dizziness, Denies syncope, Denies headache(s), Denies memory loss and Denies seizure-like activity Psych Denies anxiety, Denies confusion, Denies depression, Denies memory loss, Denies panic attacks and Denies paranoia Endo Denies excessive sweating, Denies fatigue, Denies flushing, Denies polydipsia and Denies polyuria Aller/Immun Denies wheezing Physical exam (Primary Care) Vital Signs: Last Vital Signs Temp 97.1 F 11/09/24 09:56 Pulse 87 11/09/24 09:56 BP 120/82 11/09/24 09:56 Pulse Ox 95 11/09/24 09:56 Oxygen Delivery Method Room Air 11/09/24 09:56 BMI result Body Mass Index 59.2 BMI Assessment/Plan discussion: High BMI High, discussed plan: lifestyle, weight reduction, dietary and physical activity Tobacco/Smoking Status: Tobacco use Status Tobacco use date assessed 11/09/24 11/09/24 10:11 Patient Tobacco Use Status Never used Tobacco 11/09/24 09:56 e-Cigarette/Vaping Use Never Used 11/09/24 09:56 PHQ-9: PHQ-9 Score PHQ-9: Total score 8 11/09/24 13:13 Depression Screening Interpretation: Positive Depression Screening Follow-up: Existing condition and In treatment Thrive Assessment: Date of Thrive Assessment Date Thrive assessed 11/09/24 11/09/24 10:11 Currently or been in a relationship where the following occur: I choose not to answer Const General: cooperative, comfortable, no acute distress, alert and awake; No confusion Orientation/consciousness: oriented to person, oriented to place, patient oriented x3 and No confusion HENMT Head: Yes normocephalic Ears: external ears normal and TM's normal bilaterally Face and sinus: No sinus tenderness Mouth: Normal oral and palatal mucosa present and tongue normal Teeth and gingiva: dentition normal and gingiva normal Throat: Yes posterior oropharynx normal, Yes tonsils normal and Yes uvula midline Eyes Conjunctivae: conjunctivae normal Sclerae: sclerae normal Pupils: Equal, round and reactive pupils present EOM: EOMs intact bilaterally Direct Ophthalmoscopy: No no photophobia Neck Neck: Yes no lymphadenopathy, No tender and Yes no JVD Thyroid: Thyroid normal Carotids: no bruits Chest Chest palpation & inspection: no tenderness Resp Effort & Inspection: normal respiratory effort, no audible wheezes, not labored and no stridor Auscultation: no crackles, no rales, no rhonchi and no wheezes Cardio Jugular venous distension: no JVD Rate: regular rate, not bradycardic and not tachycardic Rhythm: regular rhythm Bruits: no carotid bruits Peripheral pulses: Peripheral pulses 2+ throughout GI Inspection: Yes normal to inspection, No abdominal wall ecchymosis and No visible herniation Palpation (GI): Soft to palpation, nontender, no guarding, not rigid and No hepatosplenomegaly present Auscultation: normoactive bowel sounds General: Yes no CVA tenderness Back/Spine/Pelvis Back: no CVA tenderness and No back tenderness Cervical Spine: cervical ROM normal Thoracic/Lumbar Spine: thoracic and lumbar spine normal to inspection, straight leg raise negative bilaterally, No thoraco-lumbar ROM limited and No lumbar spinal tenderness Skin Lesions: no lesions Rashes: no rashes Wounds: no wounds Neuro General: oriented to person, oriented to place, patient oriented x3, CN's II-XI intact bilaterally and No confusion Cranial nerves: Yes Equal, round and reactive pupils present and Yes Normal accommodation reflex present Cognition (Neuro): normal cognition Speech: No Abnormal speech present Gait exam (Neuro): Normal gait present Motor exam (neuro): 5/5 motor strength present throughout Extrem Right upper extremity: full ROM; no cyanosis Left upper extremity: full ROM; no cyanosis Right lower extremity: no edema Left lower extremity: no edema Psych Appearance: grossly normal Mental Status: mental status grossly normal Affect: normal affect Attitude: cooperative Thought process: Normal thought process present Results AMB Hemoglobin A1c AMB Hemoglobin A1c 5.4 % Last Edit by ASHISH Rand on 11/09/24 10:38 Results Reviewed Results Reviewed: Laboratory Last Values Hgb A1c (Clinic) 5.4 % (4.0-6.0) 11/09/24 10:31 Coding Level of Care Code Est Pt Prev Care 40-64y(89149) Diagnoses Annual physical exam Z00.00 Fibromyalgia M79.7 Borderline high cholesterol E78.9 MDD (major depressive disorder), recurrent episode, moderate F33.1 Lumbar radiculopathy, chronic M54.16 Class 3 obesity E66.813 Elevated fasting blood sugar R73.01 Additional Codes ALYSA-7 Assessment Billing - ALYSA-7 Assessment Tool: ALYSA-7 Assessment 67260 ([id number]) PHQ-9 - 28034 - PHQ-9 Billing: Yes ([id number]) Assessment & Plan Assessment & Plan (1) Annual physical exam: Code(s): Z00.00 - Encounter for general adult medical examination without abnormal findings Category: Medical Plan: As per HPI (2) Fibromyalgia: Code(s): M79.7 - Fibromyalgia Category: Medical Plan: As per HPI patient continues to all-over pain. Has been using Lyrica which has been increased recently to 150 b.i.d. which has helped her pain a bit though continues to complain of chronic pain. Will also offer lidocaine 5% patches for pain relief. (3) Borderline high cholesterol: Onset Date: ~11/10/23 Code(s): E78.9 - Disorder of lipoprotein metabolism, unspecified Category: Medical Plan: Patient has a history of borderline high cholesterol. Will recheck fasting lipid panel. (4) MDD (major depressive disorder), recurrent episode, moderate: Code(s): F33.1 - Major depressive disorder, recurrent, moderate Category: Medical Plan: Patient's PHQ-9 score positive for depression which has been existing condition for her. She is being treated by a psychiatrist and a mental health therapist at this time. (5) Lumbar radiculopathy, chronic: Code(s): M54.16 - Radiculopathy, lumbar region Category: Medical Plan: Patient continues to have lower lumbar spine pain along with other pain generators. Also was noted to a right knee ACL tear and moderate to severe arthritis. She is seeing orthopedics and getting injections. She reports none of the pain medication she has been using recently has been helpful. Will supply patient with lidocaine 5% patches to use on her knees to reduce her pain (6) Class 3 obesity: Code(s): E66.813 - Obesity, class 3 Category: Medical Plan: Again patient willing to start GLP 1 to help her with weight reduction. Of note at higher doses of Wegovy she had side intolerable GI effects (7) Elevated fasting blood sugar: Code(s): R73.01 - Impaired fasting glucose Category: Medical Plan: Noted elevated fasting blood sugar on most recent labs. She will work on low carbohydrate diet Orders: Orders Comprehensive [place]. Panel Fast Today R73.01 - Impaired fasting glucose Hemoglobin A1c Today R73.01 - Impaired fasting glucose AMB Hemoglobin A1c Today R73.09 - Other abnormal glucose Medications: New semaglutide (weight loss) (Wegovy) 0.25 mg (0.5 mL) subcut QWEEK 2 mL 2RF 4 weeks E66.813 - Obesity, class 3 lidocaine 5% leave on most painful area for up to 12 hrs 1 patch topical DAILY 30 ea 1RF 30 days M79.18 - Myalgia, other site Refilled baclofen 20 mg PO DAILY 14 tabs 0RF 14 days M17.11 - Unilateral primary osteoarthritis, right knee
== END 2024-11-09 11:01 | disposition home or self-care (01) ==
LOC: HO.HMCH 09:54
PROVIDERS: PCP Physician Assistant; Visit Provider Physician Assistant
DX: Z00.00 Encounter for general adult medical examination without abnormal findings (principal); F33.1 Major depressive disorder, recurrent, moderate; Z68.43 Body mass index [BMI] 50.0-59.9, adult; E66.813 Obesity, class 3; M79.7 Fibromyalgia; E78.9 Disorder of lipoprotein metabolism, unspecified; M54.16 Radiculopathy, lumbar region; R73.01 Impaired fasting glucose; R73.09 Other abnormal glucose

== ENCOUNTER → 2024-11-09 09:54 | Outpatient (BNVA) | payer OTHER, SELFPAY | PROVIDERS: PCP Physician Assistant; Visit Provider Physician Assistant | DX: Z00.00 Encounter for general adult medical examination without abnormal findings (principal); I10 Essential (primary) hypertension; G43.909 Migraine, unspecified, not intractable, without status migrainosus; E21.3 Hyperparathyroidism, unspecified; K58.9 Irritable bowel syndrome, unspecified; E66.813 Obesity, class 3; R73.01 Impaired fasting glucose; M79.7 Fibromyalgia; M17.11 Unilateral primary osteoarthritis, right knee; E78.9 Disorder of lipoprotein metabolism, unspecified; F33.1 Major depressive disorder, recurrent, moderate; M54.16 Radiculopathy, lumbar region; Z68.43 Body mass index [BMI] 50.0-59.9, adult | CPT/HCPCS: 83036; 96127; 99396 ==

== ENCOUNTER 2024-12-08 11:18 | Outpatient (AMB) | payer OTHER, SELFPAY ==
[2024-12-08 11:22] VITALS: BMI 59.2
--- NOTE | 2024-12-08 11:22 | A.OFFVIS_ITS ---
Vital Signs 12/08/24 11:22 Height 5 ft Weight 303 lb BMI 59.2 Intake Visit Reasons: OV- Caleb knee pain f/u, last Euflexxa 08/11/24 Intake Note: Amalia is a 54 year old female who presents with complaints of bilateral knee pains. She describes her pains as sharp in nature. She has tried Tylenol and anti-inflammatory medicines which gave her minimal relief. She states that the cortisone injections and viscosupplementation injections have given her no relief. She has been trying to lose weight. She states that she has been evaluated in our pain management department. She questions whether or not she can take narcotic pain medicine chronically. Allergies ibuprofen (IBUPROFEN) Allergy (Intermediate, Verified 12/08/24 11:27) RASH lisinopril (LISINOPRIL) Allergy (Intermediate, Verified 12/08/24 11:27) RASH lactulose (LACTULOSE) Allergy (Mild, Verified 12/08/24 11:27) STOMACH ACHE duloxetine (From Cymbalta) Adverse Reaction (Intermediate, Verified 12/08/24 11:27) Insomnia gabapentin Adverse Reaction (Intermediate, Verified 12/08/24 11:27) Insomnia semaglutide (From Wegovy) Adverse Reaction (Intermediate, Verified 12/08/24 11:27) Sickness tizanidine Adverse Reaction (Intermediate, Verified 12/08/24 11:27) bradycardia Medication List - Last Reconciled 12/08/24 by Larry Meyer MD [4 quad cane As directed] albuterol sulfate 90 mcg/actuation (Ventolin HFA) 1 inh inhalation QID 30 days amitriptyline 25 mg PO BEDTIME amlodipine 5 mg PO DAILY baclofen 20 mg PO DAILY 14 days blood pressure kit-extra large As directed buspirone 10 mg PO BID calcitriol 0.25 mcg PO DAILY 30 days calcium citrate 500 mg (2 x 250 mg calcium) PO BID cholecalciferol (vitamin D3) (Vitamin D3) 25 mcg PO DAILY clonazepam 0.5 mg PO BEDTIME cyanocobalamin (vitamin B-12) 1,000 mcg PO DAILY hydrochlorothiazide 12.5 mg PO DAILY 90 days hyoscyamine sulfate 0.125 mg sublingual BID-QID 90 days inhalational spacing device As directed lactulose 10 grams (15 mL) PO BEDTIME PRN lidocaine 5% 1 patch topical DAILY 30 days meclizine 25 mg PO DAILY pantoprazole 40 mg PO DAILY pregabalin 150 mg PO BID 30 days propranolol 10 mg PO BID pyridoxine (vitamin B6) 100 mg PO DAILY topiramate 25 mg PO BEDTIME zolpidem ER 12.5 mg PO BEDTIME [facility] Medical History (Updated 11/26/24 @ 14:07 by Tim Ji MA) Carpal tunnel syndrome Fibromyalgia Anxiety Migraine Paresthesia Annual physical exam Class 3 obesity Right knee pain Preoperative examination Weakness Fatigue Malaise and fatigue Rib pain on right side Cough Shortness of breath Pneumonia due to 2019 novel coronavirus Bronchospasm Hand paresthesia Numbness and tingling of right side of face Seroma of musculoskeletal structure after musculoskeletal system procedure Acute torticollis Left shoulder pain Left knee pain Neck pain on right side Back pain Back pain Arthritis of right knee Arthritis of left knee Toe infection Lipoma of back Bilateral kidney stones Suprapubic pain, acute Hypocalcemia Hypokalemia Lipoma of neck RUQ pain Retroperitoneal mass Generalized abdominal pain H/O acute pancreatitis Nausea & vomiting Morbid obesity Obese BMI 45.0-49.9, adult Morbid obesity due to excess calories ALYSA (generalized anxiety disorder) Pancreatitis IBS (irritable bowel syndrome) Arthritis Depression Asthma Sleep apnea HTN (hypertension) Renal calculi Osteopenia Vitamin D deficiency Hypoparathyroidism Renal colic Chronic abdominal pain Surgical History Hx of lipoma Hx of colonoscopy (~08/30/20) H/O thyroidectomy History of esophagogastroduodenoscopy (EGD) History of parathyroid surgery History of hernia repair Status post excision of lipoma (09/26/21) H/O left knee surgery History of cholecystectomy H/O: hysterectomy Family History (Updated 11/09/24 @ 10:15 by Marcus Herman PA-C) Father Medical history unknown Mother Cancer Uterine cancer Paternal Grandmother Diabetes Paternal Grandfather Diabetes Daughter Behavioral problem Family/Other FH: mental illness Social History Household Members: None Housing: Apartment Are you a primary primary health care nurse to a significant other at home: No Do you presently have visiting nurse or other home services: No Alcohol intake: never Patient Tobacco Use Status: Never used Tobacco e-Cigarette/Vaping Use: Never Used Second Hand Smoke Exposure: No Advance Directives Date on File: 11/02/21 service: No Current occupational status: unemployed and disabled Cognitive needs: No Hearing needs: No Vision needs: No Physical Exam Vital Signs: BMI result Body Mass Index 59.2 Const Other: Well-nourished well-developed very friendly female awake alert and oriented x3 in no acute distress Extrem Other: Bilateral knee examination shows minimal effusions, palpable crepitus with range of motion, pain with range of motion, no instability Assessment & Plan Assessment & Plan (1) Osteoarthritis of right knee: Code(s): M17.11 - Unilateral primary osteoarthritis, right knee Category: Medical (2) Osteoarthritis of left knee: Code(s): M17.12 - Unilateral primary osteoarthritis, left knee Category: Medical Plan Ms. Fish presents with bilateral knee pains due to osteoarthritis. I had a lengthy discussion with the patient regarding the treatment options. At this point she has not gotten good relief from cortisone or viscosupplementation injections. She does not wish for another injection. The patient is not a candidate for total knee replacement surgery because of her BMI. She is encouraged to continue with her weight loss program. 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 She will follow up with me on an as-needed basis. I spent 22 minutes in reviewing the patient's records and imaging studies, seeing the patient and documenting in the medical record. Coding Level of Care Code Est Pt Level 3 (76958) Complex EM visit Add On G2211 Diagnoses Osteoarthritis of right knee M17.11 Osteoarthritis of left knee M17.12
== END 2024-12-08 12:02 | disposition home or self-care (01) ==
LOC: HO.HOS 11:19
PROVIDERS: PCP Physician Assistant; Visit Provider Orthopaedic Surgery
DX: M17.0 Bilateral primary osteoarthritis of knee (principal)
CPT/HCPCS: 99213; G2211

== ENCOUNTER → 2024-12-08 11:18 | Outpatient (BNVA) | payer OTHER, SELFPAY | PROVIDERS: PCP Physician Assistant; Visit Provider Orthopaedic Surgery | DX: M17.0 Bilateral primary osteoarthritis of knee (principal) | CPT/HCPCS: 99212 ==

== ENCOUNTER 2025-01-24 12:46 | Outpatient (REF) | payer OTHER, SELFPAY ==
[2025-01-24 15:13] LABS: Albumin Level 4.5 g/dL (3.5-5.0); Calcium 8.5 mg/dL (8.4-10.2)
== END 2025-01-24 12:47 | disposition home or self-care (01) ==
LOC: HO.LAB 12:46
PROVIDERS: PCP Physician Assistant; Visit Provider Internal Medicine Endocrinology, Diabetes & Metabolism
DX: E20.9 Hypoparathyroidism, unspecified (principal); Z79.899 Other long term (current) drug therapy
CPT/HCPCS: 36415; 82040; 82310; 84100; 99211; 99212

== ENCOUNTER 2025-01-24 12:46 | Outpatient (AMB) | payer OTHER, SELFPAY ==
--- NOTE | 2025-01-24 12:53 | A.OFFVIS_ITS ---
Vital Signs 01/24/25 13:01 Height 5 ft Weight 308 lb 6.827 oz BMI 60.2 BP 104/68 Blood Pressure Location Lt radial Position Sitting Pulse 84 Pulse Source Pulse Oximeter Pulse Oximetry (%) 97 Oxygen Delivery Method Room Air Intake Visit Reasons: f/u hypoparathyroidism Intake Note: Patient presents for follow up on Hypoparathyroidism. 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 Accompanied by: Self / Same As Patient Allergies ibuprofen (IBUPROFEN) Allergy (Intermediate, Verified 01/24/25 13:01) RASH lisinopril (LISINOPRIL) Allergy (Intermediate, Verified 01/24/25 13:01) RASH lactulose (LACTULOSE) Allergy (Mild, Verified 01/24/25 13:01) STOMACH ACHE duloxetine (From Cymbalta) Adverse Reaction (Intermediate, Verified 01/24/25 13:01) Insomnia gabapentin Adverse Reaction (Intermediate, Verified 01/24/25 13:01) Insomnia semaglutide (From Wegovy) Adverse Reaction (Intermediate, Verified 01/24/25 13 :01) Sickness tizanidine Adverse Reaction (Intermediate, Verified 01/24/25 13:01) bradycardia Medication List - Last Reconciled 01/24/25 by William Elias MD [4 quad cane As directed] albuterol sulfate 90 mcg/actuation (Ventolin HFA) 1 inh inhalation QID 30 days amitriptyline 25 mg PO BEDTIME 30 days amlodipine 5 mg PO DAILY baclofen 20 mg PO DAILY 14 days blood pressure kit-extra large As directed buspirone 10 mg PO BID calcitriol 0.25 mcg PO DAILY 30 days calcium citrate 500 mg (2 x 250 mg calcium) PO BID cholecalciferol (vitamin D3) (Vitamin D3) 25 mcg PO DAILY clonazepam 0.5 mg PO BEDTIME cyanocobalamin (vitamin B-12) 1,000 mcg PO DAILY hydrochlorothiazide 12.5 mg PO DAILY 90 days hyoscyamine sulfate 0.125 mg sublingual BID-QID inhalational spacing device As directed lactulose 10 grams (15 mL) PO BEDTIME PRN lidocaine 5% 1 patch topical DAILY 30 days meclizine 25 mg PO DAILY pantoprazole 40 mg PO DAILY pregabalin 150 mg PO BID 30 days propranolol 10 mg PO BID pyridoxine (vitamin B6) 100 mg PO DAILY topiramate 25 mg PO BEDTIME zolpidem ER 12.5 mg PO BEDTIME HPI Comments Details: 54 YO F with an extensive PMHx including Pancreatitis and Recurrent Nephrolithiasis who is seen in F/U. She underwent a multigland (3 gland) parathyroidectomy 04/04/[address] Brittni Aguilar and has subsequently developed hypoparathyroidism.. In terms of her hypercalcemia: First noted to have high calcium in 2011 based on labs, but it appears no full evaluation was completed. 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 Calcium level has been over 11 on multiple occasions, most recently 10.4 with Albumin WNL. Her Vitamin D was very low at 8 in early 2018. It has remained this low ever since. After her initial visit with me we checked a complete workup. 03/31/19 Total Calcium 11.9, Albumin 4.6, Vitamin D 9.9, PTH 127, Phos 2.3. She had a 24 hour urine collection which was an inadequate sample. She had an ultrasound of the neck which was read as a 2.2 R mid pole posterior hypoechoic nodule. Review of the images does appear that this is extracapsular and potentially represents a parathyroid adenoma. She underwent a 3 gland ( R inferior and Bilateral Superior) parathyroidectomy on 04/04/2020. Intraoperative PTH declined from 170-13. She did develop hypocalcemia postoperatively. She was resumed on Calcium citrate 1 tab PO TID and also started on Calcitriol 0.25 mg PO daily. She was having significant cramping and paresthesias, but this initially resolved after starting Calcitriol. She subsequently stopped the Calcium but has resumed on calcitriol and Vitamin D. She has not been compliant with regular F/U and lab checks.. She is currently on calcitriol 0.25 mcg daily as well as vitamin D3. She also takes hydrochlorothiazide 25 mg daily She does report some paresthesias of her hands and her legs. Renal imaging: Abd/Pelvis CT 06/02/2019: Nephrolithiasis of R Kidney, nonobstructing DEXA: 07/26/2021 FINDINGS: AP SPINE L1-L4: Current: BMD 1.069 g/cm2, Z-score -1.3, T-score -0.9, normal, 4.7% increase from baseline (<5% change is not significant). Baseline: BMD 1.021 g/cm2. LEFT FEMUR, NECK: Current: BMD 0.579 g/cm2, Z-score -3.0, T-score -3.3, osteoporosis. Baseline: BMD 0.875 g/cm2. LEFT FEMUR, TOTAL: Current: BMD 0.730 g/cm2, Z-score -2.3, T-score -2.2, osteopenia, 24.0% decrease from baseline (<5% change is not significant). Baseline: BMD 0.961 g/cm2. LEFT FOREARM RADIUS 33%: BMD 0.893 g/cm2, Z-score 0.3, T-score 0.2, normal, 1.7% increase from baseline (<5% change is not significant). Baseline: BMD 0.878 g/cm2. Labs: Laboratory Tests 05/15/21 07/26/21 07/26/21 16:46 14:57 14:57 Creatinine 0.78 0.79 Estimated GFR > 60 > 60 Phosphorus 3.9 Albumin 4.2 4.1 25-OH Vitamin D Total 28.9 PTH Intact 38 Calcium (PTH Intact) 8.4 L Ur 24 Hour Volume Ur Creatinine 24 Hour Ur Calcium 24 Hr 08/01/21 08/01/21 10:02 10:02 Creatinine Estimated GFR Phosphorus Albumin 25-OH Vitamin D Total PTH Intact Calcium (PTH Intact) Ur 24 Hour Volume 1025 Ur Creatinine 24 Hour 1.28 Ur Calcium 24 Hr 45 Currently on calcitriol 0.25 mcg q.d., vitamin D3 2000 units q.d. and calcium citrate 2 tabs B.i.d. and hydrochlorothiazide 12.5 mg q.d. no symptoms of hypocalcemia Some tingling in hands but no other sx. [facility] Medical History (Updated 11/26/24 @ 14:07 by Tim Ji [facility]) Carpal tunnel syndrome Fibromyalgia Anxiety Migraine Paresthesia Annual physical exam Class 3 obesity Right knee pain Preoperative examination Weakness Fatigue Malaise and fatigue Rib pain on right side Cough Shortness of breath Pneumonia due to 2019 novel coronavirus Bronchospasm Hand paresthesia Numbness and tingling of right side of face Seroma of musculoskeletal structure after musculoskeletal system procedure Acute torticollis Left shoulder pain Left knee pain Neck pain on right side Back pain Back pain Arthritis of right knee Arthritis of left knee Toe infection Lipoma of back Bilateral kidney stones Suprapubic pain, acute Hypocalcemia Hypokalemia Lipoma of neck RUQ pain Retroperitoneal mass Generalized abdominal pain H/O acute pancreatitis Nausea & vomiting Morbid obesity Obese BMI 45.0-49.9, adult Morbid obesity due to excess calories ALYSA (generalized anxiety disorder) Pancreatitis IBS (irritable bowel syndrome) Arthritis Depression Asthma Sleep apnea HTN (hypertension) Renal calculi Osteopenia Vitamin D deficiency Hypoparathyroidism Renal colic Chronic abdominal pain Surgical History Hx of lipoma Hx of colonoscopy (~08/30/20) H/O thyroidectomy History of esophagogastroduodenoscopy (EGD) History of parathyroid surgery History of hernia repair Status post excision of lipoma (09/26/21) H/O left knee surgery History of cholecystectomy H/O: hysterectomy Family History Father Medical history unknown Mother Cancer Uterine cancer Paternal Grandmother Diabetes Paternal Grandfather Diabetes Daughter Behavioral problem Family/Other FH: mental illness Social History Household Members: None Housing: Apartment Are you a primary healthcare administration intern to a significant other at home: No Do you presently have visiting nurse or other home services: No Alcohol intake: never Patient Tobacco Use Status: Never used Tobacco e-Cigarette/Vaping Use: Never Used Second Hand Smoke Exposure: No Advance Directives Date on File: 11/02/21 service: No Current occupational status: unemployed and disabled Cognitive needs: No Hearing needs: No Vision needs: No Physical Exam Vital Signs: Last Vital Signs Pulse 84 01/24/25 13:01 BP 104/68 01/24/25 13:01 Pulse Ox 97 01/24/25 13:01 Oxygen Delivery Method Room Air 01/24/25 13:01 BMI result Body Mass Index 60.2 Assessment & Plan Assessment & Plan (1) Hypoparathyroidism: Code(s): E20.9 - Hypoparathyroidism, unspecified Category: Medical Qualifiers: Hypoparathyroidism type: unspecified Qualified Code(s): E20.9 - Hypoparathyroidism, unspecified Plan: This is a 53-year-old female with a history of surgically induced hypoparathyroidism currently being treated with calcitriol, calcium, vitamin D3 and hydrochlorothiazide with calcium low normal and normal 24 hour urine for calcium. Plan is to check calcium, albumin and phosphorus and adjust the calcitriol accordingly. We discussed the idea of using Yorvipath and if so the necessity of being compliant with blood draws and taking the medications stay in the patient states she is not sure that she can comply with the above so will hold off on prescribing Yorvipath for now. Coding Level of Care Code Est Pt Level 3 (39813) Diagnoses Hypoparathyroidism, unspecified hypoparathyroidism type E20.9 Hypoparathyroidism type: unspecified
[2025-01-24 13:01] VITALS: BP 104/68; PULSE 84; O2SAT 97; BMI 60.2
== END 2025-01-24 13:17 | disposition home or self-care (01) ==
LOC: HO.ENCR 12:46
PROVIDERS: PCP Physician Assistant; Visit Provider Internal Medicine Endocrinology, Diabetes & Metabolism
DX: E20.9 Hypoparathyroidism, unspecified (principal)
CPT/HCPCS: 99213

== ENCOUNTER 2025-01-27 10:59 | Outpatient (AMB) | payer OTHER, SELFPAY ==
[2025-01-27 11:41] VITALS: BP 130/70; PULSE 83; RESP 18; TEMP 36.3; O2SAT 95; BMI 58.8
--- NOTE | 2025-01-27 11:41 | A.OFFPC_ITS ---
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 Accompanied by: Self / Same As Patient Allergies ibuprofen (IBUPROFEN) Allergy (Intermediate, Verified 01/27/25 11:57) RASH lisinopril (LISINOPRIL) Allergy (Intermediate, Verified 01/27/25 11:57) RASH lactulose (LACTULOSE) Allergy (Mild, Verified 01/27/25 11:57) STOMACH ACHE duloxetine (From Cymbalta) Adverse Reaction (Intermediate, Verified 01/27/25 11:57) Insomnia gabapentin Adverse Reaction (Intermediate, Verified 01/27/25 11:57) Insomnia semaglutide (From Wegovy) Adverse Reaction (Intermediate, Verified 01/27/25 11:57) Sickness tizanidine Adverse Reaction (Intermediate, Verified 01/27/25 11:57) bradycardia Medication List - Last Reconciled 01/27/25 by Marcus Herman PA-C [4 quad cane As directed] albuterol sulfate 90 mcg/actuation (Ventolin HFA) 1 inh inhalation QID 30 days amitriptyline 25 mg PO BEDTIME 30 days amlodipine 5 mg PO DAILY baclofen 20 mg PO DAILY 14 days blood pressure kit-extra large As directed buspirone 10 mg PO BID calcitriol 0.25 mcg PO DAILY 30 days calcium citrate 500 mg (2 x 250 mg calcium) PO BID cholecalciferol (vitamin D3) (Vitamin D3) 25 mcg PO DAILY clonazepam 0.5 mg PO BEDTIME cyanocobalamin (vitamin B-12) 1,000 mcg PO DAILY hydrochlorothiazide 12.5 mg PO DAILY 90 days hyoscyamine sulfate 0.125 mg sublingual BID-QID inhalational spacing device As directed lactulose 10 grams (15 mL) PO BEDTIME PRN lidocaine 5% 1 patch topical DAILY 30 days meclizine 25 mg PO DAILY pantoprazole 40 mg PO DAILY pregabalin 150 mg PO BID 30 days propranolol 10 mg PO BID pyridoxine (vitamin B6) 100 mg PO DAILY topiramate 25 mg PO BEDTIME zolpidem ER 12.5 mg PO BEDTIME Tobacco use date assessed: 01/27/25 Dental Screening Dental Screen Date: 01/27/25 Did you have a dental visit in the last 12 months?: No Did you have a dental problem in the last 6 months where you did not have access to dental care?: No Was dental information given to patient?: No HPI Follow Up HPI Details Patient is a 54-year-old female here today for r follow-up visit ? Patient has a past history significant for hypertension, obesity, MDD, Incomnia, frequent migraines, hyperparathyroidism, IBS. Concern: The patient reports feeling weak and experiencing involuntary movements in her hands, described as thickening and tingling, over the past three days. She also describes episodes of hallucinations, such as thinking she was on the sofa when she was actually in bed. The patient has a history of fibromyalgia, which she suspects may be flaring up due to the current symptoms of pain and fatigue. She experiences pain in multiple areas, including her neck, knees, ankles, and hands, with swelling noted in her hands. Class 3 obesity: BMI continues to be well over 50. She reports she is buying an outlined supplement start transdermal patch to help her lose weight. Unfortunately Wegovy has not been covered by insurance. .. Elevated fasting blood sugar: Elevated fasting blood sugar 125, A1c today at 5.4. We did discuss the need to reduce carbohydrates in her diet. Again will start Wegovy which may help give her some glycemic control. Chronic pain/fibromyalgia: She has no clear pain generator and does have a clinical picture fibromyalgia. She reports that Lyrica has been helpful for her pain and is interested in higher dose to help her more with her patent. Unfortunately still has global pain which has been a chronic complaint of hers. Will supply patient with lidocaine 5% patches to use on her knees. She will be following up with Orthopedics in near future Right knee ACL tear: Regarding her knees, the patient has been diagnosed with an ACL tear in the right knee and suffers from significant osteoarthritis, as noted in recent imaging studies. She underwent an MRI which confirmed the ligament tear. Previously tried medications include Tylenol with Codeine, which proved ineffective, and Pregabalin, recently increased to 150 mg but still not providing adequate relief. Again will try lidocaine patches on her knees [facility] Medical History Fatigue Carpal tunnel syndrome Fibromyalgia Anxiety Migraine Paresthesia Annual physical exam Class 3 obesity Right knee pain Preoperative examination Weakness Malaise and fatigue Rib pain on right side Cough Shortness of breath Pneumonia due to 2019 novel coronavirus Bronchospasm Hand paresthesia Numbness and tingling of right side of face Seroma of musculoskeletal structure after musculoskeletal system procedure Acute torticollis Left shoulder pain Left knee pain Neck pain on right side Back pain Back pain Arthritis of right knee Arthritis of left knee Toe infection Lipoma of back Bilateral kidney stones Suprapubic pain, acute Hypocalcemia Hypokalemia Lipoma of neck RUQ pain Retroperitoneal mass Generalized abdominal pain H/O acute pancreatitis Nausea & vomiting Morbid obesity Obese BMI 45.0-49.9, adult Morbid obesity due to excess calories ALYSA (generalized anxiety disorder) Pancreatitis IBS (irritable bowel syndrome) Arthritis Depression Asthma Sleep apnea HTN (hypertension) Renal calculi Osteopenia Vitamin D deficiency Hypoparathyroidism Renal colic Chronic abdominal pain Surgical History Hx of lipoma Hx of colonoscopy (~08/30/20) H/O thyroidectomy History of esophagogastroduodenoscopy (EGD) History of parathyroid surgery History of hernia repair Status post excision of lipoma (09/26/21) H/O left knee surgery History of cholecystectomy H/O: hysterectomy Family History Father Medical history unknown Mother Cancer Uterine cancer Paternal Grandmother Diabetes Paternal Grandfather Diabetes Daughter Behavioral problem Family/Other FH: mental illness Social History Household Members: None Housing: Apartment Are you a primary prompt care rn to a significant other at home: No Do you presently have visiting nurse or other home services: No Alcohol intake: never Patient Tobacco Use Status: Never used Tobacco e-Cigarette/Vaping Use: Never Used Second Hand Smoke Exposure: No Advance Directives Date on File: 11/02/21 service: No Current occupational status: unemployed and disabled Cognitive needs: No Hearing needs: No Vision needs: No Questionnaire PHQ-9 Over the last 2 weeks, how often have you been bothered by any of the following problems? 1. Little interest or pleasure in doing things: several days 2. Feeling down, depressed, or hopeless: several days 3. Trouble falling or staying asleep, or sleeping too much: more than half the days 4. Feeling tired or having little energy: more than half the days 5. Poor appetite or overeating: several days 6. Feeling bad about yourself - or that you are a failure or have let yourself or your family down: not at all 7. Trouble concentrating on things, such as reading the newspaper or watching television: not at all 8. Moving or speaking so slowly that other people could have noticed. Or the opposite - being so fidgety or restless that you have been moving around a lot more than usual: several days 9. Thoughts that you would be better off or of hurting yourself in some way: not at all Total score: 8 Depression Screening Interpretation: Positive Depression Screening Follow-up: Existing condition and In treatment Depression Screening Done: Yes 26152 - PHQ-9 Billing: Yes Source: Developed by Drs. William Gallagher, Yasmin Shipley, Hari Ortiz and colleagues, with an educational hilda from [employer]. Thrive Questionnaire Date Thrive assessed: 01/27/25 I am a: Patient What is your living situation today?: I have a steady place to live Within the past 12 months, did the food you bought not last and you didn't have the money to get more?: Sometimes True Within the past 12 months, did you worry whether your food would run out before you got money to buy more?: Sometimes True Do you have trouble paying for medicines?: No Do you have trouble getting transportation to medical appointments?: No Do you have trouble paying your heating and electricity bill?: No Do you have trouble taking care of your child, family member or friend?: No Do you have trouble with day-to-day activities such as bathing, preparing meals, shopping, managing finances, etc.?: Yes Are you currently unemployed and looking for a job?: I choose not to answer this question Are you interested in more education?: No Please select the resources that you would like help with: None Currently or been in a relationship where the following occur: I choose not to answer THRIVE Score: 2 AUDIT C Alcohol Use Questionnaire (AUDIT-C) 1. How often do you have a drink containing alcohol?: Never 3. How often do you have six or more drinks on one occasion?: Never Total Score: 0 ALYSA-7 AMB Questionnaire ALYSA-7 Date ALYSA - 7 assessed: 01/27/25 Feeling nervous, anxious, or on edge: 0 = Not at all Not being able to stop or control worryin = Not at all Worrying too much about different things: 0 = Not at all Trouble relaxin = Several days Being so restless that it is hard to sit still: 0 = Not at all Becoming easily annoyed or irritable: 1 = Several days Feeling afraid as if something awful might happen: 0 = Not at all Total ALYSA-7 score (0-4 normal; 5-9 mild; 10-14 moderate; 15-21 severe): 2 Source: Developed by Drs. William Glalagher, Yasmin Shipley, Hari Ortiz and colleagues, with an educational hilda from [employer]. ALYSA-7 Assessment Billing ALYSA-7 Assessment Tool: ALYSA-7 Assessment 91705 Review of Systems Const Denies headache(s) Eyes Denies loss of vision ENT Denies vertigo, Denies dizziness, Denies headache(s) and Denies sore throat Card Denies chest pain, Denies leg edema and Denies lightheadedness Resp Denies cough, Denies hemoptysis and Denies wheezing GI Denies abdominal pain, Denies melena, Denies constipation, Denies diarrhea and Denies vomiting Denies urinary frequency, Denies dysuria and Denies urinary urgency Musc Denies arthralgias, Denies joint swelling, Denies numbness and Denies tingling Neuro Denies Abnormal speech present, Denies behavioral changes, Denies vertigo, Denies dizziness, Denies headache(s), Denies loss of vision, Denies memory loss, Denies numbness and Denies tingling Psych Denies anxiety, Denies behavioral changes, Denies depression, Denies memory loss and Denies panic attacks Bran/Lymph Denies easy bleeding and Denies easy bruising Aller/Immun Denies wheezing Physical exam (Primary Care) Vital Signs: Last Vital Signs Temp 97.3 F 01/27/25 11:41 Pulse 83 01/27/25 11:41 Resp 18 01/27/25 11:41 BP 130/70 01/27/25 11:41 Pulse Ox 95 01/27/25 11:41 Oxygen Delivery Method Room Air 01/27/25 11:41 BMI result Body Mass Index 58.8 Tobacco/Smoking Status: Tobacco use Status Tobacco use date assessed 01/27/25 01/27/25 11:48 Patient Tobacco Use Status Never used Tobacco 01/27/25 11:48 e-Cigarette/Vaping Use Never Used 01/27/25 11:48 PHQ-9: PHQ-9 Score PHQ-9: Total score 8 01/27/25 12:42 Depression Screening Interpretation: Positive Depression Screening Follow-up: Existing condition and In treatment Thrive Assessment: Date of Thrive Assessment Date Thrive assessed 01/27/25 01/27/25 11:48 Currently or been in a relationship where the following occur: I choose not to answer Const General: healthy appearing, no acute distress, alert and awake Nutritional Appearance: well nourished Orientation/consciousness: oriented to person, oriented to place and oriented to time HENMT Ears: TM's normal bilaterally General nose exam: Normal nasal mucous membranes and turbinates present Eyes Conjunctivae: conjunctivae normal Sclerae: sclerae normal Pupils: Equal, round and reactive pupils present Neck Neck: Yes no lymphadenopathy and Yes no JVD Thyroid: Thyroid normal Carotids: no bruits Resp Effort & Inspection: normal respiratory effort and not tachypneic Auscultation: no crackles, no rales, no rhonchi and no wheezes Cardio Rate: regular rate Rhythm: regular rhythm Heart sounds: no murmurs and normal S1 and S2 GI Palpation (GI): Soft to palpation, nontender, no hepatomegaly and no splenomegaly Auscultation: normal bowel sounds Skin General skin exam: no rashes or lesions noted and dry skin Neuro General: oriented to person, oriented to place and oriented to time Cranial nerves: Yes Equal, round and reactive pupils present Speech: No Abnormal speech present Gait exam (Neuro): Normal gait present Motor exam (neuro): no tremor noted Extrem Right upper extremity: full ROM Left upper extremity: full ROM Right lower extremity: full ROM; no edema Left lower extremity: full ROM; no edema Psych Mental Status: mental status grossly normal Speech and movement: Normal speech and movement present Affect: normal affect Attitude: cooperative Thought process: Normal thought process present Coding Level of Care Code Est Pt Level 4 (33688) Diagnoses Fatigue, unspecified type R53.83 Fatigue type: unspecified Fibromyalgia M79.7 Lumbar radiculopathy, chronic M54.16 Class 3 obesity E66.813 Additional Codes ALYSA-7 Assessment Billing - ALYSA-7 Assessment Tool: ALYSA-7 Assessment 62970 ([id number]) PHQ-9 - 56603 - PHQ-9 Billing: Yes ([id number]) Assessment & Plan Assessment & Plan (1) Fatigue: Code(s): R53.83 - Other fatigue Category: Medical Qualifiers: Fatigue type: unspecified Qualified Code(s): R53.83 - Other fatigue Plan: A viral infection is suspected as a potential cause of the patient's fatigue and other symptoms. Laboratory tests are recommended to confirm this diagnosis. (2) Fibromyalgia: Code(s): M79.7 - Fibromyalgia Category: Medical Plan: The patient suspects a flare-up of fibromyalgia due to current symptoms of pain and fatigue. A plan to manage these symptoms includes considering tramadol as a potential treatment option. (3) Lumbar radiculopathy, chronic: Code(s): M54.16 - Radiculopathy, lumbar region Category: Medical Plan: Patient continues to have lower lumbar spine pain along with other pain generators. Also was noted to a right knee ACL tear and moderate to severe arthritis. She is seeing orthopedics and getting injections. She reports none of the pain medication she has been using recently has been helpful. (4) Class 3 obesity: Code(s): E66.813 - Obesity, class 3 Category: Medical Plan: Patient does understand her BMI is over 50 and has had a very difficult time losing weight as she has not been too physically active secondary to her chronic pain. She has not had good success with GLP 1 due to side effects Orders: Orders UA CC w/rflx Micro + Cult 01/27/25 R30.0 - Dysuria, R53.83 - Other fatigue Complete Blood Count no Diff 01/27/25 R53.83 - Other fatigue Comprehensive Met. Panel 01/27/25 R53.83 - Other fatigue Resp Pathogen Panel - [facility] 01/27/25 J06.9 - Acute upper respiratory infection, unspecified, R53.83 - Other fatigue Lipase 01/27/25 R53.83 - Other fatigue Medications: New tramadol 50 mg PO DAILY 10 tabs 0RF 10 days M25.561 - Pain in right knee
== END 2025-01-27 12:28 | disposition home or self-care (01) ==
LOC: HO.HMCH 11:00
PROVIDERS: PCP Physician Assistant; Visit Provider Physician Assistant
DX: R53.83 Other fatigue (principal); M79.7 Fibromyalgia; E66.813 Obesity, class 3; Z68.43 Body mass index [BMI] 50.0-59.9, adult; M54.16 Radiculopathy, lumbar region

== ENCOUNTER → 2025-01-27 10:59 | Outpatient (BNVA) | payer OTHER, SELFPAY | PROVIDERS: PCP Physician Assistant; Visit Provider Physician Assistant | DX: M79.7 Fibromyalgia (principal); R53.83 Other fatigue; M54.16 Radiculopathy, lumbar region; E66.813 Obesity, class 3; Z68.43 Body mass index [BMI] 50.0-59.9, adult; S83.511D Sprain of anterior cruciate ligament of right knee, subsequent encounter; M17.11 Unilateral primary osteoarthritis, right knee; R73.01 Impaired fasting glucose; Z13.31 Encounter for screening for depression; Z13.39 Encounter for screening examination for other mental health and behavioral disorders | CPT/HCPCS: 96127; 99212 ==

== ENCOUNTER → 2025-02-14 17:44 | Outpatient (BNVA) | payer OTHER, SELFPAY | PROVIDERS: PCP Physician Assistant | DX: Z71.3 Dietary counseling and surveillance (principal) | CPT/HCPCS: 99211 ==

== ENCOUNTER 2025-03-29 11:50 | Outpatient (REF) | payer OTHER, SELFPAY ==
[2025-03-29 14:11] LABS: Hematocrit 39.0 % (37.0-47.0); Hemoglobin 12.8 g/dl (12.0-16.0); Mean Corpuscular HGB Conc 32.8 g/dl (31.0-35.0); Mean Corpuscular Hemoglobin 32.6 pg (27.0-33.0); Mean Corpuscular Volume 99.2 fL (80.0-98.0); NRBC Abs Auto 0.000 X10*3/uL (0.0-0.012); NRBC Pct Auto 0.0 /100WBC (0.0-0.2); Platelet Count 269 X10*3/uL (160-400); Red Blood Count 3.93 X10*6/uL (4.20-5.50); White Blood Count 7.7 X10*3/uL (4.8-10.8)
[2025-03-29 14:49] LABS: Alanine Aminotransferase 26 U/L (0-31); Albumin Level 4.6 g/dL (3.5-5.0); Alkaline Phosphatase 92 U/L (39-117); Anion Gap 14 (12-20); Aspartate Amino Transferase 26 U/L (5-31); Blood Urea Nitrogen 13 mg/dL (9-16); Calcium 9.5 mg/dL (8.4-10.2); Carbon Dioxide 33 mmol/L (22-29); Chloride 100 mmol/L (96-108); Estimated Glomerular Filt Rate 59; Lipase 13 U/L (8-78); Potassium 4.0 mmol/L (3.3-5.1); Sodium 143 mmol/L (135-145); Total Protein 7.7 g/dL (6.5-8.0)
== END 2025-03-29 11:51 | disposition home or self-care (01) ==
LOC: HO.LAB 11:50
PROVIDERS: PCP Physician Assistant; Visit Provider Physician Assistant
DX: R53.83 Other fatigue (principal); R73.01 Impaired fasting glucose; R42 Dizziness and giddiness; G45.9 Transient cerebral ischemic attack, unspecified; M79.7 Fibromyalgia; G47.33 Obstructive sleep apnea (adult) (pediatric); F41.0 Panic disorder [episodic paroxysmal anxiety]; L30.9 Dermatitis, unspecified
CPT/HCPCS: 36415; 80053; 83036; 83690; 85027; 99212

== ENCOUNTER 2025-03-29 11:58 | Outpatient (AMB) | payer OTHER, SELFPAY ==
--- NOTE | 2025-03-29 12:16 | A.OFFVIS_ITS ---
Intake Visit Reasons: follow up Allergies ibuprofen (IBUPROFEN) Allergy (Intermediate, Verified 01/27/25 11:57) RASH lisinopril (LISINOPRIL) Allergy (Intermediate, Verified 01/27/25 11:57) RASH lactulose (LACTULOSE) Allergy (Mild, Verified 01/27/25 11:57) STOMACH ACHE duloxetine (From Cymbalta) Adverse Reaction (Intermediate, Verified 01/27/25 11:57) Insomnia gabapentin Adverse Reaction (Intermediate, Verified 01/27/25 11:57) Insomnia semaglutide (From Wegovy) Adverse Reaction (Intermediate, Verified 01/27/25 11:57) Sickness tizanidine Adverse Reaction (Intermediate, Verified 01/27/25 11:57) bradycardia Medication List - Last Reconciled 03/29/25 by May Turpin MD [4 quad cane As directed] albuterol sulfate 90 mcg/actuation (Ventolin HFA) 1 inh inhalation QID 30 days amitriptyline 25 mg PO BEDTIME 30 days amlodipine 5 mg PO DAILY blood pressure kit-extra large As directed buspirone 10 mg PO BID calcitriol 0.25 mcg PO DAILY 30 days calcium citrate 500 mg (2 x 250 mg calcium) PO BID cholecalciferol (vitamin D3) (Vitamin D3) 25 mcg PO DAILY cyanocobalamin (vitamin B-12) 1,000 mcg PO DAILY hydrochlorothiazide 12.5 mg PO DAILY 90 days hyoscyamine sulfate 0.125 mg sublingual BID-QID inhalational spacing device As directed lactulose 10 grams (15 mL) PO BEDTIME PRN meclizine 25 mg PO BID PRN 90 days pantoprazole 40 mg PO DAILY pregabalin 150 mg PO BID 30 days propranolol 10 mg PO BID pyridoxine (vitamin B6) 100 mg PO DAILY zolpidem ER 12.5 mg PO BEDTIME HPI Comments Details: Lot of pain in neck and arms . Had an episode of right face and arm numbness lasted 5 minutes. Some pain and occasional numbness/tingling to RUE and hand, at times goes and limp.?Right hand seems weaker and drops objects. Pain all over body improved some with pregabalin 150mg twice a day and amitriptyline. Gets cramping-type pains with certain movements. Still gets some dizzy spells. Walking with cane, no falls. Bilateral knee OA, had injections in 03/2024 which did not help much. Has had dizziness and balance problems for few years. Gets dizzy when she gets up from sitting position. Her vision was blurred and somewhat dark. Gets nervous and shaky at times, anxious. All of her joints hurt and she also has chronic abdominal pain. Says she has connections to get drugs off the street if necessary. Rare, sharp stabbing pains in right occipital area for few days then resolve. Has some parathyroid problem. Had lipoma removed from R upper chest in 10/2023. [facility] Medical History Fatigue Carpal tunnel syndrome Fibromyalgia Anxiety Migraine Paresthesia Annual physical exam Class 3 obesity Right knee pain Preoperative examination Weakness Malaise and fatigue Rib pain on right side Cough Shortness of breath Pneumonia due to 2019 novel coronavirus Bronchospasm Hand paresthesia Numbness and tingling of right side of face Seroma of musculoskeletal structure after musculoskeletal system procedure Acute torticollis Left shoulder pain Left knee pain Neck pain on right side Back pain Back pain Arthritis of right knee Arthritis of left knee Toe infection Lipoma of back Bilateral kidney stones Suprapubic pain, acute Hypocalcemia Hypokalemia Lipoma of neck RUQ pain Retroperitoneal mass Generalized abdominal pain H/O acute pancreatitis Nausea & vomiting Morbid obesity Obese BMI 45.0-49.9, adult Morbid obesity due to excess calories ALYSA (generalized anxiety disorder) Pancreatitis IBS (irritable bowel syndrome) Arthritis Depression Asthma Sleep apnea HTN (hypertension) Renal calculi Osteopenia Vitamin D deficiency Hypoparathyroidism Renal colic Chronic abdominal pain Surgical History Hx of lipoma Hx of colonoscopy (~08/30/20) H/O thyroidectomy History of esophagogastroduodenoscopy (EGD) History of parathyroid surgery History of hernia repair Status post excision of lipoma (09/26/21) H/O left knee surgery History of cholecystectomy H/O: hysterectomy Family History Father Medical history unknown Mother Cancer Uterine cancer Paternal Grandmother Diabetes Paternal Grandfather Diabetes Daughter Behavioral problem Family/Other FH: mental illness Social History Household Members: None Housing: Apartment Are you a primary special needs caregiver to a significant other at home: No Do you presently have visiting nurse or other home services: No Alcohol intake: never Patient Tobacco Use Status: Never used Tobacco e-Cigarette/Vaping Use: Never Used Second Hand Smoke Exposure: No Advance Directives Date on File: 11/02/21 service: No Current occupational status: unemployed and disabled Cognitive needs: No Hearing needs: No Vision needs: No Review of Systems Const Details: General/Constitutional:? Change in appetitedenies.? Chillsdenies.? Fatiguedenies.? Feverdenies.? Weight gaindenies.? Weight lossdenies. ???Sleep:? Difficulty getting to sleepadmits.? Difficulty maintaining sleepdenies?.? Urge to move legsadmits.? Teeth grindingdenies.? Shouting or Kicking during sleep denies.? Abnormal behavior during sleepdenies.? Excessive sleepdenies.? Snoring admits.? Daytime sleepinessdenies. ???Respiratory:? Shortness of breathdenies.? Chest paindenies.? Coughdenies. ???Cardiovascular:? Chest pain at restdenies.? Chest pain with exertiondenies.? Claudicationdenies .? Dizzinessdenies.? Fluid accumulation in the legsadmits.? Irregular heartbeat denies.? Palpitationsadmits. ???Gastrointestinal:? Abdominal paindenies.? Constipationadmits.? Diarrheaadmits.? Difficulty swallowingdenies.? Heartburnadmits.? Nauseaadmits.? Rectal bleedingdenies. ???Genitourinary:? Frequent urinationdenies.? Urgencydenies.? Incontinencedenies.? Erectile Dysfunctiondenies. ???Musculoskeletal:? Neck painadmits.? Back painadmits.? Muscle achesadmits.? Painful jointsadmits.? Sciaticadenies.? Weaknessdenies. ???Neurologic:? Difficulty swallowingdenies.? Balance difficultydenies.? Coordinationnormal.? Difficulty speakingdenies.? Dizzinessadmits.? Faintingdenies.? Gait abnormality denies.? Headacheadmits.? Loss of strengthdenies.? Loss of use of extremity denies.? Low back paindenies.? Memory lossdenies.? Seizuresdenies.? Ticsdenies.? Tingling/Numbnessadmits.? Transient loss of visiondenies.? Tremoradmits. ???Psychiatric:? Anxietyadmits.? Auditory/visual hallucinationsdenies.? Delusionsdenies.? Depressed moodadmits.? Stressorsadmits.? Substance abusedenies.? Suicidal thou ghtsdenies. Physical Exam Neuro Other: Neurological: Abnormal neurological findings:??Generalized RUE weakness with submaximal effort on voluntary motor testing, walking with cane.?Mental Status:??alert and oriented X 3,?Normal attention, orientation, memory and affect.?Cranial Nerves:??Pupils are equal, round and reactive to light. Fundoscopy shows normal disc bilaterally. External occular muscles are intact. Visual wing are full, no ptosis. Face is symmetrical, no facial weakness or droop. Facial sensations are normal. Tongue protrudes in midline. Palate elevates symmetrically. Shoulder shrugging is normal..?Motor Examination:??As above, otherwise normal muscle tone, bulk and strength,?No atrophy or fasciculations,?No drift of the extended upper extremities,?Deep tendon reflexes are 2+?,?Plantars are flexor?.?Straight Leg Raising:??90 degrees.?Sensory Exam:??Normal light touch, temperature, pinprick, vibration and joint-position sensations?,?Rhomberg sign is absent.?Coordination:??no ataxia,?no titubation,?[id number]-he-[id number], [id number]-aeti-[id number] test and rapid alternating movements were normal.?Gait Exam:??walking with cane.?Cerebellar Signs:??Uxctao-ee-smlp and tcxo-op-vdnd is normal,?no dysdiadochokinesia?.?Extrapyramidal System:??No tremor, rigidity with normal facial expressions,?No bradykinesia, no bradyphrenia. Normal arm swing and posture. No propulsion or retropulsion.?Speech:??Normal,?no dysphasia or dysarthria..? Mini Mental Status Exam: Level of Consciousness:??Alert.?Orientation:??Knows correct year, month, date, day and season,?Knows correct city, county and state. Knows correct location and floor.?Registration:??Able to register 3 objects.?Attention:??Serial 7's performed accurately.?Recall:??Able to recall 3 out of 3 objects.?Language:??Normal spontaneous speech, fluency, repetition,naming, comprehension, reading and writing.?Total Score:??3030.? Assessment & Plan Assessment & Plan (1) Vertigo: Code(s): R42 - Dizziness and giddiness Category: Medical (2) TIA (transient ischemic attack): Code(s): G45.9 - Transient cerebral ischemic attack, unspecified Category: Medical (3) Fibromyalgia: Code(s): M79.7 - Fibromyalgia Category: Medical (4) NAVDEEP (obstructive sleep apnea): Code(s): G47.33 - Obstructive sleep apnea (adult) (pediatric) Category: Medical (5) Generalized anxiety disorder with panic attacks: Code(s): F41.1 - Generalized anxiety disorder; F41.0 - Panic disorder [episodic paroxysmal anxiety] Category: Medical (6) Dermatitis: Code(s): L30.9 - Dermatitis, unspecified Category: Medical Plan Carotid doppler for transient right sided numbness, Betamethasone ronnie. cream for neck dermatitis; Increase Pregabalin to 450mg a day for pain control. Orders: Orders US carotid duplex BI 3 Weeks G45.9 - Transient cerebral ischemic attack, unspecified Medications: New betamethasone valerate 0.1% 1 appl topical BID 45 grams 0RF Changed From pregabalin 150 mg PO BID 30 days 60 caps 0RF To pregabalin 150 mg orally 1 cap in am and 2 at hs; 90 caps 5RF 30 days Coding Level of Care Code Est Pt Level 4 (46818) Diagnoses Vertigo R42 TIA (transient ischemic attack) G45.9 Fibromyalgia M79.7 NAVDEEP (obstructive sleep apnea) G47.33 Generalized anxiety disorder with panic attacks F41.1; F41.0 Dermatitis L30.9
== END 2025-03-29 12:41 | disposition home or self-care (01) ==
LOC: HO.HSM 11:59
PROVIDERS: PCP Physician Assistant; Visit Provider Psychiatry & Neurology Neurology
DX: R42 Dizziness and giddiness (principal); G45.9 Transient cerebral ischemic attack, unspecified; M79.7 Fibromyalgia; G47.33 Obstructive sleep apnea (adult) (pediatric); F41.1 Generalized anxiety disorder; F41.0 Panic disorder [episodic paroxysmal anxiety]; L30.9 Dermatitis, unspecified
CPT/HCPCS: 99214